=== PATIENT | female | born 1990 | race African-American/Black ===

== ENCOUNTER 2019-01-10 18:00 | Inpatient (IN) | payer OTHER ==
--- NOTE | 2019-01-10 18:05 | PDOC ---
Rapid Medical Evaluation Time Seen by Provider: 01/10/19 18:02 Medical Evaluation: 01/10/19 18:03 I have performed a brief in-person evaluation of this patient. The patient presents with a chief complaint of: intractable n/v and abd pain since last night. H/o IDDM, DKA, HTN, CHF Pertinent physical exam findings intractable vomiting in triage, stable by vitals I have ordered the following:labs/FS The patient will proceed to the ED for further evaluation. 01/10/19 18:12 Discharge Disposition - Diagnosis Nausea & vomiting Qualifiers: Vomiting type: unspecified Vomiting Intractability: intractable Qualified Code( s): R11.2 - Nausea with vomiting, unspecified - Referrals - Patient Instructions - Post Discharge Activity
[2019-01-10 18:08] VITALS: BMI 36.0
--- NOTE | 2019-01-10 18:46 | PDOC ---
History of Present Illness - General Chief Complaint: Nausea/Vomiting Stated Complaint: ABD.PAIN/ VOMITING Time Seen by Provider: 01/10/19 18:02 - History of Present Illness Initial Comments: 01/10/19 18:46 Ms. Ledbetter is a 28 yo female w/ pmh of IDDM, Prior DKA, HTN, CHF who presents for evaluation 1 day history of abdominal pain with nausea and vomiting. Patient reports she checked her blood glucose this morning and it read as over range. The patient denies chest pain, shortness of breath, headache and dizziness. Denies fever, chills, diarrhea and constipation. Denies dysuria, frequency, urgency and hematuria. Past History - Past Medical History Allergies/Adverse Reactions: Allergies Allergy/AdvReac Type Severity Reaction Status Date / Time No Known Allergies Allergy Verified 01/10/19 18:24 Home Medications: Ambulatory Orders NK [No Known Home Medication] 01/10/19 COPD: No CHF: Yes HTN: Yes - Immunization History Immunization Up to Date: Yes - Suicide/Smoking/Psychosocial Hx Smoking History: Never smoked Hx Alcohol Use: No Drug/Substance Use Hx: No Review of Systems - Review of Systems Comments:: 01/10/19 22:00 GENERAL/CONSTITUTIONAL: No fever or chills. No weakness. HEAD, EYES, EARS, NOSE AND THROAT: No change in vision. No ear pain or discharge. No sore throat. CARDIOVASCULAR: No chest pain or shortness of breath RESPIRATORY: No cough, wheezing, or hemoptysis. GASTROINTESTINAL: +N/V/Abdominal pain as described. GENITOURINARY: No dysuria, frequency, or change in urination. MUSCULOSKELETAL: No joint or muscle swelling or pain. No neck or back pain. SKIN: No rash NEUROLOGIC: No headache, vertigo, loss of consciousness, or change in strength/ sensation. ENDOCRINE: No increased thirst. No abnormal weight change HEMATOLOGIC/LYMPHATIC: No anemia, easy bleeding, or history of blood clots. ALLERGIC/IMMUNOLOGIC: No hives or skin allergy. *Physical Exam - Vital Signs Last Vital Signs Temp Pulse Resp BP Pulse Ox 76 18 148/90 100 01/10/19 18:04 01/10/19 18:04 01/10/19 18:04 01/10/19 18:04 - Physical Exam Comments: 01/10/19 22:01 GENERAL: +Patient lethargic but responsive. Awake, alert, and fully oriented, in no acute distress HEAD: No signs of trauma, normocephalic, atraumatic EYES: PERRLA, EOMI, sclera anicteric, conjunctiva clear ENT: Auricles normal inspection, hearing grossly normal, nares patent, oropharynx clear without exudates. Moist mucosa NECK: Normal ROM, supple, no lymphadenopathy, JVD, or masses LUNGS: No distress, speaks full sentences, clear to auscultation bilaterally HEART: Regular rate and rhythm, normal S1 and S2, no murmurs, rubs or gallops, peripheral pulses normal and equal bilaterally. ABDOMEN: +Diffuse abdominal TTP. Soft, normoactive bowel sounds. No guarding, no rebound. No masses EXTREMITIES: Normal inspection, Normal range of motion, no edema. No clubbing or cyanosis. NEUROLOGICAL: Cranial nerves II through XII grossly intact. Normal speech, normal gait, no focal sensorimotor deficits SKIN: Warm, Dry, normal turgor, no rashes or lesions noted. Procedures - Central Line Central Line Lumen: triple Central Line Position: femoral (L) Anesthesia: 1% Lidocaine Amount of anesthesia (ccs): 2 Complications: none Post Central Line Insertion: sutured, good blood return ED Treatment Course - LABORATORY CBC & Chemistry Diagram: 01/10/19 22:01 01/11/19 00:15 Medical Decision Making - Medical Decision Making 01/10/19 22:02 Ms. Ledbetter is a 28 yo female w/ pmh as described who presents for evaluation of nausea, vomiting, and abdominal pain concerning for viral illness vs. infection vs. DKA. Patient bgm upon arrival over 500. Patient had repeated attempts at access without success 2/2 difficult anatomy and severe dehydration. Patient given SQ insulin 10 units as temporizing measure. Patient ultimately required and consented to central line. Central line placed in L femoral vein per note above. 01/11/19 00:49 Patient significantly improved following IV fluids and insulin. Patient placed on insulin drip and ICU/hospitalist consulted for admission. 01/11/19 01:21 Patient now alert and oriented. Most recent BMP significant for closure of gap as below. Insulin drip canceled. Patient will be admitted for further evaluation. Laboratory Results - last 24 hr 01/10/19 01/10/19 01/10/19 18:53 22:01 22:01 WBC 6.7 RBC 4.65 Hgb 11.1 Hct 37.2 MCV 79.9 L MCH 23.9 L MCHC 29.9 L RDW 18.0 H Plt Count 311 MPV 10.1 Absolute Neuts (auto) 6.2 Neutrophils % 92.0 H Neutrophils % (Manual) 92.9 H Band Neutrophils % 0.0 Lymphocytes % 5.4 L Lymphocytes % (Manual) 6.1 L Monocytes % 2.1 L Monocytes % (Manual) 0 L Eosinophils % 0.1 Eosinophils % (Manual) 1.0 Basophils % 0.4 Basophils % (Manual) 0.0 Myelocytes % (Man) 0 Promyelocytes % (Man) 0 Blast Cells % (Manual) 0 Nucleated RBC % 0 Metamyelocytes 0 Hypochromia 0 Platelet Estimate Normal Polychromasia 0 Poikilocytosis 3+ Anisocytosis 2+ Microcytosis 2+ Macrocytosis 0 Ovalocytes 1+ VBG pH POC VBG pCO2 POC VBG pO2 VBG HCO3 VBG O2 Sat (Erica) VBG Base Excess Sodium 135 L Potassium 4.8 Chloride 97 L Carbon Dioxide 20 L Anion Gap 19 H BUN 17 Creatinine 1.4 H Est GFR (CKD-EPI)AfAm 59.95 Est GFR (CKD-EPI)NonAf 51.73 POC Glucometer 545 Random Glucose 530 H* Calcium 8.4 L Total Bilirubin 1.0 AST 22 ALT 14 Alkaline Phosphatase 84 Creatine Kinase 232 H Creatine Kinase Index 0.9 CK-MB (CK-2) 2.1 Troponin I 0.42 H B-Natriuretic Peptide Total Protein 6.1 L Albumin 2.3 L Lipase 101 Serum , Qual Urine HCG, Qual Acetone, Qual 01/10/19 01/10/19 01/10/19 22:01 22:01 22:09 WBC RBC Hgb Hct MCV MCH MCHC RDW Plt Count MPV Absolute Neuts (auto) Neutrophils % Neutrophils % (Manual) Band Neutrophils % Lymphocytes % Lymphocytes % (Manual) Monocytes % Monocytes % (Manual) Eosinophils % Eosinophils % (Manual) Basophils % Basophils % (Manual) Myelocytes % (Man) Promyelocytes % (Man) Blast Cells % (Manual) Nucleated RBC % Metamyelocytes Hypochromia Platelet Estimate Polychromasia Poikilocytosis Anisocytosis Microcytosis Macrocytosis Ovalocytes VBG pH Cancelled POC VBG pCO2 Cancelled POC VBG pO2 Cancelled VBG HCO3 Cancelled VBG O2 Sat (Erica) Cancelled VBG Base Excess Cancelled Sodium Potassium Chloride Carbon Dioxide Anion Gap BUN Creatinine Est GFR (CKD-EPI)AfAm Est GFR (CKD-EPI)NonAf POC Glucometer Random Glucose Calcium Total Bilirubin AST ALT Alkaline Phosphatase Creatine Kinase Creatine Kinase Index CK-MB (CK-2) Troponin I B-Natriuretic Peptide Total Protein Albumin Lipase Serum , Qual Negative Urine HCG, Qual Acetone, Qual Positive large 3+ H 01/10/19 01/10/19 01/11/19 23:28 23:40 00:03 WBC RBC Hgb Hct MCV MCH MCHC RDW Plt Count MPV Absolute Neuts (auto) Neutrophils % Neutrophils % (Manual) Band Neutrophils % Lymphocytes % Lymphocytes % (Manual) Monocytes % Monocytes % (Manual) Eosinophils % Eosinophils % (Manual) Basophils % Basophils % (Manual) Myelocytes % (Man) Promyelocytes % (Man) Blast Cells % (Manual) Nucleated RBC % Metamyelocytes Hypochromia Platelet Estimate Polychromasia Poikilocytosis Anisocytosis Microcytosis Macrocytosis Ovalocytes VBG pH 7.38 POC VBG pCO2 36.3 L POC VBG pO2 52.1 H VBG HCO3 21.3 L VBG O2 Sat (Erica) 82.8 H VBG Base Excess -2.7 L Sodium Potassium Chloride Carbon Dioxide Anion Gap BUN Creatinine Est GFR (CKD-EPI)AfAm Est GFR (CKD-EPI)NonAf POC Glucometer 288 Random Glucose Calcium Total Bilirubin AST ALT Alkaline Phosphatase Creatine Kinase Creatine Kinase Index CK-MB (CK-2) Troponin I B-Natriuretic Peptide 26875.9 H Total Protein Albumin Lipase Serum , Qual Urine HCG, Qual Acetone, Qual 01/11/19 01/11/19 01/11/19 00:06 00:15 00:50 WBC RBC Hgb Hct MCV MCH MCHC RDW Plt Count MPV Absolute Neuts (auto) Neutrophils % Neutrophils % (Manual) Band Neutrophils % Lymphocytes % Lymphocytes % (Manual) Monocytes % Monocytes % (Manual) Eosinophils % Eosinophils % (Manual) Basophils % Basophils % (Manual) Myelocytes % (Man) Promyelocytes % (Man) Blast Cells % (Manual) Nucleated RBC % Metamyelocytes Hypochromia Platelet Estimate Polychromasia Poikilocytosis Anisocytosis Microcytosis Macrocytosis Ovalocytes VBG pH POC VBG pCO2 POC VBG pO2 VBG HCO3 VBG O2 Sat (Erica) VBG Base Excess Sodium 137 Potassium 4.1 Chloride 103 Carbon Dioxide 22 Anion Gap 12 BUN 16 Creatinine 1.5 H Est GFR (CKD-EPI)AfAm 55.15 Est GFR (CKD-EPI)NonAf 47.59 POC Glucometer 349 Random Glucose Calcium 8.5 Total Bilirubin AST ALT Alkaline Phosphatase Creatine Kinase 237 H Creatine Kinase Index CK-MB (CK-2) Troponin I 0.37 H B-Natriuretic Peptide Total Protein Albumin Lipase Serum , Qual Urine HCG, Qual Negative Acetone, Qual *DC/Admit/Observation/Transfer Diagnosis at time of Disposition: DKA (diabetic ketoacidoses) Qualifiers: Diabetes mellitus type: other specified (including SUMMER) Diabetes mellitus complication detail: without coma Qualified Code(s): E13.10 - Other specified diabetes mellitus with ketoacidosis without coma - Discharge Dispostion Decision to Admit order: Yes - Referrals - Patient Instructions - Post Discharge Activity
[2019-01-10] MEDS ORDERED: SODIUM CHLORIDE 1,000 ML IV STA ×2 (18:54→22:48)
[2019-01-10] MEDS ORDERED: INSULIN REGULAR HUMAN 100 UNITS/ML *VIAL IVPUSH ONE (18:54)
[2019-01-10] MEDS ORDERED: INSULIN REGULAR HUMAN 100 UNITS/ML *VIAL ONE (18:58)
[2019-01-10] MEDS ORDERED: INSULIN REGULAR HUMAN 100 UNITS/ML *VIAL SQ ONE (19:55)
[2019-01-10] MEDS ORDERED: INSULIN (NOVOLOG) ASPART 100 UNITS/ML 10ML VIAL ONE (20:00)
[2019-01-10 22:54] LABS: ALBUMIN 2.3 g/dl (3.4-5.0); CALCIUM 8.4 mg/dL (8.5-10.1); CREATININE 1.4 mg/dL (0.55-1.3); POTASSIUM 4.8 mmol/L (3.5-5.1); TOT PROT 6.1 g/dl (6.4-8.2)
[2019-01-10] MEDS ORDERED: KETOROLAC TROMETHAMINE 30 MG/1 ML VIAL IVPUSH ONE (23:04)
[2019-01-10] MEDS ORDERED: INSULIN NPH 100 UNITS/ML *VIAL ONE (23:08)
[2019-01-10] MEDS ORDERED: KETOROLAC TROMETHAMINE 30 MG/1 ML VIAL ONE (23:08)
[2019-01-10 23:52] LABS: BASO % 0.4 % (0-2.0); EOS % 0.1 % (0-4.5); HEMATOCRIT 37.2 % (32.4-45.2); HEMOGLOBIN 11.1 GM/dL (10.7-15.3); LYMPH % 5.4 % (8-40); MCH 23.9 pg (25.7-33.7); MCHC 29.9 g/dl (32.0-36.0); MEAN CELL VOLUME 79.9 fl (80-96); MEAN PLT VOLUME 10.1 fl (7.5-11.1); MONO % 2.1 % (3.8-10.2); PLATELET COUNT 311 K/MM3 (134-434); RBC 4.65 M/mm3 (3.60-5.2); WHITE BLOOD COUNT 6.7 K/mm3 (4.0-10.0)
[2019-01-10 23:53] LABS: VENOUS PC02 36.3 mmHg (41-51); VENOUS PH 7.38 (7.31-7.41); VENOUS PO2 52.1 mmHg (30-40)
[2019-01-11] MEDS ORDERED: ONDANSETRON 4 MG/2 ML VIAL IVPUSH ONE (00:01)
[2019-01-11] MEDS ORDERED: SODIUM CHLORIDE 1,000 ML IV STA (00:06)
[2019-01-11] MEDS ORDERED: INSULIN REGULAR 100 UNITS in SODIUM CHLORIDE 99 ML IVPB SCH (00:15)
[2019-01-11 00:59] LABS: ANISOCYTOSIS 2+; MACROCYTOSIS 0; OVALOCYTE 1+; PLATELET ESTIMATE NORMAL
--- NOTE | 2019-01-11 01:04 | PN ---
Teaching Attending Note Name of Resident: Lucretia Rmaon ATTENDING PHYSICIAN STATEMENT I saw and evaluated the patient. I reviewed the resident's note and discussed the case with the resident. I agree with the resident's findings and plan as documented. SUBJECTIVE: Patient is a 28 year old woman with a PMH of IDDM, cocaine abuse, Prior DKA, HTN , and CHF who presents to our ER with 1 day of persistent nausea and vomiting. The patient states she has been having abdominal pain with lethargy secondary to her symptoms. The patient has insulin-dependent diabetes and had a glucose above 500 (checked this morning). The patient denies chest pain, shortness of breath, dizziness, fever, chills, diarrhea, constipation, dysuria, frequency, urgency or hematuria. Patient is single, has a boyfriend and lives with her 7 month old daughter and her sister. Her LMP was 3 weeks ago. Unemployed and on social security disability. She does not offer any reason for her global nonadherence to general care nor why she does not have a PCP/assistant office manager. Has reportedly had over 10 bouts of DKA in the past year. OBJECTIVE: Alert Vital Signs Period Temp Pulse Resp BP Sys/Marquis Pulse Ox Last 24 Hr 76 18 148/90 100 HEENT: No Jaundice, eye redness or discharge, PERRLA, EOMI. Normocephalic, atraumatic. External ears are normal and hearing is grossly intact. No nasal discharge. Neck: Supple, nontender. No palpable adenopathy or thyromegaly. No JVD Chest: Good effort. Clear to auscultation and percussion. Heart: Regular. No S3, rub or murmur Abdomen: Not distended, soft, nontender and no HSM. No rebound or guarding. Normal bowel sounds. Ext: Peripheral pulses intact. No leg edema. Skin: Warm and dry. No petechiae, rash or ecchymosis. Neuro: Alert. Oriented x3. CN 2-12 grossly intact. Sensation grossly intact in all four extremities and DTR are symmetric. Psych: Appropriate mood and affect. Poor insight. Current Medications Generic Name Dose Route Start Last Admin Trade Name Freq PRN Reason Stop Dose Admin Insulin Human Regular 100 100 mls @ 9.52 mls/hr 01/11/19 00:15 units/ Sodium Chloride IVPB TITR ALISA Protocol 0.1 UNITS/KG/HR Sodium Chloride 1,000 mls @ 125 mls/hr 01/11/19 00:06 Normal Saline - IV 01/11/19 08:05 ASDIR STA Home Medications Medication Instructions Recorded NK [No Known Home Medication] 01/10/19 Abnormal Lab Results 01/10/19 01/10/19 01/10/19 22:01 22:01 22:01 MCV 79.9 L MCH 23.9 L MCHC 29.9 L RDW 18.0 H Neutrophils % 92.0 H Neutrophils % (Manual) 92.9 H Lymphocytes % 5.4 L Lymphocytes % (Manual) 6.1 L Monocytes % 2.1 L Monocytes % (Manual) 0 L POC VBG pCO2 POC VBG pO2 VBG HCO3 VBG O2 Sat (Erica) VBG Base Excess Sodium 135 L Chloride 97 L Carbon Dioxide 20 L Anion Gap 19 H Creatinine 1.4 H Random Glucose 530 H* Calcium 8.4 L Creatine Kinase 232 H Troponin I 0.42 H B-Natriuretic Peptide Total Protein 6.1 L Albumin 2.3 L Acetone, Qual Positive large 3+ H 01/10/19 01/10/19 01/11/19 23:28 23:40 00:15 MCV MCH MCHC RDW Neutrophils % Neutrophils % (Manual) Lymphocytes % Lymphocytes % (Manual) Monocytes % Monocytes % (Manual) POC VBG pCO2 36.3 L POC VBG pO2 52.1 H VBG HCO3 21.3 L VBG O2 Sat (Erica) 82.8 H VBG Base Excess -2.7 L Sodium Chloride Carbon Dioxide Anion Gap Creatinine 1.5 H Random Glucose Calcium Creatine Kinase 237 H Troponin I 0.37 H B-Natriuretic Peptide 29097.9 H Total Protein Albumin Acetone, Qual ASSESSMENT AND PLAN: 1. Diabetic ketoacidosis - No obvious precipitating factor besides nonadherence to treatment/diabetes care. Will treat her in the ICU with IV insulin drip, judicious IV fluids in view of CHF history, IV KCL and monitor BMP in accordance with the DKA guidelines. Get ECHO to confirm CHF. Provide comprehensive diabetes care with patient teaching and counseling about the importance of adherence to prescribed diabetes regimen, euglycemia, eye care and foot care. Troponin is elevated and EKG shows sinus tachycardia with T wave inversion in V1 -6. Though her toponin elevation may have a a benign explanation, will rule out ACS especially in view of history of cocaine use. Get urine toxicology. No acute pathology on CXR. Most important, the issue of nonadherence to care will be addressed. Patient appears to have an underlying "psychaitric illness" and will benefit from psychiatry and privacy specialist evaluation. Consult social media campaign manager for referral to [facility] and help set her up with a PCP. Consult endocrine. 2. CKD? - May already have early diabetic nephropathy or idopathic nephrosis. Gentle hydration. Consult nephrology and avoid nephrotoxic agents such as NSAIDS , aminoglycosides, contrast dyes and certain Alternative medicine products. 3. Obesity Counseled on the risks associated with obesity. Will provide patient all the necessary assistance, counseling and positive reinforcement to facilitate weight loss. Consult release manager. 4. Hypertension - Restart outpatient antihypertensive drugs once we can obtain the list. Revise regimen to ensure smooth [id number] good BP control and that she is on an ARB or ACEI. Nonpharmacologic measures to control hypertension like weight loss, salt restriction and exercise discussed. 5. DVT prophylaxis - Heparin 5000u sq tid. 6. Advance directives - Full code
[2019-01-11 01:05] LABS: CALCIUM 8.5 mg/dL (8.5-10.1); CREATININE 1.5 mg/dL (0.55-1.3); POTASSIUM 4.1 mmol/L (3.5-5.1)
[2019-01-11 01:14] LABS: HCG,QUALITATIVE URINE Negative
[2019-01-11 01:18] LABS: EPI CELLS 2.9 /HPF (0-5/HPF); HYALINE CASTS 4 /lpf (0-8); PH,URINE 5.5 (5.0-8.0); URINE APPEARANCE CLEAR; URINE BACTERIA 45.4 /hpf (NEGATIVE); URINE BILIRUBIN NEGATIVE (NEGATIVE); URINE COLOR YELLOW; URINE GLUCOSE (UA) 3+ (NEGATIVE); URINE KETONE 4+ (NEGATIVE); URINE LEUK ESTERASE NEGATIVE (NEGATIVE); URINE NITRITE NEGATIVE (NEGATIVE); URINE PROTEIN 3+ (NEGATIVE); URINE RBC 5 /hpf (0-4); URINE UROBILINOGEN 0.2 mg/dL (0.2-1.0); URINE WBC 3 /hpf (0-5)
[2019-01-11] MEDS ORDERED: ONDANSETRON 4 MG/2 ML VIAL ONE (01:20)
--- NOTE | 2019-01-11 01:27 | PDOC ---
Documentation entered by Warren Pena SCRIBE, acting as scribe for Stephanie Sosa MD. Stephanie Sosa MD: This documentation has been prepared by the Jean garcia Xhesika, SCRIBE, under my direction and personally reviewed by me in its entirety. I confirm that the documentation accurately reflects all work, treatment, procedures, and medical decision making performed by me. Attending Attestation - Resident Resident Name: Sarkis Demarco - ED Attending Attestation I have performed the following: I have examined & evaluated the patient, The case was reviewed & discussed with the resident, I agree w/resident's findings & plan, Exceptions are as noted - HPI HPI: 01/10/19 21:58 28-year-old female who is noted to a facility presents with persistent nausea and vomiting. She reports that this started last evening. He is an insulin- dependent diabetic and presents with vomiting, increased lethargy and a glucose above 500 01/10/19 22:14 The patient is a 28 year old female with a significant past medical history of IDDM, Prior DKA, HTN, and CHF who presents to our ED with 1 day of persistent nausea and vomiting. The patient states she has been endorsing abdominal pain and lethargy, secondary to her symptoms. The patient is an insulin-dependent diabetic and had a glucose above 500 (checked this morning). The patient denies chest pain, shortness of breath or dizziness. The patient denies fever, chills, diarrhea or constipation. The patient denies dysuria, frequency, urgency or hematuria. Allergy: NKDA Surgical History: None reported Social History: None reported - Physicial Exam PE: 01/10/19 22:46 Somnolent 28 yo female who reports nausea and vomiting head ncat Dry mucus membranes neck supple lungs cta b/l cvs [id number] abd soft ext no edema skin warm and dry neuro somnolent - Medical Decision Making 01/11/19 01:10 after several attempts ate peripheral line, a central line was placed pt given insulin,IVF( pt has history of chf, so careful use of IVF) 01/11/19 01:26 +3 acetone imp DKA , pt admitted
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
[2019-01-11] MEDS ORDERED: LACTATED RINGERS SOLUTION 1,000 ML/1,000 ML INFUS.BAG IV SCH (02:30)
[2019-01-11 05:17] LABS: COCAINE, UR NEGATIVE ng/ml (CUTOFF=300); METHADONE, UR NEGATIVE ng/ml (CUTOFF=300); OPIATES, URI NEGATIVE ng/ml (CUTOFF=300); PHENCYCLIDINE,URINE NEGATIVE ng/ml (CUTOFF=25); URINE AMPHETAMINES NEGATIVE ng/ml (CUTOFF=500); URINE BARBITURATES NEGATIVE ng/ml (CUTOFF=200); URINE BENZODIAZEPINES NEGATIVE ng/ml (CUTOFF=200)
[2019-01-11 05:24] LABS: BASO % 0.5 % (0-2.0); EOS % 0.1 % (0-4.5); HEMATOCRIT 32.9 % (32.4-45.2); HEMOGLOBIN 10.2 GM/dL (10.7-15.3); LYMPH % 12.1 % (8-40); MCH 24.3 pg (25.7-33.7); MCHC 31.1 g/dl (32.0-36.0); MEAN CELL VOLUME 78.2 fl (80-96); MEAN PLT VOLUME 9.7 fl (7.5-11.1); MONO % 7.6 % (3.8-10.2); NEUT % 79.7 % (42.8-82.8); PLATELET COUNT 336 K/MM3 (134-434); RBC 4.21 M/mm3 (3.60-5.2); RDW 17.8 % (11.6-15.6); WHITE BLOOD COUNT 8.9 K/mm3 (4.0-10.0)
[2019-01-11] MEDS ORDERED: PROCHLORPERAZINE INJECTION 10 MG/2 ML VIAL IVPB ONE (05:58)
[2019-01-11] MEDS ORDERED: ACETAMINOPHEN 325 MG TABLET (FP) PO ONE (05:59)
[2019-01-11 06:00] LABS: ALBUMIN 2.2 g/dl (3.4-5.0); BILIRUBIN,TOTAL 0.6 mg/dL (0.2-1); CALCIUM 7.9 mg/dL (8.5-10.1); CREATININE 1.1 mg/dL (0.55-1.3); MAGNESIUM 1.9 mg/dL (1.8-2.4); PHOSPHOROUS 3.6 mg/dL (2.5-4.9); POTASSIUM 4.2 mmol/L (3.5-5.1); TOT PROT 5.5 g/dl (6.4-8.2)
[2019-01-11] MEDS ORDERED: ENALAPRIL MALEATE 5 MG TABLET (FP) PO ONE (06:05)
[2019-01-11] MEDS ORDERED: ACETAMINOPHEN 325 MG TABLET (FP) ONE (06:15)
[2019-01-11] MEDS ORDERED: HEPARIN NA (PORCINE) 5,000 UNITS/ML 1ML VIAL ONE (06:16)
[2019-01-11] MEDS ORDERED: INSULIN (NOVOLOG) ASPART 100 UNITS/ML 10ML VIAL ONE ×3 (06:17→17:26)
[2019-01-11] MEDS: HEPARIN NA (PORCINE) 5,000 UNITS/ML 1ML VIAL SQ SCH ×2 (06:23→16:59)
[2019-01-11] MEDS: INSULIN SLIDING SCALE (NOVOLOG) 1 VIAL SQ SCH ×5 (06:32→23:02)
[2019-01-11] MEDS ORDERED: SODIUM CHLORIDE 250 ML IV STA (06:42)
--- NOTE | 2019-01-11 08:24 | PN ---
Teaching Attending Note Name of Resident: Flaco Mercedes ATTENDING PHYSICIAN STATEMENT I saw and evaluated the patient. I reviewed the resident's note and discussed the case with the resident. I agree with the resident's findings and plan as documented. 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 non focal CBC, BMP 01/11/19 05:08 01/11/19 05:08 TROP I: .41, .37, .42 EK low voltage QS V-V3 T wave I a V456 ECHO; EF 35%, Pulmonary HTN, moderate pericardial effusion, no RV collapse, but MV flow change with respiration suggestive of tamponade pysiology Active Medications Active Medications Chlorhexidine Gluconate (Hibiclens For Decolonization -) 1 applic TP HS [facility] Citalopram Hydrobromide (Celexa -) 20 mg PO DAILY [facility] Enalapril Maleate (Vasotec -) 5 mg PO DAILY [facility] Furosemide (Lasix Injection -) 40 mg IVPUSH DAILY [facility] Last Admin: 01/11/19 17:24 Dose: 40 mg Famotidine/Sodium Chloride (Pepcid 20 Mg Premixed Ivpb -) 20 mg in 50 mls @ 100 mls/hr IVPB BID [facility] Insulin Aspart (Novolog Vial Sliding Scale -) 1 vial SQ ACHS [facility]; Protocol Last Admin: 01/11/19 17:23 Dose: 4 unit Insulin Detemir (Levemir Vial) 28 units SQ HS ALISA Insulin Detemir (Levemir Vial) 18 units SQ ONCE ONE Stop: 01/11/19 22:01 Mupirocin (Bactroban Ointment (For Decolonization) -) 1 applic NS BID [facility] Stop: 01/16/19 09:59 Ondansetron HCl (Zofran Injection) 4 mg IVPUSH Q6H PRN PRN Reason: NAUSEA ASSESSMENT AND PLAN:Patient is a 28 yrs old F non compliant, homeless, active cocaine abuse, F/U mostly at [facility] poor historian [id number] since the age of 7, HTN, episodes of DKA with cocaine abuse, CHF diagnosed in Jul 2018 ws told that iit will improve with time yesterday admitted with presents for abdominal pain, nausea, and vomiting with dehydration, elevated AG, Acetone in te urine low Bicarb RPG > 500 consistent DKA although PH was 7.39, ECHO shows low EF and Pericardial effusion.. Problem List - Problems (1) DKA (diabetic ketoacidoses) Assessment/Plan: Patient present with DKA with aniongap that close with IV Hydration and Insulin Injection, now no nausea or vomiting, tolerating PO, lipase normal Start wt based Basal bolus insulin Levimir 25 units bed time today received 10 units in am due for 18 in PM accucheck, diabetic Diet, no infectious source , U Tox -ve will F/U BMP HBA1C is 10.3 Code(s): E11.10 - TYPE 2 DIABETES MELLITUS WITH KETOACIDOSIS WITHOUT COMA Qualifiers: Diabetes mellitus type: other specified (including SUMMER) Diabetes mellitus complication detail: without coma Qualified Code(s): E13.10 - Other specified diabetes mellitus with ketoacidosis without coma (2) Heart failure, systolic, with acute decompensation Assessment/Plan: low Ef unsure if cocaine induced or post , resume enarlapril , Lasix 40 mg sissy Defer B Blockers need official cardiology consult Code(s): I50.23 - ACUTE ON CHRONIC SYSTOLIC (CONGESTIVE) HEART FAILURE (3) Pericardial effusion Assessment/Plan: un known etiology f/u TSH ESR, CRP and NATALEE, hold SQ Heparin, possibly myopericardiatis as patient has elevated troponin I, ECHO shows moderate effusiin with ? Tamponade Physiology but patient is comfortabe, good pulse pressure no facial congestion , no orthopnea, heart sounds are well audiable will F/U clinically and cardiology input. Code(s): I31.3 - PERICARDIAL EFFUSION (NONINFLAMMATORY) (4) SHANE (acute kidney injury) Assessment/Plan: Improved after Hydration Code(s): N17.9 - ACUTE KIDNEY FAILURE, UNSPECIFIED (5) Elevated troponin I level Assessment/Plan: Flat with pericardial effusion, less likely ischemic either cocaine induced or myopericardiatis needs oficial cardiology consult, observe closely for decompensation. Code(s): R74.8 - ABNORMAL LEVELS OF OTHER SERUM ENZYMES
[2019-01-11] MEDS ORDERED: INSULIN (LEVEMIR) 100 UNITS/ML UNITS SQ ONE ×3 (08:27→22:00)
[2019-01-11] MEDS ORDERED: MUPIROCIN 2% TOPICAL OINTMENT FOR DECOLONIZATION NS SCH (10:00)
--- NOTE | 2019-01-11 10:50 | ECHO ---
Version: 1 Name: SAM EAGLE Exam: Adult Echocardiogram Study Date: 01/11/2019, 9:02 AM Age: 28 Years MMode/2D Measurements & Calculations IVSd: 0.97 cm LVIDs: 5.3 cm LVIDd: 6.6 cm LVPWd: 1.00 cm LVOT diam: 1.96 cm Ao root diam: 2.6 cm LA dimension: 4.3 cm Doppler Measurements & Calculations MV E max jarret: 115.5 cm/sec Med E/e': 14.7 MV A max jarret: 70.1 cm/sec Med Peak E' Jarret: 7.9 cm/sec MV E/A: 1.65 MR max P.5 mmHg Ao max P.7 mmHg RAFAEL(I,D): 1.67 cm Ao mean P.8 mmHg LV V1 mean: 85.3 cm/sec Ao V2 max: 216.0 cm/sec LV V1 mean P.6 mmHg TR max jarret: 299.1 cm/sec TR max P.8 mmHg Left Ventricle Mild LV Dilation with a moderate decrease in LV function. Abnormal diastolic relaxation. Right Ventricle The right ventricle is normal in size and function. Atria The left atrium is mildly dilated. Mitral Valve The mitral valve is grossly normal. There is moderate to severe mitral regurgitation. Tricuspid Valve The tricuspid valve is not well visualized, but is grossly normal. There is mild to moderate tricusp id regurgitation. Aortic Valve Calcified aortic valve with mild aortic stenosis. Max PG 19 mmHg, mean PG 11 mmHg. The RAFAEL is 1.74 c m. Pulmonic Valve The pulmonic valve is not well seen, but is grossly normal. Great Vessels The aortic root is normal size. Pericardium/Pleura There is at least a moderate pericardial effusion. There is no RV diastolic collapse, however there is respiratory variation of the mitral valve inflow Doppler pattern consistent with tamponade physiolog y. Summary Statements Mild LV Dilation with a moderate decrease in LV function. There is moderate to severe mitral regurgitation. There is mild to moderate tricuspid regurgitation. Calcified aortic valve with mild aortic stenosis. Max PG 19 mmHg, mean PG 11 mmHg. The RAFAEL is 1.74 c m. There is at least a moderate pericardial effusion. There is no RV diastolic collapse, however there is respiratory variation of the mitral valve inflow Doppler pattern consistent with tamponade physiolog y. EF 37% PASP 38 -43 mmHg consistent with mild to modereate pulmonary HTN. MD Ronak Lopez 01/11/2019, 9:50 AM Ordering Physician: MARY HERNANDEZ Referring Physician: ABHINAV LEON Performed By: Aurelia Alexander
--- NOTE | 2019-01-11 12:07 | EKG ---
Test Reason : Blood Pressure : / mmHG Vent. Rate : 106 BPM Atrial Rate : 106 BPM P-R Int : 130 ms QRS Dur : 082 ms QT Int : 370 ms P-R-T Axes : 066 040 -45 degrees QTc Int : 491 ms SINUS TACHYCARDIA WITH FREQUENT PREMATURE VENTRICULAR COMPLEXES LEFT ATRIAL ENLARGEMENT LOW VOLTAGE QRS CANNOT RULE OUT ANTERIOR INFARCT , AGE UNDETERMINED T WAVE ABNORMALITY, CONSIDER LATERAL ISCHEMIA ABNORMAL ECG NO PREVIOUS ECGS AVAILABLE Confirmed by MD John, Ronak ([id number]) on 01/11/2019 12:07:14 PM Referred By: Confirmed By:Ronak Lopez MD
--- NOTE | 2019-01-11 13:18 | PN ---
Physical Exam: SUBJECTIVE: Patient seen and examined. Pt. states that she feels good. She states she was throwing up earlier w/ associated abdominal pain but feels better. Pt. states that she is not compliant with her medications but that when she last checked her Glucose it was "off the charts." Pt. states that she lives in a [place] and that her daughter (born last eb) is taken care of by her sister. Pt. states that she was at [facility] last week for dehydration and had to receive "lots of insulin." Pt. states she was diagnosed with Diabetes at [facility]. OBJECTIVE: Vital Signs Period Temp Pulse Resp BP Sys/Marquis Pulse Ox Last 24 Hr 98.3 F-98.9 F 72-106 16-20 117-160/78-90 98-100 GENERAL: The patient is drowsy, in no acute distress. HEAD: Normal with no signs of trauma. EYES: extraocular movements intact, sclera anicteric, conjunctiva clear. ENT: Ears normal, nares patent, oropharynx clear without exudates, Dry mucous membranes. LUNGS: Breath sounds equal, clear to auscultation bilaterally, no wheezes, no crackles, no accessory muscle use. HEART: distant heart sounds, regular rate and rhythm, S1, S2 without murmur ABDOMEN: Soft, mild epigastric tenderness, nondistended, normoactive bowel sounds, no guarding, no rebound EXTREMITIES: 2+ dorsal pedal pulses, warm, well-perfused, no edema. NEUROLOGICAL: Normal speech, gait not observed. PSYCH: Normal mood, normal affect. SKIN: Warm, dry, normal turgor, no rashes or lesions noted Laboratory Results - last 24 hr 01/10/19 01/10/19 01/10/19 18:53 22:01 22:01 WBC 6.7 RBC 4.65 Hgb 11.1 Hct 37.2 MCV 79.9 L MCH 23.9 L MCHC 29.9 L RDW 18.0 H Plt Count 311 MPV 10.1 Absolute Neuts (auto) 6.2 Neutrophils % 92.0 H Neutrophils % (Manual) 92.9 H Band Neutrophils % 0.0 Lymphocytes % 5.4 L Lymphocytes % (Manual) 6.1 L Monocytes % 2.1 L Monocytes % (Manual) 0 L Eosinophils % 0.1 Eosinophils % (Manual) 1.0 Basophils % 0.4 Basophils % (Manual) 0.0 Myelocytes % (Man) 0 Promyelocytes % (Man) 0 Blast Cells % (Manual) 0 Nucleated RBC % 0 Metamyelocytes 0 Hypochromia 0 Platelet Estimate Normal Polychromasia 0 Poikilocytosis 3+ Anisocytosis 2+ Microcytosis 2+ Macrocytosis 0 Ovalocytes 1+ VBG pH POC VBG pCO2 POC VBG pO2 VBG HCO3 VBG O2 Sat (Erica) VBG Base Excess Sodium 135 L Potassium 4.8 Chloride 97 L Carbon Dioxide 20 L Anion Gap 19 H BUN 17 Creatinine 1.4 H Est GFR (CKD-EPI)AfAm 59.95 Est GFR (CKD-EPI)NonAf 51.73 POC Glucometer 545 Random Glucose 530 H* Hemoglobin A1c % Lactic Acid Calcium 8.4 L Phosphorus Magnesium Total Bilirubin 1.0 AST 22 ALT 14 Alkaline Phosphatase 84 Creatine Kinase 232 H Creatine Kinase Index 0.9 CK-MB (CK-2) 2.1 Troponin I 0.42 H B-Natriuretic Peptide Total Protein 6.1 L Albumin 2.3 L Lipase 101 Serum , Qual Urine Color Urine Appearance Urine pH Ur Specific Pender Urine Protein Urine Glucose (UA) Urine Ketones Urine Blood Urine Nitrite Urine Bilirubin Urine Urobilinogen Ur Leukocyte Esterase Urine WBC (Auto) Urine RBC (Auto) Urine Casts (Auto) U Epithel Cells (Auto) Urine Bacteria (Auto) Urine HCG, Qual Opiates Screen Methadone Screen Barbiturate Screen Phencyclidine Screen Ur Amphetamines Screen MDMA (Ecstasy) Screen Benzodiazepines Screen Cocaine Screen U Marijuana (THC) Screen Acetone, Qual 01/10/19 01/10/19 01/10/19 22:01 22:01 22:09 WBC RBC Hgb Hct MCV MCH MCHC RDW Plt Count MPV Absolute Neuts (auto) Neutrophils % Neutrophils % (Manual) Band Neutrophils % Lymphocytes % Lymphocytes % (Manual) Monocytes % Monocytes % (Manual) Eosinophils % Eosinophils % (Manual) Basophils % Basophils % (Manual) Myelocytes % (Man) Promyelocytes % (Man) Blast Cells % (Manual) Nucleated RBC % Metamyelocytes Hypochromia Platelet Estimate Polychromasia Poikilocytosis Anisocytosis Microcytosis Macrocytosis Ovalocytes VBG pH Cancelled POC VBG pCO2 Cancelled POC VBG pO2 Cancelled VBG HCO3 Cancelled VBG O2 Sat (Erica) Cancelled VBG Base Excess Cancelled Sodium Potassium Chloride Carbon Dioxide Anion Gap BUN Creatinine Est GFR (CKD-EPI)AfAm Est GFR (CKD-EPI)NonAf POC Glucometer Random Glucose Hemoglobin A1c % Lactic Acid Calcium Phosphorus Magnesium Total Bilirubin AST ALT Alkaline Phosphatase Creatine Kinase Creatine Kinase Index CK-MB (CK-2) Troponin I B-Natriuretic Peptide Total Protein Albumin Lipase Serum , Qual Negative Urine Color Urine Appearance Urine pH Ur Specific Pender Urine Protein Urine Glucose (UA) Urine Ketones Urine Blood Urine Nitrite Urine Bilirubin Urine Urobilinogen Ur Leukocyte Esterase Urine WBC (Auto) Urine RBC (Auto) Urine Casts (Auto) U Epithel Cells (Auto) Urine Bacteria (Auto) Urine HCG, Qual Opiates Screen Methadone Screen Barbiturate Screen Phencyclidine Screen Ur Amphetamines Screen MDMA (Ecstasy) Screen Benzodiazepines Screen Cocaine Screen U Marijuana (THC) Screen Acetone, Qual Positive large 3+ H 01/10/19 01/10/19 01/11/19 23:28 23:40 00:03 WBC RBC Hgb Hct MCV MCH MCHC RDW Plt Count MPV Absolute Neuts (auto) Neutrophils % Neutrophils % (Manual) Band Neutrophils % Lymphocytes % Lymphocytes % (Manual) Monocytes % Monocytes % (Manual) Eosinophils % Eosinophils % (Manual) Basophils % Basophils % (Manual) Myelocytes % (Man) Promyelocytes % (Man) Blast Cells % (Manual) Nucleated RBC % Metamyelocytes Hypochromia Platelet Estimate Polychromasia Poikilocytosis Anisocytosis Microcytosis Macrocytosis Ovalocytes VBG pH 7.38 POC VBG pCO2 36.3 L POC VBG pO2 52.1 H VBG HCO3 21.3 L VBG O2 Sat (Erica) 82.8 H VBG Base Excess -2.7 L Sodium Potassium Chloride Carbon Dioxide Anion Gap BUN Creatinine Est GFR (CKD-EPI)AfAm Est GFR (CKD-EPI)NonAf POC Glucometer 288 Random Glucose Hemoglobin A1c % Lactic Acid Calcium Phosphorus Magnesium Total Bilirubin AST ALT Alkaline Phosphatase Creatine Kinase Creatine Kinase Index CK-MB (CK-2) Troponin I B-Natriuretic Peptide 70215.9 H Total Protein Albumin Lipase Serum , Qual Urine Color Urine Appearance Urine pH Ur Specific Pender Urine Protein Urine Glucose (UA) Urine Ketones Urine Blood Urine Nitrite Urine Bilirubin Urine Urobilinogen Ur Leukocyte Esterase Urine WBC (Auto) Urine RBC (Auto) Urine Casts (Auto) U Epithel Cells (Auto) Urine Bacteria (Auto) Urine HCG, Qual Opiates Screen Methadone Screen Barbiturate Screen Phencyclidine Screen Ur Amphetamines Screen MDMA (Ecstasy) Screen Benzodiazepines Screen Cocaine Screen U Marijuana (THC) Screen Acetone, Qual 01/11/19 01/11/19 01/11/19 00:06 00:15 00:50 WBC RBC Hgb Hct MCV MCH MCHC RDW Plt Count MPV Absolute Neuts (auto) Neutrophils % Neutrophils % (Manual) Band Neutrophils % Lymphocytes % Lymphocytes % (Manual) Monocytes % Monocytes % (Manual) Eosinophils % Eosinophils % (Manual) Basophils % Basophils % (Manual) Myelocytes % (Man) Promyelocytes % (Man) Blast Cells % (Manual) Nucleated RBC % Metamyelocytes Hypochromia Platelet Estimate Polychromasia Poikilocytosis Anisocytosis Microcytosis Macrocytosis Ovalocytes VBG pH POC VBG pCO2 POC VBG pO2 VBG HCO3 VBG O2 Sat (Erica) VBG Base Excess Sodium 137 Potassium 4.1 Chloride 103 Carbon Dioxide 22 Anion Gap 12 BUN 16 Creatinine 1.5 H Est GFR (CKD-EPI)AfAm 55.15 Est GFR (CKD-EPI)NonAf 47.59 POC Glucometer 349 Random Glucose 310 H* Hemoglobin A1c % Lactic Acid Calcium 8.5 Phosphorus Magnesium Total Bilirubin AST ALT Alkaline Phosphatase Creatine Kinase 237 H Creatine Kinase Index 0.9 CK-MB (CK-2) 2.2 Troponin I 0.37 H B-Natriuretic Peptide Total Protein Albumin Lipase Serum , Qual Urine Color Yellow Urine Appearance Clear Urine pH 5.5 Ur Specific Pender 1.028 Urine Protein 3+ H Urine Glucose (UA) 3+ H Urine Ketones 4+ H Urine Blood 2+ H Urine Nitrite Negative Urine Bilirubin Negative Urine Urobilinogen 0.2 Ur Leukocyte Esterase Negative Urine WBC (Auto) 3 Urine RBC (Auto) 5 Urine Casts (Auto) 4 U Epithel Cells (Auto) 2.9 Urine Bacteria (Auto) 45.4 Urine HCG, Qual Negative Opiates Screen Methadone Screen Barbiturate Screen Phencyclidine Screen Ur Amphetamines Screen MDMA (Ecstasy) Screen Benzodiazepines Screen Cocaine Screen U Marijuana (THC) Screen Acetone, Qual 01/11/19 01/11/19 01/11/19 03:07 04:48 05:08 WBC RBC Hgb Hct MCV MCH MCHC RDW Plt Count MPV Absolute Neuts (auto) Neutrophils % Neutrophils % (Manual) Band Neutrophils % Lymphocytes % Lymphocytes % (Manual) Monocytes % Monocytes % (Manual) Eosinophils % Eosinophils % (Manual) Basophils % Basophils % (Manual) Myelocytes % (Man) Promyelocytes % (Man) Blast Cells % (Manual) Nucleated RBC % Metamyelocytes Hypochromia Platelet Estimate Polychromasia Poikilocytosis Anisocytosis Microcytosis Macrocytosis Ovalocytes VBG pH POC VBG pCO2 POC VBG pO2 VBG HCO3 VBG O2 Sat (Erica) VBG Base Excess Sodium Potassium Chloride Carbon Dioxide Anion Gap BUN Creatinine Est GFR (CKD-EPI)AfAm Est GFR (CKD-EPI)NonAf POC Glucometer 325 Random Glucose Hemoglobin A1c % Lactic Acid 1.5 Calcium Phosphorus Magnesium Total Bilirubin AST ALT Alkaline Phosphatase Creatine Kinase Creatine Kinase Index CK-MB (CK-2) Troponin I B-Natriuretic Peptide Total Protein Albumin Lipase Serum , Qual Urine Color Urine Appearance Urine pH Ur Specific Pender Urine Protein Urine Glucose (UA) Urine Ketones Urine Blood Urine Nitrite Urine Bilirubin Urine Urobilinogen Ur Leukocyte Esterase Urine WBC (Auto) Urine RBC (Auto) Urine Casts (Auto) U Epithel Cells (Auto) Urine Bacteria (Auto) Urine HCG, Qual Opiates Screen Negative Methadone Screen Negative Barbiturate Screen Negative Phencyclidine Screen Negative Ur Amphetamines Screen Negative MDMA (Ecstasy) Screen Negative Benzodiazepines Screen Negative Cocaine Screen Negative U Marijuana (THC) Screen Negative Acetone, Qual 01/11/19 01/11/19 01/11/19 05:08 05:08 05:08 WBC 8.9 RBC 4.21 Hgb 10.2 L Hct 32.9 MCV 78.2 L MCH 24.3 L MCHC 31.1 L RDW 17.8 H Plt Count 336 MPV 9.7 Absolute Neuts (auto) 7.1 Neutrophils % 79.7 Neutrophils % (Manual) Band Neutrophils % Lymphocytes % 12.1 D Lymphocytes % (Manual) Monocytes % 7.6 D Monocytes % (Manual) Eosinophils % 0.1 Eosinophils % (Manual) Basophils % 0.5 Basophils % (Manual) Myelocytes % (Man) Promyelocytes % (Man) Blast Cells % (Manual) Nucleated RBC % 0 Metamyelocytes Hypochromia Platelet Estimate Polychromasia Poikilocytosis Anisocytosis Microcytosis Macrocytosis Ovalocytes VBG pH POC VBG pCO2 POC VBG pO2 VBG HCO3 VBG O2 Sat (Erica) VBG Base Excess Sodium 133 L Potassium 4.2 Chloride 99 Carbon Dioxide 21 Anion Gap 13 BUN 15 Creatinine 1.1 Est GFR (CKD-EPI)AfAm 80.24 Est GFR (CKD-EPI)NonAf 69.24 POC Glucometer Random Glucose 302 H* Hemoglobin A1c % 10.3 H Lactic Acid Calcium 7.9 L Phosphorus 3.6 Magnesium 1.9 Total Bilirubin 0.6 AST 21 ALT 13 Alkaline Phosphatase 70 Creatine Kinase 231 H Creatine Kinase Index 0.9 CK-MB (CK-2) 2.2 Troponin I 0.41 H B-Natriuretic Peptide Total Protein 5.5 L Albumin 2.2 L Lipase Serum , Qual Urine Color Urine Appearance Urine pH Ur Specific Pender Urine Protein Urine Glucose (UA) Urine Ketones Urine Blood Urine Nitrite Urine Bilirubin Urine Urobilinogen Ur Leukocyte Esterase Urine WBC (Auto) Urine RBC (Auto) Urine Casts (Auto) U Epithel Cells (Auto) Urine Bacteria (Auto) Urine HCG, Qual Opiates Screen Methadone Screen Barbiturate Screen Phencyclidine Screen Ur Amphetamines Screen MDMA (Ecstasy) Screen Benzodiazepines Screen Cocaine Screen U Marijuana (THC) Screen Acetone, Qual 01/11/19 01/11/19 06:27 11:59 WBC RBC Hgb Hct MCV MCH MCHC RDW Plt Count MPV Absolute Neuts (auto) Neutrophils % Neutrophils % (Manual) Band Neutrophils % Lymphocytes % Lymphocytes % (Manual) Monocytes % Monocytes % (Manual) Eosinophils % Eosinophils % (Manual) Basophils % Basophils % (Manual) Myelocytes % (Man) Promyelocytes % (Man) Blast Cells % (Manual) Nucleated RBC % Metamyelocytes Hypochromia Platelet Estimate Polychromasia Poikilocytosis Anisocytosis Microcytosis Macrocytosis Ovalocytes VBG pH POC VBG pCO2 POC VBG pO2 VBG HCO3 VBG O2 Sat (Erica) VBG Base Excess Sodium Potassium Chloride Carbon Dioxide Anion Gap BUN Creatinine Est GFR (CKD-EPI)AfAm Est GFR (CKD-EPI)NonAf POC Glucometer 332 339 Random Glucose Hemoglobin A1c % Lactic Acid Calcium Phosphorus Magnesium Total Bilirubin AST ALT Alkaline Phosphatase Creatine Kinase Creatine Kinase Index CK-MB (CK-2) Troponin I B-Natriuretic Peptide Total Protein Albumin Lipase Serum , Qual Urine Color Urine Appearance Urine pH Ur Specific Pender Urine Protein Urine Glucose (UA) Urine Ketones Urine Blood Urine Nitrite Urine Bilirubin Urine Urobilinogen Ur Leukocyte Esterase Urine WBC (Auto) Urine RBC (Auto) Urine Casts (Auto) U Epithel Cells (Auto) Urine Bacteria (Auto) Urine HCG, Qual Opiates Screen Methadone Screen Barbiturate Screen Phencyclidine Screen Ur Amphetamines Screen MDMA (Ecstasy) Screen Benzodiazepines Screen Cocaine Screen U Marijuana (THC) Screen Acetone, Qual Active Medications Home Medications Medication Instructions Recorded Carvedilol 25 mg PO BID 01/11/19 Citalopram Hydrobromide 20 mg PO DAILY 01/11/19 [Citalopram HBr] Enalapril Maleate 5 mg PO DAILY 01/11/19 Furosemide 20 mg PO DAILY 01/11/19 Insulin Glargine,Hum.rec.anlog 18 mg SQ DAILY 01/11/19 [Basaglar Kwikpen U-100] Magnesium Oxide 1,200 mg PO BID 01/11/19 Current Medications Chlorhexidine Gluconate (Hibiclens For Decolonization -) 1 applic TP [facility] Enalapril Maleate (Vasotec -) 5 mg PO DAILY [facility] Heparin Sodium (Porcine) (Heparin -) 5,000 unit SQ TID [facility] Last Admin: 01/11/19 06:23 Dose: 5,000 unit Lactated Ringer's (Lactated Ringers Solution) 1,000 ml in 1,000 mls @ 75 mls/ hr IV ASDIR [facility] Last Admin: 01/11/19 03:19 Dose: 75 mls/hr Insulin Aspart (Novolog Vial Sliding Scale -) 1 vial SQ [facility]; Protocol Last Admin: 01/11/19 12:01 Dose: 8 unit Insulin Detemir (Levemir Vial) 28 units SQ [facility] Insulin Detemir (Levemir Vial) 18 units SQ ONCE ONE Stop: 01/11/19 22:01 Mupirocin (Bactroban Ointment (For Decolonization) -) 1 applic NS BID [facility] Stop: 01/16/19 09:59 ASSESSMENT/PLAN: Patient is a 28 y/o with a history of IDDM, DKA, HTN, and CHF who presents for abdominal pain, nausea, and vomiting secondary to DKA. #Diabetic Ketoacidosis hyperglycemia at 500, AG 19, positive ketones on admission patient received 20 units, anion gap closed patient takes 18 units of long acting at night, 4 units with meals and an extra 1 unit for every 50 above 150 Pt. to receive Levemir 28 units based on weight calculation UTox: Negative BGM's Q2H BMP Q4H A1C: 10.3% SS EKG QTC: 491 caution with zofran and reglan, PVC's no previous EKG f/u ESR, CRP, TSH #SHANE 2/2 to dehydration 2/2 to Hyperglycemia continue IVF urine electrolytes continue to trend avoid nephrotoxic agents #HTN c/w Enalapril 5 mg continue to monitor #CHF patient currently euvolemic daily weights echo: EF 37%, mod.- severe MR, mild-mod. TR, mild-mod. pulm HTN, calcified aortic valve w/ mild aortic stenosis, mod pericardial effusion w/o RV collapse but mitral valve doppler shows tamponade physiology CXR: no evidence of congestion Cardiology (Dr. Tierney) consult BNP: 14,800 #Cocaine Hx. UTox - Would benefit from medical coding specialist #FEN LR @ 75 monitor electrolytes and replete as needed Diabetic/Na Diet Visit type - Emergency Visit Emergency Visit: Yes ED Registration Date: 01/11/19 Care time: The patient presented to the Emergency Department on the above date and was hospitalized for further evaluation of their emergent condition. - New Patient This patient is new to me today: Yes Date on this admission: 01/11/19 - Critical Care Critical Care patient: No - Discharge Referral Referred to [facility] Med P.C.: No
[2019-01-11] MEDS ORDERED: FUROSEMIDE 40 MG/4 ML INJECTABLE VIAL IVPUSH SCH (17:00)
[2019-01-11] MEDS ORDERED: ONDANSETRON 4 MG/2 ML VIAL IVPUSH PRN (17:23)
[2019-01-11] MEDS ORDERED: FUROSEMIDE 40 MG/4 ML INJECTABLE VIAL ONE (17:27)
[2019-01-11] MEDS ORDERED: FAMOTIDINE 20 MG/50 ML IVPB 20 MG/50 ML MG IVPB ONE (20:42)
[2019-01-11] MEDS ORDERED: FAMOTIDINE 20 MG/50 ML IVPB 20 MG/50 ML MG IVPB SCH (22:00)
[2019-01-11] MEDS ORDERED: INSULIN (LEVEMIR) 100 UNITS/ML UNITS SQ SCH (22:00)
[2019-01-11] MEDS ORDERED: CHLORHEXIDINE GLUCONATE 4% CLEANSER FOR DECOLONIZATION TP SCH (22:00)
--- NOTE | 2019-01-11 22:17 | CONSULT ---
Consult Consult Specialty:: endocrine Referred by:: hospitalist Reason for Consultation:: dka - History of Present Illness Chief Complaint: weakness nausea and vomiting History of Present Illness: 28 y female, pmd,type 1 dm since age 7,non compliant, prior history of dka,F/U mostly at [facility] poor historian, HTN, episodes of DKA and, cocaine abuse, CHF diagnosed in Jul 2018 has had abdominal pain, nausea, and vomiting with dehydration, elevated AG, Acetone in the,urine low Bicarb bg > 500 consistent DKA although PH was 7.39.has required iv fluid and iv insulin drip.. - Alcohol/Substance Use Hx Alcohol Use: No - Smoking History Smoking history: Never smoked Home Medications - Allergies Allergies/Adverse Reactions: Allergies Allergy/AdvReac Type Severity Reaction Status Date / Time No Known Allergies Allergy Verified 01/10/19 18:24 - Home Medications Home Medications: Ambulatory Orders Carvedilol 25 mg PO BID 01/11/19 Citalopram Hydrobromide [Citalopram HBr] 20 mg PO DAILY 01/11/19 Enalapril Maleate 5 mg PO DAILY 01/11/19 Furosemide 20 mg PO DAILY 01/11/19 Insulin Glargine,Hum.rec.anlog [Basaglar Kwikpen U-100] 18 mg SQ DAILY 01/11/19 Magnesium Oxide 1,200 mg PO BID 01/11/19 Review of Systems - Review of Systems Constitutional: reports: Lethargy, Weakness Eyes: reports: No Symptoms HENT: reports: No Symptoms Neck: reports: No Symptoms Cardiovascular: reports: Shortness of Breath Respiratory: reports: Exercise Intolerance, SOB on Exertion Gastrointestinal: reports: Bloating Genitourinary: reports: No Symptoms Breasts: reports: No Symptoms Reported Musculoskeletal: reports: No Symptoms Endocrine: reports: Unexplained Weight Gain Physical Exam Vital Signs: Vital Signs Temperature 98.6 F 01/11/19 21:00 Pulse Rate 112 H 01/11/19 21:00 Respiratory Rate 20 01/11/19 21:00 Blood Pressure 177/90 H 01/11/19 21:54 O2 Sat by Pulse Oximetry (%) 98 01/11/19 21:00 Constitutional: Yes: Anxious Eyes: Yes: EOM Intact HENT: Yes: Normocephalic Neck: Yes: Trachea Midline Cardiovascular: Yes: Tachycardia, S2 Respiratory: Yes: CTA Bilaterally Gastrointestinal: Yes: Normal Bowel Sounds ...Rectal Exam: Yes: Deferred Renal/: Yes: WNL Extremities: Yes: WNL Neurological: Yes: Alert, Oriented Labs: CBC, BMP 01/11/19 05:08 01/11/19 05:08 Problem List - Problems (1) DKA (diabetic ketoacidoses) Code(s): E11.10 - TYPE 2 DIABETES MELLITUS WITH KETOACIDOSIS WITHOUT COMA Qualifiers: Diabetes mellitus type: other specified (including SUMMER) Diabetes mellitus complication detail: without coma Qualified Code(s): E13.10 - Other specified diabetes mellitus with ketoacidosis without coma (2) Dehydration Code(s): E86.0 - DEHYDRATION (3) Elevated troponin I level Code(s): R74.8 - ABNORMAL LEVELS OF OTHER SERUM ENZYMES (4) Heart failure, systolic, with acute decompensation Code(s): I50.23 - ACUTE ON CHRONIC SYSTOLIC (CONGESTIVE) HEART FAILURE (5) Pericardial effusion Code(s): I31.3 - PERICARDIAL EFFUSION (NONINFLAMMATORY) Assessment/Plan Current Active Problems SHANE (acute kidney injury) (Acute) DKA (diabetic ketoacidoses) (Acute) Dehydration (Acute) Elevated troponin I level (Acute) Heart failure, systolic, with acute decompensation (Acute) Pericardial effusion (Acute) Abnormal Lab Results 01/10/19 01/10/19 01/10/19 22:01 22:01 22:01 Hgb MCV 79.9 L MCH 23.9 L MCHC 29.9 L RDW 18.0 H Neutrophils % 92.0 H Neutrophils % (Manual) 92.9 H Lymphocytes % 5.4 L Lymphocytes % (Manual) 6.1 L Monocytes % 2.1 L Monocytes % (Manual) 0 L POC VBG pCO2 POC VBG pO2 VBG HCO3 VBG O2 Sat (Erica) VBG Base Excess Sodium 135 L Chloride 97 L Carbon Dioxide 20 L Anion Gap 19 H Creatinine 1.4 H Random Glucose 530 H* Hemoglobin A1c % Calcium 8.4 L Creatine Kinase 232 H Troponin I 0.42 H B-Natriuretic Peptide Total Protein 6.1 L Albumin 2.3 L Total LDL Cholesterol HDL Cholesterol Urine Protein Urine Glucose (UA) Urine Ketones Urine Blood Acetone, Qual Positive large 3+ H 01/10/19 01/10/19 01/11/19 23:28 23:40 00:15 Hgb MCV MCH MCHC RDW Neutrophils % Neutrophils % (Manual) Lymphocytes % Lymphocytes % (Manual) Monocytes % Monocytes % (Manual) POC VBG pCO2 36.3 L POC VBG pO2 52.1 H VBG HCO3 21.3 L VBG O2 Sat (Erica) 82.8 H VBG Base Excess -2.7 L Sodium Chloride Carbon Dioxide Anion Gap Creatinine 1.5 H Random Glucose 310 H* Hemoglobin A1c % Calcium Creatine Kinase 237 H Troponin I 0.37 H B-Natriuretic Peptide 00973.9 H Total Protein Albumin Total LDL Cholesterol HDL Cholesterol Urine Protein Urine Glucose (UA) Urine Ketones Urine Blood Acetone, Qual 01/11/19 01/11/19 01/11/19 00:50 05:08 05:08 Hgb 10.2 L MCV 78.2 L MCH 24.3 L MCHC 31.1 L RDW 17.8 H Neutrophils % Neutrophils % (Manual) Lymphocytes % Lymphocytes % (Manual) Monocytes % Monocytes % (Manual) POC VBG pCO2 POC VBG pO2 VBG HCO3 VBG O2 Sat (Erica) VBG Base Excess Sodium 133 L Chloride Carbon Dioxide Anion Gap Creatinine Random Glucose 302 H* Hemoglobin A1c % Calcium 7.9 L Creatine Kinase 231 H Troponin I 0.41 H B-Natriuretic Peptide Total Protein 5.5 L Albumin 2.2 L Total LDL Cholesterol 108 H HDL Cholesterol 39 L Urine Protein 3+ H Urine Glucose (UA) 3+ H Urine Ketones 4+ H Urine Blood 2+ H Acetone, Qual 01/11/19 05:08 Hgb MCV MCH MCHC RDW Neutrophils % Neutrophils % (Manual) Lymphocytes % Lymphocytes % (Manual) Monocytes % Monocytes % (Manual) POC VBG pCO2 POC VBG pO2 VBG HCO3 VBG O2 Sat (Erica) VBG Base Excess Sodium Chloride Carbon Dioxide Anion Gap Creatinine Random Glucose Hemoglobin A1c % 10.3 H Calcium Creatine Kinase Troponin I B-Natriuretic Peptide Total Protein Albumin Total LDL Cholesterol HDL Cholesterol Urine Protein Urine Glucose (UA) Urine Ketones Urine Blood Acetone, Qual Laboratory Results - last 24 hr 01/10/19 01/10/19 01/10/19 22:01 22:01 22:01 WBC 6.7 RBC 4.65 Hgb 11.1 Hct 37.2 MCV 79.9 L MCH 23.9 L MCHC 29.9 L RDW 18.0 H Plt Count 311 MPV 10.1 Absolute Neuts (auto) 6.2 Neutrophils % 92.0 H Neutrophils % (Manual) 92.9 H Band Neutrophils % 0.0 Lymphocytes % 5.4 L Lymphocytes % (Manual) 6.1 L Monocytes % 2.1 L Monocytes % (Manual) 0 L Eosinophils % 0.1 Eosinophils % (Manual) 1.0 Basophils % 0.4 Basophils % (Manual) 0.0 Myelocytes % (Man) 0 Promyelocytes % (Man) 0 Blast Cells % (Manual) 0 Nucleated RBC % 0 Metamyelocytes 0 Hypochromia 0 Platelet Estimate Normal Polychromasia 0 Poikilocytosis 3+ Anisocytosis 2+ Microcytosis 2+ Macrocytosis 0 Ovalocytes 1+ VBG pH Cancelled POC VBG pCO2 Cancelled POC VBG pO2 Cancelled VBG HCO3 Cancelled VBG O2 Sat (Erica) Cancelled VBG Base Excess Cancelled Sodium 135 L Potassium 4.8 Chloride 97 L Carbon Dioxide 20 L Anion Gap 19 H BUN 17 Creatinine 1.4 H Est GFR (CKD-EPI)AfAm 59.95 Est GFR (CKD-EPI)NonAf 51.73 POC Glucometer Random Glucose 530 H* Hemoglobin A1c % Lactic Acid Calcium 8.4 L Phosphorus Magnesium Total Bilirubin 1.0 AST 22 ALT 14 Alkaline Phosphatase 84 Creatine Kinase 232 H Creatine Kinase Index 0.9 CK-MB (CK-2) 2.1 Troponin I 0.42 H B-Natriuretic Peptide Total Protein 6.1 L Albumin 2.3 L Triglycerides Cholesterol Total LDL Cholesterol HDL Cholesterol Lipase 101 Serum , Qual Urine Color Urine Appearance Urine pH Ur Specific [place] Urine Protein Urine Glucose (UA) Urine Ketones Urine Blood Urine Nitrite Urine Bilirubin Urine Urobilinogen Ur Leukocyte Esterase Urine WBC (Auto) Urine RBC (Auto) Urine Casts (Auto) U Epithel Cells (Auto) Urine Bacteria (Auto) Urine HCG, Qual Opiates Screen Methadone Screen Barbiturate Screen Phencyclidine Screen Ur Amphetamines Screen MDMA (Ecstasy) Screen Benzodiazepines Screen Cocaine Screen U Marijuana (THC) Screen Acetone, Qual 01/10/19 01/10/19 01/10/19 22:01 22:09 23:28 WBC RBC Hgb Hct MCV MCH MCHC RDW Plt Count MPV Absolute Neuts (auto) Neutrophils % Neutrophils % (Manual) Band Neutrophils % Lymphocytes % Lymphocytes % (Manual) Monocytes % Monocytes % (Manual) Eosinophils % Eosinophils % (Manual) Basophils % Basophils % (Manual) Myelocytes % (Man) Promyelocytes % (Man) Blast Cells % (Manual) Nucleated RBC % Metamyelocytes Hypochromia Platelet Estimate Polychromasia Poikilocytosis Anisocytosis Microcytosis Macrocytosis Ovalocytes VBG pH POC VBG pCO2 POC VBG pO2 VBG HCO3 VBG O2 Sat (Erica) VBG Base Excess Sodium Potassium Chloride Carbon Dioxide Anion Gap BUN Creatinine Est GFR (CKD-EPI)AfAm Est GFR (CKD-EPI)NonAf POC Glucometer Random Glucose Hemoglobin A1c % Lactic Acid Calcium Phosphorus Magnesium Total Bilirubin AST ALT Alkaline Phosphatase Creatine Kinase Creatine Kinase Index CK-MB (CK-2) Troponin I B-Natriuretic Peptide 65439.9 H Total Protein Albumin Triglycerides Cholesterol Total LDL Cholesterol HDL Cholesterol Lipase Serum , Qual Negative Urine Color Urine Appearance Urine pH Ur Specific [place] Urine Protein Urine Glucose (UA) Urine Ketones Urine Blood Urine Nitrite Urine Bilirubin Urine Urobilinogen Ur Leukocyte Esterase Urine WBC (Auto) Urine RBC (Auto) Urine Casts (Auto) U Epithel Cells (Auto) Urine Bacteria (Auto) Urine HCG, Qual Opiates Screen Methadone Screen Barbiturate Screen Phencyclidine Screen Ur Amphetamines Screen MDMA (Ecstasy) Screen Benzodiazepines Screen Cocaine Screen U Marijuana (THC) Screen Acetone, Qual Positive large 3+ H 01/10/19 01/11/19 01/11/19 23:40 00:03 00:06 WBC RBC Hgb Hct MCV MCH MCHC RDW Plt Count MPV Absolute Neuts (auto) Neutrophils % Neutrophils % (Manual) Band Neutrophils % Lymphocytes % Lymphocytes % (Manual) Monocytes % Monocytes % (Manual) Eosinophils % Eosinophils % (Manual) Basophils % Basophils % (Manual) Myelocytes % (Man) Promyelocytes % (Man) Blast Cells % (Manual) Nucleated RBC % Metamyelocytes Hypochromia Platelet Estimate Polychromasia Poikilocytosis Anisocytosis Microcytosis Macrocytosis Ovalocytes VBG pH 7.38 POC VBG pCO2 36.3 L POC VBG pO2 52.1 H VBG HCO3 21.3 L VBG O2 Sat (Erica) 82.8 H VBG Base Excess -2.7 L Sodium Potassium Chloride Carbon Dioxide Anion Gap BUN Creatinine Est GFR (CKD-EPI)AfAm Est GFR (CKD-EPI)NonAf POC Glucometer 288 349 Random Glucose Hemoglobin A1c % Lactic Acid Calcium Phosphorus Magnesium Total Bilirubin AST ALT Alkaline Phosphatase Creatine Kinase Creatine Kinase Index CK-MB (CK-2) Troponin I B-Natriuretic Peptide Total Protein Albumin Triglycerides Cholesterol Total LDL Cholesterol HDL Cholesterol Lipase Serum , Qual Urine Color Urine Appearance Urine pH Ur Specific [place] Urine Protein Urine Glucose (UA) Urine Ketones Urine Blood Urine Nitrite Urine Bilirubin Urine Urobilinogen Ur Leukocyte Esterase Urine WBC (Auto) Urine RBC (Auto) Urine Casts (Auto) U Epithel Cells (Auto) Urine Bacteria (Auto) Urine HCG, Qual Opiates Screen Methadone Screen Barbiturate Screen Phencyclidine Screen Ur Amphetamines Screen MDMA (Ecstasy) Screen Benzodiazepines Screen Cocaine Screen U Marijuana (THC) Screen Acetone, Qual 01/11/19 01/11/19 01/11/19 00:15 00:50 03:07 WBC RBC Hgb Hct MCV MCH MCHC RDW Plt Count MPV Absolute Neuts (auto) Neutrophils % Neutrophils % (Manual) Band Neutrophils % Lymphocytes % Lymphocytes % (Manual) Monocytes % Monocytes % (Manual) Eosinophils % Eosinophils % (Manual) Basophils % Basophils % (Manual) Myelocytes % (Man) Promyelocytes % (Man) Blast Cells % (Manual) Nucleated RBC % Metamyelocytes Hypochromia Platelet Estimate Polychromasia Poikilocytosis Anisocytosis Microcytosis Macrocytosis Ovalocytes VBG pH POC VBG pCO2 POC VBG pO2 VBG HCO3 VBG O2 Sat (Erica) VBG Base Excess Sodium 137 Potassium 4.1 Chloride 103 Carbon Dioxide 22 Anion Gap 12 BUN 16 Creatinine 1.5 H Est GFR (CKD-EPI)AfAm 55.15 Est GFR (CKD-EPI)NonAf 47.59 POC Glucometer 325 Random Glucose 310 H* Hemoglobin A1c % Lactic Acid Calcium 8.5 Phosphorus Magnesium Total Bilirubin AST ALT Alkaline Phosphatase Creatine Kinase 237 H Creatine Kinase Index 0.9 CK-MB (CK-2) 2.2 Troponin I 0.37 H B-Natriuretic Peptide Total Protein Albumin Triglycerides Cholesterol Total LDL Cholesterol HDL Cholesterol Lipase Serum , Qual Urine Color Yellow Urine Appearance Clear Urine pH 5.5 Ur Specific [place] 1.028 Urine Protein 3+ H Urine Glucose (UA) 3+ H Urine Ketones 4+ H Urine Blood 2+ H Urine Nitrite Negative Urine Bilirubin Negative Urine Urobilinogen 0.2 Ur Leukocyte Esterase Negative Urine WBC (Auto) 3 Urine RBC (Auto) 5 Urine Casts (Auto) 4 U Epithel Cells (Auto) 2.9 Urine Bacteria (Auto) 45.4 Urine HCG, Qual Negative Opiates Screen Methadone Screen Barbiturate Screen Phencyclidine Screen Ur Amphetamines Screen MDMA (Ecstasy) Screen Benzodiazepines Screen Cocaine Screen U Marijuana (THC) Screen Acetone, Qual 01/11/19 01/11/19 01/11/19 04:48 05:08 05:08 WBC 8.9 RBC 4.21 Hgb 10.2 L Hct 32.9 MCV 78.2 L MCH 24.3 L MCHC 31.1 L RDW 17.8 H Plt Count 336 MPV 9.7 Absolute Neuts (auto) 7.1 Neutrophils % 79.7 Neutrophils % (Manual) Band Neutrophils % Lymphocytes % 12.1 D Lymphocytes % (Manual) Monocytes % 7.6 D Monocytes % (Manual) Eosinophils % 0.1 Eosinophils % (Manual) Basophils % 0.5 Basophils % (Manual) Myelocytes % (Man) Promyelocytes % (Man) Blast Cells % (Manual) Nucleated RBC % 0 Metamyelocytes Hypochromia Platelet Estimate Polychromasia Poikilocytosis Anisocytosis Microcytosis Macrocytosis Ovalocytes VBG pH POC VBG pCO2 POC VBG pO2 VBG HCO3 VBG O2 Sat (Erica) VBG Base Excess Sodium Potassium Chloride Carbon Dioxide Anion Gap BUN Creatinine Est GFR (CKD-EPI)AfAm Est GFR (CKD-EPI)NonAf POC Glucometer Random Glucose Hemoglobin A1c % Lactic Acid 1.5 Calcium Phosphorus Magnesium Total Bilirubin AST ALT Alkaline Phosphatase Creatine Kinase Creatine Kinase Index CK-MB (CK-2) Troponin I B-Natriuretic Peptide Total Protein Albumin Triglycerides Cholesterol Total LDL Cholesterol HDL Cholesterol Lipase Serum , Qual Urine Color Urine Appearance Urine pH Ur Specific [place] Urine Protein Urine Glucose (UA) Urine Ketones Urine Blood Urine Nitrite Urine Bilirubin Urine Urobilinogen Ur Leukocyte Esterase Urine WBC (Auto) Urine RBC (Auto) Urine Casts (Auto) U Epithel Cells (Auto) Urine Bacteria (Auto) Urine HCG, Qual Opiates Screen Negative Methadone Screen Negative Barbiturate Screen Negative Phencyclidine Screen Negative Ur Amphetamines Screen Negative MDMA (Ecstasy) Screen Negative Benzodiazepines Screen Negative Cocaine Screen Negative U Marijuana (THC) Screen Negative Acetone, Qual 01/11/19 01/11/19 01/11/19 05:08 05:08 06:27 WBC RBC Hgb Hct MCV MCH MCHC RDW Plt Count MPV Absolute Neuts (auto) Neutrophils % Neutrophils % (Manual) Band Neutrophils % Lymphocytes % Lymphocytes % (Manual) Monocytes % Monocytes % (Manual) Eosinophils % Eosinophils % (Manual) Basophils % Basophils % (Manual) Myelocytes % (Man) Promyelocytes % (Man) Blast Cells % (Manual) Nucleated RBC % Metamyelocytes Hypochromia Platelet Estimate Polychromasia Poikilocytosis Anisocytosis Microcytosis Macrocytosis Ovalocytes VBG pH POC VBG pCO2 POC VBG pO2 VBG HCO3 VBG O2 Sat (Erica) VBG Base Excess Sodium 133 L Potassium 4.2 Chloride 99 Carbon Dioxide 21 Anion Gap 13 BUN 15 Creatinine 1.1 Est GFR (CKD-EPI)AfAm 80.24 Est GFR (CKD-EPI)NonAf 69.24 POC Glucometer 332 Random Glucose 302 H* Hemoglobin A1c % 10.3 H Lactic Acid Calcium 7.9 L Phosphorus 3.6 Magnesium 1.9 Total Bilirubin 0.6 AST 21 ALT 13 Alkaline Phosphatase 70 Creatine Kinase 231 H Creatine Kinase Index 0.9 CK-MB (CK-2) 2.2 Troponin I 0.41 H B-Natriuretic Peptide Total Protein 5.5 L Albumin 2.2 L Triglycerides 132 Cholesterol 156 Total LDL Cholesterol 108 H HDL Cholesterol 39 L Lipase Serum , Qual Urine Color Urine Appearance Urine pH Ur Specific [place] Urine Protein Urine Glucose (UA) Urine Ketones Urine Blood Urine Nitrite Urine Bilirubin Urine Urobilinogen Ur Leukocyte Esterase Urine WBC (Auto) Urine RBC (Auto) Urine Casts (Auto) U Epithel Cells (Auto) Urine Bacteria (Auto) Urine HCG, Qual Opiates Screen Methadone Screen Barbiturate Screen Phencyclidine Screen Ur Amphetamines Screen MDMA (Ecstasy) Screen Benzodiazepines Screen Cocaine Screen U Marijuana (THC) Screen Acetone, Qual 01/11/19 01/11/19 01/11/19 11:59 17:21 20:52 WBC RBC Hgb Hct MCV MCH MCHC RDW Plt Count MPV Absolute Neuts (auto) Neutrophils % Neutrophils % (Manual) Band Neutrophils % Lymphocytes % Lymphocytes % (Manual) Monocytes % Monocytes % (Manual) Eosinophils % Eosinophils % (Manual) Basophils % Basophils % (Manual) Myelocytes % (Man) Promyelocytes % (Man) Blast Cells % (Manual) Nucleated RBC % Metamyelocytes Hypochromia Platelet Estimate Polychromasia Poikilocytosis Anisocytosis Microcytosis Macrocytosis Ovalocytes VBG pH POC VBG pCO2 POC VBG pO2 VBG HCO3 VBG O2 Sat (Erica) VBG Base Excess Sodium Potassium Chloride Carbon Dioxide Anion Gap BUN Creatinine Est GFR (CKD-EPI)AfAm Est GFR (CKD-EPI)NonAf POC Glucometer 339 227 206 Random Glucose Hemoglobin A1c % Lactic Acid Calcium Phosphorus Magnesium Total Bilirubin AST ALT Alkaline Phosphatase Creatine Kinase Creatine Kinase Index CK-MB (CK-2) Troponin I B-Natriuretic Peptide Total Protein Albumin Triglycerides Cholesterol Total LDL Cholesterol HDL Cholesterol Lipase Serum , Qual Urine Color Urine Appearance Urine pH Ur Specific [place] Urine Protein Urine Glucose (UA) Urine Ketones Urine Blood Urine Nitrite Urine Bilirubin Urine Urobilinogen Ur Leukocyte Esterase Urine WBC (Auto) Urine RBC (Auto) Urine Casts (Auto) U Epithel Cells (Auto) Urine Bacteria (Auto) Urine HCG, Qual Opiates Screen Methadone Screen Barbiturate Screen Phencyclidine Screen Ur Amphetamines Screen MDMA (Ecstasy) Screen Benzodiazepines Screen Cocaine Screen U Marijuana (THC) Screen Acetone, Qual plan: bgm qid novolog dooses use levemir 28 unit am dose diet nutrition draa i cardiology follow up
[2019-01-11] MEDS ORDERED: INSULIN SLIDING SCALE (NOVOLOG) 1 VIAL SQ SCH (22:26)
--- NOTE | 2019-01-11 22:40 | CON.CARD ---
Consult Consult Specialty:: Cardiology - History of Present Illness History of Present Illness: Patient is a 28 y/o with a history of IDDM, DKA, HTN, and CHF who presents for abdominal pain, nausea, and vomiting. She reports she has had episodes like this multiple times in the past and it is typically when she has DKA. She states in the past year she has had around 10 episodes of DKA and goes to multiple hospitals. She typically has these episodes when she is doing cocaine, but this episode she was not doing any drugs. She was diagnosed with diabetes at the age of 7. She typically takes her medications but states her sugars are not always controlled. Patient had a daughter last july and at that time was diagnosed with CHF. She was told that it would likely reverse, and if she colette feel short of breath she can take a lasix pill. Patient also takes medication for highblood pressure. Patient denies any family history of DM. patient denies any recent cough, dysuria, chest pain, dizzines, or shortness of breath. Patient was tough to draw blood from, ED resident placed a femoral line. She received 20 units of insulin, ani - History Source History Provided By: Patient, Medical Record - Past Medical History Cardio/Vascular: Yes: CHF Endocrine: Yes: Diabetes Mellitus - Alcohol/Substance Use Hx Alcohol Use: No - Smoking History Smoking history: Never smoked Home Medications - Allergies Allergies/Adverse Reactions: Allergies Allergy/AdvReac Type Severity Reaction Status Date / Time No Known Allergies Allergy Verified 01/10/19 18:24 - Home Medications Home Medications: Ambulatory Orders Carvedilol 25 mg PO BID 01/11/19 Citalopram Hydrobromide [Citalopram HBr] 20 mg PO DAILY 01/11/19 Enalapril Maleate 5 mg PO DAILY 01/11/19 Furosemide 20 mg PO DAILY 01/11/19 Insulin Glargine,Hum.rec.anlog [Basaglar Kwikpen U-100] 18 mg SQ DAILY 01/11/19 Magnesium Oxide 1,200 mg PO BID 01/11/19 Review of Systems - Review of Systems Constitutional: reports: No Symptoms Eyes: reports: No Symptoms HENT: reports: No Symptoms Neck: reports: No Symptoms Cardiovascular: reports: Shortness of Breath Respiratory: reports: SOB, SOB on Exertion Gastrointestinal: reports: No Symptoms Genitourinary: reports: No Symptoms Breasts: reports: No Symptoms Reported Musculoskeletal: reports: No Symptoms Integumentary: reports: No Symptoms Neurological: reports: No Symptoms Endocrine: reports: No Symptoms Hematology/Lymphatic: reports: No Symptoms Psychiatric: reports: No Symptoms Vital Signs: Vital Signs Temperature 98.6 F 01/11/19 21:00 Pulse Rate 112 H 01/11/19 21:00 Respiratory Rate 20 01/11/19 21:00 Blood Pressure 177/90 H 01/11/19 21:54 O2 Sat by Pulse Oximetry (%) 98 01/11/19 21:00 Constitutional: Yes: Well Nourished, No Distress, Calm Eyes: Yes: WNL, Conjunctiva Clear, EOM Intact HENT: Yes: WNL, Atraumatic, Normocephalic Neck: Yes: WNL, Supple, Trachea Midline Respiratory: Yes: WNL, Regular, CTA Bilaterally Gastrointestinal: Yes: WNL, Normal Bowel Sounds Renal/: Yes: WNL Cardiovascular: Yes: WNL, Regular Rate and Rhythm Musculoskeletal: Yes: WNL Extremities: Yes: WNL Integumentary: Yes: WNL Neurological: Yes: WNL, Alert, Oriented ...Motor Strength: WNL Psychiatric: Yes: WNL, Alert, Oriented - Other Data Labs, Other Data: CBC, BMP 01/11/19 05:08 01/11/19 05:08 Troponin, BNP 01/10/19 01/10/19 01/11/19 22:01 23:28 00:15 Troponin I 0.42 H 0.37 H B-Natriuretic Peptide 52030.9 H 01/11/19 05:08 Troponin I 0.41 H B-Natriuretic Peptide Troponin, BNP 01/10/19 01/10/19 01/11/19 22:01 23:28 00:15 Troponin I 0.42 H 0.37 H B-Natriuretic Peptide 02753.9 H 01/11/19 05:08 Troponin I 0.41 H B-Natriuretic Peptide Imaging - Results Chest X-ray: Image Reviewed (cm) EKG: Image Reviewed (sr lvh rep abn vpcs) Problem List - Problems (1) SHANE (acute kidney injury) Code(s): N17.9 - ACUTE KIDNEY FAILURE, UNSPECIFIED (2) DKA (diabetic ketoacidoses) Code(s): E11.10 - TYPE 2 DIABETES MELLITUS WITH KETOACIDOSIS WITHOUT COMA Qualifiers: Diabetes mellitus type: other specified (including SUMMER) Diabetes mellitus complication detail: without coma Qualified Code(s): E13.10 - Other specified diabetes mellitus with ketoacidosis without coma (3) Dehydration Code(s): E86.0 - DEHYDRATION (4) Elevated troponin I level Code(s): R74.8 - ABNORMAL LEVELS OF OTHER SERUM ENZYMES (5) Heart failure, systolic, with acute decompensation Code(s): I50.23 - ACUTE ON CHRONIC SYSTOLIC (CONGESTIVE) HEART FAILURE (6) Pericardial effusion Code(s): I31.3 - PERICARDIAL EFFUSION (NONINFLAMMATORY) Assessment/Plan Peripartum CMP HTN DKA CHF systolic moderate pericardial effusion - drug abuse positive TNIs noncomplience with medical treatment Plan asa 81 qd telemetry restart meds records from the prior hospitalizations
[2019-01-12] MEDS: INSULIN SLIDING SCALE (NOVOLOG) 1 VIAL SQ SCH ×6 (02:00→22:14)
[2019-01-12] MEDS: INSULIN (LEVEMIR) 100 UNITS/ML UNITS SQ SCH (07:06)
[2019-01-12 07:28] LABS: HEMATOCRIT 33.7 % (32.4-45.2); HEMOGLOBIN 10.6 GM/dL (10.7-15.3); MCHC 31.5 g/dl (32.0-36.0); MEAN CELL VOLUME 76.3 fl (80-96); PLATELET COUNT 336 K/MM3 (134-434); RBC 4.42 M/mm3 (3.60-5.2); RDW 17.7 % (11.6-15.6); WHITE BLOOD COUNT 7.1 K/mm3 (4.0-10.0)
[2019-01-12] MEDS ORDERED: ACETAMINOPHEN 500 MG TABLET (FP) PO ONE (07:56)
[2019-01-12 07:58] LABS: ALBUMIN 2.1 g/dl (3.4-5.0); BILIRUBIN,TOTAL 0.4 mg/dL (0.2-1); CALCIUM 7.9 mg/dL (8.5-10.1); CREATININE 1.1 mg/dL (0.55-1.3); MAGNESIUM 1.7 mg/dL (1.8-2.4); POTASSIUM 3.4 mmol/L (3.5-5.1); TOT PROT 5.5 g/dl (6.4-8.2)
[2019-01-12] MEDS ORDERED: POTASSIUM CHLORIDE TABS 20 MEQ TABLET.ER (FP) PO ONE (08:05)
[2019-01-12] MEDS ORDERED: MAGNESIUM SULF 50% (8.12 MEQ/2 ML-1 GM VIAL) IVPB ONE (08:05)
[2019-01-12] MEDS ORDERED: ENALAPRIL MALEATE 10 MG TABLET (FP) PO SCH (10:00)
[2019-01-12] MEDS: ENALAPRIL MALEATE 5 MG TABLET (FP) PO SCH (10:34)
[2019-01-12] MEDS: FAMOTIDINE 20 MG/50 ML IVPB 20 MG/50 ML MG IVPB SCH ×2 (10:34→22:12)
[2019-01-12] MEDS: CITALOPRAM HYDROBROMIDE 20 MG TABLET (FP) PO SCH (10:34)
--- NOTE | 2019-01-12 10:48 | EKG ---
Test Reason : Blood Pressure : / mmHG Vent. Rate : 107 BPM Atrial Rate : 107 BPM P-R Int : 136 ms QRS Dur : 082 ms QT Int : 374 ms P-R-T Axes : 062 -22 010 degrees QTc Int : 499 ms SINUS TACHYCARDIA WITH FREQUENT PREMATURE VENTRICULAR COMPLEXES POSSIBLE LEFT ATRIAL ENLARGEMENT LOW VOLTAGE QRS POSSIBLE ANTEROLATERAL INFARCT (CITED ON OR BEFORE 10-JAN-2019) ABNORMAL ECG WHEN COMPARED WITH ECG OF 10-JAN-2019 23:42, QUESTIONABLE CHANGE IN QRS AXIS T WAVE INVERSION NO LONGER EVIDENT IN LATERAL LEADS Confirmed by TWAN CHAN, ROCKY ([id number]) on 01/12/2019 10:48:14 AM Referred By: Confirmed By:ROCKY TRENT MD
--- NOTE | 2019-01-12 11:08 | PN ---
Progress Note, Physician History of Present Illness: Patient is a 28 y/o with a history of IDDM, DKA, HTN, and CHF who presents for abdominal pain, nausea, and vomiting. She reports she has had episodes like this multiple times in the past and it is typically when she has DKA. She states in the past year she has had around 10 episodes of DKA and goes to multiple hospitals. She typically has these episodes when she is doing cocaine, but this episode she was not doing any drugs. She was diagnosed with diabetes at the age of 7. She typically takes her medications but states her sugars are not always controlled. Patient had a daughter last july and at that time was diagnosed with CHF. She was told that it would likely reverse, and if she colette feel short of breath she can take a lasix pill. Patient also takes medication for highblood pressure. Patient denies any family history of DM. patient denies any recent cough, dysuria, chest pain, dizzines, or shortness of breath. Patient was tough to draw blood from, ED resident placed a femoral line. She received 20 units of insulin, ani - Current Medication List Current Medications: Active Medications Chlorhexidine Gluconate (Hibiclens For Decolonization -) 1 applic TP HS [facility] Last Admin: 01/11/19 21:45 Dose: Not Given Citalopram Hydrobromide (Celexa -) 20 mg PO DAILY [facility] Last Admin: 01/12/19 10:34 Dose: 20 mg Enalapril Maleate (Vasotec -) 5 mg PO DAILY [facility] Last Admin: 01/12/19 10:34 Dose: 5 mg Famotidine/Sodium Chloride (Pepcid 20 Mg Premixed Ivpb -) 20 mg in 50 mls @ 100 mls/hr IVPB BID [facility] Last Admin: 01/12/19 10:34 Dose: 100 mls/hr Insulin Aspart (Novolog Vial Sliding Scale -) 1 vial SQ Q4H [facility]; Protocol Last Admin: 01/12/19 07:02 Dose: Not Given Insulin Detemir (Levemir Vial) 28 units SQ AM [facility] Last Admin: 01/12/19 07:06 Dose: 28 units Mupirocin (Bactroban Ointment (For Decolonization) -) 1 applic NS BID [facility] Stop: 01/16/19 09:59 Ondansetron HCl (Zofran Injection) 4 mg IVPUSH Q6H PRN PRN Reason: NAUSEA Last Admin: 01/12/19 07:59 Dose: 4 mg - Objective Vital Signs: Vital Signs Temperature 98.4 F 01/12/19 05:00 Pulse Rate 103 H 01/12/19 05:00 Respiratory Rate 20 01/12/19 05:00 Blood Pressure 140/73 01/12/19 05:00 O2 Sat by Pulse Oximetry (%) 98 01/11/19 21:00 Eyes: Yes: WNL, Conjunctiva Clear, EOM Intact HENT: Yes: WNL, Atraumatic, Normocephalic Neck: Yes: WNL, Supple, Trachea Midline Cardiovascular: Yes: WNL, Regular Rate and Rhythm Respiratory: Yes: WNL, Regular, CTA Bilaterally Gastrointestinal: Yes: WNL, Normal Bowel Sounds Genitourinary: Yes: WNL Musculoskeletal: Yes: WNL Extremities: Yes: WNL Edema: No Integumentary: Yes: WNL Neurological: Yes: WNL, Alert, Oriented ...Motor Strength: WNL Psychiatric: Yes: WNL Labs: CBC, BMP 01/12/19 06:30 01/12/19 06:30 Laboratory Tests 01/10/19 01/10/19 01/10/19 18:53 22:01 22:01 WBC 6.7 RBC 4.65 Hgb 11.1 Hct 37.2 MCV 79.9 L MCH 23.9 L MCHC 29.9 L RDW 18.0 H Plt Count 311 MPV 10.1 Absolute Neuts (auto) 6.2 Neutrophils % 92.0 H Neutrophils % (Manual) 92.9 H Band Neutrophils % 0.0 Lymphocytes % 5.4 L Lymphocytes % (Manual) 6.1 L Monocytes % 2.1 L Monocytes % (Manual) 0 L Eosinophils % 0.1 Eosinophils % (Manual) 1.0 Basophils % 0.4 Basophils % (Manual) 0.0 Myelocytes % (Man) 0 Promyelocytes % (Man) 0 Blast Cells % (Manual) 0 Nucleated RBC % 0 Metamyelocytes 0 Hypochromia 0 Platelet Estimate Normal Polychromasia 0 Poikilocytosis 3+ Anisocytosis 2+ Microcytosis 2+ Macrocytosis 0 Ovalocytes 1+ ESR VBG pH POC VBG pCO2 POC VBG pO2 VBG HCO3 VBG O2 Sat (Erica) VBG Base Excess Sodium 135 L Potassium 4.8 Chloride 97 L Carbon Dioxide 20 L Anion Gap 19 H BUN 17 Creatinine 1.4 H Est GFR (CKD-EPI)AfAm 59.95 Est GFR (CKD-EPI)NonAf 51.73 POC Glucometer 545 Random Glucose 530 H* Hemoglobin A1c % Lactic Acid Calcium 8.4 L Phosphorus Magnesium Total Bilirubin 1.0 AST 22 ALT 14 Alkaline Phosphatase 84 Creatine Kinase 232 H Creatine Kinase Index 0.9 CK-MB (CK-2) 2.1 Troponin I 0.42 H C-Reactive Protein B-Natriuretic Peptide Total Protein 6.1 L Albumin 2.3 L Triglycerides Cholesterol Total LDL Cholesterol HDL Cholesterol Lipase 101 TSH Serum , Qual Urine Color Urine Appearance Urine pH Ur Specific Sum[place] Urine Protein Urine Glucose (UA) Urine Ketones Urine Blood Urine Nitrite Urine Bilirubin Urine Urobilinogen Ur Leukocyte Esterase Urine WBC (Auto) Urine RBC (Auto) Urine Casts (Auto) U Epithel Cells (Auto) Urine Bacteria (Auto) Urine HCG, Qual Opiates Screen Methadone Screen Barbiturate Screen Phencyclidine Screen Ur Amphetamines Screen MDMA (Ecstasy) Screen Benzodiazepines Screen Cocaine Screen U Marijuana (THC) Screen Acetone, Qual 01/10/19 01/10/19 01/10/19 22:01 22:01 22:09 WBC RBC Hgb Hct MCV MCH MCHC RDW Plt Count MPV Absolute Neuts (auto) Neutrophils % Neutrophils % (Manual) Band Neutrophils % Lymphocytes % Lymphocytes % (Manual) Monocytes % Monocytes % (Manual) Eosinophils % Eosinophils % (Manual) Basophils % Basophils % (Manual) Myelocytes % (Man) Promyelocytes % (Man) Blast Cells % (Manual) Nucleated RBC % Metamyelocytes Hypochromia Platelet Estimate Polychromasia Poikilocytosis Anisocytosis Microcytosis Macrocytosis Ovalocytes ESR VBG pH Cancelled POC VBG pCO2 Cancelled POC VBG pO2 Cancelled VBG HCO3 Cancelled VBG O2 Sat (Erica) Cancelled VBG Base Excess Cancelled Sodium Potassium Chloride Carbon Dioxide Anion Gap BUN Creatinine Est GFR (CKD-EPI)AfAm Est GFR (CKD-EPI)NonAf POC Glucometer Random Glucose Hemoglobin A1c % Lactic Acid Calcium Phosphorus Magnesium Total Bilirubin AST ALT Alkaline Phosphatase Creatine Kinase Creatine Kinase Index CK-MB (CK-2) Troponin I C-Reactive Protein B-Natriuretic Peptide Total Protein Albumin Triglycerides Cholesterol Total LDL Cholesterol HDL Cholesterol Lipase TSH Serum , Qual Negative Urine Color Urine Appearance Urine pH Ur Specific [place] Urine Protein Urine Glucose (UA) Urine Ketones Urine Blood Urine Nitrite Urine Bilirubin Urine Urobilinogen Ur Leukocyte Esterase Urine WBC (Auto) Urine RBC (Auto) Urine Casts (Auto) U Epithel Cells (Auto) Urine Bacteria (Auto) Urine HCG, Qual Opiates Screen Methadone Screen Barbiturate Screen Phencyclidine Screen Ur Amphetamines Screen MDMA (Ecstasy) Screen Benzodiazepines Screen Cocaine Screen U Marijuana (THC) Screen Acetone, Qual Positive large 3+ H 01/10/19 01/10/19 01/11/19 23:28 23:40 00:03 WBC RBC Hgb Hct MCV MCH MCHC RDW Plt Count MPV Absolute Neuts (auto) Neutrophils % Neutrophils % (Manual) Band Neutrophils % Lymphocytes % Lymphocytes % (Manual) Monocytes % Monocytes % (Manual) Eosinophils % Eosinophils % (Manual) Basophils % Basophils % (Manual) Myelocytes % (Man) Promyelocytes % (Man) Blast Cells % (Manual) Nucleated RBC % Metamyelocytes Hypochromia Platelet Estimate Polychromasia Poikilocytosis Anisocytosis Microcytosis Macrocytosis Ovalocytes ESR VBG pH 7.38 POC VBG pCO2 36.3 L POC VBG pO2 52.1 H VBG HCO3 21.3 L VBG O2 Sat (Erica) 82.8 H VBG Base Excess -2.7 L Sodium Potassium Chloride Carbon Dioxide Anion Gap BUN Creatinine Est GFR (CKD-EPI)AfAm Est GFR (CKD-EPI)NonAf POC Glucometer 288 Random Glucose Hemoglobin A1c % Lactic Acid Calcium Phosphorus Magnesium Total Bilirubin AST ALT Alkaline Phosphatase Creatine Kinase Creatine Kinase Index CK-MB (CK-2) Troponin I C-Reactive Protein B-Natriuretic Peptide 98215.9 H Total Protein Albumin Triglycerides Cholesterol Total LDL Cholesterol HDL Cholesterol Lipase TSH Serum , Qual Urine Color Urine Appearance Urine pH Ur Specific [place] Urine Protein Urine Glucose (UA) Urine Ketones Urine Blood Urine Nitrite Urine Bilirubin Urine Urobilinogen Ur Leukocyte Esterase Urine WBC (Auto) Urine RBC (Auto) Urine Casts (Auto) U Epithel Cells (Auto) Urine Bacteria (Auto) Urine HCG, Qual Opiates Screen Methadone Screen Barbiturate Screen Phencyclidine Screen Ur Amphetamines Screen MDMA (Ecstasy) Screen Benzodiazepines Screen Cocaine Screen U Marijuana (THC) Screen Acetone, Qual 0501/11/19 01/11/19 00:06 00:15 00:50 WBC RBC Hgb Hct MCV MCH MCHC RDW Plt Count MPV Absolute Neuts (auto) Neutrophils % Neutrophils % (Manual) Band Neutrophils % Lymphocytes % Lymphocytes % (Manual) Monocytes % Monocytes % (Manual) Eosinophils % Eosinophils % (Manual) Basophils % Basophils % (Manual) Myelocytes % (Man) Promyelocytes % (Man) Blast Cells % (Manual) Nucleated RBC % Metamyelocytes Hypochromia Platelet Estimate Polychromasia Poikilocytosis Anisocytosis Microcytosis Macrocytosis Ovalocytes ESR VBG pH POC VBG pCO2 POC VBG pO2 VBG HCO3 VBG O2 Sat (Erica) VBG Base Excess Sodium 137 Potassium 4.1 Chloride 103 Carbon Dioxide 22 Anion Gap 12 BUN 16 Creatinine 1.5 H Est GFR (CKD-EPI)AfAm 55.15 Est GFR (CKD-EPI)NonAf 47.59 POC Glucometer 349 Random Glucose 310 H* Hemoglobin A1c % Lactic Acid Calcium 8.5 Phosphorus Magnesium Total Bilirubin AST ALT Alkaline Phosphatase Creatine Kinase 237 H Creatine Kinase Index 0.9 CK-MB (CK-2) 2.2 Troponin I 0.37 H C-Reactive Protein B-Natriuretic Peptide Total Protein Albumin Triglycerides Cholesterol Total LDL Cholesterol HDL Cholesterol Lipase TSH Serum , Qual Urine Color Yellow Urine Appearance Clear Urine pH 5.5 Ur Specific Sumner 1.028 Urine Protein 3+ H Urine Glucose (UA) 3+ H Urine Ketones 4+ H Urine Blood 2+ H Urine Nitrite Negative Urine Bilirubin Negative Urine Urobilinogen 0.2 Ur Leukocyte Esterase Negative Urine WBC (Auto) 3 Urine RBC (Auto) 5 Urine Casts (Auto) 4 U Epithel Cells (Auto) 2.9 Urine Bacteria (Auto) 45.4 Urine HCG, Qual Negative Opiates Screen Methadone Screen Barbiturate Screen Phencyclidine Screen Ur Amphetamines Screen MDMA (Ecstasy) Screen Benzodiazepines Screen Cocaine Screen U Marijuana (THC) Screen Acetone, Qual 01/11/19 01/11/19 01/11/19 03:07 04:48 05:08 WBC RBC Hgb Hct MCV MCH MCHC RDW Plt Count MPV Absolute Neuts (auto) Neutrophils % Neutrophils % (Manual) Band Neutrophils % Lymphocytes % Lymphocytes % (Manual) Monocytes % Monocytes % (Manual) Eosinophils % Eosinophils % (Manual) Basophils % Basophils % (Manual) Myelocytes % (Man) Promyelocytes % (Man) Blast Cells % (Manual) Nucleated RBC % Metamyelocytes Hypochromia Platelet Estimate Polychromasia Poikilocytosis Anisocytosis Microcytosis Macrocytosis Ovalocytes ESR VBG pH POC VBG pCO2 POC VBG pO2 VBG HCO3 VBG O2 Sat (Erica) VBG Base Excess Sodium Potassium Chloride Carbon Dioxide Anion Gap BUN Creatinine Est GFR (CKD-EPI)AfAm Est GFR (CKD-EPI)NonAf POC Glucometer 325 Random Glucose Hemoglobin A1c % Lactic Acid 1.5 Calcium Phosphorus Magnesium Total Bilirubin AST ALT Alkaline Phosphatase Creatine Kinase Creatine Kinase Index CK-MB (CK-2) Troponin I C-Reactive Protein B-Natriuretic Peptide Total Protein Albumin Triglycerides Cholesterol Total LDL Cholesterol HDL Cholesterol Lipase TSH Serum , Qual Urine Color Urine Appearance Urine pH Ur Specific [place] Urine Protein Urine Glucose (UA) Urine Ketones Urine Blood Urine Nitrite Urine Bilirubin Urine Urobilinogen Ur Leukocyte Esterase Urine WBC (Auto) Urine RBC (Auto) Urine Casts (Auto) U Epithel Cells (Auto) Urine Bacteria (Auto) Urine HCG, Qual Opiates Screen Negative Methadone Screen Negative Barbiturate Screen Negative Phencyclidine Screen Negative Ur Amphetamines Screen Negative MDMA (Ecstasy) Screen Negative Benzodiazepines Screen Negative Cocaine Screen Negative U Marijuana (THC) Screen Negative Acetone, Qual 01/11/19 01/11/19 01/11/19 05:08 05:08 05:08 WBC 8.9 RBC 4.21 Hgb 10.2 L Hct 32.9 MCV 78.2 L MCH 24.3 L MCHC 31.1 L RDW 17.8 H Plt Count 336 MPV 9.7 Absolute Neuts (auto) 7.1 Neutrophils % 79.7 Neutrophils % (Manual) Band Neutrophils % Lymphocytes % 12.1 D Lymphocytes % (Manual) Monocytes % 7.6 D Monocytes % (Manual) Eosinophils % 0.1 Eosinophils % (Manual) Basophils % 0.5 Basophils % (Manual) Myelocytes % (Man) Promyelocytes % (Man) Blast Cells % (Manual) Nucleated RBC % 0 Metamyelocytes Hypochromia Platelet Estimate Polychromasia Poikilocytosis Anisocytosis Microcytosis Macrocytosis Ovalocytes ESR VBG pH POC VBG pCO2 POC VBG pO2 VBG HCO3 VBG O2 Sat (Erica) VBG Base Excess Sodium 133 L Potassium 4.2 Chloride 99 Carbon Dioxide 21 Anion Gap 13 BUN 15 Creatinine 1.1 Est GFR (CKD-EPI)AfAm 80.24 Est GFR (CKD-EPI)NonAf 69.24 POC Glucometer Random Glucose 302 H* Hemoglobin A1c % 10.3 H Lactic Acid Calcium 7.9 L Phosphorus 3.6 Magnesium 1.9 Total Bilirubin 0.6 AST 21 ALT 13 Alkaline Phosphatase 70 Creatine Kinase 231 H Creatine Kinase Index 0.9 CK-MB (CK-2) 2.2 Troponin I 0.41 H C-Reactive Protein B-Natriuretic Peptide Total Protein 5.5 L Albumin 2.2 L Triglycerides 132 Cholesterol 156 Total LDL Cholesterol 108 H HDL Cholesterol 39 L Lipase TSH Serum , Qual Urine Color Urine Appearance Urine pH Ur Specific [place] Urine Protein Urine Glucose (UA) Urine Ketones Urine Blood Urine Nitrite Urine Bilirubin Urine Urobilinogen Ur Leukocyte Esterase Urine WBC (Auto) Urine RBC (Auto) Urine Casts (Auto) U Epithel Cells (Auto) Urine Bacteria (Auto) Urine HCG, Qual Opiates Screen Methadone Screen Barbiturate Screen Phencyclidine Screen Ur Amphetamines Screen MDMA (Ecstasy) Screen Benzodiazepines Screen Cocaine Screen U Marijuana (THC) Screen Acetone, Qual 01/11/19 01/11/19 01/11/19 06:27 11:59 17:21 WBC RBC Hgb Hct MCV MCH MCHC RDW Plt Count MPV Absolute Neuts (auto) Neutrophils % Neutrophils % (Manual) Band Neutrophils % Lymphocytes % Lymphocytes % (Manual) Monocytes % Monocytes % (Manual) Eosinophils % Eosinophils % (Manual) Basophils % Basophils % (Manual) Myelocytes % (Man) Promyelocytes % (Man) Blast Cells % (Manual) Nucleated RBC % Metamyelocytes Hypochromia Platelet Estimate Polychromasia Poikilocytosis Anisocytosis Microcytosis Macrocytosis Ovalocytes ESR VBG pH POC VBG pCO2 POC VBG pO2 VBG HCO3 VBG O2 Sat (Erica) VBG Base Excess Sodium Potassium Chloride Carbon Dioxide Anion Gap BUN Creatinine Est GFR (CKD-EPI)AfAm Est GFR (CKD-EPI)NonAf POC Glucometer 332 339 227 Random Glucose Hemoglobin A1c % Lactic Acid Calcium Phosphorus Magnesium Total Bilirubin AST ALT Alkaline Phosphatase Creatine Kinase Creatine Kinase Index CK-MB (CK-2) Troponin I C-Reactive Protein B-Natriuretic Peptide Total Protein Albumin Triglycerides Cholesterol Total LDL Cholesterol HDL Cholesterol Lipase TSH Serum , Qual Urine Color Urine Appearance Urine pH Ur Specific [place] Urine Protein Urine Glucose (UA) Urine Ketones Urine Blood Urine Nitrite Urine Bilirubin Urine Urobilinogen Ur Leukocyte Esterase Urine WBC (Auto) Urine RBC (Auto) Urine Casts (Auto) U Epithel Cells (Auto) Urine Bacteria (Auto) Urine HCG, Qual Opiates Screen Methadone Screen Barbiturate Screen Phencyclidine Screen Ur Amphetamines Screen MDMA (Ecstasy) Screen Benzodiazepines Screen Cocaine Screen U Marijuana (THC) Screen Acetone, Qual 01/11/19 01/12/19 01/12/19 20:52 01:22 05:50 WBC RBC Hgb Hct MCV MCH MCHC RDW Plt Count MPV Absolute Neuts (auto) Neutrophils % Neutrophils % (Manual) Band Neutrophils % Lymphocytes % Lymphocytes % (Manual) Monocytes % Monocytes % (Manual) Eosinophils % Eosinophils % (Manual) Basophils % Basophils % (Manual) Myelocytes % (Man) Promyelocytes % (Man) Blast Cells % (Manual) Nucleated RBC % Metamyelocytes Hypochromia Platelet Estimate Polychromasia Poikilocytosis Anisocytosis Microcytosis Macrocytosis Ovalocytes ESR VBG pH POC VBG pCO2 POC VBG pO2 VBG HCO3 VBG O2 Sat (Erica) VBG Base Excess Sodium Potassium Chloride Carbon Dioxide Anion Gap BUN Creatinine Est GFR (CKD-EPI)AfAm Est GFR (CKD-EPI)NonAf POC Glucometer 206 146 145 Random Glucose Hemoglobin A1c % Lactic Acid Calcium Phosphorus Magnesium Total Bilirubin AST ALT Alkaline Phosphatase Creatine Kinase Creatine Kinase Index CK-MB (CK-2) Troponin I C-Reactive Protein B-Natriuretic Peptide Total Protein Albumin Triglycerides Cholesterol Total LDL Cholesterol HDL Cholesterol Lipase TSH Serum , Qual Urine Color Urine Appearance Urine pH Ur Specific [place] Urine Protein Urine Glucose (UA) Urine Ketones Urine Blood Urine Nitrite Urine Bilirubin Urine Urobilinogen Ur Leukocyte Esterase Urine WBC (Auto) Urine RBC (Auto) Urine Casts (Auto) U Epithel Cells (Auto) Urine Bacteria (Auto) Urine HCG, Qual Opiates Screen Methadone Screen Barbiturate Screen Phencyclidine Screen Ur Amphetamines Screen MDMA (Ecstasy) Screen Benzodiazepines Screen Cocaine Screen U Marijuana (THC) Screen Acetone, Qual 01/12/19 01/12/19 01/12/19 06:30 06:30 06:30 WBC 7.1 RBC 4.42 Hgb 10.6 L Hct 33.7 MCV 76.3 L MCH 24.0 L MCHC 31.5 L RDW 17.7 H Plt Count 336 MPV 9.0 Absolute Neuts (auto) Neutrophils % Neutrophils % (Manual) Band Neutrophils % Lymphocytes % Lymphocytes % (Manual) Monocytes % Monocytes % (Manual) Eosinophils % Eosinophils % (Manual) Basophils % Basophils % (Manual) Myelocytes % (Man) Promyelocytes % (Man) Blast Cells % (Manual) Nucleated RBC % Metamyelocytes Hypochromia Platelet Estimate Polychromasia Poikilocytosis Anisocytosis Microcytosis Macrocytosis Ovalocytes ESR VBG pH POC VBG pCO2 POC VBG pO2 VBG HCO3 VBG O2 Sat (Erica) VBG Base Excess Sodium 137 Potassium 3.4 L Chloride 100 Carbon Dioxide 31 Anion Gap 6 L BUN 8 Creatinine 1.1 Est GFR (CKD-EPI)AfAm 80.24 Est GFR (CKD-EPI)NonAf 69.24 POC Glucometer Random Glucose 129 H Hemoglobin A1c % Lactic Acid Calcium 7.9 L Phosphorus 3.0 Magnesium 1.7 L Total Bilirubin 0.4 AST 22 ALT 13 Alkaline Phosphatase 70 Creatine Kinase Creatine Kinase Index CK-MB (CK-2) Troponin I 0.34 H C-Reactive Protein 0.9 H B-Natriuretic Peptide Total Protein 5.5 L Albumin 2.1 L Triglycerides Cholesterol Total LDL Cholesterol HDL Cholesterol Lipase TSH 2.43 Serum , Qual Urine Color Urine Appearance Urine pH Ur Specific [place] Urine Protein Urine Glucose (UA) Urine Ketones Urine Blood Urine Nitrite Urine Bilirubin Urine Urobilinogen Ur Leukocyte Esterase Urine WBC (Auto) Urine RBC (Auto) Urine Casts (Auto) U Epithel Cells (Auto) Urine Bacteria (Auto) Urine HCG, Qual Opiates Screen Methadone Screen Barbiturate Screen Phencyclidine Screen Ur Amphetamines Screen MDMA (Ecstasy) Screen Benzodiazepines Screen Cocaine Screen U Marijuana (THC) Screen Acetone, Qual 01/12/19 06:30 WBC RBC Hgb Hct MCV MCH MCHC RDW Plt Count MPV Absolute Neuts (auto) Neutrophils % Neutrophils % (Manual) Band Neutrophils % Lymphocytes % Lymphocytes % (Manual) Monocytes % Monocytes % (Manual) Eosinophils % Eosinophils % (Manual) Basophils % Basophils % (Manual) Myelocytes % (Man) Promyelocytes % (Man) Blast Cells % (Manual) Nucleated RBC % Metamyelocytes Hypochromia Platelet Estimate Polychromasia Poikilocytosis Anisocytosis Microcytosis Macrocytosis Ovalocytes ESR 44 H VBG pH POC VBG pCO2 POC VBG pO2 VBG HCO3 VBG O2 Sat (Erica) VBG Base Excess Sodium Potassium Chloride Carbon Dioxide Anion Gap BUN Creatinine Est GFR (CKD-EPI)AfAm Est GFR (CKD-EPI)NonAf POC Glucometer Random Glucose Hemoglobin A1c % Lactic Acid Calcium Phosphorus Magnesium Total Bilirubin AST ALT Alkaline Phosphatase Creatine Kinase Creatine Kinase Index CK-MB (CK-2) Troponin I C-Reactive Protein B-Natriuretic Peptide Total Protein Albumin Triglycerides Cholesterol Total LDL Cholesterol HDL Cholesterol Lipase TSH Serum , Qual Urine Color Urine Appearance Urine pH Ur Specific [place] Urine Protein Urine Glucose (UA) Urine Ketones Urine Blood Urine Nitrite Urine Bilirubin Urine Urobilinogen Ur Leukocyte Esterase Urine WBC (Auto) Urine RBC (Auto) Urine Casts (Auto) U Epithel Cells (Auto) Urine Bacteria (Auto) Urine HCG, Qual Opiates Screen Methadone Screen Barbiturate Screen Phencyclidine Screen Ur Amphetamines Screen MDMA (Ecstasy) Screen Benzodiazepines Screen Cocaine Screen U Marijuana (THC) Screen Acetone, Qual Problem List - Problems (1) SHANE (acute kidney injury) Code(s): N17.9 - ACUTE KIDNEY FAILURE, UNSPECIFIED (2) DKA (diabetic ketoacidoses) Code(s): E11.10 - TYPE 2 DIABETES MELLITUS WITH KETOACIDOSIS WITHOUT COMA Qualifiers: Diabetes mellitus type: other specified (including SUMMER) Diabetes mellitus complication detail: without coma Qualified Code(s): E13.10 - Other specified diabetes mellitus with ketoacidosis without coma (3) Dehydration Code(s): E86.0 - DEHYDRATION (4) Elevated troponin I level Code(s): R74.8 - ABNORMAL LEVELS OF OTHER SERUM ENZYMES (5) Heart failure, systolic, with acute decompensation Code(s): I50.23 - ACUTE ON CHRONIC SYSTOLIC (CONGESTIVE) HEART FAILURE (6) Pericardial effusion Code(s): I31.3 - PERICARDIAL EFFUSION (NONINFLAMMATORY) Assessment/Plan Peripartum CMP HTN DKA CHF systolic moderate pericardial effusion - drug abuse positive TNIs noncomplience with medical treatment Plan asa 81 qd telemetry restart meds records from the prior hospitalizations f/u echo for pericardial effusion progression. No RV colaps, rsp variations in LV inflow.
--- NOTE | 2019-01-12 14:21 | PN ---
Teaching Attending Note Name of Resident: Flaco Mercedes ATTENDING PHYSICIAN STATEMENT I saw and evaluated the patient. I reviewed the resident's note and discussed the case with the resident. I agree with the resident's findings and plan as documented. SUBJECTIVE:sleeping comfortable, answers "yes" to all questions. to clarify pt is not homeless and lives in retirement for people with psychiatric and substance abuse problems OBJECTIVE: Last Vital Signs Temp Pulse Resp BP Pulse Ox 98.4 F 103 H 20 140/73 98 01/12/19 05:00 01/12/19 05:00 01/12/19 05:00 01/12/19 05:00 01/11/19 21:00 General NAD, resting comfortable, CV S1 s2 RRR no murmur/rub/gallop no chest wall tenderness Lungs CTA B/L no wheezing/rales/rhonchi Abdomen soft NT/ND Extremiteis trace pitting edema ASSESSMENT AND PLAN: 28 yrs old F non compliant, active cocaine abuse, F/U mostly at [facility] poor historian H/O [id number] since the age of 7, HTN, episodes of DKA with cocaine abuse, cardiomyopathy diagnosed in Jul 2018 admitted with presents for abdominal pain, nausea, and vomiting with dehydration, elevated AG, Acetone in te urine low Bicarb RPG > 500 consistent DKA although PH was 7.39, ECHO shows low EF and Pericardial effusion 1. DKA- resolved quickly without necessity for insulin ggt. A1c 10.3. started on levemir with good response. counselled on importance of medication compliance. endo on board 2. Pericardial effusion- as per echo has signs of early tamponade but no RV collapse. as per pt she was told she had this in the past but unsure of the quantity of fluid. state she was placed on lasix for this reason which she states she is compliant. no signs of tamponade clinically. awaiting to obtain records from health system to compare if this is acute on chronic, will speak with IR and reach out to cardiothoracic surgery for input if intervention is required. cardio on board 3. HTN urgency- due to non compliance. improved on home dose medications. will cont 4. Tropinemia- flat trend likely due to demand ischemia. will obtain records from previous hospitalization. unclear what workup has already been done. cardiac monitoring 5. SHANE-likely dehydration in setting of DKA. now resolved 6. Hypokalemia- Kcl po. goal K 4.5 7. Hypomangesemia- Mg po. goal Mg 2.5 8. Continuous Cocaine dependence- admits to active smoking. denies IVDA. not showing any signs of withdrawal. Utox negative. counselled on senior care consequences of drug abuse 9. cardiomyopathy- EF here 37%. will see on recent echo. 10. DVT ppx- hep sq 11. low threshold for transfer to tertiary care center
--- NOTE | 2019-01-12 16:10 | PN ---
Physical Exam: SUBJECTIVE: Patient seen and examined. Pt. states that she feels ok. She has a cough that began yesterday. Pt. endorses burning with urination and having blood in her urine. Pt. endorses abdominal pain and states last BM was 2 days ago. Pt. states she felt nauseous and vomited non-bloody emesis once. Pt.'s psychiatric history and significant diabetic and cardiac history from [place] in chart. OBJECTIVE: Vital Signs Period Temp Pulse Resp BP Sys/Marquis Pulse Ox Last 24 Hr 98 F-98.7 F 101-114 16-20 128-177/73-106 95-98 GENERAL: The patient is drowsy, in no acute distress. HEAD: Normal with no signs of trauma. EYES: extraocular movements intact, sclera anicteric, conjunctiva clear. ENT: Ears normal, nares patent, oropharynx clear without exudates, Dry mucous membranes. LUNGS: Breath sounds equal, clear to auscultation bilaterally, no wheezes, no crackles, no accessory muscle use. HEART: distant heart sounds, regular rate and rhythm, S1, S2 without murmur ABDOMEN: Soft, mild epigastric tenderness, nondistended, normoactive bowel sounds, no guarding, no rebound EXTREMITIES: 2+ dorsal pedal pulses, warm, well-perfused, no edema. NEUROLOGICAL: Normal speech, gait not observed. PSYCH: Normal mood, normal affect. SKIN: Warm, dry, normal turgor, no rashes or lesions noted Laboratory Results - last 24 hr 01/11/19 01/11/19 01/11/19 05:08 17:21 20:52 WBC RBC Hgb Hct MCV MCH MCHC RDW Plt Count MPV ESR Sodium 133 L Potassium 4.2 Chloride 99 Carbon Dioxide 21 Anion Gap 13 BUN 15 Creatinine 1.1 Est GFR (CKD-EPI)AfAm 80.24 Est GFR (CKD-EPI)NonAf 69.24 POC Glucometer 227 206 Random Glucose 302 H* Calcium 7.9 L Phosphorus 3.6 Magnesium 1.9 Total Bilirubin 0.6 AST 21 ALT 13 Alkaline Phosphatase 70 Creatine Kinase 231 H Creatine Kinase Index 0.9 CK-MB (CK-2) 2.2 Troponin I 0.41 H C-Reactive Protein Total Protein 5.5 L Albumin 2.2 L Triglycerides 132 Cholesterol 156 Total LDL Cholesterol 108 H HDL Cholesterol 39 L TSH 01/12/19 01/12/19 01/12/19 01:22 05:50 06:30 WBC 7.1 RBC 4.42 Hgb 10.6 L Hct 33.7 MCV 76.3 L MCH 24.0 L MCHC 31.5 L RDW 17.7 H Plt Count 336 MPV 9.0 ESR Sodium Potassium Chloride Carbon Dioxide Anion Gap BUN Creatinine Est GFR (CKD-EPI)AfAm Est GFR (CKD-EPI)NonAf POC Glucometer 146 145 Random Glucose Calcium Phosphorus Magnesium Total Bilirubin AST ALT Alkaline Phosphatase Creatine Kinase Creatine Kinase Index CK-MB (CK-2) Troponin I C-Reactive Protein Total Protein Albumin Triglycerides Cholesterol Total LDL Cholesterol HDL Cholesterol TSH 01/12/19 01/12/19 01/12/19 06:30 06:30 06:30 WBC RBC Hgb Hct MCV MCH MCHC RDW Plt Count MPV ESR 44 H Sodium 137 Potassium 3.4 L Chloride 100 Carbon Dioxide 31 Anion Gap 6 L BUN 8 Creatinine 1.1 Est GFR (CKD-EPI)AfAm 80.24 Est GFR (CKD-EPI)NonAf 69.24 POC Glucometer Random Glucose 129 H Calcium 7.9 L Phosphorus 3.0 Magnesium 1.7 L Total Bilirubin 0.4 AST 22 ALT 13 Alkaline Phosphatase 70 Creatine Kinase Creatine Kinase Index CK-MB (CK-2) Troponin I 0.34 H C-Reactive Protein 0.9 H Total Protein 5.5 L Albumin 2.1 L Triglycerides Cholesterol Total LDL Cholesterol HDL Cholesterol TSH 2.43 01/12/19 12:28 WBC RBC Hgb Hct MCV MCH MCHC RDW Plt Count MPV ESR Sodium Potassium Chloride Carbon Dioxide Anion Gap BUN Creatinine Est GFR (CKD-EPI)AfAm Est GFR (CKD-EPI)NonAf POC Glucometer 184 Random Glucose Calcium Phosphorus Magnesium Total Bilirubin AST ALT Alkaline Phosphatase Creatine Kinase Creatine Kinase Index CK-MB (CK-2) Troponin I C-Reactive Protein Total Protein Albumin Triglycerides Cholesterol Total LDL Cholesterol HDL Cholesterol TSH Active Medications Home Medications Medication Instructions Recorded Carvedilol 25 mg PO BID 01/11/19 Citalopram Hydrobromide 20 mg PO DAILY 01/11/19 [Citalopram HBr] Enalapril Maleate 5 mg PO DAILY 01/11/19 Furosemide 20 mg PO DAILY 01/11/19 Insulin Glargine,Hum.rec.anlog 18 mg SQ DAILY 01/11/19 [Char Miguel U-100] Magnesium Oxide 1,200 mg PO BID 01/11/19 Current Medications Aspirin (Ecotrin -) 81 mg PO DAILY [facility] Carvedilol (Coreg -) 25 mg PO BID [facility] Citalopram Hydrobromide (Celexa -) 20 mg PO DAILY [facility] Last Admin: 01/12/19 10:34 Dose: 20 mg Enalapril Maleate (Vasotec -) 5 mg PO DAILY [facility] Last Admin: 01/12/19 10:34 Dose: 5 mg Enoxaparin Sodium (Lovenox -) 40 mg SQ DAILY [facility] Famotidine/Sodium Chloride (Pepcid 20 Mg Premixed Ivpb -) 20 mg in 50 mls @ 100 mls/hr IVPB BID [facility] Last Admin: 01/12/19 10:34 Dose: 100 mls/hr Insulin Aspart (Novolog Vial Sliding Scale -) 1 vial SQ Q4H [facility]; Protocol Last Admin: 01/12/19 07:02 Dose: Not Given Insulin Detemir (Levemir Vial) 28 units SQ AM [facility] Last Admin: 01/12/19 07:06 Dose: 28 units Ondansetron HCl (Zofran Injection) 4 mg IVPUSH Q6H PRN PRN Reason: NAUSEA Last Admin: 01/12/19 07:59 Dose: 4 mg ASSESSMENT/PLAN: Patient is a 28 y/o with a history of IDDM, DKA, HTN, and CHF who presents for abdominal pain, nausea, and vomiting secondary to DKA. #CHF w/ Tamponade Physiology patient currently euvolemic daily weights echo: EF 37%, mod.- severe MR, mild-mod. TR, mild-mod. pulm HTN, calcified aortic valve w/ mild aortic stenosis, mod pericardial effusion w/o RV collapse but mitral valve doppler shows tamponade physiology--> significant change from prior Echo which showed EF of 25% and small pericardial effusion Cardiothoracic Surgery (Dr Schmitt) appreciated-- f/u recommendations for possible pericardial window CXR: no evidence of congestion Cardiology (Dr. Tierney) consult BNP: 14,800 c/w Carvedilol Hold Lasix in setting of tamponade physiology and not wanting to decreased diastolic pressures to precipitate RV collapse #Diabetic Ketoacidosis-resolved hyperglycemia at 500, AG 19, positive ketones on admission patient received 20 units, anion gap closed Pt. to receive Levemir 28 units based on weight calculation UTox: Negative BGM's Q2H BMP Q4H A1C: 10.3% ISS ACHS- has not required additional coverage EKG QTC: 491 caution with zofran and reglan, PVC's no previous EKG ESR: 44, CRP: 0.9, TSH: 2.43 #SHANE 2/2 to dehydration 2/2 to Hyperglycemia-resolved continue IVF urine electrolytes continue to trend avoid nephrotoxic agents #Hx. of Depression Psych consult (Dr. Cohen) appreciated Per [facility] medical records Pt. was on Perphenazine and Lexapro #HTN c/w Enalapril 5 mg continue to monitor BP. avoid narrowing of pulse pressures #Polysubstance abuse UTox - Would benefit from grievance and appeals specialist Records from [facility] show Hx. of crack cocaine use and marijuana f/u [facility] and GC/Chlamydia given Hx. of prostitution #FEN LR @ 75 monitor electrolytes, particularly potassium and magnesium, repleted earlier today Diabetic/Na Diet Visit type - Emergency Visit Emergency Visit: Yes ED Registration Date: 01/11/19 Care time: The patient presented to the Emergency Department on the above date and was hospitalized for further evaluation of their emergent condition. - New Patient This patient is new to me today: No - Critical Care Critical Care patient: No - Discharge Referral Referred to [facility] Med P.C.: No
[2019-01-12] MEDS: ENOXAPARIN NA (PORCINE) 40 MG/0.4 ML DISP.SYRIN SQ SCH ×2 (16:21→16:24)
[2019-01-12] MEDS: CARVEDILOL 25 MG TABLET (FP) PO SCH ×2 (16:21→22:12)
[2019-01-12] MEDS: ASPIRIN COATED 81 MG TABLET.EC PO SCH (16:21)
--- NOTE | 2019-01-12 18:03 | CON.PSY ---
Psychiatry Consult Chief Complaint: 28 year old female with a history of Diabetes and Major Depressive Disorder. [place] living in a [facility] in [place] and is followed by ACT team. Symptoms: reports: Decreased Energy, Anxiety - Previous Psychiatric Treatment Outpatient: Less than 6 mos ago Inpatient: 2 or more prior admissions - Previous Substance Abuse Treatment Outpatient: None Inpatient: None - Reason for Previous Treatment Reason for Previous Treatment: Major Depression, Suicidal Attempt/Behavior - Current Medications Current Medications: Active Medications Aspirin (Ecotrin -) 81 mg PO DAILY [facility] Last Admin: 01/12/19 16:21 Dose: 81 mg Carvedilol (Coreg -) 25 mg PO BID [facility] Last Admin: 01/12/19 16:21 Dose: 25 mg Citalopram Hydrobromide (Celexa -) 20 mg PO DAILY [facility] Last Admin: 01/12/19 10:34 Dose: 20 mg Enalapril Maleate (Vasotec -) 5 mg PO DAILY [facility] Last Admin: 01/12/19 10:34 Dose: 5 mg Enoxaparin Sodium (Lovenox -) 40 mg SQ DAILY [facility] Last Admin: 01/12/19 16:24 Dose: Not Given Famotidine/Sodium Chloride (Pepcid 20 Mg Premixed Ivpb -) 20 mg in 50 mls @ 100 mls/hr IVPB BID [facility] Last Admin: 01/12/19 10:34 Dose: 100 mls/hr Insulin Aspart (Novolog Vial Sliding Scale -) 1 vial SQ Q4H [facility]; Protocol Last Admin: 01/12/19 14:30 Dose: Not Given Insulin Detemir (Levemir Vial) 28 units SQ AM [facility] Last Admin: 01/12/19 07:06 Dose: 28 units Ondansetron HCl (Zofran Injection) 4 mg IVPUSH Q6H PRN PRN Reason: NAUSEA Last Admin: 01/12/19 07:59 Dose: 4 mg - Allergies Allergies: Allergies Allergy/AdvReac Type Severity Reaction Status Date / Time No Known Allergies Allergy Verified 01/10/19 18:24 - Current Living Status Usual Living Arrangement: Assisted Living - Current Mental Status Evaluation Appearance: Well Groomed Attitude: Cooperative - Affect Affect: Constrictive Appropriateness: Appropriate to Content - Mood Mood: Anxious - Speech/Language Expressive: Coherent - Psychomotor Activity Psychomotor Activity: Slowed - Thought Process Thought Process: Intact - Thought Content Hallucinations: Absent Delusions: Absent - Self Perception Self Perception: No Impairment - Cognition Attention: Alert Orientation: Time Memory, Immediate Recall: Intact Memory, Short Term: 3/3 Memory, Remote with Promptin/3 - Concentration Serial Sevens Intact: No Simple Calculations Intact: Yes - Abstraction Proverb Interpretation: Intact Judgement: Intact - Insight Insight: Intact - Impulse Control Impulse Control: Good Control - Suicidal Ideation Suicidal Ideation: No - Homicidal Ideation Homicidal Ideation: No Assessment/Plan 1) Patient appears to be at her base level for DEpression, compliant with Celexa. Not suicidal at this time. 2) Ca n be discharged back to [address] when medically stable. 3) [facility].
[2019-01-12] MEDS ORDERED: ACETAMINOPHEN 325 MG TABLET (FP) PO ONE (18:15)
[2019-01-12] MEDS ORDERED: INSULIN (LEVEMIR) 100 UNITS/ML UNITS SQ SCH (22:00)
--- NOTE | 2019-01-12 23:28 | PN ---
Progress Note, Physician Chief Complaint: awake comfortable no further vomiting tolerating diet - Current Medication List Current Medications: Active Medications Aspirin (Ecotrin -) 81 mg PO DAILY [facility] Last Admin: 01/12/19 16:21 Dose: 81 mg Carvedilol (Coreg -) 25 mg PO BID [facility] Last Admin: 01/12/19 22:12 Dose: 25 mg Citalopram Hydrobromide (Celexa -) 20 mg PO DAILY [facility] Last Admin: 01/12/19 10:34 Dose: 20 mg Enalapril Maleate (Vasotec -) 5 mg PO DAILY [facility] Last Admin: 01/12/19 10:34 Dose: 5 mg Enoxaparin Sodium (Lovenox -) 40 mg SQ DAILY [facility] Last Admin: 01/12/19 16:24 Dose: Not Given Famotidine/Sodium Chloride (Pepcid 20 Mg Premixed Ivpb -) 20 mg in 50 mls @ 100 mls/hr IVPB BID [facility] Last Admin: 01/12/19 22:12 Dose: 100 mls/hr Insulin Aspart (Novolog Vial Sliding Scale -) 1 vial SQ Q4H [facility]; Protocol Last Admin: 01/12/19 22:14 Dose: 6 units Insulin Detemir (Levemir Vial) 28 units SQ AM [facility] Last Admin: 01/12/19 07:06 Dose: 28 units Ondansetron HCl (Zofran Injection) 4 mg IVPUSH Q6H PRN PRN Reason: NAUSEA Last Admin: 01/12/19 07:59 Dose: 4 mg - Objective Vital Signs: Vital Signs Temperature 97.8 F 01/12/19 20:24 Pulse Rate 88 01/12/19 20:24 Respiratory Rate 18 01/12/19 20:24 Blood Pressure 107/46 L 01/12/19 20:24 O2 Sat by Pulse Oximetry (%) 98 01/12/19 21:00 Constitutional: Yes: Calm Eyes: Yes: EOM Intact HENT: Yes: Normocephalic Neck: Yes: Trachea Midline Cardiovascular: Yes: Regular Rate and Rhythm Respiratory: Yes: CTA Bilaterally Gastrointestinal: Yes: Normal Bowel Sounds ...Rectal Exam: Yes: Deferred Musculoskeletal: Yes: WNL Extremities: Yes: WNL Edema: No Integumentary: Yes: WNL Neurological: Yes: Alert, Oriented Labs: CBC, BMP 01/12/19 06:30 01/12/19 06:30 Problem List - Problems (1) DKA (diabetic ketoacidoses) Code(s): E11.10 - TYPE 2 DIABETES MELLITUS WITH KETOACIDOSIS WITHOUT COMA Qualifiers: Diabetes mellitus type: other specified (including SUMMER) Diabetes mellitus complication detail: without coma Qualified Code(s): E13.10 - Other specified diabetes mellitus with ketoacidosis without coma (2) Dehydration Code(s): E86.0 - DEHYDRATION (3) Elevated troponin I level Code(s): R74.8 - ABNORMAL LEVELS OF OTHER SERUM ENZYMES (4) Heart failure, systolic, with acute decompensation Code(s): I50.23 - ACUTE ON CHRONIC SYSTOLIC (CONGESTIVE) HEART FAILURE (5) Pericardial effusion Code(s): I31.3 - PERICARDIAL EFFUSION (NONINFLAMMATORY) Assessment/Plan Current Active Problems iddm type 1 SHANE (acute kidney injury) (Acute) sp DKA (diabetic ketoacidoses) (Acute) Dehydration (Acute) Elevated troponin I level (Acute) Heart failure, systolic, with acute decompensation (Acute) Pericardial effusion (Acute) Abnormal Lab Results 01/12/19 01/12/19 01/12/19 06:30 06:30 06:30 Hgb 10.6 L MCV 76.3 L MCH 24.0 L MCHC 31.5 L RDW 17.7 H ESR Potassium 3.4 L Anion Gap 6 L Random Glucose 129 H Calcium 7.9 L Magnesium 1.7 L Troponin I 0.34 H C-Reactive Protein 0.9 H Total Protein 5.5 L Albumin 2.1 L 01/12/19 06:30 Hgb MCV MCH MCHC RDW ESR 44 H Potassium Anion Gap Random Glucose Calcium Magnesium Troponin I C-Reactive Protein Total Protein Albumin Laboratory Tests 01/12/19 01/12/19 01/12/19 05:50 12:28 18:04 POC Glucometer 145 184 194 01/12/19 22:13 POC Glucometer 268 plan: bgm qid novolog scale diet nutrition levemir 28 units am titrate as diet improves Laboratory Tests 01/11/19 05:08 Hemoglobin A1c % 10.3 H
[2019-01-13] MEDS: INSULIN SLIDING SCALE (NOVOLOG) 1 VIAL SQ SCH ×4 (06:55→22:47)
[2019-01-13] MEDS: INSULIN (LEVEMIR) 100 UNITS/ML UNITS SQ SCH (06:55)
[2019-01-13 08:28] LABS: CALCIUM 8.1 mg/dL (8.5-10.1); CREATININE 1.3 mg/dL (0.55-1.3); MAGNESIUM 1.9 mg/dL (1.8-2.4); POTASSIUM 4.4 mmol/L (3.5-5.1)
[2019-01-13] MEDS ORDERED: guaiFENesin 200 MG/10 ML 10 ML UNIT-DOSE CUPS PO ONE (08:47)
[2019-01-13] MEDS: CITALOPRAM HYDROBROMIDE 20 MG TABLET (FP) PO SCH (09:47)
[2019-01-13] MEDS: ASPIRIN COATED 81 MG TABLET.EC PO SCH (09:47)
[2019-01-13] MEDS: CARVEDILOL 25 MG TABLET (FP) PO SCH ×2 (09:47→22:43)
[2019-01-13] MEDS: ENALAPRIL MALEATE 5 MG TABLET (FP) PO SCH (09:48)
[2019-01-13] MEDS: ENOXAPARIN NA (PORCINE) 40 MG/0.4 ML DISP.SYRIN SQ SCH (09:48)
[2019-01-13] MEDS: FAMOTIDINE 20 MG/50 ML IVPB 20 MG/50 ML MG IVPB SCH (09:48)
--- NOTE | 2019-01-13 10:24 | PN ---
Progress Note, Physician Chief Complaint: Pt A&O; History of Present Illness: Ms. 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 The patient states she has been endorsing abdominal pain and lethargy, secondary to her symptoms. Glucose above 500 ( checked this morning). The patient denies chest pain, shortness of breath or dizziness. The patient denies fever, chills, diarrhea or constipation. The patient denies dysuria, frequency, urgency or hematuria. - Current Medication List Current Medications: Active Medications Aspirin (Ecotrin -) 81 mg PO DAILY [facility] Last Admin: 01/12/19 16:21 Dose: 81 mg Atorvastatin Calcium (Lipitor -) 10 mg PO HS [facility] Carvedilol (Coreg -) 25 mg PO BID [facility] Last Admin: 01/12/19 22:12 Dose: 25 mg Citalopram Hydrobromide (Celexa -) 20 mg PO DAILY [facility] Last Admin: 01/12/19 10:34 Dose: 20 mg Enalapril Maleate (Vasotec -) 5 mg PO DAILY [facility] Last Admin: 01/12/19 10:34 Dose: 5 mg Enoxaparin Sodium (Lovenox -) 40 mg SQ DAILY [facility] Last Admin: 01/12/19 16:24 Dose: Not Given Famotidine/Sodium Chloride (Pepcid 20 Mg Premixed Ivpb -) 20 mg in 50 mls @ 100 mls/hr IVPB BID [facility] Last Admin: 01/12/19 22:12 Dose: 100 mls/hr Insulin Aspart (Novolog Vial Sliding Scale -) 1 vial SQ ACHS [facility]; Protocol Last Admin: 01/13/19 06:55 Dose: 8 units Insulin Detemir (Levemir Vial) 28 units SQ AM [facility] Last Admin: 01/13/19 06:55 Dose: 28 units Ondansetron HCl (Zofran Injection) 4 mg IVPUSH Q6H PRN PRN Reason: NAUSEA Last Admin: 01/12/19 07:59 Dose: 4 mg - Objective Vital Signs: Vital Signs Temperature 98.7 F 01/13/19 09:10 Pulse Rate 90 01/13/19 09:10 Respiratory Rate 18 01/13/19 09:10 Blood Pressure 124/60 01/13/19 09:10 O2 Sat by Pulse Oximetry (%) 98 01/12/19 21:00 Constitutional: Yes: Calm, Obese Eyes: Yes: WNL HENT: Yes: WNL Neck: Yes: WNL Cardiovascular: Yes: S1, S2. No: JVD Respiratory: Yes: WNL Gastrointestinal: Yes: Soft ...Rectal Exam: Yes: Deferred Genitourinary: No: Anuria Breast(s): Yes: WNL Musculoskeletal: Yes: WNL Extremities: Yes: WNL Edema: No Peripheral Pulses WNL: Yes Integumentary: Yes: WNL Neurological: Yes: WNL Psychiatric: Yes: Other (addictive personality) Labs: CBC, BMP 01/12/19 06:30 01/13/19 06:00 Abnormal Lab Results 01/14/19 01/14/19 05:30 10:00 Sodium 135 L Anion Gap 7 L Random Glucose 178 H Calcium 8.0 L Ur Random Sodium < 18 L Ur Random Potassium 5.2 L Ur Random Chloride < 11 L - ....Imaging Chest X-ray: Image Reviewed (marked cardiomegaly; r/o pericardial effusion) Ultrasound: Report Reviewed (ECHO: moderately reduced LVEF; at least moderate pericardial effusion, with signs of tamponade; mild ;mild- moderate pulmonary HTN) Problem List - Problems (1) Peripartum cardiomyopathy Assessment/Plan: Moderately reduced LVEF on ECHO; at least moderate pericardial effusion, with signs of tamponade. On carvedilol and enalapril; use cautiously until effusion is resolved, and avoid hypotension. Code(s): O90.3 - PERIPARTUM CARDIOMYOPATHY (2) Cocaine abuse Assessment/Plan: urine screen negative. Future use would unfortunately preclude beta anastacio use, though the medication is important with LV dysfunction. Code(s): F14.10 - COCAINE ABUSE, UNCOMPLICATED (3) DKA (diabetic ketoacidoses) Code(s): E11.10 - TYPE 2 DIABETES MELLITUS WITH KETOACIDOSIS WITHOUT COMA Qualifiers: Diabetes mellitus type: other specified (including SUMMER) Diabetes mellitus complication detail: without coma Qualified Code(s): E13.10 - Other specified diabetes mellitus with ketoacidosis without coma (4) Dehydration Assessment/Plan: Elevated BUn/Cr avoid excessive dehydration with pericardial effusion; avoid diuretics. Treating DKA will require fluids (with caution, given moderately reduced LVEF). Code(s): E86.0 - DEHYDRATION (5) Elevated troponin I level Assessment/Plan: TNI 0.42-->0.37; CK/MB relative index low. Contributing factors to demand ischemia include CHF, tamponade, stress (?recent use of cocaine). Code(s): R74.8 - ABNORMAL LEVELS OF OTHER SERUM ENZYMES (6) Pericardial effusion Assessment/Plan: ECHO: at least moderate pericardial effusion; signs of tamponade; moderately reduced LVEF; mild ; mild-moderate pulmonary HTN. Planned for pericardial drainage, but held due to recent ASA use. Follow pt closely for signs of hemodynamic instability, which would engender emergency procedure. Code(s): I31.3 - PERICARDIAL EFFUSION (NONINFLAMMATORY)
--- NOTE | 2019-01-13 10:51 | PN ---
Teaching Attending Note Name of Resident: Flaco Mercedes ATTENDING PHYSICIAN STATEMENT I saw and evaluated the patient. I reviewed the resident's note and discussed the case with the resident. I agree with the resident's findings and plan as documented. SUBJECTIVE:continues to have chest discomfort, stable since hospitalization. denies SOB,f ever, chills, cough, N/V/C/D was tested for TB 6 months ago with PPD [facility] OBJECTIVE: Last Vital Signs Temp Pulse Resp BP Pulse Ox 98.7 F 90 18 124/60 98 01/13/19 09:10 01/13/19 09:10 01/13/19 09:10 01/13/19 09:10 01/12/19 21:00 General NAD, resting comfortable, CV S1 s2 RRR no murmur/rub/gallop no chest wall tenderness Lungs CTA B/L no wheezing/rales/rhonchi ASSESSMENT AND PLAN: 28 yrs old F non compliant, active cocaine abuse, F/U mostly at [facility] poor historian H/O [id number] since the age of 7, HTN, episodes of DKA with cocaine abuse, cardiomyopathy diagnosed in Jul 2018 admitted with presents for abdominal pain, nausea, and vomiting with dehydration, elevated AG, Acetone in te urine low Bicarb RPG > 500 consistent DKA although PH was 7.39, ECHO shows low EF and Pericardial effusion 1. DKA- resolved. cont to titrate insulin as needed to optimize control. bgm, iss. dietary consult. endo on board 2. Moderate Pericardial effusion- increased from last hospital stay which just showed trivial effusion. will check HIV and quant to r/o causes of effusion. CT surgery consulted and recommends pericardiocentesis. IR unable to do at this time because pt received asa yesterday. spoke with cardio, no emergent need for procedure as pt is hemodynamically stable. will monitor for signs of tamponade with echo. will obtain one tomorrow. cont with cardiac monitoring. 3. HTN urgency- due to non compliance. improved on home dose medications. will cont 4. Tropinemia- flat trend likely due to demand ischemia. will obtain records from previous hospitalization. unclear what workup has already been done. cardiac monitoring 5. SHANE-likely dehydration in setting of DKA. now resolved 6. Hypokalemia- resolved. goal K 4.5 7. Hypomangesemia- Mg po. goal Mg 2.5 8. Continuous Cocaine dependence- admits to active smoking. denies IVDA. not showing any signs of withdrawal. Utox negative. counselled on retirement consequences of drug abuse 9. cardiomyopathy- EF here 37%. will see on recent echo. 10. depression- seen by psych. started on celexa. 11. DVT ppx- hep sq 12. low threshold for transfer to tertiary care center
[2019-01-13] MEDS ORDERED: INSULIN (NOVOLOG) ASPART 100 UNITS/ML 10ML VIAL ONE (11:07)
--- NOTE | 2019-01-13 11:24 | PN ---
Physical Exam: SUBJECTIVE: Patient seen and examined. Pt. states she could not sleep well. Pt. endorses SOB w/ associated non-productive cough. Pt. endorses burning with urination. OBJECTIVE: Vital Signs Period Temp Pulse Resp BP Sys/Marquis Pulse Ox Last 24 Hr 97.8 F-99.4 F 73-101 18-20 107-185/46-87 98 GENERAL: The patient is drowsy, in no acute distress. HEAD: Normal with no signs of trauma. EYES: extraocular movements intact, sclera anicteric, conjunctiva clear. ENT: Ears normal, nares patent, oropharynx clear without exudates, Dry mucous membranes. LUNGS: Breath sounds equal, clear to auscultation bilaterally, no wheezes, no crackles, no accessory muscle use. HEART: distant heart sounds, regular rate and rhythm, S1, S2 without murmur ABDOMEN: Soft, mild epigastric tenderness, nondistended, normoactive bowel sounds, no guarding, no rebound EXTREMITIES: 2+ dorsal pedal pulses, warm, well-perfused, no edema. NEUROLOGICAL: Normal speech, gait not observed. PSYCH: Normal mood, normal affect. SKIN: Warm, dry, normal turgor, no rashes or lesions noted Laboratory Results - last 24 hr 01/12/19 01/12/19 01/12/19 12:28 18:04 22:13 Sodium Potassium Chloride Carbon Dioxide Anion Gap BUN Creatinine Est GFR (CKD-EPI)AfAm Est GFR (CKD-EPI)NonAf POC Glucometer 184 194 268 Random Glucose Calcium Magnesium 01/13/19 01/13/19 01/13/19 06:00 06:05 11:20 Sodium 136 Potassium 4.4 Chloride 100 Carbon Dioxide 29 Anion Gap 8 BUN 10 Creatinine 1.3 Est GFR (CKD-EPI)AfAm 65.57 Est GFR (CKD-EPI)NonAf 56.57 POC Glucometer 310 327 Random Glucose 315 H* Calcium 8.1 L Magnesium 1.9 Active Medications Home Medications Medication Instructions Recorded Carvedilol 25 mg PO BID 01/11/19 Citalopram Hydrobromide 20 mg PO DAILY 01/11/19 [Citalopram HBr] Enalapril Maleate 5 mg PO DAILY 01/11/19 Furosemide 20 mg PO DAILY 01/11/19 Insulin Glargine,Hum.rec.anlog 18 mg SQ DAILY 01/11/19 [Basaglar Kwikpen U-100] Magnesium Oxide 1,200 mg PO BID 01/11/19 Current Medications Atorvastatin Calcium (Lipitor -) 10 mg PO HS [facility] Carvedilol (Coreg -) 25 mg PO BID [facility] Last Admin: 01/13/19 09:47 Dose: 25 mg Citalopram Hydrobromide (Celexa -) 20 mg PO DAILY [facility] Last Admin: 01/13/19 09:47 Dose: 20 mg Enalapril Maleate (Vasotec -) 5 mg PO DAILY [facility] Last Admin: 01/13/19 09:48 Dose: 5 mg Enoxaparin Sodium (Lovenox -) 40 mg SQ DAILY [facility] Last Admin: 01/13/19 09:48 Dose: 40 mg Insulin Aspart (Novolog Vial Sliding Scale -) 1 vial SQ [facility]; Protocol Last Admin: 01/13/19 06:55 Dose: 8 units Insulin Detemir (Levemir Vial) 28 units SQ AM [facility] Last Admin: 01/13/19 06:55 Dose: 28 units Ondansetron HCl (Zofran Injection) 4 mg IVPUSH Q6H PRN PRN Reason: NAUSEA Last Admin: 01/12/19 07:59 Dose: 4 mg Pantoprazole Sodium (Protonix -) 40 mg PO DAILY [facility] ASSESSMENT/PLAN: Patient is a 28 y/o with a history of IDDM, DKA, HTN, and CHF who presents for abdominal pain, nausea, and vomiting secondary to DKA. #CHF w/ Tamponade Physiology patient currently euvolemic daily weights echo: EF 37%, mod.- severe MR, mild-mod. TR, mild-mod. pulm HTN, calcified aortic valve w/ mild aortic stenosis, mod pericardial effusion w/o RV collapse but mitral valve doppler shows tamponade physiology--> significant change from prior Echo which showed EF of 25% and small pericardial effusion Cardiothoracic Surgery (Dr Schmitt) appreciated--> should do pericardiocentesis 1st and evaluate fluid. Cardiac window is indicated only for emergent cases and/if Pt. has refractory pericrdial effusions. CXR: no evidence of congestion Cardiology (Dr. Tierney) consult appreciated BNP: 14,800 c/w Carvedilol Hold Lasix in setting of tamponade physiology and not wanting to decreased diastolic pressures to precipitate RV collapse Hold ASA 81mg for 7 days f/u Rpt. Echo for tomorrow f/u CT Chest w/o contrast for evaluation of pericardial effusion #Diabetic Ketoacidosis-resolved hyperglycemia at 500, AG 19, positive ketones on admission patient received 20 units, anion gap closed Pt. to receive Levemir 28 units based on weight calculation UTox: Negative BGM's Q2H BMP Q4H A1C: 10.3% ISS ACHS- has not required additional coverage EKG QTC: 491 caution with zofran and reglan, PVC's no previous EKG ESR: 44, CRP: 0.9, TSH: 2.43 #SHANE 2/2 to dehydration 2/2 to Hyperglycemia-resolved continue IVF urine electrolytes continue to trend avoid nephrotoxic agents #Hx. of Depression Psych consult (Dr. Cohen) appreciated--> c/w Celexa? Per medication reconciliation Pt. not on celexa. Per [facility] medical records Pt. was on Perphenazine and Lexapro last July #HTN c/w Enalapril 5 mg continue to monitor BP, avoid narrowing of pulse pressures #Polysubstance abuse UTox - Would benefit from principal technical specialist Records from [facility] show Hx. of crack cocaine use and marijuana f/u RPR and GC/Chlamydia given Hx. of prostitution f/u HIV f/u quantiferon #FEN LR @ 75 monitor electrolytes, particularly potassium and magnesium, repleted earlier today Diabetic/Na Diet Visit type - Emergency Visit Emergency Visit: Yes ED Registration Date: 01/11/19 Care time: The patient presented to the Emergency Department on the above date and was hospitalized for further evaluation of their emergent condition. - New Patient This patient is new to me today: No - Critical Care Critical Care patient: No - Discharge Referral Referred to [facility] Med P.C.: No
--- NOTE | 2019-01-13 13:41 | PN ---
Progress Note (short form) - Note Progress Note: Thoracic Surgery: Full consult to follow. Consult re: pericardial effusion. Recommend CT scan chest. Depending on cardiology recommendation would consider pericardiocentesis. If never tapped before, no indication for window at this time. Would like to determine etiology, and if recurrent. Will follow.
[2019-01-13] MEDS ORDERED: PT OWN MED DRAWER 7, Y5N ONE (17:18)
[2019-01-13] MEDS: ATORVASTATIN CA 10 MG TABLET (FP) PO SCH (22:43)
--- NOTE | 2019-01-13 23:31 | PN ---
Progress Note, Physician Chief Complaint: lying in bed comfortable - Current Medication List Current Medications: Active Medications Atorvastatin Calcium (Lipitor -) 10 mg PO HS [facility] Last Admin: 01/13/19 22:43 Dose: 10 mg Carvedilol (Coreg -) 25 mg PO BID [facility] Last Admin: 01/13/19 22:43 Dose: 25 mg Citalopram Hydrobromide (Celexa -) 20 mg PO DAILY [facility] Last Admin: 01/13/19 09:47 Dose: 20 mg Enalapril Maleate (Vasotec -) 5 mg PO DAILY [facility] Last Admin: 01/13/19 09:48 Dose: 5 mg Enoxaparin Sodium (Lovenox -) 40 mg SQ DAILY [facility] Last Admin: 01/13/19 09:48 Dose: 40 mg Insulin Aspart (Novolog Vial Sliding Scale -) 1 vial SQ [facility]; Protocol Insulin Detemir (Levemir Vial) 35 units SQ AM [facility] Ondansetron HCl (Zofran Injection) 4 mg IVPUSH Q6H PRN PRN Reason: NAUSEA Last Admin: 01/12/19 07:59 Dose: 4 mg Pantoprazole Sodium (Protonix -) 40 mg PO DAILY [facility] - Objective Vital Signs: Vital Signs Temperature 98.5 F 01/13/19 18:59 Pulse Rate 79 01/13/19 18:59 Respiratory Rate 18 01/13/19 18:59 Blood Pressure 111/55 L 01/13/19 18:59 O2 Sat by Pulse Oximetry (%) 99 01/13/19 09:00 Constitutional: Yes: Calm Eyes: Yes: EOM Intact HENT: Yes: Normocephalic Neck: Yes: Trachea Midline Cardiovascular: Yes: Regular Rate and Rhythm Respiratory: Yes: Diminished Gastrointestinal: Yes: Normal Bowel Sounds ...Rectal Exam: Yes: Deferred Musculoskeletal: Yes: WNL Labs: CBC, BMP 01/12/19 06:30 01/13/19 06:00 Problem List - Problems (1) DKA (diabetic ketoacidoses) Code(s): E11.10 - TYPE 2 DIABETES MELLITUS WITH KETOACIDOSIS WITHOUT COMA Qualifiers: Diabetes mellitus type: other specified (including SUMMER) Diabetes mellitus complication detail: without coma Qualified Code(s): E13.10 - Other specified diabetes mellitus with ketoacidosis without coma (2) Dehydration Code(s): E86.0 - DEHYDRATION (3) Elevated troponin I level Code(s): R74.8 - ABNORMAL LEVELS OF OTHER SERUM ENZYMES (4) Heart failure, systolic, with acute decompensation Code(s): I50.23 - ACUTE ON CHRONIC SYSTOLIC (CONGESTIVE) HEART FAILURE (5) Pericardial effusion Code(s): I31.3 - PERICARDIAL EFFUSION (NONINFLAMMATORY) Assessment/Plan Current Active Problems SHANE (acute kidney injury) (Acute) Cocaine abuse (Acute) DKA (diabetic ketoacidoses) (Acute) Dehydration (Acute) Elevated troponin I level (Acute) Heart failure, systolic, with acute decompensation (Acute) Pericardial effusion (Acute) Peripartum cardiomyopathy (Acute) Abnormal Lab Results 01/12/19 01/13/19 06:30 06:00 Random Glucose 315 H* Calcium 8.1 L NATALEE Screen Positive H Laboratory Results - last 24 hr 01/12/19 01/13/19 01/13/19 06:30 06:00 06:05 Sodium 136 Potassium 4.4 Chloride 100 Carbon Dioxide 29 Anion Gap 8 BUN 10 Creatinine 1.3 Est GFR (CKD-EPI)AfAm 65.57 Est GFR (CKD-EPI)NonAf 56.57 POC Glucometer 310 Random Glucose 315 H* Calcium 8.1 L Magnesium 1.9 NATALEE Screen Positive H NATALEE Homogeneous Pattern TNP NATALEE Nucleolar Pattern TNP NATALEE Spindle Andrew Pattern TNP NATALEE Midbody Pattern TNP NATALEE Centriole Pattern TNP NATALEE Nuclear Dot Pattern 1:80 NATALEE PCNA Pattern TNP NATALEE Nuclear Membr Pat TNP NATALEE Speckled Pattern 1:80 NATALEE Centromere Pattern TNP 01/13/19 01/13/19 01/13/19 11:20 17:44 22:44 Sodium Potassium Chloride Carbon Dioxide Anion Gap BUN Creatinine Est GFR (CKD-EPI)AfAm Est GFR (CKD-EPI)NonAf POC Glucometer 327 264 255 Random Glucose Calcium Magnesium NATALEE Screen NATALEE Homogeneous Pattern NATALEE Nucleolar Pattern NATALEE Spindle Andrew Pattern NATALEE Midbody Pattern NATALEE Centriole Pattern NATALEE Nuclear Dot Pattern NATALEE PCNA Pattern NATALEE Nuclear Membr Pat NATALEE Speckled Pattern NATALEE Centromere Pattern plan: levemir 35 units am bgm scale uptitrate
[2019-01-14] MEDS ORDERED: guaiFENesin 200 MG/10 ML 10 ML UNIT-DOSE CUPS PO ONE (02:00)
[2019-01-14] MEDS: INSULIN (LEVEMIR) 100 UNITS/ML UNITS SQ SCH (06:32)
[2019-01-14] MEDS: INSULIN SLIDING SCALE (NOVOLOG) 1 VIAL SQ SCH ×3 (06:33→21:10)
[2019-01-14 07:06] LABS: CREATININE 1.1 mg/dL (0.55-1.3); MAGNESIUM 2.1 mg/dL (1.8-2.4); PHOSPHOROUS 3.7 mg/dL (2.5-4.9); POTASSIUM 4.4 mmol/L (3.5-5.1)
--- NOTE | 2019-01-14 08:03 | PN ---
Physical Exam: SUBJECTIVE: Patient seen and examined. Couldn't breathe this AM, so was started on 2L NC. Pt. states she has epigastric pain that started since yesterday morning, not associated with food, or breathing but made worse on palaption. OBJECTIVE: Vital Signs Period Temp Pulse Resp BP Sys/Marquis Pulse Ox Last 24 Hr 98.5 F-99.3 F 44-90 18-20 111-136/38-76 97-99 GENERAL: The patient is drowsy, in no acute distress. HEAD: Normal with no signs of trauma. EYES: extraocular movements intact, sclera anicteric, conjunctiva clear. ENT: Ears normal, nares patent, oropharynx clear without exudates, Dry mucous membranes. LUNGS: Breath sounds equal, clear to auscultation bilaterally, no wheezes, no crackles, no accessory muscle use. HEART: distant heart sounds, regular rate and rhythm, S1, S2 without murmur ABDOMEN: Soft, mild epigastric tenderness worse with palpation, nondistended, normoactive bowel sounds, no guarding, no rebound EXTREMITIES: 2+ dorsal pedal pulses, warm, well-perfused, no edema. NEUROLOGICAL: Normal speech, gait not observed. PSYCH: Normal mood, normal affect. SKIN: Warm, dry, normal turgor, no rashes or lesions noted Laboratory Results - last 24 hr 01/12/19 01/13/19 01/13/19 06:30 06:00 11:20 Sodium 136 Potassium 4.4 Chloride 100 Carbon Dioxide 29 Anion Gap 8 BUN 10 Creatinine 1.3 Est GFR (CKD-EPI)AfAm 65.57 Est GFR (CKD-EPI)NonAf 56.57 POC Glucometer 327 Random Glucose 315 H* Calcium 8.1 L Phosphorus Magnesium 1.9 NATALEE Screen Positive H NATALEE Homogeneous Pattern TNP NATALEE Nucleolar Pattern TNP NATALEE Spindle Andrew Pattern TNP NATALEE Midbody Pattern TNP NATALEE Centriole Pattern TNP NATALEE Nuclear Dot Pattern 1:80 NATALEE PCNA Pattern TNP NATALEE Nuclear Membr Pat TNP NATALEE Speckled Pattern 1:80 NATALEE Centromere Pattern TNP 01/13/19 01/13/19 01/14/19 17:44 22:44 05:30 Sodium 135 L Potassium 4.4 Chloride 102 Carbon Dioxide 26 Anion Gap 7 L BUN 10 Creatinine 1.1 Est GFR (CKD-EPI)AfAm 80.24 Est GFR (CKD-EPI)NonAf 69.24 POC Glucometer 264 255 Random Glucose 178 H Calcium 8.0 L Phosphorus 3.7 Magnesium 2.1 NATALEE Screen NATALEE Homogeneous Pattern NATALEE Nucleolar Pattern NATALEE Spindle Andrew Pattern NATALEE Midbody Pattern NATALEE Centriole Pattern NATALEE Nuclear Dot Pattern NATALEE PCNA Pattern NATALEE Nuclear Membr Pat NATALEE Speckled Pattern NATALEE Centromere Pattern 01/14/19 05:37 Sodium Potassium Chloride Carbon Dioxide Anion Gap BUN Creatinine Est GFR (CKD-EPI)AfAm Est GFR (CKD-EPI)NonAf POC Glucometer 141 Random Glucose Calcium Phosphorus Magnesium NATALEE Screen NATALEE Homogeneous Pattern NATALEE Nucleolar Pattern NATALEE Spindle Andrew Pattern NATALEE Midbody Pattern NATALEE Centriole Pattern NATALEE Nuclear Dot Pattern NATALEE PCNA Pattern NATALEE Nuclear Membr Pat NATALEE Speckled Pattern NATALEE Centromere Pattern Active Medications Home Medications Medication Instructions Recorded Carvedilol 25 mg PO BID 01/11/19 Citalopram Hydrobromide 20 mg PO DAILY 01/11/19 [Citalopram HBr] Enalapril Maleate 5 mg PO DAILY 01/11/19 Furosemide 20 mg PO DAILY 01/11/19 Insulin Glargine,Hum.rec.anlog 18 mg SQ DAILY 01/11/19 [Basaglar Kwikpen U-100] Magnesium Oxide 1,200 mg PO BID 01/11/19 Current Medications Atorvastatin Calcium (Lipitor -) 10 mg PO HS [facility] Last Admin: 01/13/19 22:43 Dose: 10 mg Carvedilol (Coreg -) 25 mg PO BID [facility] Last Admin: 01/13/19 22:43 Dose: 25 mg Citalopram Hydrobromide (Celexa -) 20 mg PO DAILY [facility] Last Admin: 01/13/19 09:47 Dose: 20 mg Enalapril Maleate (Vasotec -) 5 mg PO DAILY [facility] Last Admin: 01/13/19 09:48 Dose: 5 mg Enoxaparin Sodium (Lovenox -) 40 mg SQ DAILY [facility] Last Admin: 01/13/19 09:48 Dose: 40 mg Insulin Aspart (Novolog Vial Sliding Scale -) 1 vial SQ [facility]; Protocol Last Admin: 01/14/19 06:33 Dose: 3 unit Insulin Detemir (Levemir Vial) 35 units SQ AM [facility] Last Admin: 01/14/19 06:32 Dose: 35 unit Ondansetron HCl (Zofran Injection) 4 mg IVPUSH Q6H PRN PRN Reason: NAUSEA Last Admin: 01/12/19 07:59 Dose: 4 mg Pantoprazole Sodium (Protonix -) 40 mg PO DAILY [facility] ASSESSMENT/PLAN: Patient is a 28 y/o with a history of IDDM, DKA, HTN, and CHF who presents for abdominal pain, nausea, and vomiting secondary to DKA. #CHF w/ Tamponade Physiology patient currently euvolemic daily weights; 97.25kg-->98.43kg-->99.155kg echo: EF 37%, mod.- severe MR, mild-mod. TR, mild-mod. pulm HTN, calcified aortic valve w/ mild aortic stenosis, mod pericardial effusion w/o RV collapse but mitral valve doppler shows tamponade physiology--> significant change from prior Echo which showed EF of 25% and small pericardial effusion Cardiothoracic Surgery (Dr Schmitt) appreciated--> should do pericardiocentesis 1st and evaluate fluid. Cardiac window is indicated only for emergent cases and/if Pt. has refractory pericrdial effusions. CXR: no evidence of congestion Cardiology (Dr. Tierney) consult appreciated BNP: 14,800 c/w Carvedilol Hold Lasix in setting of tamponade physiology and not wanting to decreased diastolic pressures to precipitate RV collapse Hold ASA 81mg for 7 days Rpt. Echo: unchanged from prior f/u CT Chest w/o contrast for evaluation of pericardial effusion #Diabetic Ketoacidosis-resolved hyperglycemia at 500, AG 19, positive ketones on admission patient received 20 units, anion gap closed Pt. to receive Levemir 28 units based on weight calculation UTox: Negative BGM's Q2H BMP Q4H A1C: 10.3% ISS ACHS- has not required additional coverage EKG QTC: 491 caution with zofran and reglan, PVC's no previous EKG ESR: 44, CRP: 0.9, TSH: 2.43 #SHANE 2/2 to dehydration 2/2 to Hyperglycemia-resolved continue IVF urine electrolytes continue to trend avoid nephrotoxic agents #Hx. of Depression Psych consult (Dr. Cohen) appreciated--> c/w Celexa? Per medication reconciliation Pt. not on celexa. Per [facility] medical records Pt. was on Perphenazine and Lexapro last July #HTN c/w Enalapril 5 mg continue to monitor BP, avoid narrowing of pulse pressures #Polysubstance abuse UTox - Would benefit from research specialist Records from [facility] show Hx. of crack cocaine use and marijuana f/u RPR and GC/Chlamydia given Hx. of prostitution f/u HIV f/u quantiferon #FEN LR @ 75 monitor electrolytes, particularly potassium and magnesium, repleted earlier today Diabetic/Na Diet Visit type - Emergency Visit Emergency Visit: Yes ED Registration Date: 01/11/19 Care time: The patient presented to the Emergency Department on the above date and was hospitalized for further evaluation of their emergent condition. - New Patient This patient is new to me today: No - Critical Care Critical Care patient: No - Discharge Referral Referred to [facility] Med P.C.: No
[2019-01-14] MEDS ORDERED: ACETAMINOPHEN 500 MG TABLET (FP) PO ONE (08:12)
--- NOTE | 2019-01-14 10:05 | ECHO ---
Name: SAM EAGLE Exam:Adult Echocardiogram Study Date: 01/14/2019 08:48 AM Age: 28 yrs Reason For Study: Pericardial Effusion Height: 64 in Weight: 217 lb BSA: 2.0 m2 Doppler Measurements & Calculations MR max deion: 490.5 cm/sec TR max deion: 304.1 cm/sec MR max P.2 mmHg TR max P.0 mmHg Left Ventricle The left ventricle is mildly dilated. Left ventricular systolic function is moderate to severely redu shaniqua. There is moderate to severe global hypokinesis of the left ventricle. Right Ventricle The right ventricle is grossly normal size. The right ventricular systolic function is grossly normal . Atria The left atrium is borderline dilated. Mitral Valve The mitral valve is normal in structure and function. There is no mitral valve stenosis. There is mod erate to severe mitral regurgitation. Tricuspid Valve The tricuspid valve is not well visualized, but is grossly normal. There is mild tricuspid regurgitat ion. Right ventricular systolic pressure is elevated at 30-40mmHg. Aortic Valve The aortic valve opens well. No hemodynamically significant valvular aortic stenosis. No aortic regur gitation is present. Pulmonic Valve The pulmonic valve is not well visualized. Great Vessels The aortic root is normal size. Pericardium/Pleura Again seen is a probably moderate pericardial effusion. There is no RV diastolic collapse, however th ere is respiratory variation of the mitral valve inflow pattern which can be consistent with tamponade physi ology. Clinical correlation required. Interpretation Summary The left ventricle is mildly dilated. There is moderate to severe global hypokinesis of the left ventricle. Left ventricular systolic function is moderate to severely reduced. There is moderate to severe mitral regurgitation. There is mild tricuspid regurgitation. Right ventricular systolic pressure is elevated at 30-40mmHg. Again seen is a probably moderate pericardial effusion. There is no RV diastolic collapse, however th ere is respiratory variation of the mitral valve inflow pattern which can be consistent with tamponade physi ology. Clinical correlation required. MD Pantoja *Charito 01/14/2019 10:05 AM
[2019-01-14] MEDS: CITALOPRAM HYDROBROMIDE 20 MG TABLET (FP) PO SCH (10:39)
[2019-01-14] MEDS: CARVEDILOL 25 MG TABLET (FP) PO SCH ×2 (10:39→21:12)
[2019-01-14] MEDS: ENALAPRIL MALEATE 5 MG TABLET (FP) PO SCH (10:39)
[2019-01-14] MEDS: PANTOPRAZOLE 40 MG TABLET (FP) PO SCH (10:39)
[2019-01-14] MEDS: ENOXAPARIN NA (PORCINE) 40 MG/0.4 ML DISP.SYRIN SQ SCH (10:40)
--- NOTE | 2019-01-14 12:40 | CONSULT ---
Consult Consult Specialty:: Thoracic Surgery Referred by:: Medicine Reason for Consultation:: Pericardial effusion - History of Present Illness Chief Complaint: abdominal pain, n/v History of Present Illness: 28F with DM, h/o DKA, cocaine abuse, CHF p/w 1 day of n/v/abd pain in DKA and increased pericardial effusion. - History Source History Provided By: Patient, Medical Record Limitations to Obtaining History: No Limitations - Past Medical History Cardio/Vascular: Yes: CHF Endocrine: Yes: Diabetes Mellitus - Alcohol/Substance Use Hx Alcohol Use: No - Smoking History Smoking history: Never smoked - Social History Usual Living Arrangement: Assisted Living Home Medications - Allergies Allergies/Adverse Reactions: Allergies Allergy/AdvReac Type Severity Reaction Status Date / Time No Known Allergies Allergy Verified 01/10/19 18:24 - Home Medications Home Medications: Ambulatory Orders Carvedilol 25 mg PO BID 01/11/19 Citalopram Hydrobromide [Citalopram HBr] 20 mg PO DAILY 01/11/19 Enalapril Maleate 5 mg PO DAILY 01/11/19 Furosemide 20 mg PO DAILY 01/11/19 Insulin Glargine,Hum.rec.anlog [Basaglar Kwikpen U-100] 18 mg SQ DAILY 01/11/19 Magnesium Oxide 1,200 mg PO BID 01/11/19 Physical Exam Vital Signs: Vital Signs Temperature 99.2 F 01/14/19 10:00 Pulse Rate 80 01/14/19 10:00 Respiratory Rate 20 01/14/19 10:00 Blood Pressure 124/70 01/14/19 10:00 O2 Sat by Pulse Oximetry (%) 97 01/13/19 21:00 Constitutional: Yes: Well Nourished Respiratory: Yes: Regular Gastrointestinal: Yes: WNL, Normal Bowel Sounds Extremities: Yes: WNL Labs: CBC, BMP 01/12/19 06:30 01/14/19 05:30 Problem List - Problems (1) SHANE (acute kidney injury) Code(s): N17.9 - ACUTE KIDNEY FAILURE, UNSPECIFIED (2) Cocaine abuse Code(s): F14.10 - COCAINE ABUSE, UNCOMPLICATED (3) DKA (diabetic ketoacidoses) Code(s): E11.10 - TYPE 2 DIABETES MELLITUS WITH KETOACIDOSIS WITHOUT COMA Qualifiers: Diabetes mellitus type: other specified (including SUMEMR) Diabetes mellitus complication detail: without coma Qualified Code(s): E13.10 - Other specified diabetes mellitus with ketoacidosis without coma (4) Dehydration Code(s): E86.0 - DEHYDRATION (5) Elevated troponin I level Code(s): R74.8 - ABNORMAL LEVELS OF OTHER SERUM ENZYMES (6) Heart failure, systolic, with acute decompensation Code(s): I50.23 - ACUTE ON CHRONIC SYSTOLIC (CONGESTIVE) HEART FAILURE (7) Pericardial effusion Code(s): I31.3 - PERICARDIAL EFFUSION (NONINFLAMMATORY) (8) Peripartum cardiomyopathy Code(s): O90.3 - PERIPARTUM CARDIOMYOPATHY Assessment/Plan Increasing pericardial effusion and DKA: CT chest Pericardiocentesis possible
--- NOTE | 2019-01-14 14:31 | PN ---
Teaching Attending Note Name of Resident: Flaco Mercedes ATTENDING PHYSICIAN STATEMENT I saw and evaluated the patient. I reviewed the resident's note and discussed the case with the resident. I agree with the resident's findings and plan as documented. SUBJECTIVE:asymptomatic. felt slightly dyspnic last night but currently feeling well. unable to relate dyspnea to last night but felt better on oxygen which is no longer needed. denies Cp, SOB, fever, chills, N/V/C/D OBJECTIVE: Last Vital Signs Temp Pulse Resp BP Pulse Ox 99.2 F 80 20 124/70 97 01/14/19 10:00 01/14/19 10:00 01/14/19 10:01/14/19 10:01/13/19 21:00 General NAD, resting comfortable, CV S1 s2 RRR no murmur/rub/gallop no chest wall tenderness Lungs CTA B/L no wheezing/rales/rhonchi ASSESSMENT AND PLAN: 28 yrs old F non compliant, active cocaine abuse, F/U mostly at [facility] poor historian H/O [id number] since the age of 7, HTN, episodes of DKA with cocaine abuse, cardiomyopathy diagnosed in Jul 2018 admitted with presents for abdominal pain, nausea, and vomiting with dehydration, elevated AG, Acetone in te urine low Bicarb RPG > 500 consistent DKA although PH was 7.39, ECHO shows low EF and Pericardial effusion 1. DKA- resolved. cont to titrate insulin as needed to optimize control. bgm, iss. dietary consult. endo on board 2. Moderate Pericardial effusion-repeat echo done today showing no change in size. still showing some signs of early tamponade but pt remains hemodynamically stable. NATALEE +. will check dsDNA to r/o SLE as cause. TB and HIV pending. no other etiology at this time. will cont cardiac monitornig. plan for CT chest on Thursday to further assess. plan for pericardiocentesis when off asa for 7 days. no emergent need for procedure at this time. cont with periodic surveillance. CT surgery and cardio onboard. 4. Tropinemia- likely due to demand ischemia. can be related to pericardial effusion. no cp. 5. SHANE-likely dehydration in setting of DKA. now resolved 6. Hypokalemia- resolved. goal K 4.5 7. Hypomangesemia- Mg po. goal Mg 2.5 8. Continuous Cocaine dependence- admits to active smoking. denies IVDA. not showing any signs of withdrawal. Utox negative. 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 cardiomyopathy- EF here 37%. will see on recent echo. 10. depression- seen by psych. started on celexa. 11. DVT ppx- hep sq 12. low threshold for transfer to tertiary care center
[2019-01-14] MEDS ORDERED: INSULIN (NOVOLOG) ASPART 100 UNITS/ML 10ML VIAL ONE ×2 (20:58→20:59)
[2019-01-14] MEDS: ATORVASTATIN CA 10 MG TABLET (FP) PO SCH (21:12)
[2019-01-15] MEDS: ACETAMINOPHEN 325 MG TABLET (FP) PO PRN (01:22)
--- NOTE | 2019-01-15 03:07 | PN ---
Progress Note, Physician Chief Complaint: Pt A&O; no chest pain dizziness, dyspnea. History of Present Illness: Ms. 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 The patient states she has been endorsing abdominal pain and lethargy, secondary to her symptoms. Glucose above 500 (checked this morning). The patient denies chest pain, shortness of breath or dizziness. The patient denies fever, chills, diarrhea or constipation. The patient denies dysuria, frequency, urgency or hematuria. - Current Medication List Current Medications: Active Medications Acetaminophen (Tylenol -) 650 mg PO Q6H PRN PRN Reason: Fever Or Pain Last Admin: 01/15/19 01:22 Dose: 650 mg Atorvastatin Calcium (Lipitor -) 10 mg PO HS [facility] Last Admin: 01/14/19 21:12 Dose: 10 mg Carvedilol (Coreg -) 25 mg PO BID [facility] Last Admin: 01/14/19 21:12 Dose: 25 mg Citalopram Hydrobromide (Celexa -) 20 mg PO DAILY [facility] Last Admin: 01/14/19 10:39 Dose: 20 mg Enalapril Maleate (Vasotec -) 5 mg PO DAILY [facility] Last Admin: 01/14/19 10:39 Dose: 5 mg Enoxaparin Sodium (Lovenox -) 40 mg SQ DAILY [facility] Last Admin: 01/14/19 10:40 Dose: 40 mg Insulin Aspart (Novolog Vial Sliding Scale -) 1 vial SQ ACHS [facility]; Protocol Last Admin: 01/14/19 21:10 Dose: 12 unit Insulin Detemir (Levemir Vial) 35 units SQ AM [facility] Last Admin: 01/14/19 06:32 Dose: 35 unit Ondansetron HCl (Zofran Injection) 4 mg IVPUSH Q6H PRN PRN Reason: NAUSEA Last Admin: 01/12/19 07:59 Dose: 4 mg Pantoprazole Sodium (Protonix -) 40 mg PO DAILY [facility] Last Admin: 01/14/19 10:39 Dose: 40 mg - Objective Vital Signs: Vital Signs Temperature 99.3 F 01/15/19 01:54 Pulse Rate 55 L 01/15/19 01:54 Respiratory Rate 20 01/15/19 01:54 Blood Pressure 119/75 01/15/19 01:54 O2 Sat by Pulse Oximetry (%) 98 01/14/19 21:00 Constitutional: Yes: Calm Eyes: Yes: WNL HENT: Yes: WNL Neck: Yes: WNL Cardiovascular: Yes: WNL Respiratory: Yes: WNL Gastrointestinal: Yes: Soft, Abdomen, Obese ...Rectal Exam: Yes: Deferred Genitourinary: No: Anuria Breast(s): Yes: WNL Musculoskeletal: Yes: WNL Extremities: Yes: WNL Edema: No Peripheral Pulses WNL: Yes Integumentary: Yes: WNL Wound/Incision: Yes: Other (NA) Neurological: Yes: WNL ...Motor Strength: WNL Psychiatric: Yes: Alert, Oriented Labs: CBC, BMP 01/12/19 06:30 01/14/19 05:30 Abnormal Lab Results 01/14/19 01/14/19 05:30 10:00 Sodium 135 L Anion Gap 7 L Random Glucose 178 H Calcium 8.0 L Ur Random Sodium < 18 L Ur Random Potassium 5.2 L Ur Random Chloride < 11 L Problem List - Problems (1) Peripartum cardiomyopathy Assessment/Plan: Moderately reduced LVEF on ECHO; at least moderate pericardial effusion, with signs of tamponade. On carvedilol and enalapril; use cautiously until effusion is resolved, and avoid hypotension. Code(s): O90.3 - PERIPARTUM CARDIOMYOPATHY (2) Cocaine abuse Assessment/Plan: urine screen negative. Future use would unfortunately preclude beta anastacio use, though this class is important with LV dysfunction. Code(s): F14.10 - COCAINE ABUSE, UNCOMPLICATED (3) DKA (diabetic ketoacidoses) Code(s): E11.10 - TYPE 2 DIABETES MELLITUS WITH KETOACIDOSIS WITHOUT COMA Qualifiers: Diabetes mellitus type: other specified (including SUMMER) Diabetes mellitus complication detail: without coma Qualified Code(s): E13.10 - Other specified diabetes mellitus with ketoacidosis without coma (4) Dehydration Assessment/Plan: Elevated BUn/Cr avoid excessive dehydration with pericardial effusion; avoid diuretics. Treating DKA will require fluids (with caution, given moderately reduced LVEF). Code(s): E86.0 - DEHYDRATION (5) Elevated troponin I level Assessment/Plan: TNI 0.42-->0.37; CK/MB relative index low. Contributing factors to demand ischemia include CHF, tamponade, stress (?recent use of cocaine), anemia. Code(s): R74.8 - ABNORMAL LEVELS OF OTHER SERUM ENZYMES (6) Pericardial effusion Assessment/Plan: ECHO: at least moderate pericardial effusion; signs of tamponade; moderately reduced LVEF; mild ; moderate to severe MR, mild-moderate pulmonary HTN. Planned for pericardial drainage, but held due to recent ASA use. Follow pt closely for signs of hemodynamic instability, which would engender emergency procedure. For repeat echo today to r/o progression and impact of pericardial fluid. Code(s): I31.3 - PERICARDIAL EFFUSION (NONINFLAMMATORY) (7) Hyperlipidemia Assessment/Plan: started atorvastatin (DM for >20 yrs; additional CAD risks). Code(s): E78.5 - HYPERLIPIDEMIA, UNSPECIFIED
[2019-01-15] MEDS: INSULIN (LEVEMIR) 100 UNITS/ML UNITS SQ SCH (06:09)
[2019-01-15] MEDS: INSULIN SLIDING SCALE (NOVOLOG) 1 VIAL SQ SCH ×6 (06:11→22:03)
--- NOTE | 2019-01-15 06:43 | PN ---
Progress Note (short form) - Note Progress Note: Coverage for Dr. Erika Tierney Chief Complaint: Events noted, notes reviewed, denies any chest pain or dyspnea , plan to proceed wit pericardial effusion drainage later this week as per thoracic surgery, patient has a groin TLC in situ since Thursday should be D/C History of Present Illness: Seen and examined on telemetry. Events noted, notes reviewed, denies any chest pain or dyspnea, plan to proceed wit pericardial effusion drainage later this week as per thoracic surgery, patient has a groin TLC in situ since Thursday should be D/C - Current Medication List Current Medications Acetaminophen (Tylenol -) 650 mg PO Q6H PRN PRN Reason: Fever Or Pain Last Admin: 01/15/19 01:22 Dose: 650 mg Atorvastatin Calcium (Lipitor -) 10 mg PO HS [facility] Last Admin: 01/14/19 21:12 Dose: 10 mg Carvedilol (Coreg -) 25 mg PO BID [facility] Last Admin: 01/14/19 21:12 Dose: 25 mg Citalopram Hydrobromide (Celexa -) 20 mg PO DAILY [facility] Last Admin: 01/14/19 10:39 Dose: 20 mg Enalapril Maleate (Vasotec -) 5 mg PO DAILY [facility] Last Admin: 01/14/19 10:39 Dose: 5 mg Enoxaparin Sodium (Lovenox -) 40 mg SQ DAILY [facility] Last Admin: 01/14/19 10:40 Dose: 40 mg Insulin Aspart (Novolog Vial Sliding Scale -) 1 vial SQ [facility]; Protocol Last Admin: 01/15/19 06:15 Dose: Not Given Insulin Detemir (Levemir Vial) 35 units SQ AM [facility] Last Admin: 01/15/19 06:09 Dose: 35 unit Ondansetron HCl (Zofran Injection) 4 mg IVPUSH Q6H PRN PRN Reason: NAUSEA Last Admin: 01/12/19 07:59 Dose: 4 mg Pantoprazole Sodium (Protonix -) 40 mg PO DAILY [facility] Last Admin: 01/14/19 10:39 Dose: 40 mg Review of Systems Cardiovascular: As noted above Respiratory: denies: Cough or Sputum Production Gastrointestinal: denies: Nausea, Vomiting, Diarrhea, Constipation or Abdominal Discomfort Musculoskeletal: No Symptoms Reported Endocrine: No Symptoms Reported - Objective Vital Signs: Last Vital Signs Temp Pulse Resp BP Pulse Ox 98.2 F 81 20 105/68 98 01/15/19 06:25 01/15/19 06:25 01/15/19 06:25 01/15/19 06:25 01/14/19 21:00 Intake & Output 01/12/19 01/13/19 01/14/19 01/15/19 23:59 23:59 23:59 23:59 Intake Total 300 650 400 240 Balance 300 650 400 240 Weight 214 lb 6.4 oz 217 lb 218 lb 9.6 oz 220 lb 6.4 oz Neck: Supple Negative JVD No Bruit Cardiovascular: S1 S2 Regular Rate and Rhythm Respiratory: clear to A&P Bilaterally Gastrointestinal: Soft Benign Normal Bowel Sounds Ext: Negative Edema Labs: CBC, BMP 01/12/19 06:30 01/14/19 05:30 Hepatic Panel Total Bilirubin 0.4 mg/dL (0.2-1) 01/12/19 06:30 AST 22 U/L (15-37) 01/12/19 06:30 ALT 13 U/L (13-61) 01/12/19 06:30 Alkaline Phosphatase 70 U/L (45-117) 01/12/19 06:30 Albumin 2.1 g/dl (3.4-5.0) L 01/12/19 06:30 Assessment/Plan ASSESSMENT: 1. Peripartum cardiomyopathy with clinical class 0 NYHA classification LV failure, elevated Troponin I consistent with demand ischemia 2. Pericardial effusion etiology of which is unclear for intervention 3. IDDM with DKA, resolved 4. HTN 5. Hyperlipidemia 6. Anemia 7. History of substance abuse 8. History of depression/anxiety 9. Obesity PLAN: 1. Continue Coreg 2. Continue Vasotec 3. Continue Lipitor 4. Recommend D/C groin line AVELINA, day #5 form insertion date 5. Pericardial drainage as per thoracic surgery Daniel Reyes M.D.
[2019-01-15] MEDS: ENALAPRIL MALEATE 5 MG TABLET (FP) PO SCH (11:05)
[2019-01-15] MEDS: PANTOPRAZOLE 40 MG TABLET (FP) PO SCH (11:05)
[2019-01-15] MEDS: CARVEDILOL 25 MG TABLET (FP) PO SCH ×2 (11:05→21:39)
[2019-01-15] MEDS: CITALOPRAM HYDROBROMIDE 20 MG TABLET (FP) PO SCH (11:05)
[2019-01-15] MEDS: ENOXAPARIN NA (PORCINE) 40 MG/0.4 ML DISP.SYRIN SQ SCH (11:06)
--- NOTE | 2019-01-15 11:17 | PN ---
Progress Note (short form) - Note Progress Note: asymptomatic. denies CP, SOB, fever, chills, N/V/C/D Current Medications Generic Name Dose Route Start Last Admin Trade Name Freq PRN Reason Stop Dose Admin Acetaminophen 650 mg 01/15/19 01:10 01/15/19 01:22 Tylenol - PO 650 mg Q6H PRN Administration Fever Or Pain Atorvastatin Calcium 10 mg 01/13/19 22:00 01/14/19 21:12 Lipitor - PO 10 mg HS [facility] Administration Carvedilol 25 mg 01/12/19 11:30 01/15/19 11:05 Coreg - PO 25 mg BID [facility] Administration Citalopram Hydrobromide 20 mg 01/12/19 10:00 01/15/19 11:05 Celexa - PO 20 mg DAILY [facility] Administration Enalapril Maleate 5 mg 01/12/19 10:00 01/15/19 11:05 Vasotec - PO 5 mg DAILY [facility] Administration Enoxaparin Sodium 40 mg 01/12/19 14:30 01/15/19 11:06 Lovenox - SQ 40 mg DAILY [facility] Administration Insulin Aspart 1 vial 01/14/19 07:00 01/15/19 06:15 Novolog Vial Sliding Scale - SQ Not Given ACHS [facility] Protocol Insulin Detemir 35 units 01/14/19 07:00 01/15/19 06:09 Levemir Vial SQ 35 unit AM [facility] Administration Ondansetron HCl 4 mg 01/11/19 17:23 01/12/19 07:59 Zofran Injection IVPUSH 4 mg Q6H PRN Administration NAUSEA Pantoprazole Sodium 40 mg 01/14/19 10:00 01/15/19 11:05 Protonix - PO 40 mg DAILY [facility] Administration Last Vital Signs Temp Pulse Resp BP Pulse Ox 98 F 90 20 116/66 98 01/15/19 10:00 01/15/19 10:00 01/15/19 10:00 01/15/19 10:00 01/14/19 21:00 General NAD, resting comfortable, CV S1 s2 RRR no murmur/rub/gallop no chest wall tenderness Lungs CTA B/L no wheezing/rales/rhonchi ASSESSMENT AND PLAN: 28 yrs old F non compliant, active cocaine abuse, F/U mostly at [facility] poor historian H/O [id number] since the age of 7, HTN, episodes of DKA with cocaine abuse, cardiomyopathy diagnosed in Jul 2018 admitted with presents for abdominal pain, nausea, and vomiting with dehydration, elevated AG, Acetone in te urine low Bicarb RPG > 500 consistent DKA although PH was 7.39, ECHO shows low EF and Pericardial effusion 1. DKA- resolved. cont to titrate insulin as needed to optimize control. bgm, iss. dietary consult. endo on board 2. Moderate Pericardial effusion-repeat echo done today showing no change in size. still showing some signs of early tamponade but pt remains hemodynamically stable. NATALEE +. will check dsDNA to r/o SLE as cause. TB and HIV pending. no other etiology at this time. will cont cardiac monitornig. plan for CT chest on Thursday to further assess. plan for pericardiocentesis when off asa for 7 days. no emergent need for procedure at this time. cont with periodic surveillance. CT surgery and cardio onboard. 4. Tropinemia- likely due to demand ischemia. can be related to pericardial effusion. no cp. 5. SHANE-likely dehydration in setting of DKA. now resolved 6. Hypokalemia- resolved. goal K 4.5 7. Hypomangesemia- Mg po. goal Mg 2.5 8. Continuous Cocaine dependence- admits to active smoking. denies IVDA. not showing any signs of withdrawal. Utox negative. counselled on manager long term care consequences of drug abuse 9. cardiomyopathy- EF here 37%. will see on recent echo. 10. depression- seen by psych. started on celexa. 11. DVT ppx- hep sq 12. pt has femoral TLC that will be removed today. awaiting for RN to establish peripheral access Visit type - Emergency Visit Emergency Visit: Yes ED Registration Date: 01/11/19 Care time: The patient presented to the Emergency Department on the above date and was hospitalized for further evaluation of their emergent condition. - New Patient This patient is new to me today: No - Critical Care Critical Care patient: No - Discharge Referral Referred to [facility] Med [facility] No
[2019-01-15] MEDS: ATORVASTATIN CA 10 MG TABLET (FP) PO SCH (21:39)
[2019-01-16] MEDS: INSULIN SLIDING SCALE (NOVOLOG) 1 VIAL SQ SCH ×4 (06:05→21:58)
--- NOTE | 2019-01-16 07:22 | PN ---
Progress Note (short form) - Note Progress Note: Coverage for Dr. Erika Tierney Chief Complaint: Events noted, notes reviewed, denies any chest pain or dyspnea , complaining of abdominal discomfort, self D/C TLC catheter early this AM, plan to proceed wit pericardial effusion drainage later this week as per thoracic surgery History of Present Illness: Seen and examined on telemetry. Events noted, notes reviewed, denies any chest pain or dyspnea, complaining of abdominal discomfort, self D/C TLC catheter early this AM, plan to proceed wit pericardial effusion drainage later this week as per thoracic surgery - Current Medication List Current Medications Acetaminophen (Tylenol -) 650 mg PO Q6H PRN PRN Reason: Fever Or Pain Last Admin: 01/15/19 01:22 Dose: 650 mg Atorvastatin Calcium (Lipitor -) 10 mg PO HS [facility] Last Admin: 01/15/19 21:39 Dose: 10 mg Carvedilol (Coreg -) 25 mg PO BID [facility] Last Admin: 01/15/19 21:39 Dose: 25 mg Citalopram Hydrobromide (Celexa -) 20 mg PO DAILY [facility] Last Admin: 01/15/19 11:05 Dose: 20 mg Enalapril Maleate (Vasotec -) 5 mg PO DAILY [facility] Last Admin: 01/15/19 11:05 Dose: 5 mg Insulin Aspart (Novolog Vial Sliding Scale -) 1 vial SQ [facility]; Protocol Last Admin: 01/16/19 06:05 Dose: Not Given Insulin Detemir (Levemir Vial) 35 units SQ AM [facility] Last Admin: 01/15/19 06:09 Dose: 35 unit Ondansetron HCl (Zofran Injection) 4 mg IVPUSH Q6H PRN PRN Reason: NAUSEA Last Admin: 01/12/19 07:59 Dose: 4 mg Pantoprazole Sodium (Protonix -) 40 mg PO DAILY [facility] Last Admin: 01/15/19 11:05 Dose: 40 mg Review of Systems Cardiovascular: As noted above Respiratory: denies: Cough or Sputum Production Gastrointestinal: denies: Nausea, Vomiting, Diarrhea or Constipation but reports Abdominal Discomfort Musculoskeletal: No Symptoms Reported Endocrine: No Symptoms Reported - Objective Vital Signs: Last Vital Signs Temp Pulse Resp BP Pulse Ox 99.2 F 74 20 132/79 98 01/16/19 03:20 01/16/19 03:20 01/16/19 03:20 01/16/19 03:20 01/15/19 20:11 Intake & Output 01/13/19 01/14/19 01/15/19 01/16/19 23:59 23:59 23:59 23:59 Intake Total 292 068 9265 120 Balance 273 172 6436 120 Weight 217 lb 218 lb 9.6 oz 220 lb 6.4 oz Neck: Supple Negative JVD No Bruit Cardiovascular: S1 S2 Regular Rate and Rhythm Respiratory: clear to A&P Bilaterally Gastrointestinal: Tenderness/Diffuse No Rebound Benign Normal Bowel Sounds Ext: Negative Edema Labs: CBC, BMP 01/12/19 06:30 01/14/19 05:30 Assessment/Plan ASSESSMENT: 1. Peripartum cardiomyopathy with clinical class 0 NYHA classification LV failure, elevated Troponin I consistent with demand ischemia 2. Pericardial effusion etiology of which is unclear for intervention 3. IDDM with DKA, resolved 4. HTN 5. Hyperlipidemia 6. Abdominal discomfort, etiology unclear 7. Anemia 8. History of substance abuse 9. History of depression/anxiety 10. Obesity PLAN: 1. Continue Coreg 2. Continue Vasotec 3. Continue Lipitor 4. Evaluation of abdominal discomfort as per the primary team 5. Pericardial drainage as per thoracic surgery Daniel Reyes M.D.
--- NOTE | 2019-01-16 10:06 | PN ---
Physical Exam: SUBJECTIVE: Patient seen and examined. Pt. had TLC removed and EJ placed. Pt. then pulled out EJ and was about to sign out AMA before being convinced to stay. Pt. refused to wear telemetry monitor overnight. PT. convinced to place the telemetry monitor on for the AM. PT. states that she has epigastric pain that feels like bloating. Pt. states she had non-bloody emesis once overnight. OBJECTIVE: Vital Signs Period Temp Pulse Resp BP Sys/Marquis Pulse Ox Last 24 Hr 53 F-99.2 F 53-94 16-20 131-147/66-83 98 GENERAL: The patient is drowsy, in mild distress. HEAD: Normal with no signs of trauma. EYES: extraocular movements intact, sclera anicteric, conjunctiva clear. ENT: Ears normal, nares patent, oropharynx clear without exudates, Dry mucous membranes. LUNGS: Breath sounds equal, clear to auscultation bilaterally, no wheezes, no crackles, no accessory muscle use. HEART: distant heart sounds, regular rate and rhythm, S1, S2 without murmur ABDOMEN: Soft, epigastric and RUQ tenderness worse with palpation, nondistended , normoactive bowel sounds EXTREMITIES: 2+ dorsal pedal pulses, warm, well-perfused, no edema. NEUROLOGICAL: Normal speech, gait not observed. PSYCH: Normal mood, normal affect. SKIN: Warm, dry, normal turgor, no rashes or lesions noted Laboratory Results - last 24 hr 01/13/19 01/14/19 01/15/19 11:20 05:30 12:25 POC Glucometer 222 NATALEE Screen Positive H NATALEE Homogeneous Pattern TNP NATALEE Nucleolar Pattern TNP NATALEE Spindle Andrew Pattern TNP NATALEE Midbody Pattern TNP NATALEE Centriole Pattern TNP NATALEE Nuclear Dot Pattern 1:80 NATALEE PCNA Pattern TNP NATALEE Nuclear Membr Pat TNP NATALEE Speckled Pattern 1:80 NATALEE Centromere Pattern TNP Double Strand DNA Ab <1 TB Test (QFT) Nil 0.04 TB Test (QFT) Mitogen >10.00 TB Test (QFT) Antigen 0.03 TB Test (QFT) Negative TB Positive Criteria 01/15/19 01/15/19 01/16/19 17:24 21:37 04:06 POC Glucometer 253 273 127 NATALEE Screen NATALEE Homogeneous Pattern NATALEE Nucleolar Pattern NATALEE Spindle Andrew Pattern NATALEE Midbody Pattern NATALEE Centriole Pattern NATALEE Nuclear Dot Pattern NATALEE PCNA Pattern NATALEE Nuclear Membr Pat NATALEE Speckled Pattern NATALEE Centromere Pattern Double Strand DNA Ab TB Test (QFT) Nil TB Test (QFT) Mitogen TB Test (QFT) Antigen TB Test (QFT) TB Positive Criteria 01/16/19 05:48 POC Glucometer 129 NATALEE Screen NATALEE Homogeneous Pattern NATALEE Nucleolar Pattern NATALEE Spindle Andrew Pattern NATALEE Midbody Pattern NATALEE Centriole Pattern NATALEE Nuclear Dot Pattern NATALEE PCNA Pattern NATALEE Nuclear Membr Pat NATALEE Speckled Pattern NATALEE Centromere Pattern Double Strand DNA Ab TB Test (QFT) Nil TB Test (QFT) Mitogen TB Test (QFT) Antigen TB Test (QFT) TB Positive Criteria Active Medications Home Medications Medication Instructions Recorded Carvedilol 25 mg PO BID 01/11/19 Citalopram Hydrobromide 20 mg PO DAILY 01/11/19 [Citalopram HBr] Enalapril Maleate 5 mg PO DAILY 01/11/19 Furosemide 20 mg PO DAILY 01/11/19 Insulin Glargine,Hum.rec.anlog 18 mg SQ DAILY 01/11/19 [Basaglar Kwikpen U-100] Magnesium Oxide 1,200 mg PO BID 01/11/19 Current Medications Acetaminophen (Tylenol -) 650 mg PO Q6H PRN PRN Reason: Fever Or Pain Last Admin: 01/15/19 01:22 Dose: 650 mg Atorvastatin Calcium (Lipitor -) 10 mg PO HS [facility] Last Admin: 01/15/19 21:39 Dose: 10 mg Carvedilol (Coreg -) 25 mg PO BID [facility] Last Admin: 01/15/19 21:39 Dose: 25 mg Citalopram Hydrobromide (Celexa -) 20 mg PO DAILY [facility] Last Admin: 01/15/19 11:05 Dose: 20 mg Enalapril Maleate (Vasotec -) 5 mg PO DAILY [facility] Last Admin: 01/15/19 11:05 Dose: 5 mg Insulin Aspart (Novolog Vial Sliding Scale -) 1 vial SQ ACHS [facility]; Protocol Last Admin: 01/16/19 06:05 Dose: Not Given Insulin Detemir (Levemir Vial) 35 units SQ AM [facility] Last Admin: 01/15/19 06:09 Dose: 35 unit Ondansetron HCl (Zofran Injection) 4 mg IVPUSH Q6H PRN PRN Reason: NAUSEA Last Admin: 01/12/19 07:59 Dose: 4 mg Pantoprazole Sodium (Protonix -) 40 mg PO DAILY [facility] Last Admin: 01/15/19 11:05 Dose: 40 mg ASSESSMENT/PLAN: Patient is a 28 y/o with a history of IDDM, DKA, HTN, and CHF who presents for abdominal pain, nausea, and vomiting secondary to DKA. #CHF w/ Tamponade Physiology patient currently euvolemic daily weights; 97.25kg-->98.43kg-->99.155kg echo: EF 37%, mod.- severe MR, mild-mod. TR, mild-mod. pulm HTN, calcified aortic valve w/ mild aortic stenosis, mod pericardial effusion w/o RV collapse but mitral valve doppler shows tamponade physiology--> significant change from prior Echo which showed EF of 25% and small pericardial effusion Cardiothoracic Surgery (Dr Schmitt) appreciated--> should do pericardiocentesis 1st and evaluate fluid. Cardiac window is indicated only for emergent cases and/if Pt. has refractory pericrdial effusions. CXR: no evidence of congestion Cardiology (Dr. Teirney) consult appreciated BNP: 14,800 c/w Carvedilol Hold Lasix in setting of tamponade physiology and not wanting to decreased diastolic pressures to precipitate RV collapse Hold ASA 81mg for 7 days Rpt. Echo: unchanged from prior-->will consider echo for Thursday morning f/u CT Chest w/o contrast for evaluation of pericardial effusion #Dyspepsia D/C Zofran as QTc is now 499 started Tigan TID PRN c/w Protonix Daily #Diabetic Ketoacidosis-resolved hyperglycemia at 500, AG 19, positive ketones on admission patient received 20 units, anion gap closed Pt. to receive Levemir 28 units based on weight calculation UTox: Negative BGM's Q2H BMP Q4H A1C: 10.3% ISS ACHS- has not required additional coverage ESR: 44, CRP: 0.9, TSH: 2.43 #SHANE 2/2 to dehydration 2/2 to Hyperglycemia-resolved continue IVF urine electrolytes continue to trend avoid nephrotoxic agents #Hx. of Depression Psych consult (Dr. Cohen) appreciated--> c/w Celexa? Per medication reconciliation Pt. not on celexa. Per [facility] medical records Pt. was on Perphenazine and Lexapro last July #HTN c/w Enalapril 5 mg continue to monitor BP, avoid narrowing of pulse pressures #Polysubstance abuse UTox - Would benefit from pcmh specialist Records from [facility] show Hx. of crack cocaine use and marijuana f/u RPR and GC/Chlamydia given Hx. of prostitution f/u HIV f/u quantiferon #FEN LR @ 75 monitor electrolytes, particularly potassium and magnesium, repleted earlier today Diabetic/Na Diet Visit type - Emergency Visit Emergency Visit: Yes ED Registration Date: 01/11/19 Care time: The patient presented to the Emergency Department on the above date and was hospitalized for further evaluation of their emergent condition. - New Patient This patient is new to me today: No - Critical Care Critical Care patient: No - Discharge Referral Referred to [facility] Med P.C.: No
[2019-01-16] MEDS ORDERED: TRIMETHOBENZAMIDE HCL 300 MG CAPSULE PO PRN (10:12)
--- NOTE | 2019-01-16 10:47 | PN ---
Teaching Attending Note Name of Resident: Flaco Mercedes ATTENDING PHYSICIAN STATEMENT I saw and evaluated the patient. I reviewed the resident's note and discussed the case with the resident. I agree with the resident's findings and plan as documented. SUBJECTIVE:asymptomatic. wanted to leave in the evening but after counseling was agreeable to staying. denies CP, SOB, fever, chills, N/V/C/D OBJECTIVE: Last Vital Signs Temp Pulse Resp BP Pulse Ox 99.2 F 74 20 132/79 98 01/16/19 03:20 01/16/19 03:20 01/16/19 03:20 01/16/19 03:20 01/15/19 20:11 General NAD, resting comfortable, CV S1 s2 RRR no murmur/rub/gallop no chest wall tenderness Lungs CTA B/L no wheezing/rales/rhonchi ASSESSMENT AND PLAN: 28 yrs old F non compliant, active cocaine abuse, F/U mostly at [facility] poor historian H/O [id number] since the age of 7, HTN, episodes of DKA with cocaine abuse, cardiomyopathy diagnosed in Jul 2018 admitted with presents for abdominal pain, nausea, and vomiting with dehydration, elevated AG, Acetone in te urine low Bicarb RPG > 500 consistent DKA although PH was 7.39, ECHO shows low EF and Pericardial effusion 1. DKA- resolved. cont to titrate insulin as needed to optimize control. bgm, iss. dietary consult. endo on board 2. Moderate Pericardial effusion- hemodynamically stable. no clinical signs of tamponade. no change in repeat echo on 01/14. CT done and awaiting official read. all workup negative for etiology. plan for pericardiocentesis when off asa for 7 days. no emergent need for procedure at this time. cont with periodic surveillance. CT surgery and cardio on board. 4. Tropinemia- likely due to demand ischemia. can be related to pericardial effusion. no cp. 5. SHANE-likely dehydration in setting of DKA. now resolved 6. Hypokalemia- resolved. goal K 4.5 7. Hypomangesemia- resolved. goal Mg 2.5 8. Continuous Cocaine dependence- admits to active smoking. denies IVDA. not showing any signs of withdrawal. Utox negative. counselled on manager long term care consequences of drug abuse 9. cardiomyopathy- EF here 37%. will see on recent echo. 10. depression- seen by psych. started on celexa. 11. DVT ppx- hep sq 12. Femoral TLC has been removed
[2019-01-16] MEDS: PANTOPRAZOLE 40 MG TABLET (FP) PO SCH (11:18)
[2019-01-16] MEDS: ENALAPRIL MALEATE 5 MG TABLET (FP) PO SCH (11:18)
[2019-01-16] MEDS: CARVEDILOL 25 MG TABLET (FP) PO SCH ×2 (11:18→21:50)
[2019-01-16] MEDS: CITALOPRAM HYDROBROMIDE 20 MG TABLET (FP) PO SCH (11:18)
--- NOTE | 2019-01-16 18:33 | DS ---
Physical Exam: SUBJECTIVE: Patient seen and examined. Pt. had TLC removed and EJ placed. Pt. then pulled out EJ and was about to sign out AMA before being convinced to stay. Pt. refused to wear supervisor rose grading overnight. PT. convinced to place the supervisor rose grading on for the AM. PT. states that she has epigastric pain that feels like bloating. Pt. states she had non-bloody emesis once overnight. OBJECTIVE: Vital Signs Period Temp Pulse Resp BP Sys/Marquis Pulse Ox Last 24 Hr 53 F-99.2 F 53-77 16-20 132-162/78-83 98-98 PHYSICAL EXAM GENERAL: The patient is drowsy, in mild distress. HEAD: Normal with no signs of trauma. EYES: extraocular movements intact, sclera anicteric, conjunctiva clear. ENT: Ears normal, nares patent, oropharynx clear without exudates, Dry mucous membranes. LUNGS: Breath sounds equal, clear to auscultation bilaterally, no wheezes, no crackles, no accessory muscle use. HEART: distant heart sounds, regular rate and rhythm, S1, S2 without murmur ABDOMEN: Soft, epigastric and RUQ tenderness worse with palpation, nondistended , normoactive bowel sounds EXTREMITIES: 2+ dorsal pedal pulses, warm, well-perfused, no edema. NEUROLOGICAL: Normal speech, gait not observed. PSYCH: Normal mood, normal affect. SKIN: Warm, dry, normal turgor, no rashes or lesions noted LABS Laboratory Results - last 24 hr 01/14/19 01/15/19 01/16/19 05:30 21:37 04:06 POC Glucometer 273 127 NATALEE Screen Positive H NATALEE Homogeneous Pattern TNP NATALEE Nucleolar Pattern TNP NATALEE Spindle Andrew Pattern TNP NATALEE Midbody Pattern TNP NATALEE Centriole Pattern TNP NATALEE Nuclear Dot Pattern 1:80 NATALEE PCNA Pattern TNP NATALEE Nuclear Membr Pat TNP NATALEE Speckled Pattern 1:80 NATALEE Centromere Pattern TNP 01/16/19 01/16/19 01/16/19 05:48 12:32 17:19 POC Glucometer 129 284 306 NATALEE Screen NATALEE Homogeneous Pattern NATALEE Nucleolar Pattern NATALEE Spindle Andrew Pattern NATALEE Midbody Pattern NATALEE Centriole Pattern NATALEE Nuclear Dot Pattern NATALEE PCNA Pattern NATALEE Nuclear Membr Pat NATALEE Speckled Pattern NATALEE Centromere Pattern HOSPITAL COURSE: Date of Admission:01/11/19 Date of Discharge: 01/16/19 Pt. is a 28 y.o. F admitted for DKA. Pt. was was given 20 units if insulin in the ED with IVF. Anion gap closed. Pt. started on Levemir for glycemic control. CXR was unremarkable. Echo showed EF of 37% and a moderate pericardial effusion which differed from her previous echo at [facility] which was EF 25% with a small pericardial effusion. Pt. received Aspirin on admission day and pending IR recommendation was being worked up for a pericardiocentesis. Rpt. Echo was unchanged from prior and did not show RV collapse. Pt. had CT Chest to characterize the effusion however Pt. eloped before imaging was read. Consults to Cardiology, Psychology (to evaluate depression) and Cardiothoracic surgery appreciated. Pt. eloped ~6pm. Pt. did not have any IV lines present and was last seen with her mother prior to elopement. Minutes to complete discharge: 25 Discharge Summary Reason For Visit: DIABETIC KETOACIDOSIS Current Active Problems SHANE (acute kidney injury) (Acute) Cocaine abuse (Acute) DKA (diabetic ketoacidoses) (Acute) Dehydration (Acute) Elevated troponin I level (Acute) Heart failure, systolic, with acute decompensation (Acute) Hyperlipidemia (Acute) Pericardial effusion (Acute) Peripartum cardiomyopathy (Acute) Condition: Improved - Instructions Diet, Activity, Other Instructions: You came in for nausea, vomiting and abdominal pain because of uncontrolled diabetes. We treated you with IV fluids and with insulin. WE imaged your Heart and found that you have a significant amount of fluid around your heart. We found that you have significant heart damage because of cocaine use. Please STOP cocaine use. Continued cocaine use will worsen your heart and can cause sudden . Please take your home medications as prescribed. Carvedilol (Coreg) is proven to provide a mortality benefit in patients with Heart Failure. Please dot use cocaine while using this medication as it can cause serious side effects including . Please follow up with Dr. Enriquez within 1 week for addiction counseling. Please follow up with your inventory assistant, Dr. Tierney, within 1 week. Please follow up with your PCP within 1 week, If you do not have one we have provided Dr. Grant for you. Referrals: Shahriar Grant MD [Staff Physician] - 1 Week Alek Zacarias MD [Staff Physician] - 1 Week Disposition: HOME - Home Medications Comprehensive Discharge Medication List: Ambulatory Orders Carvedilol 25 mg PO BID 01/11/19 Citalopram Hydrobromide [Citalopram HBr] 20 mg PO DAILY 01/11/19 Enalapril Maleate 5 mg PO DAILY 01/11/19 Furosemide 20 mg PO DAILY 01/11/19 Insulin Glargine,Hum.rec.anlog [Basaglar Kwikpen U-100] 18 mg SQ DAILY 01/11/19 Magnesium Oxide 1,200 mg PO BID 01/11/19 This patient is new to me today: No Emergency Visit: Yes ED Registration Date: 01/11/19 Care time: The patient presented to the Emergency Department on the above date and was hospitalized for further evaluation of their emergent condition. Critical Care patient: No - Discharge Referral Referred to [facility] Med P.C.: No
[2019-01-16] MEDS: ATORVASTATIN CA 10 MG TABLET (FP) PO SCH (21:50)
--- NOTE | 2019-01-16 22:17 | PN ---
Progress Note, Physician Chief Complaint: SHORT OF BREATH EASILY - Current Medication List Current Medications: Active Medications Acetaminophen (Tylenol -) 650 mg PO Q6H PRN PRN Reason: Fever Or Pain Last Admin: 01/15/19 01:22 Dose: 650 mg Atorvastatin Calcium (Lipitor -) 10 mg PO HS [facility] Last Admin: 01/16/19 21:50 Dose: 10 mg Carvedilol (Coreg -) 25 mg PO BID [facility] Last Admin: 01/16/19 21:50 Dose: 25 mg Citalopram Hydrobromide (Celexa -) 20 mg PO DAILY [facility] Last Admin: 01/16/19 11:18 Dose: 20 mg Enalapril Maleate (Vasotec -) 5 mg PO DAILY [facility] Last Admin: 01/16/19 11:18 Dose: 5 mg Insulin Aspart (Novolog Vial Sliding Scale -) 1 vial SQ ACHS [facility]; Protocol Last Admin: 01/16/19 21:58 Dose: 8 unit Insulin Detemir (Levemir Vial) 35 units SQ AM [facility] Last Admin: 01/15/19 06:09 Dose: 35 unit Pantoprazole Sodium (Protonix -) 40 mg PO DAILY [facility] Last Admin: 01/16/19 11:18 Dose: 40 mg Trimethobenzamide HCl (Tigan -) 300 mg PO TID PRN PRN Reason: DYSPEPSIA - Objective Vital Signs: Vital Signs Temperature 98.1 F 01/16/19 17:00 Pulse Rate 77 01/16/19 17:00 Respiratory Rate 16 01/16/19 20:18 Blood Pressure 136/78 01/16/19 17:00 O2 Sat by Pulse Oximetry (%) 98 01/16/19 20:18 Constitutional: Yes: Calm Eyes: Yes: EOM Intact HENT: Yes: Normocephalic Neck: Yes: Trachea Midline Cardiovascular: Yes: Regular Rate and Rhythm Respiratory: Yes: Rales, SOB on Exertion Gastrointestinal: Yes: Normal Bowel Sounds ...Rectal Exam: Yes: Deferred Musculoskeletal: Yes: WNL Extremities: Yes: WNL Edema: No Peripheral Pulses WNL: Yes Neurological: Yes: Alert, Oriented Labs: CBC, BMP 01/12/19 06:30 01/14/19 05:30 Problem List - Problems (1) DKA (diabetic ketoacidoses) Code(s): E11.10 - TYPE 2 DIABETES MELLITUS WITH KETOACIDOSIS WITHOUT COMA Qualifiers: Diabetes mellitus type: other specified (including SUMMER) Diabetes mellitus complication detail: without coma Qualified Code(s): E13.10 - Other specified diabetes mellitus with ketoacidosis without coma (2) Dehydration Code(s): E86.0 - DEHYDRATION (3) Elevated troponin I level Code(s): R74.8 - ABNORMAL LEVELS OF OTHER SERUM ENZYMES (4) Heart failure, systolic, with acute decompensation Code(s): I50.23 - ACUTE ON CHRONIC SYSTOLIC (CONGESTIVE) HEART FAILURE (5) Pericardial effusion Code(s): I31.3 - PERICARDIAL EFFUSION (NONINFLAMMATORY) Assessment/Plan Current Active Problems DM TYPE 1 SHANE (acute kidney injury) (Acute) Cocaine abuse (Acute) SP DKA (diabetic ketoacidoses) (Acute) Dehydration (Acute) Elevated troponin I level (Acute) Heart failure, systolic, with acute decompensation (Acute) Hyperlipidemia (Acute) Pericardial effusion (Acute) Peripartum cardiomyopathy (Acute) Laboratory Results - last 24 hr 01/16/19 01/16/19 01/16/19 04:06 05:48 12:32 POC Glucometer 127 129 284 01/16/19 01/16/19 17:19 21:47 POC Glucometer 306 292 PLAN: BGM QID NOVOLOG SCALE LEVEMIR 38 UNITS AM
[2019-01-17] MEDS: INSULIN (LEVEMIR) 100 UNITS/ML UNITS SQ SCH (06:44)
[2019-01-17] MEDS: INSULIN SLIDING SCALE (NOVOLOG) 1 VIAL SQ SCH ×4 (06:46→21:40)
[2019-01-17] MEDS: ENALAPRIL MALEATE 5 MG TABLET (FP) PO SCH (09:59)
[2019-01-17] MEDS: PANTOPRAZOLE 40 MG TABLET (FP) PO SCH (09:59)
[2019-01-17] MEDS: CITALOPRAM HYDROBROMIDE 20 MG TABLET (FP) PO SCH (09:59)
[2019-01-17] MEDS: CARVEDILOL 25 MG TABLET (FP) PO SCH ×3 (09:59→21:43)
--- NOTE | 2019-01-17 11:40 | PN ---
Progress Note, Physician History of Present Illness: Patient is a 28 y/o with a history of IDDM, DKA, HTN, and CHF who presents for abdominal pain, nausea, and vomiting. She reports she has had episodes like this multiple times in the past and it is typically when she has DKA. She states in the past year she has had around 10 episodes of DKA and goes to multiple hospitals. She typically has these episodes when she is doing cocaine, but this episode she was not doing any drugs. She was diagnosed with diabetes at the age of 7. She typically takes her medications but states her sugars are not always controlled. Patient had a daughter last july and at that time was diagnosed with CHF. She was told that it would likely reverse, and if she colette feel short of breath she can take a lasix pill. Patient also takes medication for highblood pressure. Patient denies any family history of DM. patient denies any recent cough, dysuria, chest pain, dizzines, or shortness of breath. Patient was tough to draw blood from, ED resident placed a femoral line. She received 20 units of insulin, ani - Current Medication List Current Medications: Active Medications Acetaminophen (Tylenol -) 650 mg PO Q6H PRN PRN Reason: Fever Or Pain Last Admin: 01/15/19 01:22 Dose: 650 mg Atorvastatin Calcium (Lipitor -) 10 mg PO HS [facility] Last Admin: 01/16/19 21:50 Dose: 10 mg Carvedilol (Coreg -) 25 mg PO BID [facility] Last Admin: 01/17/19 09:59 Dose: 25 mg Citalopram Hydrobromide (Celexa -) 20 mg PO DAILY [facility] Last Admin: 01/17/19 09:59 Dose: 20 mg Enalapril Maleate (Vasotec -) 5 mg PO DAILY [facility] Last Admin: 01/17/19 09:59 Dose: 5 mg Insulin Aspart (Novolog Vial Sliding Scale -) 1 vial SQ ACHS [facility]; Protocol Last Admin: 01/17/19 06:46 Dose: 9 units Insulin Detemir (Levemir Vial) 38 units SQ AM [facility] Last Admin: 01/17/19 06:44 Dose: 38 units Pantoprazole Sodium (Protonix -) 40 mg PO DAILY [facility] Last Admin: 01/17/19 09:59 Dose: 40 mg Trimethobenzamide HCl (Tigan -) 300 mg PO TID PRN PRN Reason: DYSPEPSIA - Objective Vital Signs: Vital Signs Temperature 97.7 F 01/17/19 05:55 Pulse Rate 82 01/17/19 05:55 Respiratory Rate 18 01/17/19 05:55 Blood Pressure 135/66 01/17/19 05:55 O2 Sat by Pulse Oximetry (%) 98 01/16/19 20:18 Eyes: Yes: WNL, Conjunctiva Clear, EOM Intact HENT: Yes: WNL, Atraumatic, Normocephalic Neck: Yes: WNL, Supple, Trachea Midline Cardiovascular: Yes: WNL, Regular Rate and Rhythm Respiratory: Yes: WNL, Regular, CTA Bilaterally Gastrointestinal: Yes: WNL, Normal Bowel Sounds Genitourinary: Yes: WNL Musculoskeletal: Yes: WNL Extremities: Yes: WNL Edema: No Integumentary: Yes: WNL Neurological: Yes: WNL, Alert, Oriented ...Motor Strength: WNL Psychiatric: Yes: WNL Labs: CBC, BMP 01/12/19 06:30 01/14/19 05:30 Problem List - Problems (1) SHANE (acute kidney injury) Code(s): N17.9 - ACUTE KIDNEY FAILURE, UNSPECIFIED (2) DKA (diabetic ketoacidoses) Code(s): E11.10 - TYPE 2 DIABETES MELLITUS WITH KETOACIDOSIS WITHOUT COMA Qualifiers: Diabetes mellitus type: other specified (including SUMMER) Diabetes mellitus complication detail: without coma Qualified Code(s): E13.10 - Other specified diabetes mellitus with ketoacidosis without coma (3) Dehydration Code(s): E86.0 - DEHYDRATION (4) Elevated troponin I level Code(s): R74.8 - ABNORMAL LEVELS OF OTHER SERUM ENZYMES (5) Heart failure, systolic, with acute decompensation Code(s): I50.23 - ACUTE ON CHRONIC SYSTOLIC (CONGESTIVE) HEART FAILURE (6) Pericardial effusion Code(s): I31.3 - PERICARDIAL EFFUSION (NONINFLAMMATORY) Assessment/Plan - Problems (1) Peripartum cardiomyopathy Assessment/Plan: Moderately reduced LVEF on ECHO; at least moderate pericardial effusion, with signs of tamponade. On carvedilol and enalapril; use cautiously until effusion is resolved, and avoid hypotension. Code(s): O90.3 - PERIPARTUM CARDIOMYOPATHY (2) Cocaine abuse Assessment/Plan: urine screen negative. Future use would unfortunately preclude beta anastacio use, though this class is important with LV dysfunction. Code(s): F14.10 - COCAINE ABUSE, UNCOMPLICATED (3) DKA (diabetic ketoacidoses) Code(s): E11.10 - TYPE 2 DIABETES MELLITUS WITH KETOACIDOSIS WITHOUT COMA Qualifiers: Diabetes mellitus type: other specified (including SUMMER) Diabetes mellitus complication detail: without coma Qualified Code(s): E13.10 - Other specified diabetes mellitus with ketoacidosis without coma (4) Dehydration Assessment/Plan: Elevated BUn/Cr avoid excessive dehydration with pericardial effusion; avoid diuretics. Treating DKA will require fluids (with caution, given moderately reduced LVEF). Code(s): E86.0 - DEHYDRATION (5) Elevated troponin I level Assessment/Plan: TNI 0.42-->0.37; CK/MB relative index low. Contributing factors to demand ischemia include CHF, tamponade, stress (?recent use of cocaine), anemia. Code(s): R74.8 - ABNORMAL LEVELS OF OTHER SERUM ENZYMES (6) Pericardial effusion Assessment/Plan: ECHO: at least moderate pericardial effusion; signs of tamponade; moderately reduced LVEF; mild ; moderate to severe MR, mild-moderate pulmonary HTN. Planned for pericardial drainage, but held due to recent ASA use. Follow pt closely for signs of hemodynamic instability, which would engender emergency procedure. For repeat echo today to r/o progression and impact of pericardial fluid. Code(s): I31.3 - PERICARDIAL EFFUSION (NONINFLAMMATORY) (7) Hyperlipidemia Assessment/Plan: started atorvastatin (DM for >20 yrs; additional CAD risks). Code(s): E78.5 - HYPERLIPIDEMIA, UNSPECIFIED
--- NOTE | 2019-01-17 13:40 | PN ---
Teaching Attending Note Name of Resident: Flaco Mercedes ATTENDING PHYSICIAN STATEMENT I saw and evaluated the patient. I reviewed the resident's note and discussed the case with the resident. I agree with the resident's findings and plan as documented. SUBJECTIVE:currently asymptomatic. denies CP, SOB, fever, chills,N/V/C/D OBJECTIVE: Last Vital Signs Temp Pulse Resp BP Pulse Ox 97.7 F 82 18 135/66 98 01/17/19 05:55 01/17/19 05:55 01/17/19 09:00 01/17/19 05:55 01/17/19 09:00 General NAD, resting comfortable, CV S1 s2 RRR no murmur/rub/gallop no chest wall tenderness Lungs CTA B/L no wheezing/rales/rhonchi ASSESSMENT AND PLAN: 28 yrs old F non compliant, active cocaine abuse, F/U mostly at [facility] poor historian H/O [id number] since the age of 7, HTN, episodes of DKA with cocaine abuse, cardiomyopathy diagnosed in Jul 2018 admitted with presents for abdominal pain, nausea, and vomiting with dehydration, elevated AG, Acetone in te urine low Bicarb RPG > 500 consistent DKA although PH was 7.39, ECHO shows low EF and Pericardial effusion 1. DKA- resolved. cont to titrate insulin as needed to optimize control. bgm, iss. dietary consult. endo on board 2. Moderate Pericardial effusion- hemodynamically stable. no clinical signs of tamponade. no change in repeat echo on 01/14. CT done and awaiting official read. all workup negative for etiology. plan for pericardiocentesis when off asa for 7 days. no emergent need for procedure at this time. cont with periodic surveillance. CT surgery and cardio on board. 4. Tropinemia- likely due to demand ischemia. can be related to pericardial effusion. no cp. 5. SHANE-likely dehydration in setting of DKA. now resolved 6. Hypokalemia- resolved. goal K 4.5 7. Hypomangesemia- resolved. goal Mg 2.5 8. Continuous Cocaine dependence- admits to active smoking. denies IVDA. not showing any signs of withdrawal. Utox negative. counselled on siebel crm developer consequences of drug abuse 9. cardiomyopathy- EF here 37%. will see on recent echo. 10. depression- seen by psych. started on celexa. 11. DVT ppx- hep sq 12. Pt has now eloped twice once on 01/15 and again on 01/16. RN was instructed to have the patient go to the ER to be evaluated as she is not allowed off the floor however pt was allowed to return to the room. counselled patient in detail of how she is not allowed to leave the floor and informed her of the hospital policy. will check UTox with drug history. also informed RN jewel supervisor
[2019-01-17 14:34] LABS: COCAINE, UR NEGATIVE ng/ml (CUTOFF=300); METHADONE, UR NEGATIVE ng/ml (CUTOFF=300); OPIATES, URI NEGATIVE ng/ml (CUTOFF=300); PHENCYCLIDINE,URINE NEGATIVE ng/ml (CUTOFF=25); URINE AMPHETAMINES NEGATIVE ng/ml (CUTOFF=500); URINE BARBITURATES NEGATIVE ng/ml (CUTOFF=200); URINE BENZODIAZEPINES NEGATIVE ng/ml (CUTOFF=200)
--- NOTE | 2019-01-17 15:28 | PN ---
Progress Note (short form) - Note Progress Note: Thoracic Surgery: Patient assessed and reviewed CT. HD stable. However, says she has dyspnea today. CT shows small pericardial effusion of higher than serous density. It is possible this is related to an old pericarditis and it is thickening. Regardless it is not easily drainable by percardiocentesis. I have discussed this with Dr. Farah. Furthermore, I would not drain this by VATS as it is small and appears to be thickening in easily accessible areas to VATS. I recommend that it is reassessed by echoi in a chemistry laboratory technician that does drainages and that a right heart cath is available as well. Will defer to Cardiology for further management. Problem List - Problems (1) SHANE (acute kidney injury) Code(s): N17.9 - ACUTE KIDNEY FAILURE, UNSPECIFIED (2) Cocaine abuse Code(s): F14.10 - COCAINE ABUSE, UNCOMPLICATED (3) DKA (diabetic ketoacidoses) Code(s): E11.10 - TYPE 2 DIABETES MELLITUS WITH KETOACIDOSIS WITHOUT COMA Qualifiers: Diabetes mellitus type: other specified (including SUMMER) Diabetes mellitus complication detail: without coma Qualified Code(s): E13.10 - Other specified diabetes mellitus with ketoacidosis without coma (4) Dehydration Code(s): E86.0 - DEHYDRATION (5) Elevated troponin I level Code(s): R74.8 - ABNORMAL LEVELS OF OTHER SERUM ENZYMES (6) Heart failure, systolic, with acute decompensation Code(s): I50.23 - ACUTE ON CHRONIC SYSTOLIC (CONGESTIVE) HEART FAILURE (7) Pericardial effusion Code(s): I31.3 - PERICARDIAL EFFUSION (NONINFLAMMATORY) (8) Peripartum cardiomyopathy Code(s): O90.3 - PERIPARTUM CARDIOMYOPATHY
--- NOTE | 2019-01-17 16:17 | PN ---
Physical Exam: SUBJECTIVE: Patient seen and examined. Pt. states night was "ok." Pt. declines to say why she left the hospital 3 times over the weekend. Pt. declines to state what was done while Pt. was out. OBJECTIVE: Vital Signs Period Temp Pulse Resp BP Sys/Marquis Pulse Ox Last 24 Hr 97.7 F-98.6 F 69-84 16-69 117-141/58-84 98-98 GENERAL: The patient is drowsy, in mild distress. HEAD: Normal with no signs of trauma. EYES: extraocular movements intact, sclera anicteric, conjunctiva clear. ENT: Ears normal, nares patent, oropharynx clear without exudates, Dry mucous membranes. LUNGS: Breath sounds equal, clear to auscultation bilaterally, no wheezes, no crackles, no accessory muscle use. HEART: distant heart sounds, regular rate and rhythm, S1, S2 without murmur ABDOMEN: Soft, epigastric and RUQ tenderness worse with palpation, nondistended , normoactive bowel sounds EXTREMITIES: 2+ dorsal pedal pulses, warm, well-perfused, no edema. NEUROLOGICAL: Normal speech, gait not observed. PSYCH: Normal mood, normal affect. SKIN: Warm, dry, normal turgor, no rashes or lesions noted Laboratory Results - last 24 hr 01/16/19 01/16/19 01/17/19 17:19 21:47 06:30 POC Glucometer 306 292 283 Opiates Screen Methadone Screen Barbiturate Screen Phencyclidine Screen Ur Amphetamines Screen MDMA (Ecstasy) Screen Benzodiazepines Screen Cocaine Screen U Marijuana (THC) Screen 01/17/19 13:43 POC Glucometer Opiates Screen Negative Methadone Screen Negative Barbiturate Screen Negative Phencyclidine Screen Negative Ur Amphetamines Screen Negative MDMA (Ecstasy) Screen Negative Benzodiazepines Screen Negative Cocaine Screen Negative U Marijuana (THC) Screen Negative Active Medications Home Medications Medication Instructions Recorded Carvedilol 25 mg PO BID 01/11/19 Citalopram Hydrobromide 20 mg PO DAILY 01/11/19 [Citalopram HBr] Enalapril Maleate 5 mg PO DAILY 01/11/19 Furosemide 20 mg PO DAILY 01/11/19 Insulin Glargine,Hum.rec.anlog 18 mg SQ DAILY 01/11/19 [Basaglar Kwikpen U-100] Magnesium Oxide 1,200 mg PO BID 01/11/19 Current Medications Acetaminophen (Tylenol -) 650 mg PO Q6H PRN PRN Reason: Fever Or Pain Last Admin: 01/15/19 01:22 Dose: 650 mg Atorvastatin Calcium (Lipitor -) 10 mg PO HS [facility] Last Admin: 01/16/19 21:50 Dose: 10 mg Carvedilol (Coreg -) 25 mg PO BID [facility] Last Admin: 01/17/19 09:59 Dose: 25 mg Citalopram Hydrobromide (Celexa -) 20 mg PO DAILY [facility] Last Admin: 01/17/19 09:59 Dose: 20 mg Enalapril Maleate (Vasotec -) 5 mg PO DAILY [facility] Last Admin: 01/17/19 09:59 Dose: 5 mg Insulin Aspart (Novolog Vial Sliding Scale -) 1 vial SQ ACHS [facility]; Protocol Last Admin: 01/17/19 13:04 Dose: Not Given Insulin Detemir (Levemir Vial) 38 units SQ AM [facility] Last Admin: 01/17/19 06:44 Dose: 38 units Pantoprazole Sodium (Protonix -) 40 mg PO DAILY [facility] Last Admin: 01/17/19 09:59 Dose: 40 mg Trimethobenzamide HCl (Tigan -) 300 mg PO TID PRN PRN Reason: DYSPEPSIA ASSESSMENT/PLAN: Patient is a 28 y/o with a history of IDDM, DKA, HTN, and CHF who presents for abdominal pain, nausea, and vomiting secondary to DKA. #CHF w/ Tamponade Physiology patient currently euvolemic daily weights; 97.25kg-->98.43kg-->99.155kg echo: EF 37%, mod.- severe MR, mild-mod. TR, mild-mod. pulm HTN, calcified aortic valve w/ mild aortic stenosis, mod pericardial effusion w/o RV collapse but mitral valve doppler shows tamponade physiology--> significant change from prior Echo which showed EF of 25% and small pericardial effusion Cardiothoracic Surgery (Dr Schmitt) appreciated--> should do pericardiocentesis 1st and evaluate fluid. Cardiac window is indicated only for emergent cases and/if Pt. has refractory pericrdial effusions. CXR: no evidence of congestion Cardiology (Dr. Tierney) consult appreciated BNP: 14,800 c/w Carvedilol Hold Lasix in setting of tamponade physiology and not wanting to decreased diastolic pressures to precipitate RV collapse Hold ASA 81mg for 7 days Rpt. Echo: unchanged from prior-->will consider echo for Thursday morning CT Chest shows moderate sized pleural effusion with increased wall thickening on right, obstructing easy access per CT surgery, Stable for Discharge and outpatient cardiac laboratory veterinarian evaluation pending Cardiology recs. #Dyspepsia D/C Zofran as QTc is now 499 started Tigan TID PRN c/w Protonix Daily #Diabetic Ketoacidosis-resolved hyperglycemia at 500, AG 19, positive ketones on admission patient received 20 units, anion gap closed Pt. to receive Levemir 28 units based on weight calculation UTox: Negative BGM's Q2H BMP Q4H A1C: 10.3% ISS ACHS- has not required additional coverage ESR: 44, CRP: 0.9, TSH: 2.43 #SHANE 2/2 to dehydration 2/2 to Hyperglycemia-resolved continue IVF urine electrolytes continue to trend avoid nephrotoxic agents #Hx. of Depression Psych consult (Dr. Cohen) appreciated--> c/w Celexa? Per medication reconciliation Pt. not on celexa. Per [facility] medical records Pt. was on Perphenazine and Lexapro last July #HTN c/w Enalapril 5 mg continue to monitor BP, avoid narrowing of pulse pressures #Polysubstance abuse UTox - X 2 Would benefit from reception specialist Records from [facility] show Hx. of crack cocaine use and marijuana f/u RPR and GC/Chlamydia given Hx. of prostitution HIV Negative TB Negative #FEN No IVF, encourage PO intake monitor electrolytes, particularly potassium and magnesium, repleted earlier today Diabetic/Na Diet Visit type - Emergency Visit Emergency Visit: Yes ED Registration Date: 01/11/19 Care time: The patient presented to the Emergency Department on the above date and was hospitalized for further evaluation of their emergent condition. - New Patient This patient is new to me today: No - Critical Care Critical Care patient: No - Discharge Referral Referred to [facility] No
[2019-01-17] MEDS ORDERED: PT OWN MED DRAWER 7, Y5N ONE (21:29)
[2019-01-17] MEDS: ATORVASTATIN CA 10 MG TABLET (FP) PO SCH ×2 (21:39→21:43)
[2019-01-18] MEDS: ACETAMINOPHEN 325 MG TABLET (FP) PO PRN (00:16)
[2019-01-18] MEDS ORDERED: diphenhydrAMINE HCL 25 MG CAPSULE (FP) PO ONE (02:12)
[2019-01-18] MEDS: INSULIN (LEVEMIR) 100 UNITS/ML UNITS SQ SCH (06:37)
[2019-01-18] MEDS: INSULIN SLIDING SCALE (NOVOLOG) 1 VIAL SQ SCH ×4 (06:37→21:45)
[2019-01-18] MEDS ORDERED: PT OWN MED DRAWER 7, Y5N ONE (09:33)
[2019-01-18] MEDS: PANTOPRAZOLE 40 MG TABLET (FP) PO SCH (09:42)
[2019-01-18] MEDS: ENALAPRIL MALEATE 5 MG TABLET (FP) PO SCH (09:42)
[2019-01-18] MEDS: CARVEDILOL 25 MG TABLET (FP) PO SCH ×2 (09:43→21:47)
[2019-01-18] MEDS: CITALOPRAM HYDROBROMIDE 20 MG TABLET (FP) PO SCH (09:43)
--- NOTE | 2019-01-18 11:07 | PN ---
Physical Exam: SUBJECTIVE: Patient seen and examined. Pt. refused Coreg, Lipitor, labs and cardiac monitoring overnight. Per nurse Pt. is asleep during the day and awake in the night. Pt. only accepting insulin and is eating "non-stop." Pt.'s mother is Nimisha Jennings ([phone]) and hospital course was discussed. OBJECTIVE: Vital Signs Period Temp Pulse Resp BP Sys/Marquis Pulse Ox Last 24 Hr 98 F-98.5 F 69-102 20-69 110-129/46-84 95-98 GENERAL: The patient is drowsy, in mild distress. HEAD: Normal with no signs of trauma. EYES: extraocular movements intact, sclera anicteric, conjunctiva clear. ENT: Ears normal, nares patent, oropharynx clear without exudates, Dry mucous membranes. LUNGS: Breath sounds equal, clear to auscultation bilaterally, no wheezes, no crackles, no accessory muscle use. HEART: distant heart sounds, regular rate and rhythm, S1, S2 without murmur ABDOMEN: Soft, epigastric and RUQ tenderness worse with palpation, nondistended , normoactive bowel sounds EXTREMITIES: 2+ dorsal pedal pulses, warm, well-perfused, no edema. NEUROLOGICAL: Normal speech, gait not observed. PSYCH: Normal mood, normal affect. SKIN: Warm, dry, normal turgor, no rashes or lesions noted Laboratory Results - last 24 hr 01/17/19 01/17/19 01/18/19 13:43 21:38 05:31 POC Glucometer 374 213 Opiates Screen Negative Methadone Screen Negative Barbiturate Screen Negative Phencyclidine Screen Negative Ur Amphetamines Screen Negative MDMA (Ecstasy) Screen Negative Benzodiazepines Screen Negative Cocaine Screen Negative U Marijuana (THC) Screen Negative Active Medications Home Medications Medication Instructions Recorded Carvedilol 25 mg PO BID 01/11/19 Citalopram Hydrobromide 20 mg PO DAILY 01/11/19 [Citalopram HBr] Enalapril Maleate 5 mg PO DAILY 01/11/19 Furosemide 20 mg PO DAILY 01/11/19 Insulin Glargine,Hum.rec.anlog 18 mg SQ DAILY 01/11/19 [Basaglar Kwikpen U-100] Magnesium Oxide 1,200 mg PO BID 01/11/19 Current Medications Acetaminophen (Tylenol -) 650 mg PO Q6H PRN PRN Reason: Fever Or Pain Last Admin: 01/18/19 00:16 Dose: 650 mg Atorvastatin Calcium (Lipitor -) 10 mg PO HS [facility] Last Admin: 01/17/19 21:43 Dose: Not Given Carvedilol (Coreg -) 25 mg PO BID [facility] Last Admin: 01/18/19 09:43 Dose: 25 mg Citalopram Hydrobromide (Celexa -) 20 mg PO DAILY [facility] Last Admin: 01/18/19 09:43 Dose: 20 mg Enalapril Maleate (Vasotec -) 5 mg PO DAILY [facility] Last Admin: 01/18/19 09:42 Dose: 5 mg Insulin Aspart (Novolog Vial Sliding Scale -) 1 vial SQ ACHS [facility]; Protocol Last Admin: 01/18/19 06:37 Dose: 8 units Insulin Detemir (Levemir Vial) 38 units SQ AM [facility] Last Admin: 01/18/19 06:37 Dose: 38 units Pantoprazole Sodium (Protonix -) 40 mg PO DAILY [facility] Last Admin: 01/18/19 09:42 Dose: 40 mg Trimethobenzamide HCl (Tigan -) 300 mg PO TID PRN PRN Reason: DYSPEPSIA ASSESSMENT/PLAN: Patient is a 28 y/o with a history of IDDM, DKA, HTN, and CHF who presents for abdominal pain, nausea, and vomiting secondary to DKA. #CHF w/ Tamponade Physiology patient currently euvolemic daily weights; 97.25kg-->98.43kg-->99.155kg echo: EF 37%, mod.- severe MR, mild-mod. TR, mild-mod. pulm HTN, calcified aortic valve w/ mild aortic stenosis, mod pericardial effusion w/o RV collapse but mitral valve doppler shows tamponade physiology--> significant change from prior Echo which showed EF of 25% and small pericardial effusion Cardiothoracic Surgery (Dr Schmitt) appreciated--> should do pericardiocentesis 1st and evaluate fluid. Cardiac window is indicated only for emergent cases and/if Pt. has refractory pericrdial effusions. CXR: no evidence of congestion Cardiology (Dr. Tierney) consult appreciated BNP: 14,800 c/w Carvedilol Hold Lasix in setting of tamponade physiology and not wanting to decreased diastolic pressures to precipitate RV collapse Hold ASA 81mg for 7 days Rpt. Echo: unchanged from prior-->will consider echo for Thursday morning Echo (01/18/19): EF: 30%, elevated RV pressure(45mmHG), severe global hypokinesis , mod. to severe MR, mild to mod. TR, mod. pulm HTN, small pericardial effusion( <1 cm) CT Chest shows moderate sized pleural effusion with increased wall thickening on right, obstructing easy access per CT surgery. Nimisha Jennings ([phone]) is the mother. Will transfer Pt. to [facility] for tertiary level care. #Dyspepsia D/C Zofran as QTc is now 499 started Tigan TID PRN c/w Protonix Daily #Diabetic Ketoacidosis-resolved hyperglycemia at 500, AG 19, positive ketones on admission patient received 20 units, anion gap closed Pt. to receive Levemir 28 units based on weight calculation UTox: Negative BGM's Q2H BMP Q4H A1C: 10.3% ISS ACHS ESR: 44, CRP: 0.9, TSH: 2.43 #SHANE 2/2 to dehydration 2/2 to Hyperglycemia-resolved continue IVF urine electrolytes continue to trend avoid nephrotoxic agents #Hx. of Depression Psych consult (Dr. Cohen) appreciated--> c/w Celexa? Per medication reconciliation Pt. not on celexa. Per [facility] medical records Pt. was on Perphenazine and Lexapro last July #HTN c/w Enalapril 5 mg continue to monitor BP, avoid narrowing of pulse pressures #Polysubstance abuse UTox - X 2 Would benefit from surgical specialist Records from [facility] show Hx. of crack cocaine use and marijuana f/u RPR and GC/Chlamydia given Hx. of prostitution HIV Negative TB Negative #FEN No IVF, encourage PO intake monitor electrolytes, particularly potassium and magnesium Diabetic/Na Diet Visit type - Emergency Visit Emergency Visit: Yes ED Registration Date: 01/11/19 Care time: The patient presented to the Emergency Department on the above date and was hospitalized for further evaluation of their emergent condition. - New Patient This patient is new to me today: No - Critical Care Critical Care patient: No - Discharge Referral Referred to [facility]C.: No
--- NOTE | 2019-01-18 11:36 | ECHO ---
Version: 1 Name: SAM EAGLE Exam: Adult Echocardiogram Study Date: 01/18/2019, 8:22 AM Age: 28 Years Doppler Measurements & Calculations MR max P.0 mmHg TR max deion: 312.7 cm/sec TR max P.2 mmHg Procedure A complete two-dimensional transthoracic echocardiogram was performed (2D, M-mode, Doppler and color flow Doppler). Left Ventricle The left ventricle is mildly dilated. Left ventricular systolic function is severely reduced. Ejecti on Fraction = 30%. There is severe global hypokinesis of the left ventricle. Right Ventricle The right ventricle is normal in size and function. Mitral Valve The mitral valve is normal. There is moderate to severe mitral regurgitation. Tricuspid Valve The tricuspid valve is normal in structure and function. There is mild to moderate tricuspid regurgi tation. Right ventricular systolic pressure is elevated at 45 mmhg. There is moderate pulmonary hypertension . Aortic Valve The aortic valve is normal in structure and function. Pulmonic Valve The pulmonic valve is normal in structure and function. Trace pulmonic valvular regurgitation. Great Vessels The aortic root is normal size. Pericardium/Pleura Small pericardial effusion (<1cm). There is no pleural effusion. Summary Statements Left ventricular systolic function is severely reduced. There is severe global hypokinesis of the left ventricle. The mitral valve is normal. There is moderate to severe mitral regurgitation. There is mild to moderate tricuspid regurgitation. Right ventricular systolic pressure is elevated at 45 mmhg. There is moderate pulmonary hypertension. Trace pulmonic valvular regurgitation. Small pericardial effusion (<1cm) MD Balderas 01/18/2019, 10:36 AM [place] Ordering Physician: CELIA HERBERT Performed By: Christal Orlando
--- NOTE | 2019-01-18 12:17 | PN ---
Teaching Attending Note Name of Resident: Flaco Mercedes ATTENDING PHYSICIAN STATEMENT I saw and evaluated the patient. I reviewed the resident's note and discussed the case with the resident. I agree with the resident's findings and plan as documented. SUBJECTIVE: Complains of SOB on exertion. No ongoing CP. No fever/chills. OBJECTIVE: Afebrile, Hemodynamically Stable Last Vital Signs Temp Pulse Resp BP Pulse Ox 98 F 76 20 129/70 95 01/18/19 10:33 01/18/19 10:33 01/18/19 10:33 01/18/19 10:33 01/18/19 09:00 HEENT - Atraumatic, Normocephalic. Heart - S1, S2, SM Lungs - clear to auscultation Abdomen - Soft, non-tender. Bowel Sounds normal. Extremities - no edema, no calf tenderness. Laboratory Results - last 24 hr 01/17/19 01/17/19 01/18/19 13:43 21:38 05:31 POC Glucometer 374 213 Opiates Screen Negative Methadone Screen Negative Barbiturate Screen Negative Phencyclidine Screen Negative Ur Amphetamines Screen Negative MDMA (Ecstasy) Screen Negative Benzodiazepines Screen Negative Cocaine Screen Negative U Marijuana (THC) Screen Negative Current Medications Generic Name Dose Route Start Last Admin Trade Name Freq PRN Reason Stop Dose Admin Acetaminophen 650 mg 01/15/19 01:10 01/18/19 00:16 Tylenol - PO 650 mg Q6H PRN Administration Fever Or Pain Atorvastatin Calcium 10 mg 01/13/19 22:00 01/17/19 21:43 Lipitor - PO Not Given HS ALISA Carvedilol 25 mg 01/12/19 11:30 01/18/19 09:43 Coreg - PO 25 mg BID ALISA Administration Citalopram Hydrobromide 20 mg 01/18/19 10:00 01/18/19 09:43 Celexa - PO 20 mg DAILY ALISA Administration Enalapril Maleate 5 mg 01/18/19 10:00 01/18/19 09:42 Vasotec - PO 5 mg DAILY ALISA Administration Insulin Aspart 1 vial 01/16/19 22:18 01/18/19 11:14 Novolog Vial Sliding Scale - SQ Not Given ACHS ALISA Protocol Insulin Detemir 38 units 01/17/19 07:00 01/18/19 06:37 Levemir Vial SQ 38 units AM [facility] Administration Pantoprazole Sodium 40 mg 01/14/19 10:00 01/18/19 09:42 Protonix - PO 40 mg DAILY ALISA Administration Trimethobenzamide HCl 300 mg 01/16/19 10:12 Tigan - PO TID PRN DYSPEPSIA ASSESSMENT AND PLAN: 28 year old homeless female with active substance abuse (cocaine), DM 1, HTN, recently diagnosed post- Cardiomyopathy (diag Jul 2018), admitted with abdominal pain, nausea, vomiting, found to be in DKA, with ongoing LV dysfunction, severe MR, and pericardial effusion. 1. DKA with Hx of DM 1 - Resolved. Endocrinology consulted. Continue Detemir/ sliding scale. 2. Cardiomyopathy - +/- Cocaine induced Echo - severe global hypokinesis with EF 30%, severe MR, moderate pul HTN, pericardial effusion, possible evidence of tamponade on Echo. Eval by Cardiothoracic surgery recommends R heart cath and possible intervention for pericardial effusion, unable to perform pericardiocentesis. Hemodynamically Stable. Discussed with Cardiology - for eval for possible transfer for further investigations/intervention. Continue BB, VINCENT-I 3. Troponin Egression - possibly sec to pericarditis. ESR 44. Further management as per Cardiology. 4. SHANE sec to dehydration due to DKA - resolved. 5. Electrolyte Abnormalities - Hypokalemia/Hypomagnesemia - resolved s/p repletion. 6. Polysubstance Abuse -Cocaine, Tobacco - no signs of withdrawal. Eloped x 2 and then returned to floor. 7. Depression - eval by Psych - started on Celexa. 8. HTN - Continue Enalapril and Coreg. DVT Px - Heparin SQ
--- NOTE | 2019-01-18 12:30 | PN ---
Progress Note, Physician Chief Complaint: Pt A&O; c/o difficulty sleeping due to paroxysms of shortness of breath. She walks down the hallway slowly, but c/o MULLER. History of Present Illness: Ms. 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 The patient states she has been endorsing abdominal pain and lethargy, secondary to her symptoms. Glucose above 500 (checked this morning). The patient denies chest pain, shortness of breath or dizziness. The patient denies fever, chills, diarrhea or constipation. The patient denies dysuria, frequency, urgency or hematuria. - Current Medication List Current Medications: Active Medications Acetaminophen (Tylenol -) 650 mg PO Q6H PRN PRN Reason: Fever Or Pain Last Admin: 01/18/19 00:16 Dose: 650 mg Atorvastatin Calcium (Lipitor -) 10 mg PO HS [facility] Last Admin: 01/17/19 21:43 Dose: Not Given Carvedilol (Coreg -) 25 mg PO BID [facility] Last Admin: 01/18/19 09:43 Dose: 25 mg Citalopram Hydrobromide (Celexa -) 20 mg PO DAILY [facility] Last Admin: 01/18/19 09:43 Dose: 20 mg Enalapril Maleate (Vasotec -) 5 mg PO DAILY [facility] Last Admin: 01/18/19 09:42 Dose: 5 mg Insulin Aspart (Novolog Vial Sliding Scale -) 1 vial SQ ACHS [facility]; Protocol Last Admin: 01/18/19 11:14 Dose: Not Given Insulin Detemir (Levemir Vial) 38 units SQ AM [facility] Last Admin: 01/18/19 06:37 Dose: 38 units Pantoprazole Sodium (Protonix -) 40 mg PO DAILY [facility] Last Admin: 01/18/19 09:42 Dose: 40 mg Trimethobenzamide HCl (Tigan -) 300 mg PO TID PRN PRN Reason: DYSPEPSIA - Objective Vital Signs: Vital Signs Temperature 98 F 01/18/19 10:33 Pulse Rate 76 01/18/19 10:33 Respiratory Rate 20 05/21/19 10:33 Blood Pressure 129/70 01/18/19 10:33 O2 Sat by Pulse Oximetry (%) 95 01/18/19 09:00 Constitutional: Yes: Calm Eyes: Yes: WNL HENT: Yes: WNL Neck: Yes: WNL Cardiovascular: Yes: Regular Rate and Rhythm, S1, S2 Respiratory: Yes: WNL Gastrointestinal: Yes: Soft ...Rectal Exam: Yes: Deferred Genitourinary: No: Anuria Breast(s): Yes: WNL Musculoskeletal: Yes: WNL Extremities: Yes: WNL Edema: No Peripheral Pulses WNL: Yes Integumentary: Yes: WNL Neurological: Yes: WNL Psychiatric: Yes: Other Labs: CBC, BMP 01/12/19 06:30 01/14/19 05:30 - ....Imaging Ultrasound: Report Reviewed Problem List - Problems (1) Peripartum cardiomyopathy Assessment/Plan: Intial ECHO moderately reduced LVEF on ECHO; at least moderate pericardial effusion, with signs of tamponade. Most recent ECHO: severely reduced LVEF, small pericardial effusion. On carvedilol and enalapril. Dr. Rausch's consult noted; his opinion is that effusion is small, Drainage, if needed, would be problematic, and [facility], right-heart cath, and ongoing evfaluation of peripartum cardiomyopathy. I discussed pt's case with , chief of the medical team here, regarding pt's complex medical/cardiac/psychiatric hx. He feels that she would be highly unlikely to go as an outpatient for followup of these conditions (she has tried to elope more than once on this admission alone). I spoke at length with pt this morning about the above findings. She agrees to be transferred, and says she would prefer [facility], saying her service engineer is there, and says she last saw him at the [facility] earlier this month. I called Pratik Culver, service engineer who saw Ms. Ledbetter at [facility] (part of [facility]). He agrees the pt (who at one point was under psychiatic services as well) should be transferred to cardiology services at [facility], but cannot accept the pt himself. Will speak with medical team here to start process of transfer to [facility] for further cardiac evaluation of peripartum cardiomyopathy and pericardial effusion. Code(s): O90.3 - PERIPARTUM CARDIOMYOPATHY (2) Cocaine abuse Assessment/Plan: urine screen negative. Future use would unfortunately preclude beta anastacio use, though this class is important with LV dysfunction. Code(s): F14.10 - COCAINE ABUSE, UNCOMPLICATED (3) DKA (diabetic ketoacidoses) Code(s): E11.10 - TYPE 2 DIABETES MELLITUS WITH KETOACIDOSIS WITHOUT COMA Qualifiers: Diabetes mellitus type: other specified (including SUMMER) Diabetes mellitus complication detail: without coma Qualified Code(s): E13.10 - Other specified diabetes mellitus with ketoacidosis without coma (4) Dehydration Assessment/Plan: Elevated BUn/Cr avoid excessive dehydration with pericardial effusion; avoid diuretics. Treating DKA will require fluids (with caution, given moderately reduced LVEF). Code(s): E86.0 - DEHYDRATION (5) Elevated troponin I level Assessment/Plan: TNI 0.42-->0.37; CK/MB relative index low. Contributing factors to demand ischemia include CHF, tamponade, stress (?recent use of cocaine), anemia. Code(s): R74.8 - ABNORMAL LEVELS OF OTHER SERUM ENZYMES (6) Pericardial effusion Assessment/Plan: ECHO: at least moderate pericardial effusion; signs of tamponade; moderately reduced LVEF; mild ; moderate to severe MR, mild-moderate pulmonary HTN. Planned for pericardial drainage, but held due to recent ASA use. Follow pt closely for signs of hemodynamic instability, which would engender emergency procedure. For repeat echo today to r/o progression and impact of pericardial fluid. Code(s): I31.3 - PERICARDIAL EFFUSION (NONINFLAMMATORY) (7) Hyperlipidemia Assessment/Plan: started atorvastatin (DM for >20 yrs; additional CAD risks). Code(s): E78.5 - HYPERLIPIDEMIA, UNSPECIFIED
[2019-01-18] MEDS: HEPARIN NA (PORCINE) 5,000 UNITS/ML 1ML VIAL SQ SCH ×2 (13:29→21:47)
[2019-01-18] MEDS: ATORVASTATIN CA 10 MG TABLET (FP) PO SCH (21:47)
[2019-01-19 01:53] VITALS: TEMP 98.6
[2019-01-19] MEDS: INSULIN SLIDING SCALE (NOVOLOG) 1 VIAL SQ SCH ×2 (06:39→11:17)
[2019-01-19] MEDS: HEPARIN NA (PORCINE) 5,000 UNITS/ML 1ML VIAL SQ SCH (06:39)
[2019-01-19] MEDS ORDERED: INSULIN (LEVEMIR) 100 UNITS/ML UNITS SQ SCH (07:00)
[2019-01-19 07:54] LABS: CALCIUM 8.2 mg/dL (8.5-10.1); CREATININE 1.2 mg/dL (0.55-1.3); MAGNESIUM 1.7 mg/dL (1.8-2.4); POTASSIUM 4.8 mmol/L (3.5-5.1)
[2019-01-19] MEDS ORDERED: MAGNESIUM SULF 50% (8.12 MEQ/2 ML-1 GM VIAL) IVPB ONE (08:15)
[2019-01-19] MEDS ORDERED: MAGNESIUM OXIDE 400 MG TABLET (FP) PO ONE ×2 (09:13→11:30)
--- NOTE | 2019-01-19 11:13 | PN ---
Progress Note, Physician History of Present Illness: Patient is a 28 y/o with a history of IDDM, DKA, HTN, and CHF who presents for abdominal pain, nausea, and vomiting. She reports she has had episodes like this multiple times in the past and it is typically when she has DKA. She states in the past year she has had around 10 episodes of DKA and goes to multiple hospitals. She typically has these episodes when she is doing cocaine, but this episode she was not doing any drugs. She was diagnosed with diabetes at the age of 7. She typically takes her medications but states her sugars are not always controlled. Patient had a daughter last july and at that time was diagnosed with CHF. She was told that it would likely reverse, and if she colette feel short of breath she can take a lasix pill. Patient also takes medication for highblood pressure. Patient denies any family history of DM. patient denies any recent cough, dysuria, chest pain, dizzines, or shortness of breath. Patient was tough to draw blood from, ED resident placed a femoral line. She received 20 units of insulin, ani - Current Medication List Current Medications: Active Medications Acetaminophen (Tylenol -) 650 mg PO Q6H PRN PRN Reason: Fever Or Pain Last Admin: 01/18/19 00:16 Dose: 650 mg Atorvastatin Calcium (Lipitor -) 10 mg PO HS [facility] Last Admin: 01/18/19 21:47 Dose: 10 mg Carvedilol (Coreg -) 25 mg PO BID [facility] Last Admin: 01/18/19 21:47 Dose: 25 mg Citalopram Hydrobromide (Celexa -) 20 mg PO DAILY [facility] Last Admin: 01/18/19 09:43 Dose: 20 mg Enalapril Maleate (Vasotec -) 5 mg PO DAILY [facility] Last Admin: 01/18/19 09:42 Dose: 5 mg Heparin Sodium (Porcine) (Heparin -) 5,000 unit SQ TID [facility] Last Admin: 01/19/19 06:39 Dose: Not Given Insulin Aspart (Novolog Vial Sliding Scale -) 1 vial SQ ACHS [facility]; Protocol Last Admin: 01/19/19 06:39 Dose: Not Given Insulin Detemir (Levemir Vial) 40 units SQ AM [facility] Last Admin: 01/19/19 06:39 Dose: Not Given Pantoprazole Sodium (Protonix -) 40 mg PO DAILY [facility] Last Admin: 01/18/19 09:42 Dose: 40 mg Trimethobenzamide HCl (Tigan -) 300 mg PO TID PRN PRN Reason: DYSPEPSIA - Objective Vital Signs: Vital Signs Temperature 98.6 F 01/19/19 06:00 Pulse Rate 60 01/19/19 06:00 Respiratory Rate 20 01/19/19 06:00 Blood Pressure 144/72 01/19/19 06:00 O2 Sat by Pulse Oximetry (%) 100 01/18/19 21:00 Eyes: Yes: WNL, Conjunctiva Clear, EOM Intact HENT: Yes: WNL, Atraumatic, Normocephalic Neck: Yes: WNL, Supple, Trachea Midline Cardiovascular: Yes: WNL, Regular Rate and Rhythm Respiratory: Yes: WNL, Regular, CTA Bilaterally Gastrointestinal: Yes: WNL, Normal Bowel Sounds Genitourinary: Yes: WNL Musculoskeletal: Yes: WNL Extremities: Yes: WNL Edema: No Integumentary: Yes: WNL Neurological: Yes: WNL, Alert, Oriented ...Motor Strength: WNL Psychiatric: Yes: WNL Labs: CBC, BMP 01/12/19 06:30 01/19/19 05:30 Problem List - Problems (1) SHANE (acute kidney injury) Code(s): N17.9 - ACUTE KIDNEY FAILURE, UNSPECIFIED (2) DKA (diabetic ketoacidoses) Code(s): E11.10 - TYPE 2 DIABETES MELLITUS WITH KETOACIDOSIS WITHOUT COMA Qualifiers: Diabetes mellitus type: other specified (including SUMMER) Diabetes mellitus complication detail: without coma Qualified Code(s): E13.10 - Other specified diabetes mellitus with ketoacidosis without coma (3) Dehydration Code(s): E86.0 - DEHYDRATION (4) Elevated troponin I level Code(s): R74.8 - ABNORMAL LEVELS OF OTHER SERUM ENZYMES (5) Heart failure, systolic, with acute decompensation Code(s): I50.23 - ACUTE ON CHRONIC SYSTOLIC (CONGESTIVE) HEART FAILURE (6) Pericardial effusion Code(s): I31.3 - PERICARDIAL EFFUSION (NONINFLAMMATORY) Assessment/Plan - Problems (1) Peripartum cardiomyopathy Assessment/Plan: Intial ECHO moderately reduced LVEF on ECHO; at least moderate pericardial effusion, with signs of tamponade. Most recent ECHO: severely reduced LVEF, small pericardial effusion. On carvedilol and enalapril. Dr. Rausch's consult noted; his opinion is that effusion is small, Drainage, if needed, would be problematic, and [facility], right-heart cath, and ongoing evfaluation of peripartum cardiomyopathy. I discussed pt's case with , chief of the medical team here, regarding pt's complex medical/cardiac/psychiatric hx. He feels that she would be highly unlikely to go as an outpatient for followup of these conditions (she has tried to elope more than once on this admission alone). I spoke at length with pt this morning about the above findings. She agrees to be transferred, and says she would prefer [facility], saying her sales department supervisor is there, and says she last saw him at the [facility] earlier this month. I called Pratik Culver, sales department supervisor who saw Ms. Ledbetter at [facility] (part of [facility]). He agrees the pt (who at one point was under psychiatic services as well) should be transferred to cardiology services at [facility], but cannot accept the pt himself. Will speak with medical team here to start process of transfer to [facility] for further cardiac evaluation of peripartum cardiomyopathy and pericardial effusion. Code(s): O90.3 - PERIPARTUM CARDIOMYOPATHY (2) Cocaine abuse Assessment/Plan: urine screen negative. Future use would unfortunately preclude beta anastacio use, though this class is important with LV dysfunction. Code(s): F14.10 - COCAINE ABUSE, UNCOMPLICATED (3) DKA (diabetic ketoacidoses) Code(s): E11.10 - TYPE 2 DIABETES MELLITUS WITH KETOACIDOSIS WITHOUT COMA Qualifiers: Diabetes mellitus type: other specified (including SUMMER) Diabetes mellitus complication detail: without coma Qualified Code(s): E13.10 - Other specified diabetes mellitus with ketoacidosis without coma (4) Dehydration Assessment/Plan: Elevated BUn/Cr avoid excessive dehydration with pericardial effusion; avoid diuretics. Treating DKA will require fluids (with caution, given moderately reduced LVEF). Code(s): E86.0 - DEHYDRATION (5) Elevated troponin I level Assessment/Plan: TNI 0.42-->0.37; CK/MB relative index low. Contributing factors to demand ischemia include CHF, tamponade, stress (?recent use of cocaine), anemia. Code(s): R74.8 - ABNORMAL LEVELS OF OTHER SERUM ENZYMES (6) Pericardial effusion Assessment/Plan: ECHO: at least moderate pericardial effusion; signs of tamponade; moderately reduced LVEF; mild ; moderate to severe MR, mild-moderate pulmonary HTN. Planned for pericardial drainage, but held due to recent ASA use. Follow pt closely for signs of hemodynamic instability, which would engender emergency procedure. For repeat echo today to r/o progression and impact of pericardial fluid. Code(s): I31.3 - PERICARDIAL EFFUSION (NONINFLAMMATORY) (7) Hyperlipidemia Assessment/Plan: started atorvastatin (DM for >20 yrs; additional CAD risks). Code(s): E78.5 - HYPERLIPIDEMIA, UNSPECIFIED
[2019-01-19] MEDS: CARVEDILOL 25 MG TABLET (FP) PO SCH (11:16)
[2019-01-19] MEDS: PANTOPRAZOLE 40 MG TABLET (FP) PO SCH (11:16)
[2019-01-19] MEDS: ENALAPRIL MALEATE 5 MG TABLET (FP) PO SCH (11:16)
[2019-01-19] MEDS: CITALOPRAM HYDROBROMIDE 20 MG TABLET (FP) PO SCH (11:16)
[2019-01-19 12:05] VITALS: BP 138/72; PULSE 63
--- NOTE | 2019-01-19 15:23 | PN ---
Teaching Attending Note Name of Resident: Flaco Mercedes ATTENDING PHYSICIAN STATEMENT I saw and evaluated the patient. I reviewed the resident's note and discussed the case with the resident. I agree with the resident's findings and plan as documented. SUBJECTIVE: Complains of ongoing SOB on exertion. No CP. No fever/chills. Declined transfer to [facility] yesterday when bed became available. OBJECTIVE: Afebrile, Hemodynamically Stable Last Vital Signs Temp Pulse Resp BP Pulse Ox 98.6 F 63 20 138/72 100 01/19/19 10:00 01/19/19 10:00 01/19/19 10:00 01/19/19 10:00 01/19/19 09:00 Heart - S1, S2, SM Lungs - clear to auscultation Abdomen - Soft, non-tender. Bowel Sounds normal. Extremities - no edema, no calf tenderness. Laboratory Results - last 24 hr 01/19/19 01/19/19 01/19/19 05:30 11:11 11:14 Sodium 136 Potassium 4.8 Chloride 102 Carbon Dioxide 26 Anion Gap 8 BUN 16 Creatinine 1.2 Est GFR (CKD-EPI)AfAm 72.23 Est GFR (CKD-EPI)NonAf 62.32 POC Glucometer 581 473 Random Glucose 437 H* Calcium 8.2 L Magnesium 1.7 L Current Medications Generic Name Dose Route Start Last Admin Trade Name Freq PRN Reason Stop Dose Admin Acetaminophen 650 mg 01/15/19 01:10 01/18/19 00:16 Tylenol - PO 650 mg Q6H PRN Administration Fever Or Pain Atorvastatin Calcium 10 mg 01/13/19 22:00 01/18/19 21:47 Lipitor - PO 10 mg HS [facility] Administration Carvedilol 25 mg 01/12/19 11:30 01/19/19 11:16 Coreg - PO 25 mg BID [facility] Administration Citalopram Hydrobromide 20 mg 01/18/19 10:00 01/19/19 11:16 Celexa - PO 20 mg DAILY [facility] Administration Enalapril Maleate 5 mg 01/18/19 10:00 01/19/19 11:16 Vasotec - PO 5 mg DAILY [facility] Administration Heparin Sodium (Porcine) 5,000 unit 01/18/19 14:00 01/19/19 06:39 Heparin - SQ Not Given TID [facility] Insulin Aspart 1 vial 01/16/19 22:18 01/19/19 11:17 Novolog Vial Sliding Scale - SQ 14 units ACHS [facility] Administration Protocol Insulin Detemir 40 units 01/19/19 07:00 01/19/19 06:39 Levemir Vial SQ Not Given AM [facility] Pantoprazole Sodium 40 mg 01/14/19 10:00 01/19/19 11:16 Protonix - PO 40 mg DAILY [facility] Administration Trimethobenzamide HCl 300 mg 01/16/19 10:12 Tigan - PO TID PRN DYSPEPSIA ASSESSMENT AND PLAN: 28 year old homeless female with active substance abuse (cocaine), DM 1, HTN, recently diagnosed post- Cardiomyopathy (diag Jul 2018), admitted with abdominal pain, nausea, vomiting, found to be in DKA, with ongoing LV dysfunction, severe MR, and pericardial effusion. 1. DKA with Hx of DM 1 - Resolved. Endocrinology consulted. Continue Levemir/ sliding scale. Refused Levemir - now with elevated fingerstick glucose. Counselled and advised regarding need for insulin and risk of reverting to DKA. 2. Cardiomyopathy - +/- Cocaine induced Echo - severe global hypokinesis with EF 30%, severe MR, moderate pul HTN, pericardial effusion, possible evidence of tamponade on Echo. Eval by Cardiothoracic surgery recommends R heart cath and possible intervention for pericardial effusion, unable to perform pericardiocentesis. Hemodynamically Stable. Discussed with Cardiology - recommends transfer to tertiary care center for further investigations/intervention - patient refused transport to [facility] after initially agreeing for transfer. She was counselled regarding need for further evaluation at tertiary care facility. Continue BB, VINCENT-I. 3. Troponin Egression - possibly sec to pericarditis. ESR 44. Further management as per Cardiology. 4. SHANE sec to dehydration due to DKA - resolved. 5. Electrolyte Abnormalities - Hypomagnesemia - repleted. 6. Polysubstance Abuse -Cocaine, Tobacco - no signs of withdrawal. Eloped x 2 and then returned to floor. 7. Depression - worsening as per Psychiatry - started on Celexa. 8. HTN - Continue Enalapril and Coreg. DVT Px - Heparin SQ
--- NOTE | 2019-01-19 18:03 | PN ---
Progress Note (short form) - Note Progress Note: called to see patient who has left AMA. was seen at earlier date. Maintained on an SSRI, celexa for Depression.
== END 2019-01-19 17:19 | disposition left against medical advice (07) | DRG 420 ==
LOC: JER 18:00 → JERBED 01-11 00:50 → J4W 01-11 18:02
PROVIDERS: ADMIT Internal Medicine
PROC: 06HN33Z Insertion of Infusion Device into Left Femoral Vein, Percutaneous Approach (ICD-10-PCS; principal; 2019-01-10)
PROC: B51CZZA Fluoroscopy of Left Lower Extremity Veins, Guidance (ICD-10-PCS; 2019-01-10)
DX: E11.10 Type 2 diabetes mellitus with ketoacidosis without coma (principal); I50.23 Acute on chronic systolic (congestive) heart failure; J90 Pleural effusion, not elsewhere classified; N17.9 Acute kidney failure, unspecified; O90.3 Peripartum cardiomyopathy; I11.0 Hypertensive heart disease with heart failure; I13.0 Hypertensive heart and chronic kidney disease with heart failure and stage 1 through stage 4 chronic kidney disease, or unspecified chronic kidney disease; I24.8 Other forms of acute ischemic heart disease; I27.20 Pulmonary hypertension, unspecified; E83.42 Hypomagnesemia; F14.20 Cocaine dependence, uncomplicated; I36.1 Nonrheumatic tricuspid (valve) insufficiency; E11.65 Type 2 diabetes mellitus with hyperglycemia; E11.22 Type 2 diabetes mellitus with diabetic chronic kidney disease; E86.0 Dehydration; E87.6 Hypokalemia; F32.9 Major depressive disorder, single episode, unspecified; Z79.4 Long term (current) use of insulin; E66.9 Obesity, unspecified; Z68.37 Body mass index [BMI] 37.0-37.9, adult; N18.9 Chronic kidney disease, unspecified; R74.8 Abnormal levels of other serum enzymes; Z91.14 Patient's other noncompliance with medication regimen; I16.0 Hypertensive urgency; I34.0 Nonrheumatic mitral (valve) insufficiency
CPT/HCPCS: 36415; 71045-TC-FY; 71250-TC; 80048; 80053; 80061; 80307; 81003; 82009; 82340; 82436; 82550; 82553; 82570; 82803; 82962; 83036; 83605; 83690; 83721; 83735; 83880; 84100; 84133; 84300; 84443; 84484; 84703; 85025; 85027; 85651; 86038; 86140; 86225; 86480; 93005; 93010; 93306-TC; 99285-25; J1644; J7030

== ENCOUNTER 2019-03-31 21:01 | Inpatient (IN) | payer OTHER ==
[2019-03-31] MEDS ORDERED: ONDANSETRON 4 MG/2 ML VIAL ONE ×2 (21:30→22:10)
--- NOTE | 2019-03-31 21:36 | PDOC ---
History of Present Illness - General Chief Complaint: Blood Sugar Problem Stated Complaint: HYPERGLYCEMIA Time Seen by Provider: 03/31/19 21:25 Past History - Past Medical History Allergies/Adverse Reactions: Allergies Allergy/AdvReac Type Severity Reaction Status Date / Time No Known Allergies Allergy Verified 01/10/19 18:24 Home Medications: Ambulatory Orders Carvedilol 25 mg PO BID 01/11/19 Citalopram Hydrobromide [Citalopram HBr] 20 mg PO DAILY 01/11/19 Enalapril Maleate 5 mg PO DAILY 01/11/19 Furosemide 20 mg PO DAILY 01/11/19 Insulin Glargine,Hum.rec.anlog [Basaglar Kwikpen U-100] 18 mg SQ DAILY 01/11/19 Magnesium Oxide 1,200 mg PO BID 01/11/19 COPD: No CHF: Yes Diabetes: Yes HTN: Yes - Immunization History Immunization Up to Date: Yes - Suicide/Smoking/Psychosocial Hx Smoking History: Current some day smoker Have you smoked in the past 12 months: Yes Number of Cigarettes Smoked Daily: 2 Information on smoking cessation initiated: No Hx Alcohol Use: Yes Drug/Substance Use Hx: Yes (cocaine) *Physical Exam - Vital Signs Last Vital Signs Temp Pulse Resp BP Pulse Ox 98.8 F 115 H 20 112/73 100 03/31/19 21:20 03/31/19 21:20 03/31/19 21:20 03/31/19 21:20 03/31/19 21:20 ED Treatment Course - LABORATORY CBC & Chemistry Diagram: 04/01/19 06:15 04/01/19 06:15 Medical Decision Making - Medical Decision Making HPI: 28yo F with PMH of DM, HTN, CHF presenting with hyperglycemia. Per EMS, glucose was in the 500s. Patient states she has been taking her insulin at home , but did not today because she was out of the house. Endorsing nausea and vomiting since 2pm. Patient has been in DKA in the past. Patient uncooperative with history-taking, stating she is sleepy. ROS: unable to assess as patient is drowsy/uncooperative PE: General: lethargic, in no acute distress Head: No signs of trauma Eyes: EOMI, sclera anicteric ENT: Dry mucus membranes Neck: Normal ROM, supple Lungs: Lungs clear, Normal breath sounds Cardio: Regular rhythm, S1 and S2 present Abdomen: Soft, nontender. No guarding, no rebound, no masses Extremities: Normal range of motion, Distal pulses present SKIN: Warm, Dry, normal turgor Neurologic: Cranial nerves II through XII grossly intact ED Courses/MDM: DDX including but not limited to DKA, HHS, infection, anemia, electrolyte abnormality, Ultrasound-guided line placed by hi Desi Malhotra EKG CXR 03/31/19 22:42 EKG: rate 111, QTc 522, sinus tachycardia, twi in lead V5-V6 present on previous EKG CBC WBC 10.3 K/mm3 (4.0-10.0) H 03/31/19 21:37 RBC 4.37 M/mm3 (3.60-5.2) 03/31/19 21:37 Hgb 10.1 GM/dL (10.7-15.3) L 03/31/19 21:37 Hct 33.2 % (32.4-45.2) 03/31/19 21:37 MCV 75.9 fl (80-96) L 03/31/19 21:37 MCH 23.2 pg (25.7-33.7) L 03/31/19 21:37 MCHC 30.6 g/dl (32.0-36.0) L 03/31/19 21:37 RDW 20.3 % (11.6-15.6) H 03/31/19 21:37 Plt Count 384 K/MM3 (134-434) 03/31/19 21:37 MPV 10.1 fl (7.5-11.1) D 03/31/19 21:37 Absolute Neuts (auto) 7.8 K/mm3 (1.5-8.0) 03/31/19 21:37 Neutrophils % 76.3 % (42.8-82.8) 03/31/19 21:37 Lymphocytes % 14.4 % (8-40) 03/31/19 21:37 Monocytes % 7.1 % (3.8-10.2) 03/31/19 21:37 Eosinophils % 0.1 % (0-4.5) 03/31/19 21:37 Basophils % 2.1 % (0-2.0) H D 03/31/19 21:37 Nucleated RBC % 0 % (0-0) 03/31/19 21:37 Mild leukocytosis CMP Sodium 129 mmol/L (136-145) L 03/31/19 21:37 Potassium 4.3 mmol/L (3.5-5.1) 03/31/19 21:37 Chloride 92 mmol/L (98-107) L 03/31/19 21:37 Carbon Dioxide 22 mmol/L (21-32) 03/31/19 21:37 Anion Gap 16 MMOL/L (8-16) 03/31/19 21:37 BUN 23.0 mg/dL (7-18) H 03/31/19 21:37 Creatinine 1.8 mg/dL (0.55-1.3) H 03/31/19 21:37 Est GFR (CKD-EPI)AfAm 44.24 03/31/19 21:37 Est GFR (CKD-EPI)NonAf 38.17 03/31/19 21:37 POC Glucometer 527 UNITS (80-120) 03/31/19 22:00 Random Glucose 613 mg/dL (74-106) H* 03/31/19 21:37 Calcium 8.7 mg/dL (8.5-10.1) 03/31/19 21:37 Phosphorus 4.8 mg/dL (2.5-4.9) 03/31/19 21:37 Total Bilirubin 0.4 mg/dL (0.2-1) 03/31/19 21:37 AST 28 U/L (15-37) 03/31/19 21:37 ALT 22 U/L (13-61) 03/31/19 21:37 Alkaline Phosphatase 100 U/L (45-117) 03/31/19 21:37 Total Protein 6.8 g/dl (6.4-8.2) 03/31/19 21:37 Albumin 2.2 g/dl (3.4-5.0) L 03/31/19 21:37 Beta HCG, Quant < 1.0 mIU/ml 03/31/19 21:37 Corrected sodium is 136 which is WNL K normal BUN and Cr elevated, indicating SHANE Glucose 613 Beta-hcg is undetectable 3+ Acetone ABG with normal pH; patient likely compensating for acidemia Plan for fingerstick and sliding scale insulin 03/31/19 23:31 Repeat glc is 502 10 units insulin subQ ordered Plan for admission for hyperglycemia and SHANE CXR with enlarged cardiac silhouette, otherwise no acute pathology, my impression 03/31/19 23:[address] Ramon who accepted patient for telemetry admission under Dr. Vaz. Per their request, 3rd liter of NS cancelled as patient as CHF history. 04/01/19 00:04 *DC/Admit/Observation/Transfer Diagnosis at time of Disposition: SHANE (acute kidney injury), Hyperglycemia - Discharge Dispostion Condition at time of disposition: Guarded Decision to Admit order: Yes - Referrals - Patient Instructions - Post Discharge Activity
[2019-03-31] MEDS ORDERED: FAMOTIDINE 20 MG/50 ML IVPB 20 MG/50 ML MG IVPB ONE ×2 (22:06→22:10)
[2019-03-31] MEDS ORDERED: SODIUM CHLORIDE 0.9% 1000 ML INFUS.BAG IV ONE ×2 (22:06→23:29)
[2019-03-31] MEDS ORDERED: ONDANSETRON 4 MG/2 ML VIAL IVPUSH ONE (22:06)
[2019-03-31] MEDS: SODIUM CHLORIDE 0.9% 1000 ML INFUS.BAG IV ONE (22:07)
[2019-03-31 22:10] LABS: BASO % 2.1 % (0-2.0); EOS % 0.1 % (0-4.5); HEMATOCRIT 33.2 % (32.4-45.2); HEMOGLOBIN 10.1 GM/dL (10.7-15.3); LYMPH % 14.4 % (8-40); MCH 23.2 pg (25.7-33.7); MCHC 30.6 g/dl (32.0-36.0); MEAN CELL VOLUME 75.9 fl (80-96); MEAN PLT VOLUME 10.1 fl (7.5-11.1); MONO % 7.1 % (3.8-10.2); NEUT % 76.3 % (42.8-82.8); PLATELET COUNT 384 K/MM3 (134-434); RBC 4.37 M/mm3 (3.60-5.2); RDW 20.3 % (11.6-15.6); WHITE BLOOD COUNT 10.3 K/mm3 (4.0-10.0)
[2019-03-31] MEDS ORDERED: ACETAMINOPHEN 1000 MG/100 ML VIAL (NON FORMULARY) IVPB ONE (22:16)
[2019-03-31] MEDS ORDERED: ACETAMINOPHEN INJECTION 100 ML IVPB ONE (22:22)
[2019-03-31 22:27] LABS: ARTERIAL BLD GAS O2 SATURATION 98.8 % (95-98); ARTERIAL BLOOD GAS BASE EXCESS -5.5 meq/l (-2-2); ARTERIAL BLOOD GAS PCO2 30.7 mmHg (35-45); ARTERIAL BLOOD GAS PO2 119 mmHg (80-105); ARTERIAL BLOOD GAS pH 7.39 (7.35-7.45); CARBOXYHEMOGLOBIN 3.4 % (0-2)
--- NOTE | 2019-03-31 22:28 | PDOC ---
Documentation entered by Warren Pena SCRIBE, acting as scribe for Emi Frias DO. Emi Frias, : This documentation has been prepared by the Jean garcia Xhesika, SCRIBE, under my direction and personally reviewed by me in its entirety. I confirm that the documentation accurately reflects all work, treatment, procedures, and medical decision making performed by me. Attending Attestation - Resident Resident Name: Albina Santana - ED Attending Attestation I have performed the following: I have examined & evaluated the patient, The case was reviewed & discussed with the resident, I agree w/resident's findings & plan, Exceptions are as noted - HPI HPI: 03/31/19 22:16 The patient is a 28 year old female with a significant past medical history of active substance abuse (cocaine), DM type 1, Prior DKA, HTN, and CHF who presents to the ED with 1 day of persistent nausea and nbnb vomiting. The patient states she has been endorsing suprabupic discomfort and dry cough, secondary to her symptoms. The patient is an insulin-dependent diabetic, ran out of insulin and did not take it today. The patient denies chest pain, shortness of breath or dizziness. The patient denies fever, chills, diarrhea or constipation. The patient denies dysuria, frequency, urgency or hematuria. Allergy: NKDA PCP: Dr. Pruitt, Krista - Physicial Exam PE: 03/31/19 22:17 GENERAL: Awake, alert, and fully oriented. (+) responsive to tactile stimuli HEAD: No signs of trauma EYES: PERRLA, EOMI, sclera anicteric, conjunctiva clear ENT: Auricles normal inspection, hearing grossly normal, nares patent, oropharynx clear without exudates. Moist mucosa NECK: Normal ROM, supple, no lymphadenopathy, JVD, or masses LUNGS: Breath sounds equal, clear to auscultation bilaterally. No wheezes, and no crackles HEART: (+) tachycardic. Regular rate and rhythm, normal S1 and S2, no murmurs, rubs or gallops ABDOMEN: (+) suprabubic tenderness. Soft, normoactive bowel sounds. No guarding, no rebound. No masses EXTREMITIES: Normal range of motion, no edema. No clubbing or cyanosis. No cords, erythema, or tenderness NEUROLOGICAL: Cranial nerves II through XII grossly intact. SKIN: Warm, Dry, normal turgor, no rashes or lesions noted. - Critical Care Time Total Critical Care Time: 35 Critical Care Statement: The care of this patient involved high complexity decision making to prevent further life threatening deterioration of the patient 's condition and/or to evaluate & treat vital organ system(s) failure or risk of failure. - Medical Decision Making 03/31/19 22:24 I, Dr. Emi Frias, DO, attest that this document has been prepared under my direction and personally reviewed by me in its entirety. I further attest, that it accurately reflects all work, treatment, procedures and medical decision -making performed by me. 03/31/19 22:24 a/p: 28yo female with hx of IDDM who ran out of her insulin today -pt with elevated glucose and lethargy -finger stick 527 -pt responsive, but lethargic -concern for DKA - stat labs ordered, acetone, abg ordered -pt states dry cough, will order cxr -pt denies dysuria, but has suprapubic ttp -will start ivf hydration, zofran for vomiting -will most likely need admission 03/31/19 23:51 pt with elevated glucose not acidotic no decreased bicarb estela +acetone, but not anion gapped metabolic acidosis will continue ivf hydration will start insulin therapy pt with stable K will need admission 03/31/19 23:52 cxr clear 04/01/19 00:02 resident discussed the case with fabricio who accepts pt to service
[2019-03-31 22:29] LABS: PH,URINE 6.5 (5.0-8.0); URINE APPEARANCE CLOUDY; URINE BILIRUBIN NEGATIVE (NEGATIVE); URINE COLOR YELLOW; URINE GLUCOSE (UA) 3+ (NEGATIVE); URINE KETONE 2+ (NEGATIVE); URINE LEUK ESTERASE NEGATIVE (NEGATIVE); URINE NITRITE NEGATIVE (NEGATIVE); URINE PROTEIN 3+ (NEGATIVE); URINE UROBILINOGEN 0.2 mg/dL (0.2-1.0)
[2019-03-31 22:52] LABS: ALBUMIN 2.2 g/dl (3.4-5.0); BILIRUBIN,TOTAL 0.4 mg/dL (0.2-1); CALCIUM 8.7 mg/dL (8.5-10.1); CREATININE 1.8 mg/dL (0.55-1.3); POTASSIUM 4.3 mmol/L (3.5-5.1); TOT PROT 6.8 g/dl (6.4-8.2)
[2019-03-31 23:02] LABS: PHOSPHOROUS 4.8 mg/dL (2.5-4.9)
[2019-03-31 23:04] LABS: INR 0.97 (0.83-1.09); PROTHROMBIN TIME (PATIENT) 11.5 SEC (9.7-13.0)
[2019-03-31] MEDS ORDERED: INSULIN REGULAR HUMAN 100 UNITS/ML *VIAL SQ ONE (23:38)
[2019-03-31] MEDS ORDERED: INSULIN (NOVOLOG) ASPART 100 UNITS/ML 10ML VIAL ONE (23:39)
[2019-03-31 23:57] LABS: MAGNESIUM 2.2 mg/dL (1.8-2.4)
[2019-04-01] MEDS: SODIUM CHLORIDE 0.9% 1000 ML INFUS.BAG IV ONE (00:12)
--- NOTE | 2019-04-01 01:09 | HP ---
CHIEF COMPLAINT: Nausea, vomiting PCP: Krista Ordaz HISTORY OF PRESENT ILLNESS: Patient is a 28 year old female with PMH of type I DM, prior DKA, nonischemic HFrEF, cocaine use who presents with 1 day of nausea and vomiting. Patient is lethargic and poor historian. She is usually compliant with her meds but did not take her insulin this morning because she ran out. Pt endorses several episodes of NBNB vomiting, poor appetite, and abdominal pain. She took her FSG at home which was in the 500s. Pt denies any fevers, chills, diarrhea, or urinary symptoms. She also denies recent alcohol or drug use. No sick contacts. Pt has had multiple hospitalizations with hyperglycemia. ER course was notable for: (1) FS on arrival (2) 3L NS given, 2x boluses, 3rd given at 100ml/hr (3) Given 10 units x2 insulin Recent Travel: Denies PAST MEDICAL HISTORY: Type I DM, prior DKA, systolic CHF, cocaine use PAST SURGICAL HISTORY: denies Social History: Smoking: denies Alcohol: denies Drugs: cocaine Family History: no family hx significant Allergies No Known Allergies Allergy (Verified 01/10/19 18:24) HOME MEDICATIONS: Home Medications Medication Instructions Recorded Carvedilol 25 mg PO BID 01/11/19 Citalopram Hydrobromide 20 mg PO DAILY 01/11/19 [Citalopram HBr] Enalapril Maleate 5 mg PO DAILY 01/11/19 Furosemide 20 mg PO DAILY 01/11/19 Insulin Glargine,Hum.rec.anlog 18 mg SQ DAILY 01/11/19 [Basaglar Kwikpen U-100] Magnesium Oxide 1,200 mg PO BID 01/11/19 REVIEW OF SYSTEMS Present: fatigue, malaise, generalized weakness, nausea, vomiting, abd pain ( now resolved) Absent: fevers, chills, chest pain, shortness of breath, cough, dysuria, urgency , diarrhea, constipation PHYSICAL EXAMINATION Vital Signs - 24 hr 03/31/19 21:20 Temperature 98.8 F Pulse Rate 115 H Respiratory 20 Rate Blood Pressure 112/73 O2 Sat by Pulse 100 Oximetry (%) GENERAL: Patient appears lethargic. AOx3 HEAD: Normal with no signs of trauma. EYES: Pupils equal, round and reactive to light, extraocular movements intact, sclera anicteric, conjunctiva clear. No lid lag. EARS, NOSE, THROAT: Ears normal, nares patent, oropharynx clear without exudates. Moist mucous membranes. NECK: Normal range of motion, supple without lymphadenopathy, JVD, or masses. LUNGS: Breath sounds equal, clear to auscultation bilaterally. No wheezes, and no crackles. No accessory muscle use. HEART: Regular rate and rhythm, normal S1 and S2, 2/6 systolic murmur ABDOMEN: Soft, tender diffusely, not distended, normoactive bowel sounds, no guarding, no rebound, no masses. No hepatomegaly or splenomegaly. MUSCULOSKELETAL: Normal range of motion at all joints. No bony deformities or tenderness. No CVA tenderness. UPPER EXTREMITIES: 2+ pulses, warm, well-perfused. No cyanosis. No clubbing. No peripheral edema. LOWER EXTREMITIES: 2+ pulses, warm, well-perfused. No calf tenderness. 1+ peripheral edema. NEUROLOGICAL: Cranial nerves II-XII intact. Normal speech. Normal gait. PSYCHIATRIC: Cooperative. Good eye contact. Appropriate mood and affect. SKIN: Warm, dry, normal turgor, no rashes or lesions noted, normal capillary refill. Laboratory Results - last 24 hr CBC, BMP 03/31/19 21:37 03/31/19 21:37 ABG Results ABG pH 7.39 (7.35-7.45) 03/31/19 22:06 ABG pCO2 at Pt Temp 30.7 mmHg (35-45) L 03/31/19 22:06 ABG pO2 at Pt Temp 119 mmHg (80-105) H 03/31/19 22:06 ABG HCO3 18.2 mmol/L (22-27) L 03/31/19 22:06 ABG O2 Sat (Measured) 98.8 % (95-98) H 03/31/19 22:06 ABG O2 Content 13.2 % vol (15-22) L 03/31/19 22:06 ABG Base Excess -5.5 meq/l (-2-2) L 03/31/19 22:06 Urine Test Results Urine Color Yellow 03/31/19 21:46 Urine Appearance Cloudy 03/31/19 21:46 Urine pH 6.5 (5.0-8.0) 03/31/19 21:46 Ur Specific [place] 1.032 (1.010-1.035) 03/31/19 21:46 Urine Protein 3+ H 03/31/19 21:46 Urine Glucose (UA) 3+ H 03/31/19 21:46 Urine Ketones 2+ H 03/31/19 21:46 Urine Blood 2+ H 03/31/19 21:46 Urine Nitrite Negative (NEGATIVE) 03/31/19 21:46 Urine Bilirubin Negative (NEGATIVE) 03/31/19 21:46 Ur Leukocyte Esterase Negative (NEGATIVE) 03/31/19 21:46 ASSESSMENT/PLAN: Patient is a 28 year old female with PMH of type I DM, prior DKA, systolic CHF, cocaine use who presents with nausea and vomiting 2/2 hyperglycemia. #Hyperglycemia 2/2 med noncompliance Not in DKA: pt non-acidotic, non-anion gap Hgb A1C (01/16): 10.3% ICU consult, recommendations appreciated On prior admission, pt received 20 units, 2L NS and was started on 28units am levemir. Will mimic management as pt had good outcomes 28 units levemir q.am and SSI IVF NS @ 100ml/hr BGM Q1H Cont to monitor BMP, replete electrolytes as needed #SHANE Likely 2/2 osmotic shift Hydrate cautiously given hx of CHF F/u urine and serum osmoles #CHF Echo (01/16) EF: 37% and a moderate pericardial effusion, global hypokinesia Pt eloped before pericardiocentesis w/u at last admission Repeat echo in am #Cocaine abuse Monitor for withdrawal symptoms Avoid non-selective beta blockers #FEN Hyponatremia, corrected to 137 IVF NS @ 100ml/hr Diabetic/Sodium-controlled diet #DVT ppx Heparin SQ, given renal function #Dispo Monitor on tele Med rec in am Visit type - Emergency Visit Emergency Visit: Yes ED Registration Date: 03/31/19 Care time: The patient presented to the Emergency Department on the above date and was hospitalized for further evaluation of their emergent condition. - New Patient This patient is new to me today: Yes Date on this admission: 04/01/19 - Critical Care Critical Care patient: No ATTENDING PHYSICIAN STATEMENT I saw and evaluated the patient. I reviewed the resident's note and discussed the case with the resident. I agree with the resident's findings and plan as documented. SUBJECTIVE: OBJECTIVE: ASSESSMENT AND PLAN:
[2019-04-01] MEDS ORDERED: INSULIN (NOVOLOG) ASPART 100 UNITS/ML 10ML VIAL ONE ×3 (01:11→06:28)
[2019-04-01] MEDS ORDERED: INSULIN REGULAR HUMAN 100 UNITS/ML *VIAL SQ ONE (01:13)
[2019-04-01 01:33] LABS: METHADONE, UR NEGATIVE ng/ml (CUTOFF=300); OPIATES, URI NEGATIVE ng/ml (CUTOFF=300); PHENCYCLIDINE,URINE NEGATIVE ng/ml (CUTOFF=25); URINE AMPHETAMINES NEGATIVE ng/ml (CUTOFF=500); URINE BARBITURATES NEGATIVE ng/ml (CUTOFF=200); URINE BENZODIAZEPINES NEGATIVE ng/ml (CUTOFF=200)
--- NOTE | 2019-04-01 01:34 | PN ---
Teaching Attending Note Name of Resident: Lianna Nick ATTENDING PHYSICIAN STATEMENT I saw and evaluated the patient. I reviewed the resident's note and discussed the case with the resident. I agree with the resident's findings and plan as documented. She is a 28 YO F W uncontrolled DM, non ischemic HFREF with global hypokinesis, P/W N/V for 1 day while odd insulin( did not have the medication), in the ED was found to have DKA, She is poor historian and told me that she wants to sleep at this time but she is A&OX3. She is S/P 2 L NS, states that she is still thirsty, in exam no finding of volume overload with clear lungs and sleeping flat in bed. Will give 1 more L NS and monitor FX q hourly while on IVF and insulin drip as she is not tolerating Po at this time. Will ask ICU team to evaluate the patient for admission to ICU for closer monitoring of DKA management in young patient with HF and mild SHANE. for better control of FS and volume status and BMP. will hold off diuretics at this time. frequent vs( O2 sat, RR) and lung exam for evaluation of volume status and monitoring I/O.
[2019-04-01 01:35] LABS: COCAINE, UR POSITIVE ng/ml (CUTOFF=300)
[2019-04-01 01:47] LABS: BLOOD UREA NITROGEN 21.8 mg/dL (7-18); CALCIUM 7.7 mg/dL (8.5-10.1); CREATININE 1.7 mg/dL (0.55-1.3); POTASSIUM 3.7 mmol/L (3.5-5.1)
--- NOTE | 2019-04-01 01:53 | CONSULT ---
Consultation: REQUESTING PROVIDER: Dr. Vaz CONSULT SERVICE: ICU Resident HISTORY OF PRESENT ILLNESS: 28yo F with h/o of T1DM, cardiomyopathy 2/2 to who presents today with nausea, two episodes of NB/NB emesis and hyperglycemia. Pt has multiple admissions for hyperglycemic episodes including DKA. Pt reports she was not at home today so she did not take any of her medications and ate fruit throughout the day. Pt denies any current nausea, vomiting, dizziness/lightheadedness, cough, shortness of breath, palpitations, chest pain/discomfort. She does endorse chronic ankle edema that has not gotten worse. She also reports being thirsty. REVIEW OF SYSTEMS: As per HPI PHYSICAL EXAMINATION Vital Signs 03/31/19 21:20 Temperature 98.8 F Pulse Rate 115 H Respiratory 20 Rate Blood Pressure 112/73 O2 Sat by Pulse 100 Oximetry (%) GENERAL: Awake, alert, and fully oriented, in no acute distress. HEENT: NC/AT, EOMI, enlarged symmetrical pupils noted, dry mucosa NECK: No JVD LUNGS: CTA bilaterally. No wheezes, and no crackles. No accessory muscle use. HEART: Tachycardic with regular rhythm, normal S1 and S2 with systolic murmur ABDOMEN: Soft, NT/ND, normoactive bowel sounds, no guarding EXTREMITIES: 2+ distal pulses b/l, warm, well-perfused. No calf tenderness. No peripheral edema. PSYCHIATRIC: Cooperative. Appropriate mood and affect. SKIN: Warm, dry, scars noted on forearm, no other lesions or rashes appreciated Laboratory Results 03/31/19 03/31/19 03/31/19 21:37 21:37 21:37 WBC RBC Hgb Hct MCV MCH MCHC RDW Plt Count MPV Absolute Neuts (auto) Neutrophils % Lymphocytes % Monocytes % Eosinophils % Basophils % Nucleated RBC % PT with INR INR PTT (Actin FS) 26.8 Anticoagulation Therapy Puncture Site ABG pH ABG pCO2 at Pt Temp ABG pO2 at Pt Temp ABG HCO3 ABG O2 Sat (Measured) ABG O2 Content ABG Base Excess Cleve Test Carboxyhemoglobin Methemoglobin O2 Delivery Device Oxygen Flow Rate Vent Mode Vent Rate Mechanical Rate Pressure Support Vent Sodium Potassium Chloride Carbon Dioxide Anion Gap BUN Creatinine Est GFR (CKD-EPI)AfAm Est GFR (CKD-EPI)NonAf POC Glucometer Random Glucose Calcium Phosphorus 4.8 Magnesium Total Bilirubin AST ALT Alkaline Phosphatase Total Protein Albumin Beta HCG, Quant < 1.0 Cancelled Urine Color Urine Appearance Urine pH Ur Specific Raphine Urine Protein Urine Glucose (UA) Urine Ketones Urine Blood Urine Nitrite Urine Bilirubin Urine Urobilinogen Ur Leukocyte Esterase Opiates Screen Methadone Screen Barbiturate Screen Phencyclidine Screen Ur Amphetamines Screen MDMA (Ecstasy) Screen Benzodiazepines Screen Cocaine Screen U Marijuana (THC) Screen Acetone, Qual 03/31/19 03/31/19 03/31/19 21:37 21:37 21:37 WBC 10.3 H RBC 4.37 Hgb 10.1 L Hct 33.2 MCV 75.9 L MCH 23.2 L MCHC 30.6 L RDW 20.3 H Plt Count 384 MPV 10.1 D Absolute Neuts (auto) 7.8 Neutrophils % 76.3 Lymphocytes % 14.4 Monocytes % 7.1 Eosinophils % 0.1 Basophils % 2.1 H D Nucleated RBC % 0 PT with INR INR PTT (Actin FS) Anticoagulation Therapy Puncture Site ABG pH ABG pCO2 at Pt Temp ABG pO2 at Pt Temp ABG HCO3 ABG O2 Sat (Measured) ABG O2 Content ABG Base Excess Cleve Test Carboxyhemoglobin Methemoglobin O2 Delivery Device Oxygen Flow Rate Vent Mode Vent Rate Mechanical Rate Pressure Support Vent Sodium 129 L Potassium 4.3 Chloride 92 L Carbon Dioxide 22 Anion Gap 16 BUN 23.0 H Creatinine 1.8 H Est GFR (CKD-EPI)AfAm 44.24 Est GFR (CKD-EPI)NonAf 38.17 POC Glucometer Random Glucose 613 H* Calcium 8.7 Phosphorus Magnesium 2.2 Total Bilirubin 0.4 AST 28 ALT 22 Alkaline Phosphatase 100 Total Protein 6.8 Albumin 2.2 L Beta HCG, Quant Urine Color Urine Appearance Urine pH Ur Specific Raphine Urine Protein Urine Glucose (UA) Urine Ketones Urine Blood Urine Nitrite Urine Bilirubin Urine Urobilinogen Ur Leukocyte Esterase Opiates Screen Methadone Screen Barbiturate Screen Phencyclidine Screen Ur Amphetamines Screen MDMA (Ecstasy) Screen Benzodiazepines Screen Cocaine Screen U Marijuana (THC) Screen Acetone, Qual Positive large 3+ H 03/31/19 03/31/19 03/31/19 21:37 21:46 22:00 WBC RBC Hgb Hct MCV MCH MCHC RDW Plt Count MPV Absolute Neuts (auto) Neutrophils % Lymphocytes % Monocytes % Eosinophils % Basophils % Nucleated RBC % PT with INR 11.50 INR 0.97 PTT (Actin FS) Anticoagulation Therapy Puncture Site ABG pH ABG pCO2 at Pt Temp ABG pO2 at Pt Temp ABG HCO3 ABG O2 Sat (Measured) ABG O2 Content ABG Base Excess Cleve Test Carboxyhemoglobin Methemoglobin O2 Delivery Device Oxygen Flow Rate Vent Mode Vent Rate Mechanical Rate Pressure Support Vent Sodium Potassium Chloride Carbon Dioxide Anion Gap BUN Creatinine Est GFR (CKD-EPI)AfAm Est GFR (CKD-EPI)NonAf POC Glucometer 527 Random Glucose Calcium Phosphorus Magnesium Total Bilirubin AST ALT Alkaline Phosphatase Total Protein Albumin Beta HCG, Quant Urine Color Yellow Urine Appearance Cloudy Urine pH 6.5 Ur Specific Raphine 1.032 Urine Protein 3+ H Urine Glucose (UA) 3+ H Urine Ketones 2+ H Urine Blood 2+ H Urine Nitrite Negative Urine Bilirubin Negative Urine Urobilinogen 0.2 Ur Leukocyte Esterase Negative Opiates Screen Methadone Screen Barbiturate Screen Phencyclidine Screen Ur Amphetamines Screen MDMA (Ecstasy) Screen Benzodiazepines Screen Cocaine Screen U Marijuana (THC) Screen Acetone, Qual 03/31/19 03/31/19 04/01/19 22:06 23:36 01:07 WBC RBC Hgb Hct MCV MCH MCHC RDW Plt Count MPV Absolute Neuts (auto) Neutrophils % Lymphocytes % Monocytes % Eosinophils % Basophils % Nucleated RBC % PT with INR INR PTT (Actin FS) Anticoagulation Therapy No Result Required. Puncture Site Right radial ABG pH 7.39 ABG pCO2 at Pt Temp 30.7 L ABG pO2 at Pt Temp 119 H ABG HCO3 18.2 L ABG O2 Sat (Measured) 98.8 H ABG O2 Content 13.2 L ABG Base Excess -5.5 L Cleve Test No Result Required. Carboxyhemoglobin 3.4 H Methemoglobin 0.3 O2 Delivery Device No Result Required. Oxygen Flow Rate No Vent Mode No Result Required. Vent Rate No Result Required. Mechanical Rate No Result Required. Pressure Support Vent No Result Required. Sodium Potassium Chloride Carbon Dioxide Anion Gap BUN Creatinine Est GFR (CKD-EPI)AfAm Est GFR (CKD-EPI)NonAf POC Glucometer 502 425 Random Glucose Calcium Phosphorus Magnesium Total Bilirubin AST ALT Alkaline Phosphatase Total Protein Albumin Beta HCG, Quant Urine Color Urine Appearance Urine pH Ur Specific Raphine Urine Protein Urine Glucose (UA) Urine Ketones Urine Blood Urine Nitrite Urine Bilirubin Urine Urobilinogen Ur Leukocyte Esterase Opiates Screen Methadone Screen Barbiturate Screen Phencyclidine Screen Ur Amphetamines Screen MDMA (Ecstasy) Screen Benzodiazepines Screen Cocaine Screen U Marijuana (THC) Screen Acetone, Qual 04/01/19 01:09 WBC RBC Hgb Hct MCV MCH MCHC RDW Plt Count MPV Absolute Neuts (auto) Neutrophils % Lymphocytes % Monocytes % Eosinophils % Basophils % Nucleated RBC % PT with INR INR PTT (Actin FS) Anticoagulation Therapy Puncture Site ABG pH ABG pCO2 at Pt Temp ABG pO2 at Pt Temp ABG HCO3 ABG O2 Sat (Measured) ABG O2 Content ABG Base Excess Cleve Test Carboxyhemoglobin Methemoglobin O2 Delivery Device Oxygen Flow Rate Vent Mode Vent Rate Mechanical Rate Pressure Support Vent Sodium Potassium Chloride Carbon Dioxide Anion Gap BUN Creatinine Est GFR (CKD-EPI)AfAm Est GFR (CKD-EPI)NonAf POC Glucometer Random Glucose Calcium Phosphorus Magnesium Total Bilirubin AST ALT Alkaline Phosphatase Total Protein Albumin Beta HCG, Quant Urine Color Urine Appearance Urine pH Ur Specific Raphine Urine Protein Urine Glucose (UA) Urine Ketones Urine Blood Urine Nitrite Urine Bilirubin Urine Urobilinogen Ur Leukocyte Esterase Opiates Screen Negative Methadone Screen Negative Barbiturate Screen Negative Phencyclidine Screen Negative Ur Amphetamines Screen Negative MDMA (Ecstasy) Screen Negative Benzodiazepines Screen Negative Cocaine Screen Positive A* U Marijuana (THC) Screen Negative Acetone, Qual Active Medications Generic Name Dose Route Start Last Admin Trade Name Freq PRN Reason Stop Dose Admin Heparin Sodium (Porcine) 5,000 unit 04/01/19 06:00 Heparin - SQ TID [facility] ASSESSMENT/PLAN: Hyperglycemia induced cardiomyopathy Acute kidney insufficiency Cocaine abuse --DKA criteria (1) Acetemia (2) Anion gap 16 (3) Glucose >250 (4) pH 7.39 (5) HCO3 22 --Criteria not met --Pt received 2L in ED with 10U SQ Insulin for notable 615 glucose level --Repeat BGM while at bedside 425; will give Insulin 10U SQ once --On prior admission with similar laboratory numbers pt received 20U SQ in ED , 2L of IVF, and was started on Levemir 28U AM for weight-based Levemir dosing --Will mimic above management as pt had good outcomes --Acute insufficiency likely 2/2 to osmotic shift in patients --Hydrate cautiously as patient has had global hypokinesis on previous echocardiogram 12/2018 --Would recommend ordering echocardiogram once more for evaluation --Renal electrolytes and spot urine Cr to confirm pre-renal azotemia --Cocaine positive with history of cocaine use --Monitor for withdrawal symptoms as hospital course continues --Avoid nonselective beta-blockade FEN: Fluids: NS@100cc/hr for 1 more litre Electrolyte abnormalities: Hyponatremia however once corrected for glucose Na WNL (137) Nutrition: PPX: DVT - Heparin TID given renal dysfunction GI - Not indicated currently Dispo: Will await repeat BMP for evaluation s/p insulin and IVF hydration for evaluation of disposition to either telemetry floors vs. ICU level of care Case discussed Fan Mccormack, DO - IM PGY-3 Thank you for this consultative opportunity. Visit type - Emergency Visit Emergency Visit: Yes ED Registration Date: 03/31/19 Care time: The patient presented to the Emergency Department on the above date and was hospitalized for further evaluation of their emergent condition. - New Patient This patient is new to me today: Yes Date on this admission: 04/01/19 - Critical Care Critical Care patient: No ATTENDING PHYSICIAN STATEMENT I saw and evaluated the patient. I reviewed the resident's note and discussed the case with the resident. I agree with the resident's findings and plan as documented. SUBJECTIVE: OBJECTIVE: ASSESSMENT AND PLAN:
[2019-04-01] MEDS ORDERED: POTASSIUM CHLORIDE TABS 20 MEQ TABLET.ER (FP) PO ONE (02:01)
[2019-04-01] MEDS ORDERED: SODIUM CHLORIDE 1,000 ML IV SCH ×2 (02:15→19:11)
[2019-04-01] MEDS: INSULIN SLIDING SCALE (NOVOLOG) 1 VIAL SQ SCH ×6 (02:16→21:52)
[2019-04-01] MEDS ORDERED: HEPARIN NA (PORCINE) 5,000 UNITS/ML 1ML VIAL ONE ×2 (06:26→16:36)
[2019-04-01] MEDS: HEPARIN NA (PORCINE) 5,000 UNITS/ML 1ML VIAL SQ SCH ×3 (06:35→21:52)
[2019-04-01 06:54] LABS: EOS % 1.7 % (0-4.5); RBC 4.05 M/mm3 (3.60-5.2)
[2019-04-01] MEDS ORDERED: INSULIN (LEVEMIR) 100 UNITS/ML UNITS SQ SCH ×2 (07:00→18:00)
[2019-04-01 07:19] LABS: ALBUMIN 1.9 g/dl (3.4-5.0); BASO % 1.1 % (0-2.0); BILIRUBIN,TOTAL 0.2 mg/dL (0.2-1); CALCIUM 7.9 mg/dL (8.5-10.1); CREATININE 1.4 mg/dL (0.55-1.3); HEMATOCRIT 29.7 % (32.4-45.2); HEMOGLOBIN 9.4 GM/dL (10.7-15.3); LYMPH % 20.9 % (8-40); MAGNESIUM 2.1 mg/dL (1.8-2.4); MCH 23.3 pg (25.7-33.7); MCHC 31.8 g/dl (32.0-36.0); MEAN CELL VOLUME 73.3 fl (80-96); MEAN PLT VOLUME 9.4 fl (7.5-11.1); MONO % 10.7 % (3.8-10.2); NEUT % 65.6 % (42.8-82.8); PHOSPHOROUS 2.9 mg/dL (2.5-4.9); POTASSIUM 3.7 mmol/L (3.5-5.1); RDW 20.5 % (11.6-15.6); WHITE BLOOD COUNT 9.4 K/mm3 (4.0-10.0)
[2019-04-01 08:48] LABS: PLATELET COUNT 343 K/MM3 (134-434)
--- NOTE | 2019-04-01 09:57 | ECHO ---
Name: SAM EAGLE Exam:Adult Echocardiogram Study Date: 04/01/2019 08:38 AM Age: 28 yrs Reason For Study: CHF Height: 63 in Weight: 188 lb BSA: 1.9 m2 MMode/2D Measurements & Calculations IVSd: 1.0 cm Ao root diam: 2.5 cm LVIDd: 5.7 cm LA dimension: 3.9 cm LVIDs: 4.5 cm LVPWd: 1.4 cm EDV(Teich): 161.8 ml LVOT diam: 2.0 cm ESV(Teich): 92.6 ml LAV (MOD-bp): 60.6 ml Doppler Measurements & Calculations MV E max jarret: 122.0 cm/sec Ao V2 max: 192.7 cm/sec MV A max jarret: 139.7 cm/sec Ao max P.9 mmHg MV E/A: 0.87 MV dec time: 0.08 sec RAFAEL(V,D): 1.6 cm2 LV V1 max P.1 mmHg MR max jarret: 500.8 cm/sec LV V1 max: 101.4 cm/sec MR max P.8 mmHg TR max jarret: 267.4 cm/sec PA V2 max: 122.2 cm/sec TR max P.6 mmHg PA max P.0 mmHg Med Peak E' Jarret: 4.9 cm/sec Med E/e': 24.9 Lat Peak E' Jarret: 8.3 cm/sec Lat E/e': 14.8 Left Ventricle The left ventricle is mildly dilated. There is mild concentric left ventricular hypertrophy. Ejection Fraction = 40%. Left ventricular systolic function is moderately reduced. Septal motion is consistent with con duction abnormality. There is moderate global hypokinesis of the left ventricle. Right Ventricle The right ventricle is normal in size and function. Atria The left atrium is mildly dilated. Right atrial size is normal. Mitral Valve The mitral valve is grossly normal. There is no mitral valve stenosis. There is moderate mitral regur gitation. Tricuspid Valve The tricuspid valve is normal in structure and function. There is mild tricuspid regurgitation. Right ventricular systolic pressure is normal. Aortic Valve The aortic valve is trileaflet. No hemodynamically significant valvular aortic stenosis. No aortic regurgitation is present. Pulmonic Valve The pulmonic valve is not well seen, but is grossly normal. There is no pulmonic valvular stenosis. Great Vessels The aortic root is normal size. Pericardium/Pleura Trivial pericardial effusion not hemodynamically significant. Interpretation Summary Septal motion is consistent with conduction abnormality. The left ventricle is mildly dilated. There is mild concentric left ventricular hypertrophy. Ejection Fraction = 40%. The right ventricle is normal in size and function. The left atrium is mildly dilated. There is moderate mitral regurgitation. There is mild tricuspid regurgitation. Trivial pericardial effusion not hemodynamically significant MD Pantoja *Charito 04/01/2019 09:57 AM
[2019-04-01] MEDS ORDERED: SODIUM CHLORIDE 0.9% 500 ML INFUS.BAG IV STA ×2 (11:59→16:44)
[2019-04-01] MEDS ORDERED: SODIUM CHLORIDE 1,000 ML IV STA ×2 (12:01→17:11)
--- NOTE | 2019-04-01 14:04 | EKG ---
Test Reason : Blood Pressure : / mmHG Vent. Rate : 111 BPM Atrial Rate : 111 BPM P-R Int : 142 ms QRS Dur : 082 ms QT Int : 384 ms P-R-T Axes : 070 004 101 degrees QTc Int : 522 ms SINUS TACHYCARDIA WITH OCCASIONAL PREMATURE VENTRICULAR COMPLEXES AND FUSION COMPLEXES BIATRIAL ENLARGEMENT T WAVE ABNORMALITY, CONSIDER LATERAL ISCHEMIA PROLONGED QT ABNORMAL ECG WHEN COMPARED WITH ECG OF 16-JAN-2019 21:36, SINUS RHYTHM HAS REPLACED ECTOPIC ATRIAL RHYTHM Confirmed by GAEL MENDEZ MD ([id number]) on 04/01/2019 2:04:30 PM Referred By: Confirmed By:GAEL MENDEZ MD
[2019-04-01] MEDS ORDERED: FLUCONAZOLE 150 MG TABLET PO ONE ×2 (16:49→18:13)
--- NOTE | 2019-04-01 17:30 | PN ---
Physical Exam: SUBJECTIVE: Patient seen and examined. Somnolent, difficult to arouse. Pt c/o dizziness. Multiple episodes of incontinence in ED. Abd US yielded no significant findings. Pending head CT. OBJECTIVE: Vital Signs Period Temp Pulse Resp BP Sys/Marquis Pulse Ox Last 24 Hr 98.5 F-98.9 F 98-115 18-20 112-137/73-85 99-100 GENERAL: Unable to assess orientation. Pt falls asleep and does not respond well when addressed. HEENT: NCAT. No scleral icterus. Moist mucous mem. LUNGS: Wheezing noted b/l UL, no accessory muscle use. HEART: Tachycardic. S1, S2 without murmur, rub or gallop. ABDOMEN: Obese. Soft, nontender, nondistended, normoactive bowel sounds, no guarding, no masses. EXTREMITIES: 2+ pulses, warm, well-perfused, no edema. PSYCH: Pt states she is depressed. SKIN: Pt has multiple scars from self-injurious cutting behaviors on b/l UE & LE. Laboratory Results - last 24 hr Laboratory Last Values WBC 9.4 K/mm3 (4.0-10.0) 04/01/19 06:15 RBC 4.05 M/mm3 (3.60-5.2) 04/01/19 06:15 Hgb 9.4 GM/dL (10.7-15.3) L 04/01/19 06:15 Hct 29.7 % (32.4-45.2) L 04/01/19 06:15 MCV 73.3 fl (80-96) L 04/01/19 06:15 MCH 23.3 pg (25.7-33.7) L 04/01/19 06:15 MCHC 31.8 g/dl (32.0-36.0) L 04/01/19 06:15 RDW 20.5 % (11.6-15.6) H 04/01/19 06:15 Plt Count 343 K/MM3 (134-434) 04/01/19 06:15 MPV 9.4 fl (7.5-11.1) 04/01/19 06:15 Absolute Neuts (auto) 6.2 K/mm3 (1.5-8.0) 04/01/19 06:15 Neutrophils % 65.6 % (42.8-82.8) 04/01/19 06:15 Lymphocytes % 20.9 % (8-40) D 04/01/19 06:15 Monocytes % 10.7 % (3.8-10.2) H 04/01/19 06:15 Eosinophils % 1.7 % (0-4.5) D 04/01/19 06:15 Basophils % 1.1 % (0-2.0) 04/01/19 06:15 Nucleated RBC % 0 % (0-0) 04/01/19 06:15 PT with INR 11.50 SEC (9.7-13.0) 03/31/19 21:37 INR 0.97 (0.83-1.09) 03/31/19 21:37 PTT (Actin FS) 26.8 SECONDS (25.2-36.5) 03/31/19 21:37 Anticoagulation Therapy No Result Required. 03/31/19 22:06 Puncture Site Right radial 03/31/19 22:06 ABG pH 7.39 (7.35-7.45) 03/31/19 22:06 ABG pCO2 at Pt Temp 30.7 mmHg (35-45) L 03/31/19 22:06 ABG pO2 at Pt Temp 119 mmHg (80-105) H 03/31/19 22:06 ABG HCO3 18.2 mmol/L (22-27) L 03/31/19 22:06 ABG O2 Sat (Measured) 98.8 % (95-98) H 03/31/19 22:06 ABG O2 Content 13.2 % vol (15-22) L 03/31/19 22:06 ABG Base Excess -5.5 meq/l (-2-2) L 03/31/19 22:06 Cleve Test No Result Required. 03/31/19 22:06 Carboxyhemoglobin 3.4 % (0-2) H 03/31/19 22:06 Methemoglobin 0.3 % (0-2) 03/31/19 22:06 O2 Delivery Device No Result Required. 03/31/19 22:06 Oxygen Flow Rate No 03/31/19 22:06 Vent Mode No Result Required. 03/31/19 22:06 Vent Rate No Result Required. 03/31/19 22:06 Mechanical Rate No Result Required. 03/31/19 22:06 Pressure Support Vent No Result Required. 03/31/19 22:06 Sodium 140 mmol/L (136-145) 04/01/19 06:15 Potassium 3.7 mmol/L (3.5-5.1) 04/01/19 06:15 Chloride 106 mmol/L (98-107) 04/01/19 06:15 Carbon Dioxide 28 mmol/L (21-32) 04/01/19 06:15 Anion Gap 6 MMOL/L (8-16) L 04/01/19 06:15 BUN 17.0 mg/dL (7-18) 04/01/19 06:15 Creatinine 1.4 mg/dL (0.55-1.3) H 04/01/19 06:15 Est GFR (CKD-EPI)AfAm 59.95 04/01/19 06:15 Est GFR (CKD-EPI)NonAf 51.73 04/01/19 06:15 POC Glucometer 552 UNITS (80-120) 04/01/19 16:29 Random Glucose 38 mg/dL (74-106) L* 04/01/19 06:15 Hemoglobin A1c % 11.8 % (4.2-6.3) H 04/01/19 06:15 Serum Osmolality 308 mosm/kg (278-305) H 04/01/19 01:09 Calcium 7.9 mg/dL (8.5-10.1) L 04/01/19 06:15 Phosphorus 2.9 mg/dL (2.5-4.9) 04/01/19 06:15 Magnesium 2.1 mg/dL (1.8-2.4) 04/01/19 06:15 Total Bilirubin 0.2 mg/dL (0.2-1) 04/01/19 06:15 AST 24 U/L (15-37) 04/01/19 06:15 ALT 18 U/L (13-61) 04/01/19 06:15 Alkaline Phosphatase 78 U/L (45-117) 04/01/19 06:15 Total Protein 6.0 g/dl (6.4-8.2) L 04/01/19 06:15 Albumin 1.9 g/dl (3.4-5.0) L 04/01/19 06:15 Beta HCG, Quant < 1.0 mIU/ml 03/31/19 21:37 Urine Color Yellow 03/31/19 21:46 Urine Appearance Cloudy 03/31/19 21:46 Urine pH 6.5 (5.0-8.0) 03/31/19 21:46 Ur Specific [place] 1.032 (1.010-1.035) 03/31/19 21:46 Urine Protein 3+ (NEGATIVE) H 03/31/19 21:46 Urine Glucose (UA) 3+ (NEGATIVE) H 03/31/19 21:46 Urine Ketones 2+ (NEGATIVE) H 03/31/19 21:46 Urine Blood 2+ (NEGATIVE) H 03/31/19 21:46 Urine Nitrite Negative (NEGATIVE) 03/31/19 21:46 Urine Bilirubin Negative (NEGATIVE) 03/31/19 21:46 Urine Urobilinogen 0.2 mg/dL (0.2-1.0) 03/31/19 21:46 Ur Leukocyte Esterase Negative (NEGATIVE) 03/31/19 21:46 Ur Random Creatinine 47.0 mg/dL (30-150) 04/01/19 01:00 Ur Random Sodium < 18 MMOL/L (40-220) L 04/01/19 01:00 Ur Random Potassium 21.0 MMOL/L (25-125) L 04/01/19 01:00 Ur Random Chloride < 11 MMOL/L (110-250) L 04/01/19 01:00 Opiates Screen Negative ng/ml (SLHXGX=870) 04/01/19 01:09 Methadone Screen Negative ng/ml (CJYXFQ=021) 04/01/19 01:09 Barbiturate Screen Negative ng/ml (VOMRVL=778) 04/01/19 01:09 Phencyclidine Screen Negative ng/ml (CUTOFF=25) 04/01/19 01:09 Ur Amphetamines Screen Negative ng/ml (IYKNTK=991) 04/01/19 01:09 MDMA (Ecstasy) Screen Negative ng/ml (MIHCPJ=778) 04/01/19 01:09 Benzodiazepines Screen Negative ng/ml (MFBNJS=367) 04/01/19 01:09 Cocaine Screen Positive ng/ml (PQIYAC=149) A* 04/01/19 01:09 U Marijuana (THC) Screen Negative ng/ml (CUTOFF=50) 04/01/19 01:09 Acetone, Qual Positive large 3+ (NEGATIVE) H 03/31/19 21:37 Active Medications Current Medications Heparin Sodium (Porcine) (Heparin -) 5,000 unit SQ TID ALISA Last Admin: 04/01/19 15:45 Dose: 5,000 unit Sodium Chloride (Normal Saline -) 1,000 mls @ 100 mls/hr IV ASDIR ALISA Last Admin: 04/01/19 02:10 Dose: 100 mls/hr Sodium Chloride (Normal Saline -) 1,000 mls @ 1,000 mls/hr IV ONCE STA Stop: 04/01/19 18:10 Insulin Aspart (Novolog Vial Sliding Scale -) 1 vial SQ Q4H [facility]; Protocol Last Admin: 04/01/19 16:30 Dose: 10 unit Insulin Detemir (Levemir Vial) 28 units SQ AM [facility] Last Admin: 04/01/19 06:36 Dose: Not Given ASSESSMENT/PLAN: 28 y.o. F PMH DMI, prior DKA, NICM, sys CHF w/ rEF, cocaine abuse, chronic LE edema, 3 miscarriages presented to the ED with 1 day nausea and NBNB vomiting. Found to have serum glucose of 613. #Type 1 DM concern for DKA -Serum glucose 613; fingerstick 550s -F/u CMP, lactate, Mg Phos -BMP q4h -BGMs q1h -Corrected anion gap 23 -C/w IVF, NS -ISS -Levemir 28U SQ -F/u CT brain #CHF -Echo: LV dilation, mild concentric LV hypertrophy, EF 40%, LA mildly dilated, mod MR, mild TR -Monitor Is & Os #Cocaine abuse -Monitor vitals -Educated pt on life threatening effects of cocaine use #Vaginal yeast infection -PO fluconazole #DVT PPX -Heparin SQ 5,000U Visit type - Emergency Visit Emergency Visit: Yes ED Registration Date: 03/31/19 Care time: The patient presented to the Emergency Department on the above date and was hospitalized for further evaluation of their emergent condition. - New Patient This patient is new to me today: Yes Date on this admission: 04/04/19 - Critical Care Critical Care patient: No ATTENDING PHYSICIAN STATEMENT I saw and evaluated the patient. I reviewed the resident's note and discussed the case with the resident. I agree with the resident's findings and plan as documented. SUBJECTIVE: OBJECTIVE: ASSESSMENT AND PLAN:
--- NOTE | 2019-04-01 17:45 | PN ---
Teaching Attending Note Name of Resident: Shira Espinosa ATTENDING PHYSICIAN STATEMENT I saw and evaluated the patient. I reviewed the resident's note and discussed the case with the resident. I agree with the resident's findings and plan as documented. SUBJECTIVE: Tired. Some abdominal discomfort. No further nausea/vomiting. No hematemesis. No fever/chills. No dysuria/hematuria. No diarrhea. No cough/ sputum. OBJECTIVE: Afebrile, Hemodynamically Stable. Last Vital Signs Temp Pulse Resp BP Pulse Ox 98.5 F 98 H 20 137/85 99 04/01/19 06:47 04/01/19 06:47 04/01/19 06:47 04/01/19 06:47 04/01/19 06:47 HEENT - Atraumatic, Normocephalic. Heart - S1, S2, RRR Lungs - clear to auscultation. Abdomen - Soft, mild RUQ and LUQ tenderness. Extremities - No edema, no calf tenderness. Neuro - Drowsy but rousable to AAO x 3. Moving all 4 extremities. Laboratory Results - last 24 hr 03/31/19 03/31/19 03/31/19 21:37 21:37 21:37 WBC RBC Hgb Hct MCV MCH MCHC RDW Plt Count MPV Absolute Neuts (auto) Neutrophils % Lymphocytes % Monocytes % Eosinophils % Basophils % Nucleated RBC % PT with INR INR PTT (Actin FS) 26.8 Anticoagulation Therapy Puncture Site ABG pH ABG pCO2 at Pt Temp ABG pO2 at Pt Temp ABG HCO3 ABG O2 Sat (Measured) ABG O2 Content ABG Base Excess Cleve Test Carboxyhemoglobin Methemoglobin O2 Delivery Device Oxygen Flow Rate Vent Mode Vent Rate Mechanical Rate Pressure Support Vent Sodium Potassium Chloride Carbon Dioxide Anion Gap BUN Creatinine Est GFR (CKD-EPI)AfAm Est GFR (CKD-EPI)NonAf POC Glucometer Random Glucose Hemoglobin A1c % Serum Osmolality Calcium Phosphorus 4.8 Magnesium Total Bilirubin AST ALT Alkaline Phosphatase Total Protein Albumin Beta HCG, Quant < 1.0 Cancelled Urine Color Urine Appearance Urine pH Ur Specific [place] Urine Protein Urine Glucose (UA) Urine Ketones Urine Blood Urine Nitrite Urine Bilirubin Urine Urobilinogen Ur Leukocyte Esterase Ur Random Creatinine Ur Random Sodium Ur Random Potassium Ur Random Chloride Opiates Screen Methadone Screen Barbiturate Screen Phencyclidine Screen Ur Amphetamines Screen MDMA (Ecstasy) Screen Benzodiazepines Screen Cocaine Screen U Marijuana (THC) Screen Acetone, Qual 03/31/19 03/31/19 03/31/19 21:37 21:37 21:37 WBC 10.3 H RBC 4.37 Hgb 10.1 L Hct 33.2 MCV 75.9 L MCH 23.2 L MCHC 30.6 L RDW 20.3 H Plt Count 384 MPV 10.1 D Absolute Neuts (auto) 7.8 Neutrophils % 76.3 Lymphocytes % 14.4 Monocytes % 7.1 Eosinophils % 0.1 Basophils % 2.1 H D Nucleated RBC % 0 PT with INR INR PTT (Actin FS) Anticoagulation Therapy Puncture Site ABG pH ABG pCO2 at Pt Temp ABG pO2 at Pt Temp ABG HCO3 ABG O2 Sat (Measured) ABG O2 Content ABG Base Excess Cleve Test Carboxyhemoglobin Methemoglobin O2 Delivery Device Oxygen Flow Rate Vent Mode Vent Rate Mechanical Rate Pressure Support Vent Sodium 129 L Potassium 4.3 Chloride 92 L Carbon Dioxide 22 Anion Gap 16 BUN 23.0 H Creatinine 1.8 H Est GFR (CKD-EPI)AfAm 44.24 Est GFR (CKD-EPI)NonAf 38.17 POC Glucometer Random Glucose 613 H* Hemoglobin A1c % Serum Osmolality Calcium 8.7 Phosphorus Magnesium 2.2 Total Bilirubin 0.4 AST 28 ALT 22 Alkaline Phosphatase 100 Total Protein 6.8 Albumin 2.2 L Beta HCG, Quant Urine Color Urine Appearance Urine pH Ur Specific [place] Urine Protein Urine Glucose (UA) Urine Ketones Urine Blood Urine Nitrite Urine Bilirubin Urine Urobilinogen Ur Leukocyte Esterase Ur Random Creatinine Ur Random Sodium Ur Random Potassium Ur Random Chloride Opiates Screen Methadone Screen Barbiturate Screen Phencyclidine Screen Ur Amphetamines Screen MDMA (Ecstasy) Screen Benzodiazepines Screen Cocaine Screen U Marijuana (THC) Screen Acetone, Qual Positive large 3+ H 03/31/19 03/31/19 03/31/19 21:37 21:46 22:00 WBC RBC Hgb Hct MCV MCH MCHC RDW Plt Count MPV Absolute Neuts (auto) Neutrophils % Lymphocytes % Monocytes % Eosinophils % Basophils % Nucleated RBC % PT with INR 11.50 INR 0.97 PTT (Actin FS) Anticoagulation Therapy Puncture Site ABG pH ABG pCO2 at Pt Temp ABG pO2 at Pt Temp ABG HCO3 ABG O2 Sat (Measured) ABG O2 Content ABG Base Excess Cleve Test Carboxyhemoglobin Methemoglobin O2 Delivery Device Oxygen Flow Rate Vent Mode Vent Rate Mechanical Rate Pressure Support Vent Sodium Potassium Chloride Carbon Dioxide Anion Gap BUN Creatinine Est GFR (CKD-EPI)AfAm Est GFR (CKD-EPI)NonAf POC Glucometer 527 Random Glucose Hemoglobin A1c % Serum Osmolality Calcium Phosphorus Magnesium Total Bilirubin AST ALT Alkaline Phosphatase Total Protein Albumin Beta HCG, Quant Urine Color Yellow Urine Appearance Cloudy Urine pH 6.5 Ur Specific [place] 1.032 Urine Protein 3+ H Urine Glucose (UA) 3+ H Urine Ketones 2+ H Urine Blood 2+ H Urine Nitrite Negative Urine Bilirubin Negative Urine Urobilinogen 0.2 Ur Leukocyte Esterase Negative Ur Random Creatinine Ur Random Sodium Ur Random Potassium Ur Random Chloride Opiates Screen Methadone Screen Barbiturate Screen Phencyclidine Screen Ur Amphetamines Screen MDMA (Ecstasy) Screen Benzodiazepines Screen Cocaine Screen U Marijuana (THC) Screen Acetone, Qual 03/31/19 03/31/19 04/01/19 22:06 23:36 01:00 WBC RBC Hgb Hct MCV MCH MCHC RDW Plt Count MPV Absolute Neuts (auto) Neutrophils % Lymphocytes % Monocytes % Eosinophils % Basophils % Nucleated RBC % PT with INR INR PTT (Actin FS) Anticoagulation Therapy No Result Required. Puncture Site Right radial ABG pH 7.39 ABG pCO2 at Pt Temp 30.7 L ABG pO2 at Pt Temp 119 H ABG HCO3 18.2 L ABG O2 Sat (Measured) 98.8 H ABG O2 Content 13.2 L ABG Base Excess -5.5 L Cleve Test No Result Required. Carboxyhemoglobin 3.4 H Methemoglobin 0.3 O2 Delivery Device No Result Required. Oxygen Flow Rate No Vent Mode No Result Required. Vent Rate No Result Required. Mechanical Rate No Result Required. Pressure Support Vent No Result Required. Sodium Potassium Chloride Carbon Dioxide Anion Gap BUN Creatinine Est GFR (CKD-EPI)AfAm Est GFR (CKD-EPI)NonAf POC Glucometer 502 Random Glucose Hemoglobin A1c % Serum Osmolality Calcium Phosphorus Magnesium Total Bilirubin AST ALT Alkaline Phosphatase Total Protein Albumin Beta HCG, Quant Urine Color Urine Appearance Urine pH Ur Specific [place] Urine Protein Urine Glucose (UA) Urine Ketones Urine Blood Urine Nitrite Urine Bilirubin Urine Urobilinogen Ur Leukocyte Esterase Ur Random Creatinine 47.0 Ur Random Sodium Ur Random Potassium Ur Random Chloride Opiates Screen Methadone Screen Barbiturate Screen Phencyclidine Screen Ur Amphetamines Screen MDMA (Ecstasy) Screen Benzodiazepines Screen Cocaine Screen U Marijuana (THC) Screen Acetone, Qual 04/01/19 04/01/19 04/01/19 01:00 01:07 01:09 WBC RBC Hgb Hct MCV MCH MCHC RDW Plt Count MPV Absolute Neuts (auto) Neutrophils % Lymphocytes % Monocytes % Eosinophils % Basophils % Nucleated RBC % PT with INR INR PTT (Actin FS) Anticoagulation Therapy Puncture Site ABG pH ABG pCO2 at Pt Temp ABG pO2 at Pt Temp ABG HCO3 ABG O2 Sat (Measured) ABG O2 Content ABG Base Excess Cleve Test Carboxyhemoglobin Methemoglobin O2 Delivery Device Oxygen Flow Rate Vent Mode Vent Rate Mechanical Rate Pressure Support Vent Sodium 137 Potassium 3.7 Chloride 101 Carbon Dioxide 20 L Anion Gap 16 BUN 21.8 H Creatinine 1.7 H Est GFR (CKD-EPI)AfAm 47.41 Est GFR (CKD-EPI)NonAf 40.90 POC Glucometer 425 Random Glucose 440 H* Hemoglobin A1c % Serum Osmolality 308 H Calcium 7.7 L Phosphorus Magnesium Total Bilirubin AST ALT Alkaline Phosphatase Total Protein Albumin Beta HCG, Quant Urine Color Urine Appearance Urine pH Ur Specific [place] Urine Protein Urine Glucose (UA) Urine Ketones Urine Blood Urine Nitrite Urine Bilirubin Urine Urobilinogen Ur Leukocyte Esterase Ur Random Creatinine Ur Random Sodium < 18 L Ur Random Potassium 21.0 L Ur Random Chloride < 11 L Opiates Screen Methadone Screen Barbiturate Screen Phencyclidine Screen Ur Amphetamines Screen MDMA (Ecstasy) Screen Benzodiazepines Screen Cocaine Screen U Marijuana (THC) Screen Acetone, Qual 04/01/19 04/01/19 04/01/19 01:09 02:14 06:15 WBC 9.4 RBC 4.05 Hgb 9.4 L Hct 29.7 L MCV 73.3 L MCH 23.3 L MCHC 31.8 L RDW 20.5 H Plt Count 343 MPV 9.4 Absolute Neuts (auto) 6.2 Neutrophils % 65.6 Lymphocytes % 20.9 D Monocytes % 10.7 H Eosinophils % 1.7 D Basophils % 1.1 Nucleated RBC % 0 PT with INR INR PTT (Actin FS) Anticoagulation Therapy Puncture Site ABG pH ABG pCO2 at Pt Temp ABG pO2 at Pt Temp ABG HCO3 ABG O2 Sat (Measured) ABG O2 Content ABG Base Excess Cleve Test Carboxyhemoglobin Methemoglobin O2 Delivery Device Oxygen Flow Rate Vent Mode Vent Rate Mechanical Rate Pressure Support Vent Sodium Potassium Chloride Carbon Dioxide Anion Gap BUN Creatinine Est GFR (CKD-EPI)AfAm Est GFR (CKD-EPI)NonAf POC Glucometer 273 Random Glucose Hemoglobin A1c % Serum Osmolality Calcium Phosphorus Magnesium Total Bilirubin AST ALT Alkaline Phosphatase Total Protein Albumin Beta HCG, Quant Urine Color Urine Appearance Urine pH Ur Specific [place] Urine Protein Urine Glucose (UA) Urine Ketones Urine Blood Urine Nitrite Urine Bilirubin Urine Urobilinogen Ur Leukocyte Esterase Ur Random Creatinine Ur Random Sodium Ur Random Potassium Ur Random Chloride Opiates Screen Negative Methadone Screen Negative Barbiturate Screen Negative Phencyclidine Screen Negative Ur Amphetamines Screen Negative MDMA (Ecstasy) Screen Negative Benzodiazepines Screen Negative Cocaine Screen Positive A* U Marijuana (THC) Screen Negative Acetone, Qual 04/01/19 04/01/19 04/01/19 06:15 06:15 06:30 WBC RBC Hgb Hct MCV MCH MCHC RDW Plt Count MPV Absolute Neuts (auto) Neutrophils % Lymphocytes % Monocytes % Eosinophils % Basophils % Nucleated RBC % PT with INR INR PTT (Actin FS) Anticoagulation Therapy Puncture Site ABG pH ABG pCO2 at Pt Temp ABG pO2 at Pt Temp ABG HCO3 ABG O2 Sat (Measured) ABG O2 Content ABG Base Excess [place] Test Carboxyhemoglobin Methemoglobin O2 Delivery Device Oxygen Flow Rate Vent Mode Vent Rate Mechanical Rate Pressure Support Vent Sodium 140 Potassium 3.7 Chloride 106 Carbon Dioxide 28 Anion Gap 6 L BUN 17.0 Creatinine 1.4 H Est GFR (CKD-EPI)AfAm 59.95 Est GFR (CKD-EPI)NonAf 51.73 POC Glucometer 40 Random Glucose 38 L* Hemoglobin A1c % 11.8 H Serum Osmolality Calcium 7.9 L Phosphorus 2.9 Magnesium 2.1 Total Bilirubin 0.2 AST 24 ALT 18 Alkaline Phosphatase 78 Total Protein 6.0 L Albumin 1.9 L Beta HCG, Quant Urine Color Urine Appearance Urine pH Ur Specific [place] Urine Protein Urine Glucose (UA) Urine Ketones Urine Blood Urine Nitrite Urine Bilirubin Urine Urobilinogen Ur Leukocyte Esterase Ur Random Creatinine Ur Random Sodium Ur Random Potassium Ur Random Chloride Opiates Screen Methadone Screen Barbiturate Screen Phencyclidine Screen Ur Amphetamines Screen MDMA (Ecstasy) Screen Benzodiazepines Screen Cocaine Screen U Marijuana (THC) Screen Acetone, Qual 04/01/19 04/01/19 04/01/19 06:57 11:08 16:29 WBC RBC Hgb Hct MCV MCH MCHC RDW Plt Count MPV Absolute Neuts (auto) Neutrophils % Lymphocytes % Monocytes % Eosinophils % Basophils % Nucleated RBC % PT with INR INR PTT (Actin FS) Anticoagulation Therapy Puncture Site ABG pH ABG pCO2 at Pt Temp ABG pO2 at Pt Temp ABG HCO3 ABG O2 Sat (Measured) ABG O2 Content ABG Base Excess Cle[place] Test Carboxyhemoglobin Methemoglobin O2 Delivery Device Oxygen Flow Rate Vent Mode Vent Rate Mechanical Rate Pressure Support Vent Sodium Potassium Chloride Carbon Dioxide Anion Gap BUN Creatinine Est GFR (CKD-EPI)AfAm Est GFR (CKD-EPI)NonAf POC Glucometer 79 343 552 Random Glucose Hemoglobin A1c % Serum Osmolality Calcium Phosphorus Magnesium Total Bilirubin AST ALT Alkaline Phosphatase Total Protein Albumin Beta HCG, Quant Urine Color Urine Appearance Urine pH Ur Specific [place] Urine Protein Urine Glucose (UA) Urine Ketones Urine Blood Urine Nitrite Urine Bilirubin Urine Urobilinogen Ur Leukocyte Esterase Ur Random Creatinine Ur Random Sodium Ur Random Potassium Ur Random Chloride Opiates Screen Methadone Screen Barbiturate Screen Phencyclidine Screen Ur Amphetamines Screen MDMA (Ecstasy) Screen Benzodiazepines Screen Cocaine Screen U Marijuana (THC) Screen Acetone, Qual Current Medications Generic Name Dose Route Start Last Admin Trade Name Freq PRN Reason Stop Dose Admin Heparin Sodium (Porcine) 5,000 unit 04/01/19 06:00 04/01/19 15:45 Heparin - SQ 5,000 unit TID ALISA Administration Sodium Chloride 1,000 mls @ 100 mls/hr 04/01/19 02:15 04/01/19 02:10 Normal Saline - IV 100 mls/hr ASDIR ALISA Administration Sodium Chloride 1,000 mls @ 1,000 mls/hr 04/01/19 17:11 Normal Saline - IV 04/01/19 18:10 ONCE STA Insulin Aspart 1 vial 04/01/19 02:15 04/01/19 16:30 Novolog Vial Sliding Scale - SQ 10 unit Q4H [facility] Administration Protocol Insulin Detemir 28 units 04/01/19 07:00 04/01/19 06:36 Levemir Vial SQ Not Given AM [facility] Home Medications Medication Instructions Recorded Citalopram Hydrobromide 20 mg PO DAILY 01/11/19 [Citalopram HBr] Furosemide 20 mg PO DAILY 01/11/19 Magnesium Oxide 600 mg PO BID 01/11/19 Aripiprazole [Abilify] 10 mg PO DAILY 04/01/19 Aspirin [Adult Aspirin Regimen] 81 mg PO DAILY 04/01/19 Carvedilol 6.25 mg PO BID 04/01/19 Insulin Glargine,Hum.rec.anlog 34 units SQ ACBK 04/01/19 [Basaglar Kwikpen U-100] Insulin Lispro [Humalog Kwikpen] See Protocol SQ ACHS 04/01/19 Insulin Lispro [Humalog] 3 unit HS 04/01/19 ASSESSMENT AND PLAN: 28 year old female with history of DM 2, Chronic Systolic CHF (non-ischemic, likely sec to cocaine), Substance Abuse (cocaine, last use yesterday) presents with hyperglycemia, nausea, vomiting after not taking insulin for one day due to running out. 1. DKA, improving s/p aggressive IV fluid resuscitation. ICU consulted. Became hypoglycemic s/p regular insulin, now hyperglycemic again, with anion gap and low bicarb. Declines ABG. Unable to place on insulin drip on medical floor. Continue IV hydration (cautiously given low EF), Levemir 20 units, Novolog as per sliding scale. DM 2 uncontrolled likely sec to medication non-compliance. A1C 11.8. Counselled. 2. AMS, etiology unclear. Admits to excessive cocaine use yesterday, denies other drug use. Drowsy but rousable. Will get CT head to exclude any intracranial cause for drowsiness. 3. Chronic Systolic CHF (non-ischemic), likely secondary to Cocaine use. Echo - LVH, EF 40%. No evidence of decompensation. Continue IV hydration and monitor response. Continue Coreg. Lasix held. 4. Depression/Anxiety - normally on Citalopram and Abilify, will hold due to drowsiness. Denies OD. Will continue telemonitoring. 5. SHANE sec to DKA/Vomiting - resolved s/p IV hydration. DVT Px - Heparin SQ
[2019-04-01 18:43] LABS: ALBUMIN 1.7 g/dl (3.4-5.0); BILIRUBIN,TOTAL 0.3 mg/dL (0.2-1); BLOOD UREA NITROGEN 18.4 mg/dL (7-18); CALCIUM 7.5 mg/dL (8.5-10.1); CREATININE 1.6 mg/dL (0.55-1.3); PHOSPHOROUS 2.8 mg/dL (2.5-4.9); POTASSIUM 4.9 mmol/L (3.5-5.1); TOT PROT 5.7 g/dl (6.4-8.2)
[2019-04-01] MEDS: CARVEDILOL 6.25 MG TABLET (FP) PO SCH (21:52)
[2019-04-01 22:50] VITALS: BMI 35.6
[2019-04-02 00:02] LABS: ALBUMIN 1.8 g/dl (3.4-5.0); BILIRUBIN,TOTAL 0.2 mg/dL (0.2-1); CALCIUM 7.7 mg/dL (8.5-10.1); CREATININE 1.5 mg/dL (0.55-1.3); TOT PROT 5.8 g/dl (6.4-8.2)
--- NOTE | 2019-04-02 01:22 | PN ---
Progress Note (short form) - Note Progress Note: ICU follow-up Patient evaluated in Telemetry floor. Patient is awake, alert, in no acute distress. BMP reveals anion gap of 7 (approx 10, corrected for Albumin) Blood glucose of 299 (s/p 20 units Insulin Levemir, and 8 units Insulin Novolog sliding scale)- downtrending. Considering closed anion gap, recommend continued BGM monitoring in AM, and Insulin Levemir. Currently no indication for ICU admission. Please re-consult if any changes in patient's clinical status.
[2019-04-02] MEDS: HEPARIN NA (PORCINE) 5,000 UNITS/ML 1ML VIAL SQ SCH ×4 (06:38→22:31)
[2019-04-02] MEDS: INSULIN SLIDING SCALE (NOVOLOG) 1 VIAL SQ SCH ×4 (06:38→22:08)
[2019-04-02 08:31] LABS: BASO % 1.3 % (0-2.0); EOS % 2.9 % (0-4.5); LYMPH % 12.3 % (8-40); MCH 23.4 pg (25.7-33.7); MEAN CELL VOLUME 75.6 fl (80-96); MEAN PLT VOLUME 9.7 fl (7.5-11.1); MONO % 4.1 % (3.8-10.2); NEUT % 79.4 % (42.8-82.8); PLATELET COUNT 350 K/MM3 (134-434); RBC 3.84 M/mm3 (3.60-5.2); RDW 20.4 % (11.6-15.6); WHITE BLOOD COUNT 8.8 K/mm3 (4.0-10.0)
[2019-04-02 09:14] LABS: ALBUMIN 1.7 g/dl (3.4-5.0); BILIRUBIN,TOTAL 0.3 mg/dL (0.2-1); BLOOD UREA NITROGEN 13.8 mg/dL (7-18); CALCIUM 7.8 mg/dL (8.5-10.1); CREATININE 1.4 mg/dL (0.55-1.3); MAGNESIUM 2.1 mg/dL (1.8-2.4); PHOSPHOROUS 2.3 mg/dL (2.5-4.9); POTASSIUM 4.3 mmol/L (3.5-5.1); TOT PROT 5.6 g/dl (6.4-8.2)
[2019-04-02] MEDS: CARVEDILOL 6.25 MG TABLET (FP) PO SCH ×2 (09:48→22:31)
[2019-04-02] MEDS ORDERED: SODIUM CHLORIDE 1,000 ML IV STA (10:01)
[2019-04-02] MEDS ORDERED: INSULIN (LEVEMIR) 100 UNITS/ML UNITS SQ ONE (10:15)
--- NOTE | 2019-04-02 11:34 | PN ---
Teaching Attending Note Name of Resident: Walter Garcia ATTENDING PHYSICIAN STATEMENT I saw and evaluated the patient. I reviewed the resident's note and discussed the case with the resident. I agree with the resident's findings and plan as documented. SUBJECTIVE: More awake, answers appropriately. No further abdominal discomfort. No further nausea/vomiting. No hematemesis. No fever/chills. No dysuria/ hematuria. No diarrhea. No cough/sputum. OBJECTIVE: Afebrile, Hemodynamically Stable. Last Vital Signs Temp Pulse Resp BP Pulse Ox 98.3 F 103 H 20 99/58 L 100 04/02/19 10:00 04/02/19 10:00 04/02/19 10:00 04/02/19 10:00 04/02/19 09:00 Heart - S1, S2, RRR Lungs - clear to auscultation. Abdomen - Soft, Non-tender. Bowel Sounds normal. Extremities - No edema, no calf tenderness. Neuro - AAO x 3. Ambulating. Laboratory Results - last 24 hr 04/01/19 04/01/19 04/01/19 06:15 16:29 17:50 WBC RBC Hgb Hct MCV MCH MCHC RDW Plt Count MPV Absolute Neuts (auto) Neutrophils % Lymphocytes % Monocytes % Eosinophils % Basophils % Nucleated RBC % Sodium Potassium Chloride Carbon Dioxide Anion Gap BUN Creatinine Est GFR (CKD-EPI)AfAm Est GFR (CKD-EPI)NonAf POC Glucometer 552 Random Glucose Hemoglobin A1c % 11.8 H Lactic Acid Calcium Phosphorus Magnesium Total Bilirubin AST ALT Alkaline Phosphatase Creatine Kinase 131 Troponin I 0.06 H Total Protein Albumin 04/01/19 04/01/19 04/01/19 17:50 17:50 18:17 WBC RBC Hgb Hct MCV MCH MCHC RDW Plt Count MPV Absolute Neuts (auto) Neutrophils % Lymphocytes % Monocytes % Eosinophils % Basophils % Nucleated RBC % Sodium 134 L Potassium 4.9 Chloride 99 Carbon Dioxide 20 L Anion Gap 14 BUN 18.4 H Creatinine 1.6 H Est GFR (CKD-EPI)AfAm 51.01 Est GFR (CKD-EPI)NonAf 44.01 POC Glucometer 517 Random Glucose 560 H* Hemoglobin A1c % Lactic Acid 1.5 Calcium 7.5 L Phosphorus 2.8 Magnesium 2.0 Total Bilirubin 0.3 AST 27 ALT 18 Alkaline Phosphatase 87 Creatine Kinase Troponin I Total Protein 5.7 L Albumin 1.7 L 04/01/19 04/01/19 04/01/19 18:49 21:43 22:41 WBC RBC Hgb Hct MCV MCH MCHC RDW Plt Count MPV Absolute Neuts (auto) Neutrophils % Lymphocytes % Monocytes % Eosinophils % Basophils % Nucleated RBC % Sodium 136 Potassium 4.0 Chloride 104 Carbon Dioxide 26 Anion Gap 7 L BUN 16.0 Creatinine 1.5 H Est GFR (CKD-EPI)AfAm 55.15 Est GFR (CKD-EPI)NonAf 47.59 POC Glucometer 423 333 Random Glucose 299 H Hemoglobin A1c % Lactic Acid Calcium 7.7 L Phosphorus Magnesium Total Bilirubin 0.2 AST 23 ALT 18 Alkaline Phosphatase 88 Creatine Kinase 131 Troponin I 0.06 H Total Protein 5.8 L Albumin 1.8 L 04/02/19 04/02/19 04/02/19 05:42 07:48 07:48 WBC 8.8 RBC 3.84 Hgb 9.0 L Hct 29.0 L MCV 75.6 L MCH 23.4 L MCHC 31.0 L RDW 20.4 H Plt Count 350 MPV 9.7 Absolute Neuts (auto) 7.0 Neutrophils % 79.4 D Lymphocytes % 12.3 D Monocytes % 4.1 Eosinophils % 2.9 Basophils % 1.3 Nucleated RBC % 0 Sodium 135 L Potassium 4.3 Chloride 104 Carbon Dioxide 20 L Anion Gap 12 BUN 13.8 Creatinine 1.4 H Est GFR (CKD-EPI)AfAm 59.95 Est GFR (CKD-EPI)NonAf 51.73 POC Glucometer 394 Random Glucose 438 H* Hemoglobin A1c % Lactic Acid Calcium 7.8 L Phosphorus 2.3 L Magnesium 2.1 Total Bilirubin 0.3 AST 20 ALT 19 Alkaline Phosphatase 79 Creatine Kinase Troponin I Total Protein 5.6 L Albumin 1.7 L Current Medications Generic Name Dose Route Start Last Admin Trade Name Freq PRN Reason Stop Dose Admin Carvedilol 6.25 mg 04/01/19 22:00 04/02/19 09:48 Coreg - PO 6.25 mg BID ALISA Administration Heparin Sodium (Porcine) 5,000 unit 04/01/19 06:00 04/02/19 06:42 Heparin - SQ Not Given TID ALISA Sodium Chloride 1,000 mls @ 125 mls/hr 04/01/19 19:11 04/01/19 21:52 Normal Saline - IV 125 mls/hr ASDIR ALISA Administration Insulin Aspart 1 vial 04/01/19 19:15 04/02/19 06:38 Novolog Vial Sliding Scale - SQ 10 units ACHS [facility] Administration Protocol Insulin Detemir 20 units 04/01/19 18:00 04/01/19 19:24 Levemir Vial SQ 20 units HS [facility] Administration Potassium Phos/Sodium Phos 1 packet 04/02/19 11:30 Phos-Nak Packet - PO BID [facility] Home Medications Medication Instructions Recorded Citalopram Hydrobromide 20 mg PO DAILY 01/11/19 [Citalopram HBr] Furosemide 20 mg PO DAILY 01/11/19 Magnesium Oxide 600 mg PO BID 01/11/19 Aripiprazole [Abilify] 10 mg PO DAILY 04/01/19 Aspirin [Adult Aspirin Regimen] 81 mg PO DAILY 04/01/19 Carvedilol 6.25 mg PO BID 04/01/19 Insulin Glargine,Hum.rec.anlog 34 units SQ ACBK 04/01/19 [Basaglar Kwikpen U-100] Insulin Lispro [Humalog Kwikpen] See Protocol SQ ACHS 04/01/19 Insulin Lispro [Humalog] 3 unit HS 04/01/19 ASSESSMENT AND PLAN: 28 year old female with history of DM 2, Chronic Systolic CHF (non-ischemic, likely sec to cocaine), Substance Abuse (cocaine, last use 03/31) presents with hyperglycemia, nausea, vomiting after not taking insulin for one day. 1. DKA, improving s/p aggressive IV fluid resuscitation. ICU consulted. Became hypoglycemic s/p regular insulin, with subsequent hyperglycemia, with anion gap and low bicarb. Declines ABG. Unable to place on insulin drip on medical floor. Continued on IV hydration (cautiously given low EF). Resumed on Levemir at 30 units with Novolog as per sliding scale. Repeat labs this afternoon. DM 2 uncontrolled likely sec to medication non-compliance. A1C 11.8. Counselled. Outpatient Endocrinology referral. 2. AMS, likely sec to DKA, resolved. Now awake alert, with no neurological deficits. Admits to excessive cocaine use prior to admission. Denies other drug use. No need for CT Head - cancelled. 3. Chronic Systolic CHF (non-ischemic), likely secondary to Cocaine use. Echo - LVH, EF 40%. No evidence of decompensation. Continue IV hydration and monitor response. Continue Coreg. Lasix held. 4. Depression/Anxiety - normally on Citalopram and Abilify, can resume. 5. SHANE sec to DKA/Vomiting - resolved s/p IV hydration. 6. Hypophosphatemia - repleted. DVT Px - Heparin SQ
[2019-04-02] MEDS: NAPH,MB-DB/K PH,MBDB POWDER PACKET PO SCH ×2 (12:01→22:31)
--- NOTE | 2019-04-02 13:59 | CONSULT ---
Consult Consult Specialty:: Endocrinology Referred by:: Dr Rae Reason for Consultation:: Hyperglycemia - History of Present Illness Chief Complaint: Nausea, vomiting History of Present Illness: This is a 28 year old female with h/o T1DM from age 7, prior DKA, CHF, cocaine use who presented with 1 day of nausea and vomiting. Patient was lethargic and poor historian. She is usually compliant with her meds but did not take her insulin this morning because she ran out. Pt endorses several episodes of NBNB vomiting, poor appetite, and abdominal pain. She took her FSG at home which was in the 500s. Pt denies any fevers, chills, diarrhea, or urinary symptoms. She also denies recent alcohol or drug use. No sick contacts. Pt has had multiple hospitalizations with hyperglycemia. ER course was notable for blood sugar if 613 on arrival, pH was 7.39 and CO2 of 22. Pt was treated with IV hydration and improvement if blood sugar with one episode of low blood sugar. Pt referred for management of blood sugar. Pt currently awake alert. Says she takes Basaglar 24 units daily in PM and Humalog 15 units TID with meals. FS at home 200s. Has Nocturnal hypoglycemia with FS in 50s about twice a week. No hypoglycemia leading to LOC recently. Has blurry vision rt eye, which was diagnosed as retinal detachement. She was supposed to go for f/u last but missed appointment. Denies paresthesia of feet. Family h/o DM in an Aunt. - History Source History Provided By: Patient, Medical Record - Past Medical History Cardio/Vascular: Yes: CHF Endocrine: Yes: Diabetes Mellitus - Alcohol/Substance Use Hx Alcohol Use: Yes - Smoking History Smoking history: Current some day smoker Have you smoked in the past 12 months: Yes Aproximately how many cigarettes per day: 2 - Social History Usual Living Arrangement: Assisted Living Home Medications - Allergies Allergies/Adverse Reactions: Allergies Allergy/AdvReac Type Severity Reaction Status Date / Time No Known Allergies Allergy Verified 01/10/19 18:24 - Home Medications Home Medications: Ambulatory Orders Citalopram Hydrobromide [Citalopram HBr] 20 mg PO DAILY 01/11/19 Furosemide 20 mg PO DAILY 01/11/19 Magnesium Oxide 600 mg PO BID 01/11/19 Aripiprazole [Abilify] 10 mg PO DAILY 04/01/19 Aspirin [Adult Aspirin Regimen] 81 mg PO DAILY 04/01/19 Carvedilol 6.25 mg PO BID 04/01/19 Insulin Glargine,Hum.rec.anlog [Basaglar Kwikpen U-100] 34 units SQ ACBK Insulin Lispro [Humalog Kwikpen] See Protocol SQ ACHS 04/01/19 Insulin Lispro [Humalog] 3 unit HS 04/01/19 Family Disease History - Family Disease History Other Family History: DM in Aunt Review of Systems - Review of Systems Constitutional: reports: No Symptoms Eyes: reports: Blurred Vision (Rt eye) HENT: reports: No Symptoms Neck: reports: No Symptoms Cardiovascular: reports: No Symptoms Respiratory: reports: No Symptoms Gastrointestinal: reports: No Symptoms Genitourinary: reports: No Symptoms Neurological: reports: No Symptoms Endocrine: reports: No Symptoms Hematology/Lymphatic: reports: No Symptoms Physical Exam Vital Signs: Vital Signs Temperature 98.3 F 04/02/19 10:00 Pulse Rate 103 H 04/02/19 10:00 Respiratory Rate 20 04/02/19 10:00 Blood Pressure 99/58 L 04/02/19 10:00 O2 Sat by Pulse Oximetry (%) 100 04/02/19 09:00 Constitutional: Yes: No Distress, Calm Eyes: Yes: Conjunctiva Clear, EOM Intact HENT: Yes: Atraumatic, Normocephalic Neck: Yes: Supple, Trachea Midline Cardiovascular: Yes: Regular Rate and Rhythm Respiratory: Yes: Regular, CTA Bilaterally Gastrointestinal: Yes: Normal Bowel Sounds, Soft Extremities: Yes: WNL Edema: No Neurological: Yes: Alert, Oriented Labs: CBC, BMP 04/02/19 07:48 04/02/19 07:48 Assessment/Plan AP; T1DM with hyperglycemia CHF SHANE BGM QACHS Nutrition consult Diabetes education done Got Levemir 20 yesterday evening and 30 units today morning Hold Levemir dose today and restart 24 units daily in the morning starting tomorrow. BGM at 3 pm Will need to increase Novolog SS coverage if daytime blood sugar remain suboptimal. Will F/U
[2019-04-02 17:53] LABS: BLOOD UREA NITROGEN 9.3 mg/dL (7-18); CALCIUM 7.9 mg/dL (8.5-10.1); CREATININE 1.1 mg/dL (0.55-1.3); POTASSIUM 4.1 mmol/L (3.5-5.1)
--- NOTE | 2019-04-02 19:20 | PN ---
Physical Exam: SUBJECTIVE: 28 y/o F e h/o DM 2, Chronic Systolic CHF (non-ischemic, likely sec to cocaine), and cocaine use d/o, presents with hyperglycemia, nausea, vomiting after not taking insulin for one day and being treated for management of hyperglycemia. Today she is feeling better, has more energy, and would like to go home. She denies HAWLEY, CP, and SOB. Pt passing urine and stool w/o concern. She does not feel depressed at this moment. She denies NVFD. prison does not accept resident intake on the weekend. OBJECTIVE: Vital Signs Temp Pulse Resp BP Pulse Ox 98.6 F 90 20 141/113 H 100 04/02/19 18:34 04/02/19 18:34 04/02/19 18:34 04/02/19 18:34 04/02/19 09:00 GENERAL: The patient is awake, alert, and fully oriented, in no acute distress. HEAD: Normal with no signs of trauma. EYES: KEN, extraocular movements intact, sclera anicteric, conjunctiva clear. No ptosis. ENT: Ears normal, nares patent, oropharynx clear without exudates, moist mucous membranes. NECK: Trachea midline, full range of motion, supple. LUNGS: Breath sounds equal, clear to auscultation bilaterally, no wheezes, no crackles, no accessory muscle use. HEART: Regular rate and rhythm, S1, S2 without murmur, rub or gallop. ABDOMEN: Soft, nontender, nondistended, normoactive bowel sounds, no guarding, no rebound, no hepatosplenomegaly, no masses. EXTREMITIES: 2+ pulses, warm, well-perfused, no edema. NEUROLOGICAL: Cranial nerves II through XII grossly intact. Normal speech, normal gait observed. PSYCH: Normal mood, normal affect. SKIN: Warm, dry, normal turgor, no rashes or lesions noted Laboratory Results - last 24 hr 04/01/19 04/01/19 04/01/19 17:50 21:43 22:41 WBC RBC Hgb Hct MCV MCH MCHC RDW Plt Count MPV Absolute Neuts (auto) Neutrophils % Lymphocytes % Monocytes % Eosinophils % Basophils % Nucleated RBC % Sodium 136 Potassium 4.0 Chloride 104 Carbon Dioxide 26 Anion Gap 7 L BUN 16.0 Creatinine 1.5 H Est GFR (CKD-EPI)AfAm 55.15 Est GFR (CKD-EPI)NonAf 47.59 POC Glucometer 333 Random Glucose 299 H Calcium 7.7 L Phosphorus Magnesium Total Bilirubin 0.2 AST 23 ALT 18 Alkaline Phosphatase 88 Creatine Kinase 131 131 Troponin I 0.06 H 0.06 H Total Protein 5.8 L Albumin 1.8 L 04/02/19 04/02/19 04/02/19 05:42 07:48 07:48 WBC 8.8 RBC 3.84 Hgb 9.0 L Hct 29.0 L MCV 75.6 L MCH 23.4 L MCHC 31.0 L RDW 20.4 H Plt Count 350 MPV 9.7 Absolute Neuts (auto) 7.0 Neutrophils % 79.4 D Lymphocytes % 12.3 D Monocytes % 4.1 Eosinophils % 2.9 Basophils % 1.3 Nucleated RBC % 0 Sodium 135 L Potassium 4.3 Chloride 104 Carbon Dioxide 20 L Anion Gap 12 BUN 13.8 Creatinine 1.4 H Est GFR (CKD-EPI)AfAm 59.95 Est GFR (CKD-EPI)NonAf 51.73 POC Glucometer 394 Random Glucose 438 H* Calcium 7.8 L Phosphorus 2.3 L Magnesium 2.1 Total Bilirubin 0.3 AST 20 ALT 19 Alkaline Phosphatase 79 Creatine Kinase 103 Troponin I 0.04 Total Protein 5.6 L Albumin 1.7 L 04/02/19 04/02/19 04/02/19 11:54 14:34 16:48 WBC RBC Hgb Hct MCV MCH MCHC RDW Plt Count MPV Absolute Neuts (auto) Neutrophils % Lymphocytes % Monocytes % Eosinophils % Basophils % Nucleated RBC % Sodium 137 Potassium 4.1 Chloride 105 Carbon Dioxide 27 Anion Gap 5 L BUN 9.3 Creatinine 1.1 Est GFR (CKD-EPI)AfAm 80.24 Est GFR (CKD-EPI)NonAf 69.24 POC Glucometer 306 249 Random Glucose 229 H Calcium 7.9 L Phosphorus Magnesium Total Bilirubin AST ALT Alkaline Phosphatase Creatine Kinase Troponin I Total Protein Albumin 04/02/19 16:55 WBC RBC Hgb Hct MCV MCH MCHC RDW Plt Count MPV Absolute Neuts (auto) Neutrophils % Lymphocytes % Monocytes % Eosinophils % Basophils % Nucleated RBC % Sodium Potassium Chloride Carbon Dioxide Anion Gap BUN Creatinine Est GFR (CKD-EPI)AfAm Est GFR (CKD-EPI)NonAf POC Glucometer 208 Random Glucose Calcium Phosphorus Magnesium Total Bilirubin AST ALT Alkaline Phosphatase Creatine Kinase Troponin I Total Protein Albumin Active Medications Carvedilol (Coreg -) 6.25 mg PO BID [facility] Last Admin: 04/02/19 09:48 Dose: 6.25 mg Heparin Sodium (Porcine) (Heparin -) 5,000 unit SQ TID [facility] Last Admin: 04/02/19 14:19 Dose: Not Given Insulin Aspart (Novolog Vial Sliding Scale -) 1 vial SQ TIDAC [facility]; Protocol Last Admin: 04/02/19 16:58 Dose: 4 units Insulin Aspart (Novolog Vial Sliding Scale -) 1 vial SQ HS [facility]; Protocol Insulin Detemir (Levemir Vial) 24 units SQ ACBK [facility] Potassium Phos/Sodium Phos (Phos-Nak Packet -) 1 packet PO BID [facility] Last Admin: 04/02/19 12:01 Dose: 1 packet ASSESSMENT/PLAN: 28 y/o F PMH DM2, CHF, cocaine use d/o admitted for management of hyperglycemia # DKA - IV fluid resuscitation with awareness of potential CHF exacerbation - Hypoglycemic s/p regular insulin, with subsequent hyperglycemia, with anion gap and low bicarb. - Unable to place on insulin drip on medical floor - Resume levemir 30 units w novolog (ISS) - Repeat labs this afternoon. - Most recent A1C 11.8. Educated pt on risks of uncontrolled DM - ICU consulted - Endocrinology referral needed # AMS, - Consistent w hypoglycemia symptoms - Resolved. Presently no neurological deficits # Chronic Systolic CHF (non-ischemic) - Likely 2/2 cocaine use - Echo - LVH, EF 40%. - No evidence of decompensation - Continue IV hydration and monitor response. - Continue Coreg. Lasix held. # Depression - Resume Citalopram and Abilify - Out-patient psychiatry for management of psychiatric care # Hypophosphatemia - Repleted - Cont. to monitor phos. # F/E/N - No standing fluids - Cont. to monitor electrolytes - Diabetic diet # DVT prophylaxis - Heparin 5,000 units SQ # Dispo - Full code Visit type - Emergency Visit Emergency Visit: No - New Patient This patient is new to me today: No - Critical Care Critical Care patient: No - Discharge Referral Referred to [facility] No ATTENDING PHYSICIAN STATEMENT I saw and evaluated the patient. I reviewed the resident's note and discussed the case with the resident. I agree with the resident's findings and plan as documented. SUBJECTIVE: OBJECTIVE: ASSESSMENT AND PLAN:
[2019-04-03] MEDS: HEPARIN NA (PORCINE) 5,000 UNITS/ML 1ML VIAL SQ SCH ×3 (05:51→21:52)
[2019-04-03] MEDS: INSULIN SLIDING SCALE (NOVOLOG) 1 VIAL SQ SCH ×4 (06:17→21:52)
[2019-04-03] MEDS ORDERED: INSULIN (LEVEMIR) 100 UNITS/ML UNITS SQ SCH ×2 (07:00→10:00)
[2019-04-03] MEDS: CARVEDILOL 6.25 MG TABLET (FP) PO SCH ×2 (10:24→21:52)
[2019-04-03] MEDS: NAPH,MB-DB/K PH,MBDB POWDER PACKET PO SCH ×2 (10:26→21:53)
--- NOTE | 2019-04-03 11:45 | PN ---
Progress Note (short form) - Note Progress Note: SUBJECTIVE: Awake, Oriented. tolerating oral intake. No further abdominal discomfort. No further nausea/vomiting. No hematemesis. No fever/chills. No dysuria/hematuria. No diarrhea. No cough/sputum. OBJECTIVE: Afebrile, Hemodynamically Stable. Last Vital Signs Temp Pulse Resp BP Pulse Ox 97.9 F 87 20 147/78 100 04/03/19 06:00 04/03/19 06:00 04/03/19 06:00 04/03/19 06:00 04/02/19 22:00 Heart - S1, S2, RRR Lungs - clear to auscultation. Abdomen - Soft, Non-tender. Bowel Sounds normal. Extremities - No edema, no calf tenderness. Neuro - AAO x 3. Ambulating. Laboratory Results - last 24 hr 04/02/19 04/02/19 04/02/19 07:48 11:54 14:34 Sodium 135 L Potassium 4.3 Chloride 104 Carbon Dioxide 20 L Anion Gap 12 BUN 13.8 Creatinine 1.4 H Est GFR (CKD-EPI)AfAm 59.95 Est GFR (CKD-EPI)NonAf 51.73 POC Glucometer 306 249 Random Glucose 438 H* Calcium 7.8 L Phosphorus 2.3 L Magnesium 2.1 Total Bilirubin 0.3 AST 20 ALT 19 Alkaline Phosphatase 79 Creatine Kinase 103 Troponin I 0.04 Total Protein 5.6 L Albumin 1.7 L 04/02/19 04/02/19 04/02/19 16:48 16:55 22:06 Sodium 137 Potassium 4.1 Chloride 105 Carbon Dioxide 27 Anion Gap 5 L BUN 9.3 Creatinine 1.1 Est GFR (CKD-EPI)AfAm 80.24 Est GFR (CKD-EPI)NonAf 69.24 POC Glucometer 208 340 Random Glucose 229 H Calcium 7.9 L Phosphorus Magnesium Total Bilirubin AST ALT Alkaline Phosphatase Creatine Kinase Troponin I Total Protein Albumin 04/03/19 04/03/19 05:46 11:20 Sodium Potassium Chloride Carbon Dioxide Anion Gap BUN Creatinine Est GFR (CKD-EPI)AfAm Est GFR (CKD-EPI)NonAf POC Glucometer 253 225 Random Glucose Calcium Phosphorus Magnesium Total Bilirubin AST ALT Alkaline Phosphatase Creatine Kinase Troponin I Total Protein Albumin Current Medications Generic Name Dose Route Start Last Admin Trade Name Freq PRN Reason Stop Dose Admin Carvedilol 6.25 mg 04/01/19 22:00 04/03/19 10:24 Coreg - PO 6.25 mg BID [facility] Administration Heparin Sodium (Porcine) 5,000 unit 04/01/19 06:00 04/03/19 05:51 Heparin - SQ Not Given TID [facility] Insulin Aspart 1 vial 04/02/19 16:30 04/03/19 11:25 Novolog Vial Sliding Scale - SQ 4 units TIDAC [facility] Administration Protocol Insulin Aspart 1 vial 04/02/19 22:00 04/02/19 22:08 Novolog Vial Sliding Scale - SQ 6 units HS [facility] Administration Protocol Insulin Detemir 30 units 04/04/19 07:00 Levemir Vial SQ ACBK [facility] Potassium Phos/Sodium Phos 1 packet 04/02/19 11:45 04/03/19 10:26 Phos-Nak Packet - PO 1 packet BID [facility] Administration Home Medications Medication Instructions Recorded Citalopram Hydrobromide 20 mg PO DAILY 01/11/19 [Citalopram HBr] Furosemide 20 mg PO DAILY 01/11/19 Magnesium Oxide 600 mg PO BID 01/11/19 Aripiprazole [Abilify] 10 mg PO DAILY 04/01/19 Aspirin [Adult Aspirin Regimen] 81 mg PO DAILY 04/01/19 Carvedilol 6.25 mg PO BID 04/01/19 Insulin Glargine,Hum.rec.anlog 34 units SQ ACBK 04/01/19 [Basaglar Kwikpen U-100] Insulin Lispro [Humalog Kwikpen] See Protocol SQ ACHS 04/01/19 Insulin Lispro [Humalog] 3 unit HS 04/01/19 ASSESSMENT AND PLAN: 28 year old female with history of DM 2, Chronic Systolic CHF (non-ischemic, likely sec to cocaine), Substance Abuse (cocaine, last use 03/31) presents with hyperglycemia, nausea, vomiting after not taking insulin for one day. 1. DKA, improved s/p aggressive IV fluid resuscitation. ICU consulted. Became hypoglycemic s/p regular insulin, with subsequent hyperglycemia, with anion gap and low bicarb. Declined repeat ABG. Resumed on Levemir at 30 units with Novolog as per sliding scale. Biochemistry normalized including bicarb and AG. DM 2 uncontrolled likely sec to medication non-compliance. A1C 11.8. Counselled and endocrinology consulted. 2. AMS, likely sec to DKA, resolved. Now awake alert, with no neurological deficits. Admits to excessive cocaine use prior to admission. Denies other drug use. No need for CT Head - cancelled. 3. Chronic Systolic CHF (non-ischemic), likely secondary to Cocaine use. Echo - LVH, EF 40%. No evidence of decompensation. Continue Coreg. Will resume Lasix once biochemistry is resulted today. 4. Depression/Anxiety - normally on Citalopram and Abilify, can resume. 5. SHANE sec to DKA/Vomiting - resolved s/p IV hydration. DVT Px - Heparin SQ Visit type - Emergency Visit Emergency Visit: Yes ED Registration Date: 03/31/19 Care time: The patient presented to the Emergency Department on the above date and was hospitalized for further evaluation of their emergent condition. - New Patient This patient is new to me today: No - Critical Care Critical Care patient: No - Discharge Referral Referred to [facility] No
[2019-04-03 13:11] LABS: BLOOD UREA NITROGEN 8.9 mg/dL (7-18); CALCIUM 8.2 mg/dL (8.5-10.1); CREATININE 1.1 mg/dL (0.55-1.3); POTASSIUM 4.4 mmol/L (3.5-5.1)
--- NOTE | 2019-04-03 13:53 | PN ---
Progress Note (short form) - Note Progress Note: Denies any complaints Vital Signs Period Temp Pulse Resp BP Sys/Marquis Pulse Ox Last 24 Hr 97.9 F-98.6 F 87-96 20-20 141-163/78-113 100-100 PE: AOx3 Neck: supple, No JVD HEENT: EOMI Lungs: CTA CVs: S1S2 Abd: Benign Ext: No edema Neuro: No focal deficit CMP Sodium 140 mmol/L (136-145) 04/03/19 12:35 Potassium 4.4 mmol/L (3.5-5.1) 04/03/19 12:35 Chloride 107 mmol/L (98-107) 04/03/19 12:35 Carbon Dioxide 27 mmol/L (21-32) 04/03/19 12:35 Anion Gap 7 MMOL/L (8-16) L 04/03/19 12:35 BUN 8.9 mg/dL (7-18) 04/03/19 12:35 Creatinine 1.1 mg/dL (0.55-1.3) 04/03/19 12:35 Est GFR (CKD-EPI)AfAm 80.24 04/03/19 12:35 Est GFR (CKD-EPI)NonAf 69.24 04/03/19 12:35 POC Glucometer 225 UNITS (80-120) 04/03/19 11:20 Random Glucose 195 mg/dL (74-106) H 04/03/19 12:35 Hemoglobin A1c % 11.8 % (4.2-6.3) H 04/01/19 06:15 Serum Osmolality 308 mosm/kg (278-305) H 04/01/19 01:09 Lactic Acid 1.5 mmol/L (0.4-2.0) 04/01/19 17:50 Calcium 8.2 mg/dL (8.5-10.1) L 04/03/19 12:35 Phosphorus 2.3 mg/dL (2.5-4.9) L 04/02/19 07:48 Magnesium 2.1 mg/dL (1.8-2.4) 04/02/19 07:48 Total Bilirubin 0.3 mg/dL (0.2-1) 04/02/19 07:48 AST 20 U/L (15-37) 04/02/19 07:48 ALT 19 U/L (13-61) 04/02/19 07:48 Alkaline Phosphatase 79 U/L (45-117) 04/02/19 07:48 Creatine Kinase 103 U/L (26-192) 04/02/19 07:48 Troponin I 0.04 ng/ml (0.00-0.05) 04/02/19 07:48 Total Protein 5.6 g/dl (6.4-8.2) L 04/02/19 07:48 Albumin 1.7 g/dl (3.4-5.0) L 04/02/19 07:48 Beta HCG, Quant < 1.0 mIU/ml 03/31/19 21:37 Current Medications Generic Name Dose Route Start Last Admin Trade Name Rema PRN Reason Stop Dose Admin Carvedilol 6.25 mg 04/01/19 22:00 04/03/19 10:24 Coreg - PO 6.25 mg BID [facility] Administration Heparin Sodium (Porcine) 5,000 unit 04/01/19 06:00 04/03/19 05:51 Heparin - SQ Not Given TID [facility] Insulin Aspart 1 vial 04/02/19 22:00 04/02/19 22:08 Novolog Vial Sliding Scale - SQ 6 units HS [facility] Administration Protocol Insulin Aspart 1 vial 04/03/19 13:49 Novolog Vial Sliding Scale - SQ TIDAC [facility] Protocol Insulin Detemir 30 units 04/04/19 07:00 Levemir Vial SQ ACBK [facility] Potassium Phos/Sodium Phos 1 packet 04/02/19 11:45 04/03/19 10:26 Phos-Nak Packet - PO 1 packet BID [facility] Administration AP; T1DM with hyperglycemia: A1C 11.8 CHF SHANE BGM QACHS Nutrition consult Levemir increased to 30 daily in AM Increase Novolog coverage Will F/U
[2019-04-03] MEDS: FUROSEMIDE 20 MG TABLET (FP) PO SCH (16:25)
[2019-04-03] MEDS: CITALOPRAM HYDROBROMIDE 20 MG TABLET (FP) PO SCH (16:25)
[2019-04-03] MEDS: ARIPiprazole 10 MG TABLET PO SCH (18:17)
[2019-04-03] MEDS ORDERED: ACETAMINOPHEN WITH CODEINE 300MG/30MG TABLET PO PRN (22:32)
[2019-04-04] MEDS: HEPARIN NA (PORCINE) 5,000 UNITS/ML 1ML VIAL SQ SCH (06:19)
[2019-04-04] MEDS: INSULIN SLIDING SCALE (NOVOLOG) 1 VIAL SQ SCH (06:19)
[2019-04-04 06:56] VITALS: TEMP 97.6
[2019-04-04] MEDS ORDERED: INSULIN (LEVEMIR) 100 UNITS/ML UNITS SQ SCH ×3 (07:00→22:00)
[2019-04-04] MEDS ORDERED: ASPIRIN COATED 81 MG TABLET.EC PO SCH (10:00)
[2019-04-04] MEDS ORDERED: PT OWN MED DRAWER 7, Y5N ONE (10:14)
[2019-04-04] MEDS: FUROSEMIDE 20 MG TABLET (FP) PO SCH (10:26)
[2019-04-04] MEDS: CARVEDILOL 6.25 MG TABLET (FP) PO SCH (10:26)
[2019-04-04] MEDS: CITALOPRAM HYDROBROMIDE 20 MG TABLET (FP) PO SCH (10:26)
[2019-04-04] MEDS: NAPH,MB-DB/K PH,MBDB POWDER PACKET PO SCH (10:27)
[2019-04-04] MEDS: ARIPiprazole 10 MG TABLET PO SCH (10:27)
--- NOTE | 2019-04-04 11:47 | PN ---
Progress Note (short form) - Note Progress Note: Denies any complaints Blood sugar still suboptimal Vital Signs Period Temp Pulse Resp BP Sys/Marquis Pulse Ox Last 24 Hr 97.6 F-99.2 F 85-92 20-20 147-165/68-100 100 PE: AOx3 Neck: supple, No JVD HEENT: EOMI Lungs: CTA CVs: S1S2 Abd: Benign Ext: No edema Neuro: No focal deficit CMP Sodium 140 mmol/L (136-145) 04/03/19 12:35 Potassium 4.4 mmol/L (3.5-5.1) 04/03/19 12:35 Chloride 107 mmol/L (98-107) 04/03/19 12:35 Carbon Dioxide 27 mmol/L (21-32) 04/03/19 12:35 Anion Gap 7 MMOL/L (8-16) L 04/03/19 12:35 BUN 8.9 mg/dL (7-18) 04/03/19 12:35 Creatinine 1.1 mg/dL (0.55-1.3) 04/03/19 12:35 Est GFR (CKD-EPI)AfAm 80.24 04/03/19 12:35 Est GFR (CKD-EPI)NonAf 69.24 04/03/19 12:35 POC Glucometer 344 UNITS (80-120) 04/04/19 06:13 Random Glucose 195 mg/dL (74-106) H 04/03/19 12:35 Hemoglobin A1c % 11.8 % (4.2-6.3) H 04/01/19 06:15 Serum Osmolality 308 mosm/kg (278-305) H 04/01/19 01:09 Lactic Acid 1.5 mmol/L (0.4-2.0) 04/01/19 17:50 Calcium 8.2 mg/dL (8.5-10.1) L 04/03/19 12:35 Phosphorus 2.3 mg/dL (2.5-4.9) L 04/02/19 07:48 Magnesium 2.1 mg/dL (1.8-2.4) 04/02/19 07:48 Total Bilirubin 0.3 mg/dL (0.2-1) 04/02/19 07:48 AST 20 U/L (15-37) 04/02/19 07:48 ALT 19 U/L (13-61) 04/02/19 07:48 Alkaline Phosphatase 79 U/L (45-117) 04/02/19 07:48 Creatine Kinase 103 U/L (26-192) 04/02/19 07:48 Troponin I 0.04 ng/ml (0.00-0.05) 04/02/19 07:48 Total Protein 5.6 g/dl (6.4-8.2) L 04/02/19 07:48 Albumin 1.7 g/dl (3.4-5.0) L 04/02/19 07:48 Beta HCG, Quant < 1.0 mIU/ml 03/31/19 21:37 Current Medications Generic Name Dose Route Start Last Admin Trade Name Freq PRN Reason Stop Dose Admin Acetaminophen/Codeine Phosphate 1 tab 04/03/19 22:32 04/03/19 23:13 Tylenol # 3 - PO 1 tab Q8H PRN Administration PAIN LEVEL 4 - 6 Aripiprazole 10 mg 04/03/19 15:45 04/04/19 10:27 Abilify PO 10 mg DAILY ALISA Administration Aspirin 81 mg 04/04/19 10:00 04/04/19 10:26 Ecotrin - PO 81 mg DAILY ALISA Administration Carvedilol 6.25 mg 04/01/19 22:00 04/04/19 10:26 Coreg - PO 6.25 mg BID ALISA Administration Citalopram Hydrobromide 20 mg 04/03/19 15:45 04/04/19 10:26 Celexa - PO 20 mg DAILY ALISA Administration Furosemide 20 mg 04/03/19 15:45 04/04/19 10:26 Lasix - PO 20 mg DAILY ALISA Administration Heparin Sodium (Porcine) 5,000 unit 04/01/19 06:00 04/04/19 06:19 Heparin - SQ Not Given TID ALISA Insulin Aspart 1 vial 04/02/19 22:00 04/03/19 21:52 Novolog Vial Sliding Scale - SQ 6 units HS [facility] Administration Protocol Insulin Aspart 1 vial 04/03/19 16:30 04/04/19 06:19 Novolog Vial Sliding Scale - SQ 10 units TIDAC [facility] Administration Protocol Insulin Detemir 35 units 04/04/19 08:04 Levemir Vial SQ ACBK [facility] Potassium Phos/Sodium Phos 1 packet 04/02/19 11:45 04/04/19 10:27 Phos-Nak Packet - PO 1 packet BID ALISA Administration AP; T1DM with hyperglycemia: A1C 11.8 CHF SHANE: resolving BGM QACHS Levemir increased to 35 daily in AM and add 10 units at HS Increase Novolog coverage Will F/U
[2019-04-04] MEDS ORDERED: INSULIN SLIDING SCALE (NOVOLOG) 1 VIAL SQ SCH (11:48)
--- NOTE | 2019-04-04 11:59 | PN ---
Teaching Attending Note Name of Resident: Shira Espinosa ATTENDING PHYSICIAN STATEMENT I saw and evaluated the patient. I reviewed the resident's note and discussed the case with the resident. I agree with the resident's findings and plan as documented. SUBJECTIVE: Awake, Oriented. tolerating oral intake. No further abdominal discomfort. No further nausea/vomiting. No hematemesis. No fever/chills. No dysuria/hematuria. No diarrhea. No cough/sputum. OBJECTIVE: Afebrile, Hemodynamically Stable. Last Vital Signs Temp Pulse Resp BP Pulse Ox 97.6 F 85 20 148/87 100 04/04/19 06:00 04/04/19 06:00 04/04/19 06:00 04/04/19 06:00 04/03/19 22:00 Heart - S1, S2, RRR Lungs - clear to auscultation. Abdomen - Soft, Non-tender. Bowel Sounds normal. Extremities - No edema, no calf tenderness. Neuro - AAO x 3. Ambulating. Laboratory Results - last 24 hr 04/03/19 04/03/19 04/03/19 12:35 17:18 21:44 Sodium 140 Potassium 4.4 Chloride 107 Carbon Dioxide 27 Anion Gap 7 L BUN 8.9 Creatinine 1.1 Est GFR (CKD-EPI)AfAm 80.24 Est GFR (CKD-EPI)NonAf 69.24 POC Glucometer 193 349 Random Glucose 195 H Calcium 8.2 L 04/04/19 06:13 Sodium Potassium Chloride Carbon Dioxide Anion Gap BUN Creatinine Est GFR (CKD-EPI)AfAm Est GFR (CKD-EPI)NonAf POC Glucometer 344 Random Glucose Calcium Current Medications Generic Name Dose Route Start Last Admin Trade Name Freq PRN Reason Stop Dose Admin Acetaminophen/Codeine Phosphate 1 tab 04/03/19 22:32 04/03/19 23:13 Tylenol # 3 - PO 1 tab Q8H PRN Administration PAIN LEVEL 4 - 6 Aripiprazole 10 mg 04/03/19 15:45 04/04/19 10:27 Abilify PO 10 mg DAILY ALISA Administration Aspirin 81 mg 04/04/19 10:00 04/04/19 10:26 Ecotrin - PO 81 mg DAILY ALISA Administration Carvedilol 6.25 mg 04/01/19 22:00 04/04/19 10:26 Coreg - PO 6.25 mg BID ALISA Administration Citalopram Hydrobromide 20 mg 04/03/19 15:45 04/04/19 10:26 Celexa - PO 20 mg DAILY ALISA Administration Furosemide 20 mg 04/03/19 15:45 04/04/19 10:26 Lasix - PO 20 mg DAILY ALISA Administration Heparin Sodium (Porcine) 5,000 unit 04/01/19 06:00 04/04/19 06:19 Heparin - SQ Not Given TID [facility] Insulin Aspart 1 vial 04/02/19 22:00 04/03/19 21:52 Novolog Vial Sliding Scale - SQ 6 units HS [facility] Administration Protocol Insulin Aspart 1 vial 04/04/19 11:48 Novolog Vial Sliding Scale - SQ TIDAC [facility] Protocol Insulin Detemir 35 units 04/04/19 08:04 Levemir Vial SQ ACBK [facility] Insulin Detemir 10 units 04/04/19 22:00 Levemir Vial SQ [facility] Potassium Phos/Sodium Phos 1 packet 04/02/19 11:45 04/04/19 10:27 Phos-Nak Packet - PO 1 packet BID [facility] Administration Home Medications Medication Instructions Recorded Citalopram Hydrobromide 20 mg PO DAILY 01/11/19 [Citalopram HBr] Furosemide 20 mg PO DAILY 01/11/19 Magnesium Oxide 600 mg PO BID 01/11/19 Aripiprazole [Abilify] 10 mg PO DAILY 04/01/19 Aspirin [Adult Aspirin Regimen] 81 mg PO DAILY 04/01/19 Carvedilol 6.25 mg PO BID 04/01/19 Insulin Glargine,Hum.rec.anlog 34 units SQ ACBK 04/01/19 [Basaglar Kwikpen U-100] Insulin Lispro [Humalog Kwikpen] See Protocol SQ ACHS 04/01/19 Insulin Lispro [Humalog] 3 unit HS 04/01/19 ASSESSMENT AND PLAN: 28 year old female with history of DM 2, Chronic Systolic CHF (non-ischemic, likely sec to cocaine), Substance Abuse (cocaine, last use 03/31) presents with hyperglycemia, nausea, vomiting after not taking insulin for one day. 1. DKA, secondary to non-compliance with home insulin regimen, improved s/p aggressive IV fluid resuscitation. Levemir increased to 35 units daily along with sliding scale. To resume home insulin regimen on discharge. Importance of compliance with insulin reinforced. DM 2 uncontrolled likely sec to medication non-compliance. A1C 11.8. Counselled and endocrinology consulted. To follow with Endocrinology as an out-patient. 2. AMS, likely sec to DKA, resolved. Now awake alert, with no neurological deficits. Admits to excessive cocaine use prior to admission. Denies other drug use. 3. Chronic Systolic CHF (non-ischemic), likely secondary to Cocaine use. Echo - LVH, EF 40%. No evidence of decompensation. Continue Coreg and resumed on Lasix. 4. Depression/Anxiety - history of self-harm (cuts arms), not suicidal currently , resumed on Citalopram and Abilify. 5. SHANE sec to DKA/Vomiting - resolved s/p IV hydration. DVT Px - Heparin SQ Medically optimized for discharge back to skilled nursing.
[2019-04-04] MEDS ORDERED: INSULIN (NOVOLOG) ASPART 100 UNITS/ML 10ML VIAL ONE (12:56)
[2019-04-04 13:24] VITALS: BP 132/92; PULSE 62
--- NOTE | 2019-04-04 18:46 | DS ---
Physical Exam: SUBJECTIVE: Patient seen and examined. In no acute distress. Denies CP/ SOB/ palpitations/ dizziness/ N/V/D. OBJECTIVE: Vital Signs Period Temp Pulse Resp BP Sys/Marquis Pulse Ox Last 24 Hr 97.6 F-99.2 F 62-92 18-20 132-165/87-100 100 PHYSICAL EXAM GENERAL: AOx3. In no acute distress. HEENT: NCAT. No scleral icterus. Moist mucous membranes. LUNGS: CTABL, no accessory muscle use. HEART: Normocardic. S1, S2 without murmur, rub or gallop. ABDOMEN: Obese. Soft, nontender, nondistended, normoactive bowel sounds, no guarding, no masses. EXTREMITIES: 2+ pulses, warm, well-perfused, no edema. PSYCH: Pt states she is feeling happy today. Denies SI/HI. SKIN: Pt has multiple healed scars from self-injurious cutting behaviors on b/l UE & LE. LABS Laboratory Results - last 24 hr 04/03/19 04/04/19 04/04/19 21:44 06:13 12:41 POC Glucometer 349 344 392 HOSPITAL COURSE: 28 y.o. F PMH DM type 2, prior DKA, non-ischemic systolic CHF, cocaine abuse ( last use 03/31/19), 3 miscarriages presented to [facility] with 1 day nausea and NBNB vomiting. Pt admitted to not having taken her insulin regimen for 1 day prior to admission. Found to be lethargic, serum glucose 613 in ED. Started on aggressive IV fluid resuscitation, Levemir and ISS with gradual improvement of symptoms. HbA1c 11.8. Spoke with patient regarding importance of medication compliance. Educated patient on dangers of cocaine abuse and importance of abstaining from cocaine. Patient is currently ambulating independently, tolerating PO diet and tending to her ADLs. Patient being discharged to her nursing home. Date of Admission:03/31/19 CXR 03/31/19: Cardiomegaly Echo 04/01/19: Septal motion is consistent with conduction abnormality. LV mildly dilated. There is mild concentric LVH. EF 40%. LA mildly dilated. Moderate MR, TR. Date of Discharge: 04/04/19 Minutes to complete discharge: 36 Discharge Summary Reason For Visit: ACUTE KIDNEY INJURY,HYPERGLYCEMIA Condition: Stable - Instructions Diet, Activity, Other Instructions: YOUR VISIT: You came to the hospital because you experienced nausea, vomiting, and lack of energy. Lab tests showed your blood sugar was very high and you were admitted to the hospital. You received treatment for your blood sugar, heart problem, and depression. It was recommended that you no longer use cocaine and were offered ways to help quit. While you were here you lab work showed that you have an anemia. Please follow up with your primary care provider for further management of your anemia. MEDICATIONS: 1. Continue Insulin Glargine 34 units at bedtime. 2. Continue humalog sliding scale three times a day with meals and at bedtime. 3. Continue your other home medications. PLEASE FOLLOW UP WITH THE FOLLOWING PHYSICIANS: 1. Please follow up with your primary care provider Dr. Andrade in 1 week. 2. Please follow up with your psychiatrist Dr. Huber. 3. Se[employer] Dr. Marinelli in 1 week. FURTHER INSTRUCTIONS: You are being discharged to your home. Please go to the emergency department if you feel short of breath, chest pain, fevers, confusion, fatigue, blurry vision, weakness, unusual bleeding or any other alarming symptoms. Please continue to take all other medications as prescribed. Referrals: Joel Marinelli MD [Staff Physician] - Disposition: HOME - Home Medications Comprehensive Discharge Medication List: Ambulatory Orders Citalopram Hydrobromide [Citalopram HBr] 20 mg PO DAILY 01/11/19 Furosemide 20 mg PO DAILY 01/11/19 Magnesium Oxide 600 mg PO BID 01/11/19 Aripiprazole [Abilify] 10 mg PO DAILY 04/01/19 Aspirin [Adult Aspirin Regimen] 81 mg PO DAILY 04/01/19 Carvedilol 6.25 mg PO BID 04/01/19 Insulin Glargine,Hum.rec.anlog [Basaglar Kwikpen U-100] 34 units SQ ACBK Insulin Lispro [Humalog Kwikpen U-200] See Protocol SQ ACHS 04/01/19 Lancets/Blood Glucose Strips [Fora [id number] Strp-Lnct] 1 each [facility] #1 combo..pkg 04/04/19 This patient is new to me today: No Emergency Visit: No Critical Care patient: No - Discharge Referral Referred to [facility] No ATTENDING PHYSICIAN STATEMENT I saw and evaluated the patient. I reviewed the resident's note and discussed the case with the resident. I agree with the resident's findings and plan as documented. SUBJECTIVE: OBJECTIVE: ASSESSMENT AND PLAN:
== END 2019-04-04 14:02 | disposition home or self-care (01) | DRG 420 ==
LOC: JER 21:01 → JERBED 23:52 → J4W 04-01 21:33
PROVIDERS: ADMIT Internal Medicine
DX: E10.10 Type 1 diabetes mellitus with ketoacidosis without coma (principal); N17.9 Acute kidney failure, unspecified; I11.0 Hypertensive heart disease with heart failure; I50.22 Chronic systolic (congestive) heart failure; E87.1 Hypo-osmolality and hyponatremia; E83.39 Other disorders of phosphorus metabolism; I42.8 Other cardiomyopathies; Z79.4 Long term (current) use of insulin; Z72.0 Tobacco use; F14.10 Cocaine abuse, uncomplicated; Z91.14 Patient's other noncompliance with medication regimen; F32.9 Major depressive disorder, single episode, unspecified; F41.9 Anxiety disorder, unspecified
CPT/HCPCS: 36415; 36600; 71045-TC-FY; 76700-TC; 80048; 80053; 80307; 81003; 82009; 82375; 82436; 82550; 82565; 82803; 82962; 83036; 83050; 83605; 83735; 83930; 84100; 84133; 84300; 84484; 84702; 85025; 85610; 85730; 87086; 93005; 93010; 93306-TC; 97116-GP; 97161-GP; 99285-25; J0131; J1644; J7030

== ENCOUNTER 2019-09-30 10:40 | Emergency (ER) | payer OTHER ==
[2019-09-30 11:00] VITALS: TEMP 98.2; BMI 36.1
--- NOTE | 2019-09-30 13:26 | PDOC ---
History of Present Illness - General Chief Complaint: [facility] Stated Complaint: Vaginal Sxs/POSSIBLE Time Seen by Provider: 09/30/19 11:28 - History of Present Illness Initial Comments: 09/30/19 13:25 29-year-old female requesting a test no symptoms Past History - Past Medical History Allergies/Adverse Reactions: Allergies Allergy/AdvReac Type Severity Reaction Status Date / Time haloperidol [From Haldol] Allergy Verified 09/30/19 10:57 Home Medications: Ambulatory Orders Citalopram Hydrobromide [Citalopram HBr] 20 mg PO DAILY 01/11/19 Furosemide 20 mg PO DAILY 01/11/19 Magnesium Oxide 600 mg PO BID 01/11/19 Aripiprazole [Abilify] 10 mg PO DAILY 04/01/19 Aspirin [Adult Aspirin Regimen] 81 mg PO DAILY 04/01/19 Carvedilol 6.25 mg PO BID 04/01/19 Insulin Glargine,Hum.rec.anlog [Basaglar Kwikpen U-100] 34 units SQ ACBK Insulin Lispro [Humalog Kwikpen U-200] See Protocol SQ ACHS 04/01/19 Lancets/Blood Glucose Strips [Fora [id number] Strp-Lnct] 1 each ACHS #1 combo..pkg 04/04/19 COPD: No CHF: Yes Diabetes: Yes (DKA) HTN: Yes - Immunization History TDAP Vaccination: Yes Immunization Up to Date: Yes - Psycho Social/Smoking Cessation Hx Smoking History: Never smoked Have you smoked in the past 12 months: No Number of Cigarettes Smoked Daily: 2 Information on smoking cessation initiated: No Hx Alcohol Use: No Drug/Substance Use Hx: No Substance Use Type: Cocaine Hx Substance Use Treatment: No Review of Systems - Review of Systems Constitutional: No: Fever *Physical Exam - Vital Signs Last Vital Signs Temp Pulse Resp BP Pulse Ox 98.2 F 89 16 138/78 100 09/30/19 10:57 09/30/19 10:57 09/30/19 10:57 09/30/19 10:57 09/30/19 10:57 - Physical Exam 09/30/19 13:25 GENERAL: The patient is awake, alert, and fully oriented, in no acute distress. HEAD: Normal with no signs of trauma. EYES: sclera anicteric, conjunctiva clear. PSYCH: Normal mood, normal affect. SKIN: Warm, Dry, normal turgor, no rashes or lesions noted. ED Treatment Course - ADDITIONAL ORDERS Additional order review: Laboratory Results 09/30/19 12:52 Urine HCG, Qual Negative Discharge - Discharge Information Problems reviewed: Yes Clinical Impression/Diagnosis: test negative Condition: Stable Disposition: HOME - Admission No - Follow up/Referral Referrals: Ronak Cole MD [Primary Care Provider] - - Patient Discharge Instructions Additional Instructions: Return to the emergency room for further issues and follow-up with your primary care physician - Post Discharge Activity
[2019-09-30] MEDS ORDERED: SODIUM CHLORIDE 1,000 ML IV STA (16:09)
[2019-09-30] MEDS ORDERED: INSULIN REGULAR HUMAN 100 UNITS/ML *VIAL IVPUSH ONE ×2 (16:10→20:01)
[2019-09-30] MEDS ORDERED: ONDANSETRON 4 MG/2 ML VIAL IVPB ONE (16:59)
--- NOTE | 2019-09-30 17:44 | PDOC ---
*Physical Exam - Vital Signs Last Vital Signs Temp Pulse Resp BP Pulse Ox 98.2 F 89 16 138/78 100 09/30/19 10:57 09/30/19 10:57 09/30/19 10:57 09/30/19 10:57 09/30/19 10:57 - Physical Exam General Appearance: Yes: Appropriately Dressed Respiratory/Chest: positive: Lungs Clear, Normal Breath Sounds Neurologic: positive: Fully Oriented, Alert ED Treatment Course - LABORATORY CBC & Chemistry Diagram: 09/30/19 17:59 09/30/19 17:59 - ADDITIONAL ORDERS Additional order review: Laboratory Results 09/30/19 09/30/19 13:41 12:52 POC Glucometer > 600 Urine HCG, Qual Negative 09/30/19 13:41 POC Glucometer > 600 Medical Decision Making - Medical Decision Making 09/30/19 19:04 09/30/19 17:45 patient unable to get blood draw POOR access. PENDING ULtrasound IV placement 09/30/19 20:52 patient is feeling better. blood sugar decreased . patient is tolerating water. will d/c home. advised to adhere to diet and insulin management., patient verbalized understanding. 10/01/19 01:36 Discharge - Discharge Information Problems reviewed: Yes Clinical Impression/Diagnosis: test negative, Hyperglycemia Condition: Stable Disposition: HOME - Follow up/Referral Referrals: Ronak Cole MD [Primary Care Provider] - - Patient Discharge Instructions Patient Printed Discharge Instructions: DI for Hyperglycemia -- Adult Additional Instructions: Return to the emergency room for further issues and follow-up with your primary care physician drink plenty of fluids follow up with your doctor please take your insulin as prescribed. avoid high carb diet. Additional Instructions: * Please call your personal physician to report your Emergency Department visit and to report your progress, if any. * If there is no improvement in symptoms in 2 days call your physician. * Return to the Emergency Department for any worsening symptoms. - Post Discharge Activity
[2019-09-30] MEDS ORDERED: ONDANSETRON 4 MG/2 ML VIAL ONE ×2 (18:17→18:20)
[2019-09-30 18:18] LABS: BASO % 0.9 % (0-2.0); EOS % 1.1 % (0-4.5); HEMATOCRIT 33.3 % (32.4-45.2); HEMOGLOBIN 10.7 GM/dL (10.7-15.3); LYMPH % 20.6 % (8-40); MCH 27.3 pg (25.7-33.7); MCHC 32.1 g/dl (32.0-36.0); MEAN CELL VOLUME 85.2 fl (80-96); MEAN PLT VOLUME 9.9 fl (7.5-11.1); MONO % 8.6 % (3.8-10.2); NEUT % 68.8 % (42.8-82.8); PLATELET COUNT 284 K/MM3 (134-434); RBC 3.91 M/mm3 (3.60-5.2); RDW 15.3 % (11.6-15.6); VENOUS PC02 49.8 mmHg (38-52); WHITE BLOOD COUNT 6.2 K/mm3 (4.0-10.0)
[2019-09-30 18:19] LABS: VENOUS PO2 < 49 mmHg (28-48)
[2019-09-30] MEDS ORDERED: INSULIN REGULAR HUMAN 100 UNITS/ML *VIAL ONE (18:19)
[2019-09-30 18:44] LABS: ALBUMIN 2.2 g/dl (3.4-5.0); BILIRUBIN,TOTAL 0.2 mg/dL (0.2-1); BLOOD UREA NITROGEN 20.6 mg/dL (7-18); CALCIUM 8.7 mg/dL (8.5-10.1); CREATININE 1.5 mg/dL (0.55-1.3); POTASSIUM 4.6 mmol/L (3.5-5.1); TOT PROT 6.3 g/dl (6.4-8.2)
[2019-09-30] MEDS ORDERED: SODIUM CHLORIDE 0.9% 500 ML INFUS.BAG IV ONE (18:59)
[2019-09-30 21:38] VITALS: BP 137/93; PULSE 85
== END 2019-09-30 21:40 | disposition home or self-care (01) ==
LOC: JER 10:40 → JERFT 10:40 → JER 21:40
PROC: 3E013VG Introduction of Insulin into Subcutaneous Tissue, Percutaneous Approach (ICD-10-PCS; principal; 2019-09-30)
PROC: 3E033GC Introduction of Other Therapeutic Substance into Peripheral Vein, Percutaneous Approach (ICD-10-PCS; 2019-09-30)
PROC: 3E0337Z Introduction of Electrolytic and Water Balance Substance into Peripheral Vein, Percutaneous Approach (ICD-10-PCS; 2019-09-30)
DX: Z32.02 Encounter for pregnancy test, result negative (principal); E11.10 Type 2 diabetes mellitus with ketoacidosis without coma; I10 Essential (primary) hypertension; I25.10 Atherosclerotic heart disease of native coronary artery without angina pectoris; Z88.8 Allergy status to other drugs, medicaments and biological substances; Z79.4 Long term (current) use of insulin
CPT/HCPCS: 36415; 80053; 82010; 82803; 82962; 84703; 85025; 96361; 96374; 96375; 99282-25; J7030

== ENCOUNTER 2019-10-26 22:39 | Inpatient (IN) | payer OTHER ==
[2019-10-27] MEDS ORDERED: ONDANSETRON 4 MG/2 ML VIAL IVPUSH ONE (00:21)
[2019-10-27] MEDS ORDERED: SODIUM CHLORIDE 1,000 ML IV STA ×2 (00:21→02:42)
--- NOTE | 2019-10-27 00:21 | PDOC ---
*Physical Exam - Vital Signs Last Vital Signs Temp Pulse Resp BP Pulse Ox 98.6 F 115 H 18 89/59 L 100 10/26/19 22:50 10/26/19 22:50 10/26/19 22:50 10/26/19 22:50 10/26/19 22:50 ED Treatment Course - LABORATORY CBC & Chemistry Diagram: 10/27/19 01:25 10/27/19 01:25 Medical Decision Making - Critical Care Time Total Critical Care Time (minutes): 100 Critical Care Statement: The care of this patient involved high complexity decision making to prevent further life threatening deterioration of the patient 's condition and/or to evaluate & treat vital organ system(s) failure or risk of failure. - Medical Decision Making 10/27/19 00:21 Patient seen by the advanced practice provider under my supervision. Ancillary testing reviewed as necessary. I agree with plan as outlined by the advanced practice provider. Discharge - Discharge Information Problems reviewed: Yes Clinical Impression/Diagnosis: Diabetic ketoacidosis Qualifiers: Diabetes mellitus type: type 1 Diabetes mellitus complication detail: without coma Qualified Code(s): E10.10 - Type 1 diabetes mellitus with ketoacidosis without coma Condition: Guarded - Follow up/Referral - Patient Discharge Instructions - Post Discharge Activity
[2019-10-27] MEDS ORDERED: ONDANSETRON 4 MG/2 ML VIAL ONE ×2 (00:56→08:48)
[2019-10-27] MEDS ORDERED: ONDANSETRON *ODT* 4 MG TABLET SL ONE (01:04)
[2019-10-27] MEDS ORDERED: ONDANSETRON *ODT* 4 MG TABLET ONE (01:06)
[2019-10-27] MEDS ORDERED: INSULIN REGULAR HUMAN 100 UNITS/ML *VIAL IVPUSH ONE (01:16)
[2019-10-27 01:34] LABS: BASO % 0.2 % (0-2.0); HEMATOCRIT 31.3 % (32.4-45.2); HEMOGLOBIN 9.7 GM/dL (10.7-15.3); MCH 27.3 pg (25.7-33.7); MCHC 31.1 g/dl (32.0-36.0); MEAN CELL VOLUME 87.9 fl (80-96); MEAN PLT VOLUME 12.4 fl (7.5-11.1); MONO % 4.3 % (3.8-10.2); NEUT % 85.5 % (42.8-82.8); PLATELET COUNT 168 K/MM3 (134-434); RBC 3.56 M/mm3 (3.60-5.2); RDW 15.4 % (11.6-15.6); WHITE BLOOD COUNT 8.6 K/mm3 (4.0-10.0)
[2019-10-27 02:06] LABS: ALBUMIN 2.7 g/dl (3.4-5.0); ALK PHOS 77 U/L (45-117); ANION GAP 20 MMOL/L (8-16); BILIRUBIN,TOTAL 0.6 mg/dL (0.2-1); BLOOD UREA NITROGEN 33.3 mg/dL (7-18); CALCIUM 8.6 mg/dL (8.5-10.1); CHLORIDE 101 mmol/L (98-107); CO2 14 mmol/L (21-32); CREATININE 1.9 mg/dL (0.55-1.3); POTASSIUM 5.1 mmol/L (3.5-5.1); SGOT/AST 24 U/L (15-37); SGPT/ALT 13 U/L (13-61); SODIUM 136 mmol/L (136-145); TOT PROT 6.6 g/dl (6.4-8.2)
--- NOTE | 2019-10-27 02:09 | PDOC ---
History of Present Illness - General Chief Complaint: Blood Sugar Problem Stated Complaint: HIGH BLOOD SUGAR Time Seen by Provider: 10/27/19 00:13 History Source: Patient Exam Limitations: No Limitations Past History - Past Medical History Allergies/Adverse Reactions: Allergies Allergy/AdvReac Type Severity Reaction Status Date / Time haloperidol [From Haldol] Allergy Verified 10/26/19 22:57 Home Medications: Ambulatory Orders Citalopram Hydrobromide [Citalopram HBr] 20 mg PO DAILY 01/11/19 Furosemide 20 mg PO DAILY 01/11/19 Magnesium Oxide 600 mg PO BID 01/11/19 Aripiprazole [Abilify] 10 mg PO DAILY 04/01/19 Aspirin [Adult Aspirin Regimen] 81 mg PO DAILY 04/01/19 Carvedilol 6.25 mg PO BID 04/01/19 Insulin Glargine,Hum.rec.anlog [Basaglar Kwikpen U-100] 34 units SQ ACBK Insulin Lispro [Humalog Kwikpen U-200] See Protocol SQ ACHS 04/01/19 Lancets/Blood Glucose Strips [Fora [id number] Strp-Lnct] 1 each [facility]CH[facility] #1 combo..pkg 04/04/19 COPD: No CHF: Yes Diabetes: Yes (DKA) HTN: Yes - Immunization History TDAP Vaccination: Yes Immunization Up to Date: Yes - Psycho Social/Smoking Cessation Hx Smoking History: Never smoked Have you smoked in the past 12 months: No Number of Cigarettes Smoked Daily: 2 Hx Alcohol Use: No Drug/Substance Use Hx: No Substance Use Type: Cocaine Hx Substance Use Treatment: No *Physical Exam - Vital Signs Last Vital Signs Temp Pulse Resp BP Pulse Ox 98.6 F 115 H 18 89/59 L 100 10/26/19 22:50 10/26/19 22:50 10/26/19 22:50 10/26/19 22:50 10/26/19 22:50 - Physical Exam General Appearance: Yes: Disheveled. No: Apparent Distress Respiratory/Chest: positive: Lungs Clear, Normal Breath Sounds. negative: Respiratory Distress Cardiovascular: positive: Tachycardia. negative: Murmur Gastrointestinal/Abdominal: positive: Tender (generalized), Soft Neurologic: positive: Alert ED Treatment Course - LABORATORY CBC & Chemistry Diagram: 10/27/19 01:25 10/27/19 01:25 - ADDITIONAL ORDERS Additional order review: Laboratory Results 10/27/19 10/27/19 01:25 00:46 POC Glucometer 447 Serum , Qual Negative 10/27/19 10/27/19 01:25 00:46 RBC 3.56 L MCV 87.9 MCHC 31.1 L RDW 15.4 MPV 12.4 H D Neutrophils % 85.5 H D Lymphocytes % 10.0 D Monocytes % 4.3 Eosinophils % 0.0 D Basophils % 0.2 POC Glucometer 447 - Medications Given in the ED: ED Medications Discontinued Medications Generic Name Dose Route Start Last Admin Trade Name Freq PRN Reason Stop Dose Admin Sodium Chloride 1,000 mls @ 1,000 mls/hr 10/27/19 00:21 10/27/19 01:19 Normal Saline - IV 10/27/19 01:20 1,000 mls/hr ASDIR STA Administration Insulin Human Regular 8 units 10/27/19 01:16 10/27/19 01:40 Novolin R Vial *For Ivpush Or Iv Drip Only* IVPUSH 10/27/19 01:17 8 units ONCE ONE Administration Ondansetron HCl 4 mg 10/27/19 00:21 10/27/19 01:19 Zofran Injection IVPUSH 10/27/19 00:22 4 mg ONCE ONE Administration Ondansetron HCl 4 mg 10/27/19 01:04 10/27/19 01:19 Zofran Odt - SL 10/27/19 01:05 Not Given ONCE ONE Medical Decision Making - Medical Decision Making 29 y/o F hx of HTN, DM, depression presents to ED with bilious emesis. Patient mentions she thinks she overdosed on crack cocaine. Patient keeps stating "I " and then "I came back" repeatedly. States she called ambulance. Denies fever, URI sxs, abd pain, diarrhea. Patient is poor historian. Denies other drug use. Labs show concern for DKA Patient states she is compliant with insulin but has been in ED prior for hyperglycemia Insulin drip ordered Patient to be admitted to ICU 10/27/19 02:05 Discharge - Discharge Information Problems reviewed: Yes Clinical Impression/Diagnosis: Diabetic ketoacidosis Qualifiers: Diabetes mellitus type: type 1 Diabetes mellitus complication detail: without coma Qualified Code(s): E10.10 - Type 1 diabetes mellitus with ketoacidosis without coma Condition: Stable - Admission Yes - Follow up/Referral - Patient Discharge Instructions - Post Discharge Activity
[2019-10-27 02:10] LABS: GLUCOSE,RANDOM 525 mg/dL (74-106)
[2019-10-27] MEDS ORDERED: KCL 10 MEQ IVPB 20 MEQ/200 ML INFUS.BAG IVPB ONE (02:27)
[2019-10-27] MEDS ORDERED: KCL 10 MEQ IVPB 10 MEQ/100 ML INFUS.BAG IVPB SCH (02:30)
[2019-10-27] MEDS ORDERED: SODIUM CHLORIDE 1,000 ML with POTASSIUM CHLORIDE 20 MEQ IVPB STA (02:43)
[2019-10-27 02:57] LABS: VENOUS PC02 26.2 mmHg (38-52); VENOUS PH 7.32 (7.31-7.41); VENOUS PO2 70.8 mmHg (28-48)
[2019-10-27] MEDS: INSULIN REGULAR 100 UNITS in SODIUM CHLORIDE 99 ML IVPB SCH (03:03)
--- NOTE | 2019-10-27 03:13 | CONSULT ---
Consultation: REQUESTING PROVIDER: CONSULT REQUEST: We have been asked to medically evaluate this patient for DKA HISTORY OF PRESENT ILLNESS: 29 y/o F with hx of DM2 c/b DKA, HTN, cocaine abuse presenting with emesis and SOB. She reports she thinks she overdosed on cocaine earlier today. And endorsed multiple episodes of emesis. She otherwise is a poor historian and is lethargic during exam. Denies chest pain REVIEW OF SYSTEMS: limited 2/2 patient's mental status PHYSICAL EXAMINATION Vital Signs - 24 hr 10/26/19 22:50 Temperature 98.6 F Pulse Rate 115 H Respiratory 18 Rate Blood Pressure 89/59 L O2 Sat by Pulse 100 Oximetry (%) GENERAL: lethargic, arouseable HEAD: Normal with no signs of trauma. EYES: Pupils equal, round and reactive to light, extraocular movements intact, sclera anicteric, conjunctiva clear. No lid lag. EARS, NOSE, THROAT: Ears normal, nares patent, no evidence of septal perforation, oropharynx clear without exudates. Moist mucous membranes. NECK: Normal range of motion, supple without lymphadenopathy, JVD, or masses. LUNGS: Breath sounds equal, clear to auscultation bilaterally. No wheezes, and no crackles. No accessory muscle use. HEART: tachycardic, regular rhythm, normal S1 and S2 without murmur, rub or gallop. ABDOMEN: Soft, mild diffuse ttp, not distended, normoactive bowel sounds, no guarding, no rebound, no masses. No hepatomegaly or splenomegaly. MUSCULOSKELETAL: Normal range of motion at all joints. No bony deformities or tenderness. No CVA tenderness. LOWER EXTREMITIES: 2+ pulses, warm, well-perfused. No calf tenderness. No peripheral edema. NEUROLOGICAL: limited 2/2 lethargy, follows simple commands, arouseable PSYCHIATRIC: limited SKIN: Warm, dry, normal turgor, no rashes or lesions noted. Laboratory Results - last 24 hr 10/27/19 10/27/19 10/27/19 00:46 01:25 01:25 WBC 8.6 RBC 3.56 L Hgb 9.7 L Hct 31.3 L MCV 87.9 MCH 27.3 MCHC 31.1 L RDW 15.4 Plt Count 168 D MPV 12.4 H D Absolute Neuts (auto) 7.3 Neutrophils % 85.5 H D Lymphocytes % 10.0 D Monocytes % 4.3 Eosinophils % 0.0 D Basophils % 0.2 Nucleated RBC % 0 Sodium 136 Potassium 5.1 Chloride 101 Carbon Dioxide 14 L Anion Gap 20 H BUN 33.3 H Creatinine 1.9 H Est GFR (CKD-EPI)AfAm 41.15 Est GFR (CKD-EPI)NonAf 35.51 POC Glucometer 447 Random Glucose 525 H* Lactic Acid Calcium 8.6 Total Bilirubin 0.6 AST 24 ALT 13 Alkaline Phosphatase 77 Creatine Kinase Creatine Kinase Index CK-MB (CK-2) Troponin I Total Protein 6.6 Albumin 2.7 L Beta-Hydroxybutyrate > 46.0 H Serum , Qual 10/27/19 10/27/19 10/27/19 01:25 01:25 01:25 WBC RBC Hgb Hct MCV MCH MCHC RDW Plt Count MPV Absolute Neuts (auto) Neutrophils % Lymphocytes % Monocytes % Eosinophils % Basophils % Nucleated RBC % Sodium Potassium Chloride Carbon Dioxide Anion Gap BUN Creatinine Est GFR (CKD-EPI)AfAm Est GFR (CKD-EPI)NonAf POC Glucometer Random Glucose Lactic Acid 2.5 H* Calcium Total Bilirubin AST ALT Alkaline Phosphatase Creatine Kinase 391 H Creatine Kinase Index 1.6 CK-MB (CK-2) 6.27 H Troponin I 0.38 H Total Protein Albumin Beta-Hydroxybutyrate Serum , Qual Negative 10/27/19 02:47 WBC RBC Hgb Hct MCV MCH MCHC RDW Plt Count MPV Absolute Neuts (auto) Neutrophils % Lymphocytes % Monocytes % Eosinophils % Basophils % Nucleated RBC % Sodium Potassium Chloride Carbon Dioxide Anion Gap BUN Creatinine Est GFR (CKD-EPI)AfAm Est GFR (CKD-EPI)NonAf POC Glucometer 311 Random Glucose Lactic Acid Calcium Total Bilirubin AST ALT Alkaline Phosphatase Creatine Kinase Creatine Kinase Index CK-MB (CK-2) Troponin I Total Protein Albumin Beta-Hydroxybutyrate Serum , Qual Active Medications Generic Name Dose Route Start Last Admin Trade Name Freq PRN Reason Stop Dose Admin Insulin Human Regular 100 100 mls @ 9.07 mls/hr 10/27/19 02:30 units/ Sodium Chloride IVPB TITR ALISA Protocol 0.1 UNITS/KG/HR Potassium Chloride 10 meq in 100 mls @ 100 mls/hr 10/27/19 02:30 Potassium Chloride 10 Meq Premix Ivpb - IVPB 02/27/20 04:29 Q60M ALISA Potassium Chloride 20 meq/ 1,010 mls @ 1,000 mls/hr 10/27/19 02:43 Sodium Chloride IVPB 10/27/19 03:42 ASDIR STA ASSESSMENT/PLAN: 29 y/o F with hx of DM2 c/b DKA, HTN, cocaine abuse presenting with emesis and SOB, also with cocaine abuse today. Found to be in DKA with BP 89/51 HR 115 Neuro: -lethargy but arousable; a&ox1; follows simple commands -q1hr bgm and frequent mental status checks Endo: -Glu 525, AG 20, bicarb 14, beta hydroxy >46, K 5.1, pH 7.32 -s/p 8 units insulin -administer insulin drip -administer aggressive hydration with NS and KCl riders (received 2L with 1 20meq k-rider) -q1hr bgm and q2hr BMP -once glucose <250 will add d5 to fluids -once gap has closed and patient tolerates PO will dc insulin gtt and transition to sq insulin -endo consulted Cardio: -BP 89/59 HR 115 s/p 2L -trop 0.38 no ekg changes; will trend -cocaine abuse; avoid beta blockers Pulm: -100% O2 on RA GI: -NPO utnl gap closes and patient tolerates PO Renal: -Cr 1.9 AK_ likely 2/2 dehydration -will continue to monitor following ivf Dispo: We will continue to follow the patient. Thank you for this consultative opportunity. Visit type - Emergency Visit Emergency Visit: Yes ED Registration Date: 10/27/19 Care time: The patient presented to the Emergency Department on the above date and was hospitalized for further evaluation of their emergent condition. - New Patient This patient is new to me today: Yes Date on this admission: 10/27/19 - Critical Care Critical Care patient: Yes Total Critical Care Time (in minutes): 35 Critical Care Statement: The care of this patient involved high complexity decision making to prevent further life threatening deterioration of the patient's condition and/or to evaluate & treat vital organ system(s) failure or risk of failure. ATTENDING PHYSICIAN STATEMENT I saw and evaluated the patient. I reviewed the resident's note and discussed the case with the resident. I agree with the resident's findings and plan as documented. SUBJECTIVE: OBJECTIVE: ASSESSMENT AND PLAN:
--- NOTE | 2019-10-27 03:18 | PN ---
Teaching Attending Note Name of Resident: Bhupendra Soto ATTENDING PHYSICIAN STATEMENT I saw and evaluated the patient. I reviewed the resident's note and discussed the case with the resident. I agree with the resident's findings and plan as documented. SUBJECTIVE: Patient is a 29 year old woman with PMH of IDDM, Cocaine abuse, Multiple DKAs, HTN, Depression, Nonadherence with diabetes regimen and CHF presenting with vomiting and SOB. She reports she thinks she overdosed on cocaine earlier today and has had multiple episodes of emesis. She was unable to provide additional information due to poor mental status.Denies chest pain, dizziness, fever, chills, diarrhea, constipation, dysuria, frequency, urgency or hematuria. Patient is single, unemployed and on social security disability. She does not offer any reason for her global nonadherence to general care nor why she does not have a PCP/relay tester. Has reportedly had over 10 bouts of DKA in the past year. Denies tobacco use or alcohol abuse. No sick contacts or recent travels. OBJECTIVE: Somnolent but arousable Vital Signs Period Temp Pulse Resp BP Sys/Marquis Pulse Ox Last 24 Hr 98.6 F 115-122 18 89-101/46-59 96-100 HEENT: No Jaundice, eye redness or discharge, PERRLA, EOMI. Normocephalic, atraumatic. External ears are normal and hearing is grossly intact. No nasal discharge. Neck: Supple, nontender. No palpable adenopathy or thyromegaly. No JVD Chest: Good effort. Clear to auscultation and percussion. Heart: Regular. No S3, rub or murmur Abdomen: Not distended, soft, nontender and no HSM. No rebound or guarding. Normal bowel sounds. Ext: Peripheral pulses intact. No leg edema. Skin: Warm and dry. No petechiae, rash or ecchymosis. Neuro: Somnolent but arousable. Oriented x3. CN 2-12 grossly intact. Sensation grossly intact in all four extremities and DTR are symmetric. Psych: Appropriate mood and affect. Good insight. Current Medications Generic Name Dose Route Start Last Admin Trade Name Freq PRN Reason Stop Dose Admin Insulin Human Regular 100 100 mls @ 9.07 mls/hr 10/27/19 02:30 10/27/19 03:03 units/ Sodium Chloride IVPB 0.1 units/kg/hr TITR ALISA 9.07 mls/hr Administration Protocol 0.1 UNITS/KG/HR Potassium Chloride 20 meq/ 1,010 mls @ 1,000 mls/hr 10/27/19 02:43 Sodium Chloride IVPB 10/27/19 03:42 ASDIR STA Home Medications Medication Instructions Recorded Citalopram Hydrobromide 20 mg PO DAILY 01/11/19 [Citalopram HBr] Furosemide 20 mg PO DAILY 01/11/19 Magnesium Oxide 600 mg PO BID 01/11/19 Aripiprazole [Abilify] 10 mg PO DAILY 04/01/19 Aspirin [Adult Aspirin Regimen] 81 mg PO DAILY 04/01/19 Carvedilol 6.25 mg PO BID 04/01/19 Insulin Glargine,Hum.rec.anlog 34 units SQ ACBK 04/01/19 [Basaglar Kwikpen U-100] Insulin Lispro [Humalog Kwikpen See Protocol SQ ACHS 04/01/19 U-200] Lancets/Blood Glucose Strips [Fora 1 each [facility] #1 combo..pkg 04/04/19 [id number] Strp-Lnct] Abnormal Lab Results 10/27/19 10/27/19 10/27/19 01:25 01:25 01:25 RBC 3.56 L Hgb 9.7 L Hct 31.3 L MCHC 31.1 L MPV 12.4 H D Neutrophils % 85.5 H D POC VBG pCO2 POC VBG pO2 VBG HCO3 VBG O2 Sat (Erica) VBG Base Excess Carbon Dioxide 14 L Anion Gap 20 H BUN 33.3 H Creatinine 1.9 H Random Glucose 525 H* Lactic Acid Creatine Kinase 391 H CK-MB (CK-2) 6.27 H Troponin I 0.38 H Albumin 2.7 L Beta-Hydroxybutyrate > 46.0 H 10/27/19 10/27/19 01:25 02:47 RBC Hgb Hct MCHC MPV Neutrophils % POC VBG pCO2 26.2 L POC VBG pO2 70.8 H VBG HCO3 13.0 L VBG O2 Sat (Erica) 92.0 H VBG Base Excess -11.7 L Carbon Dioxide Anion Gap BUN Creatinine Random Glucose Lactic Acid 2.5 H* Creatine Kinase CK-MB (CK-2) Troponin I Albumin Beta-Hydroxybutyrate ASSESSMENT AND PLAN: 1. Diabetic ketoacidosis - Likely precipitated by nonadherence. Will be treated in the ICU in accordance with the DKA protocol - on IV insulin drip and will monitor and replenish K+. UA and CXR pending. Will provide comprehensive diabetes care with patient teaching and counseling about the importance of adherence to prescribed diabetes regimen, euglycemia, eye care and foot care. Elevated troponin may signal reduced clearance and/or demand ischemia. EKG shows sinus tachycardia at 121/minute, LAE, inferior and anteroseptal infarct of undetermined age - changed from her previous EKG. Will trend troponin to rule out ACS. Get ECHO if troponin is rising. Consult head screen worker for help with outpatient general care. Will continue comprehensive care for all of patients comorbid conditions. 2. Hypoalbuminemia - Possibly due to combined effects of malnutrition and inflammation associated with comorbid chronic conditions. Will ensure adequate dietary protein intake and also consult combination welder. 3. CKD - Likely has diabetic nephropathy with superimposed SHANE due to dehydration. Will hydrate, consult nephrology and avoid nephrotoxic agents such as NSAIDS, aminoglycosides, contrast dyes and certain Alternative medicine products. 4. Anemia - Likely multifactorial. Will do basic anemia work up including serial stool guaiacs, reticulocyte count and iron studies. Would benefit from Procrit therapy once iron replete. 5. Obesity Counseled on the risks associated with obesity. Will provide patient all the necessary assistance, counseling and positive reinforcement to facilitate weight loss. Consult combination welder. 6. Drug abuse - Will monitor closely fro drug withdrawal. Implement seizure, fall and aspiration precautions. Monitor electrolytes (Ca,Mg,K,P). Counseled patient about abstaining from illicit drug use. Will consult crime scene specialist and refer to drug detox upon discharge. 7. Hypertension - Restart suitable outpatient antihypertensive drugs when clinically appropriate. Revise regimen to ensure [id number] excellent BP control and chromosomal disorders counselor patient on the injurious effects of uncontrolled hypertension. Nonpharmacologic measures to control hypertension like weight loss , salt restriction and exercise discussed. Importance of adherence to treatment regimen and attainment of normotension emphasized. 8. DVT prophylaxis - Heparin 5000u sq tid. 9. Advance directives - Full code
--- NOTE | 2019-10-27 03:24 | HP ---
CHIEF COMPLAINT: DKA PCP: None HISTORY OF PRESENT ILLNESS: 29F PMH HTN, DM I, prior DKA, Depression, CHF, who presents today with lethargy and AMS. Patient does not recall the events of yesterday and today. Endorses chest pain earlier but currently resolved. Patient will not elaborate on any other history or provide information regarding medications and intake the day prior. She is "tired of talking" ER course was notable for: (1) Patient was noted to have Glucose of 525, Anion Gap of 20, Beta Hydroxybutarate >46. (2) Was given Zofran and 8 units of Insulin, and 1L NS bolus. (3) ICU consulted, started on Insulin Drip, 10 meQ of K+. Recent Travel: Denies PAST MEDICAL HISTORY: Denies FAMILY MEDICAL HISTORY: Denies PAST SURGICAL HISTORY: Denies Social History: Smoking:Denies Alcohol:Denies Drugs: Denies Allergies haloperidol [From Haldol] Allergy (Verified 10/26/19 22:57) HOME MEDICATIONS: Home Medications Medication Instructions Recorded Citalopram Hydrobromide 20 mg PO DAILY 01/11/19 [Citalopram HBr] Furosemide 20 mg PO DAILY 01/11/19 Magnesium Oxide 600 mg PO BID 01/11/19 Aripiprazole [Abilify] 10 mg PO DAILY 04/01/19 Aspirin [Adult Aspirin Regimen] 81 mg PO DAILY 04/01/19 Carvedilol 6.25 mg PO BID 04/01/19 Insulin Glargine,Hum.rec.anlog 34 units SQ ACBK 04/01/19 [Basaglar Kwikpen U-100] Insulin Lispro [Humalog Kwikpen See Protocol SQ ACHS 04/01/19 U-200] Lancets/Blood Glucose Strips [Fora 1 each [facility] #1 combo..pkg 04/04/19 [id number] Strp-Lnct] REVIEW OF SYSTEMS - Patient does not cooperate with ROS. CONSTITUTIONAL: Absent: fever, chills, diaphoresis, generalized weakness, malaise, loss of appetite, weight change HEENT: Absent: rhinorrhea, nasal congestion, throat pain, throat swelling, difficulty swallowing, mouth swelling, ear pain, eye pain, visual changes CARDIOVASCULAR: Absent: chest pain, syncope, palpitations, irregular heart rate, lightheadedness , peripheral edema RESPIRATORY: Absent: cough, shortness of breath, dyspnea with exertion, orthopnea, wheezing, stridor, hemoptysis GASTROINTESTINAL: Absent: abdominal pain, abdominal distension, nausea, vomiting, diarrhea, constipation, melena, hematochezia GENITOURINARY: Absent: dysuria, frequency, urgency, hesitancy, hematuria, flank pain, genital pain MUSCULOSKELETAL: Absent: myalgia, arthralgia, joint swelling, back pain, neck pain SKIN: Absent: rash, itching, pallor HEMATOLOGIC/IMMUNOLOGIC: Absent: easy bleeding, easy bruising, lymphadenopathy, frequent infections ENDOCRINE: Absent: unexplained weight gain, unexplained weight loss, heat intolerance, cold intolerance NEUROLOGIC: Absent: headache, focal weakness or paresthesias, dizziness, unsteady gait, seizure, mental status changes, bladder or bowel incontinence PSYCHIATRIC: Absent: anxiety, depression, suicidal or homicidal ideation, hallucinations. PHYSICAL EXAMINATION Vital Signs - 24 hr 10/26/19 10/27/19 22:50 02:44 Temperature 98.6 F Pulse Rate 115 H Pulse Rate [ 122 H Apical] Respiratory 18 Rate Blood Pressure 89/59 L Blood Pressure 101/46 L [Left] O2 Sat by Pulse 100 96 Oximetry (%) GENERAL: Lethargic but arousable. Fully oriented, in no acute distress. Disheveled. HEAD: Normal with no signs of trauma. EARS, NOSE, THROAT: Ears normal, nares patent, oropharynx clear without exudates. NECK: Normal range of motion, supple without lymphadenopathy, JVD, or masses. LUNGS: Breath sounds equal, clear to auscultation bilaterally. No wheezes, and no crackles. HEART: Regular rate and rhythm, normal S1 and S2 without murmur, rub or gallop. ABDOMEN: Soft, nontender, not distended, normoactive bowel sounds, no guarding, no rebound, no masses. UPPER EXTREMITIES: 2+ pulses, warm, well-perfused. No cyanosis. No clubbing. No peripheral edema. LOWER EXTREMITIES: 2+ pulses, warm, well-perfused. No calf tenderness. No peripheral edema. NEUROLOGICAL: Does not cooperate with Neurological exam. PSYCHIATRIC: Noncooperative, lethargic. SKIN: Warm, dry, normal turgor, no rashes or lesions noted, normal capillary refill. Laboratory Results - last 24 hr 0210/27/19 10/27/19 00:46 01:25 01:25 WBC 8.6 RBC 3.56 L Hgb 9.7 L Hct 31.3 L MCV 87.9 MCH 27.3 MCHC 31.1 L RDW 15.4 Plt Count 168 D MPV 12.4 H D Absolute Neuts (auto) 7.3 Neutrophils % 85.5 H D Lymphocytes % 10.0 D Monocytes % 4.3 Eosinophils % 0.0 D Basophils % 0.2 Nucleated RBC % 0 VBG pH POC VBG pCO2 POC VBG pO2 VBG HCO3 VBG O2 Sat (Erica) VBG Base Excess Sodium 136 Potassium 5.1 Chloride 101 Carbon Dioxide 14 L Anion Gap 20 H BUN 33.3 H Creatinine 1.9 H Est GFR (CKD-EPI)AfAm 41.15 Est GFR (CKD-EPI)NonAf 35.51 POC Glucometer 447 Random Glucose 525 H* Lactic Acid Calcium 8.6 Total Bilirubin 0.6 AST 24 ALT 13 Alkaline Phosphatase 77 Creatine Kinase Creatine Kinase Index CK-MB (CK-2) Troponin I Total Protein 6.6 Albumin 2.7 L Beta-Hydroxybutyrate > 46.0 H Serum , Qual 10/27/19 10/27/19 10/27/19 01:25 01:25 01:25 WBC RBC Hgb Hct MCV MCH MCHC RDW Plt Count MPV Absolute Neuts (auto) Neutrophils % Lymphocytes % Monocytes % Eosinophils % Basophils % Nucleated RBC % VBG pH POC VBG pCO2 POC VBG pO2 VBG HCO3 VBG O2 Sat (Erica) VBG Base Excess Sodium Potassium Chloride Carbon Dioxide Anion Gap BUN Creatinine Est GFR (CKD-EPI)AfAm Est GFR (CKD-EPI)NonAf POC Glucometer Random Glucose Lactic Acid 2.5 H* Calcium Total Bilirubin AST ALT Alkaline Phosphatase Creatine Kinase 391 H Creatine Kinase Index 1.6 CK-MB (CK-2) 6.27 H Troponin I 0.38 H Total Protein Albumin Beta-Hydroxybutyrate Serum , Qual Negative 10/27/19 10/27/19 02:47 02:47 WBC RBC Hgb Hct MCV MCH MCHC RDW Plt Count MPV Absolute Neuts (auto) Neutrophils % Lymphocytes % Monocytes % Eosinophils % Basophils % Nucleated RBC % VBG pH 7.32 POC VBG pCO2 26.2 L POC VBG pO2 70.8 H VBG HCO3 13.0 L VBG O2 Sat (Erica) 92.0 H VBG Base Excess -11.7 L Sodium Potassium Chloride Carbon Dioxide Anion Gap BUN Creatinine Est GFR (CKD-EPI)AfAm Est GFR (CKD-EPI)NonAf POC Glucometer 311 Random Glucose Lactic Acid Calcium Total Bilirubin AST ALT Alkaline Phosphatase Creatine Kinase Creatine Kinase Index CK-MB (CK-2) Troponin I Total Protein Albumin Beta-Hydroxybutyrate Serum , Qual ASSESSMENT/PLAN: 29F PMH HTN, DM I, prior DKA, Depression, CHF, who presents today with lethargy and AMS secondary to DKA. 1)DKA - Initial Glucose 525, repeat 276, beta hydroxybutarate 46, anion gap of 20, repeat of 14 - On Insulin drip, will transition with Siding scale insulin and start long acting insulin levemir. - Lactic acidosis likely related to dehydration from DKA, downtrending with fluid hydration. Will continue to monitor. - U/A and Chest X-ray ordered to rule concurrent infectious process - Q2 BGM initially, will transition to ACHS BGM - 1/2 NS + d50 w/ KCL 20 mEQ - Diabetic diet in AM if no nausea - Zofran PRN - Consulted Dr. Zacarias, appreciate recs 2) Elevated Troponin - Troponin of 0.38. Likely related to demand ischemia. Has had prior elevations of Troponin. - EKG does not show acute changes. Trend with changes in troponin 3) SHANE - Hx of elevated Creatinine, CKD. - Consulted Dr. Harris, appreciate recs 4) Anemia - Normocytic anemia - Iron studies, TSH, retic count, vitamin b12. 5) Hx of PSA - Utox pending - Patient denies any recent substance use on exam. 6) Hx of HTN - Currently hypotensive, MAP of 63. - Continue to monitor, will restart anti HTN meds when appropriate DVT: Heparin SQ TID F: 1/2 NS +D5W + 20 mEQ KCl E: Monitor CMP N: Diabetic diet Dispo: Admitted to ICU Visit type - Emergency Visit Emergency Visit: Yes ED Registration Date: 10/27/19 Care time: The patient presented to the Emergency Department on the above date and was hospitalized for further evaluation of their emergent condition. - New Patient This patient is new to me today: Yes Date on this admission: 10/27/19 - Critical Care Critical Care patient: Yes Total Critical Care Time (in minutes): 40 Critical Care Statement: The care of this patient involved high complexity decision making to prevent further life threatening deterioration of the patient 's condition and/or to evaluate & treat vital organ system(s) failure or risk of failure. ATTENDING PHYSICIAN STATEMENT I saw and evaluated the patient. I reviewed the resident's note and discussed the case with the resident. I agree with the resident's findings and plan as documented. SUBJECTIVE: OBJECTIVE: ASSESSMENT AND PLAN:
[2019-10-27] MEDS ORDERED: SODIUM CHLORIDE 0.45% 1,000 ML IV SCH ×2 (04:15→04:30)
[2019-10-27] MEDS ORDERED: SODIUM CHLORIDE 0.45% 1,000 ML with POTASSIUM CHLORIDE 20 MEQ IVPB SCH (04:15)
[2019-10-27 04:35] LABS: BLOOD UREA NITROGEN 37.6 mg/dL (7-18); CALCIUM 8.5 mg/dL (8.5-10.1); CREATININE 1.9 mg/dL (0.55-1.3); POTASSIUM 4.6 mmol/L (3.5-5.1)
[2019-10-27] MEDS ORDERED: D5-NS + 20 MEQ KCL - 20 MEQ/1,000 ML INFUS.BAG IV SCH ×3 (05:15→15:15)
[2019-10-27 05:39] LABS: EPI CELLS 4.3 /HPF (0-5/HPF); HYALINE CASTS 0 /lpf (0-8); PH,URINE 8.5 (5.0-8.0); URINE APPEARANCE CLOUDY; URINE BACTERIA 36.5 /hpf (NEGATIVE); URINE BILIRUBIN NEGATIVE (NEGATIVE); URINE COLOR YELLOW; URINE GLUCOSE (UA) NEGATIVE (NEGATIVE); URINE KETONE NEGATIVE (NEGATIVE); URINE LEUK ESTERASE 1+ (NEGATIVE); URINE NITRITE NEGATIVE (NEGATIVE); URINE PROTEIN NEGATIVE (NEGATIVE); URINE RBC 0 /hpf (0-4); URINE UROBILINOGEN 0.2 mg/dL (0.2-1.0); URINE WBC 5 /hpf (0-5)
[2019-10-27] MEDS: INSULIN SLIDING SCALE (NOVOLOG) 1 VIAL SQ SCH ×4 (06:44→23:25)
[2019-10-27 06:57] LABS: HEMATOCRIT 26.8 % (32.4-45.2); HEMOGLOBIN 8.7 GM/dL (10.7-15.3); MCH 27.5 pg (25.7-33.7); MCHC 32.4 g/dl (32.0-36.0); MEAN CELL VOLUME 84.7 fl (80-96); MEAN PLT VOLUME 11.2 fl (7.5-11.1); PLATELET COUNT 162 K/MM3 (134-434); RBC 3.17 M/mm3 (3.60-5.2); WHITE BLOOD COUNT 6.7 K/mm3 (4.0-10.0)
[2019-10-27] MEDS ORDERED: INSULIN SLIDING SCALE (NOVOLOG) 1 VIAL SQ SCH (07:00)
[2019-10-27 07:26] LABS: BLOOD UREA NITROGEN 35.7 mg/dL (7-18); CALCIUM 8.6 mg/dL (8.5-10.1); POTASSIUM 4.4 mmol/L (3.5-5.1)
[2019-10-27 07:47] LABS: ALBUMIN 2.3 g/dl (3.4-5.0); BILIRUBIN,TOTAL 0.3 mg/dL (0.2-1); CALCIUM 8.7 mg/dL (8.5-10.1); CREATININE 1.9 mg/dL (0.55-1.3); MAGNESIUM 2.2 mg/dL (1.8-2.4); PHOSPHOROUS 3.6 mg/dL (2.5-4.9); POTASSIUM 4.3 mmol/L (3.5-5.1)
[2019-10-27] MEDS: HEPARIN NA (PORCINE) 5,000 UNITS/ML 1ML VIAL SQ SCH ×3 (08:15→22:52)
[2019-10-27] MEDS ORDERED: ONDANSETRON 4 MG/2 ML VIAL IVPB PRN (08:55)
--- NOTE | 2019-10-27 10:18 | PN ---
Physical Exam: SUBJECTIVE: Patient seen and examined O/N: had insulin gtt stopped when BGM ~88 Endorses nausea, vomiting. OBJECTIVE: Vital Signs Period Temp Pulse Resp BP Sys/Marquis Pulse Ox Last 24 Hr 98.6 F-99.1 F 93-122 18-28 89-139/46-80 96-100 GENERAL: mild lethargy HEAD: Normal with no signs of trauma. EYES: Sclera anicteric, conjunctiva clear. No lid lag. EARS, NOSE, THROAT: Ears normal, nares patent, no evidence of septal perforation , oropharynx clear without exudates. Moist mucous membranes. NECK: Supple without lymphadenopathy, JVD, or masses. No cervical LAD LUNGS: Breath sounds equal, clear to auscultation bilaterally. No wheezes, and no crackles. No accessory muscle use. HEART: tachycardic, regular rhythm, normal S1 and S2 without murmur, rub or gallop. ABDOMEN: Soft, nonTTP [id number], not distended, normoactive bowel sounds, no guarding, no rebound, no masses. MUSCULOSKELETAL: Normal range of motion at all joints. No bony deformities or tenderness. No CVA tenderness. LOWER EXTREMITIES: 2+ pulses, warm, well-perfused. No calf tenderness. No peripheral edema. NEUROLOGICAL: mild lethargy, following commands SKIN: Warm, dry, normal turgor, no rashes or lesions noted. Laboratory Results - last 24 hr 10/27/19 10/27/19 10/27/19 00:46 01:25 01:25 WBC 8.6 RBC 3.56 L Hgb 9.7 L Hct 31.3 L MCV 87.9 MCH 27.3 MCHC 31.1 L RDW 15.4 Plt Count 168 D MPV 12.4 H D Absolute Neuts (auto) 7.3 Neutrophils % 85.5 H D Lymphocytes % 10.0 D Monocytes % 4.3 Eosinophils % 0.0 D Basophils % 0.2 Nucleated RBC % 0 VBG pH POC VBG pCO2 POC VBG pO2 VBG HCO3 VBG O2 Sat (Erica) VBG Base Excess Sodium 136 Potassium 5.1 Chloride 101 Carbon Dioxide 14 L Anion Gap 20 H BUN 33.3 H Creatinine 1.9 H Est GFR (CKD-EPI)AfAm 41.15 Est GFR (CKD-EPI)NonAf 35.51 POC Glucometer 447 Random Glucose 525 H* Lactic Acid Calcium 8.6 Phosphorus Magnesium Iron Ferritin Total Bilirubin 0.6 AST 24 ALT 13 Alkaline Phosphatase 77 Creatine Kinase Creatine Kinase Index CK-MB (CK-2) Troponin I Total Protein 6.6 Albumin 2.7 L Vitamin B12 Serum Folate Beta-Hydroxybutyrate > 46.0 H TSH Serum , Qual Urine Color Urine Appearance Urine pH Ur Specific [place] Urine Protein Urine Glucose (UA) Urine Ketones Urine Blood Urine Nitrite Urine Bilirubin Urine Urobilinogen Ur Leukocyte Esterase Urine WBC (Auto) Urine RBC (Auto) Urine Casts (Auto) U Epithel Cells (Auto) Urine Bacteria (Auto) 10/27/19 10/27/19 10/27/19 01:25 01:25 01:25 WBC RBC Hgb Hct MCV MCH MCHC RDW Plt Count MPV Absolute Neuts (auto) Neutrophils % Lymphocytes % Monocytes % Eosinophils % Basophils % Nucleated RBC % VBG pH POC VBG pCO2 POC VBG pO2 VBG HCO3 VBG O2 Sat (Erica) VBG Base Excess Sodium Potassium Chloride Carbon Dioxide Anion Gap BUN Creatinine Est GFR (CKD-EPI)AfAm Est GFR (CKD-EPI)NonAf POC Glucometer Random Glucose Lactic Acid 2.5 H* Calcium Phosphorus Magnesium Iron Ferritin Total Bilirubin AST ALT Alkaline Phosphatase Creatine Kinase 391 H Creatine Kinase Index 1.5 CK-MB (CK-2) 6.0 H Troponin I 0.38 H Total Protein Albumin Vitamin B12 Serum Folate Beta-Hydroxybutyrate TSH Serum , Qual Negative Urine Color Urine Appearance Urine pH Ur Specific [place] Urine Protein Urine Glucose (UA) Urine Ketones Urine Blood Urine Nitrite Urine Bilirubin Urine Urobilinogen Ur Leukocyte Esterase Urine WBC (Auto) Urine RBC (Auto) Urine Casts (Auto) U Epithel Cells (Auto) Urine Bacteria (Auto) 10/27/19 10/27/19 10/27/19 02:47 02:47 03:50 WBC RBC Hgb Hct MCV MCH MCHC RDW Plt Count MPV Absolute Neuts (auto) Neutrophils % Lymphocytes % Monocytes % Eosinophils % Basophils % Nucleated RBC % VBG pH 7.32 POC VBG pCO2 26.2 L POC VBG pO2 70.8 H VBG HCO3 13.0 L VBG O2 Sat (Erica) 92.0 H VBG Base Excess -11.7 L Sodium 140 Potassium 4.6 Chloride 109 H Carbon Dioxide 18 L Anion Gap 14 BUN 37.6 H Creatinine 1.9 H Est GFR (CKD-EPI)AfAm 41.15 Est GFR (CKD-EPI)NonAf 35.51 POC Glucometer 311 Random Glucose 276 H Lactic Acid Calcium 8.5 Phosphorus Magnesium Iron Ferritin Total Bilirubin AST ALT Alkaline Phosphatase Creatine Kinase Creatine Kinase Index CK-MB (CK-2) Troponin I Total Protein Albumin Vitamin B12 Serum Folate Beta-Hydroxybutyrate TSH Serum , Qual Urine Color Urine Appearance Urine pH Ur Specific [place] Urine Protein Urine Glucose (UA) Urine Ketones Urine Blood Urine Nitrite Urine Bilirubin Urine Urobilinogen Ur Leukocyte Esterase Urine WBC (Auto) Urine RBC (Auto) Urine Casts (Auto) U Epithel Cells (Auto) Urine Bacteria (Auto) 10/27/19 10/27/19 10/27/19 03:53 05:00 05:18 WBC RBC Hgb Hct MCV MCH MCHC RDW Plt Count MPV Absolute Neuts (auto) Neutrophils % Lymphocytes % Monocytes % Eosinophils % Basophils % Nucleated RBC % VBG pH POC VBG pCO2 POC VBG pO2 VBG HCO3 VBG O2 Sat (Erica) VBG Base Excess Sodium Potassium Chloride Carbon Dioxide Anion Gap BUN Creatinine Est GFR (CKD-EPI)AfAm Est GFR (CKD-EPI)NonAf POC Glucometer 165 Random Glucose Lactic Acid 2.3 H* Calcium Phosphorus Magnesium Iron Ferritin Total Bilirubin AST ALT Alkaline Phosphatase Creatine Kinase Creatine Kinase Index CK-MB (CK-2) Troponin I Total Protein Albumin Vitamin B12 Serum Folate Beta-Hydroxybutyrate TSH Serum , Qual Urine Color Yellow Urine Appearance Cloudy Urine pH 8.5 H D Ur Specific [place] 1.024 Urine Protein Negative Urine Glucose (UA) Negative Urine Ketones Negative Urine Blood Negative Urine Nitrite Negative Urine Bilirubin Negative Urine Urobilinogen 0.2 Ur Leukocyte Esterase 1+ H Urine WBC (Auto) 5 Urine RBC (Auto) 0 Urine Casts (Auto) 0 U Epithel Cells (Auto) 4.3 Urine Bacteria (Auto) 36.5 10/27/19 10/27/19 10/27/19 05:45 05:45 05:45 WBC 6.7 RBC 3.17 L Hgb 8.7 L Hct 26.8 L MCV 84.7 MCH 27.5 MCHC 32.4 RDW 15.0 Plt Count 162 MPV 11.2 H Absolute Neuts (auto) Neutrophils % Lymphocytes % Monocytes % Eosinophils % Basophils % Nucleated RBC % VBG pH POC VBG pCO2 POC VBG pO2 VBG HCO3 VBG O2 Sat (Erica) VBG Base Excess Sodium 144 143 Potassium 4.4 4.3 Chloride 111 H 111 H Carbon Dioxide 23 23 Anion Gap 10 10 BUN 35.7 H 36.0 H Creatinine 2.0 H 1.9 H Est GFR (CKD-EPI)AfAm 38.68 41.15 Est GFR (CKD-EPI)NonAf 33.37 35.51 POC Glucometer Random Glucose 124 H 122 H Lactic Acid Calcium 8.6 8.7 Phosphorus 3.6 Magnesium 2.2 Iron 72 Ferritin 45.2 Total Bilirubin 0.3 AST 20 ALT 13 Alkaline Phosphatase 64 Creatine Kinase Creatine Kinase Index CK-MB (CK-2) Troponin I Total Protein 6.0 L Albumin 2.3 L Vitamin B12 463 Serum Folate 52 H Beta-Hydroxybutyrate TSH 1.90 Serum , Qual Urine Color Urine Appearance Urine pH Ur Specific [place] Urine Protein Urine Glucose (UA) Urine Ketones Urine Blood Urine Nitrite Urine Bilirubin Urine Urobilinogen Ur Leukocyte Esterase Urine WBC (Auto) Urine RBC (Auto) Urine Casts (Auto) U Epithel Cells (Auto) Urine Bacteria (Auto) 10/27/19 10/27/19 10/27/19 05:45 06:08 06:42 WBC RBC Hgb Hct MCV MCH MCHC RDW Plt Count MPV Absolute Neuts (auto) Neutrophils % Lymphocytes % Monocytes % Eosinophils % Basophils % Nucleated RBC % VBG pH POC VBG pCO2 POC VBG pO2 VBG HCO3 VBG O2 Sat (Erica) VBG Base Excess Sodium Potassium Chloride Carbon Dioxide Anion Gap BUN Creatinine Est GFR (CKD-EPI)AfAm Est GFR (CKD-EPI)NonAf POC Glucometer 99 88 Random Glucose Lactic Acid Calcium Phosphorus Magnesium Iron Ferritin Total Bilirubin AST ALT Alkaline Phosphatase Creatine Kinase 302 H Creatine Kinase Index 1.8 CK-MB (CK-2) 5.5 H Troponin I 0.42 H Total Protein Albumin Vitamin B12 Serum Folate Beta-Hydroxybutyrate TSH Serum , Qual Urine Color Urine Appearance Urine pH Ur Specific [place] Urine Protein Urine Glucose (UA) Urine Ketones Urine Blood Urine Nitrite Urine Bilirubin Urine Urobilinogen Ur Leukocyte Esterase Urine WBC (Auto) Urine RBC (Auto) Urine Casts (Auto) U Epithel Cells (Auto) Urine Bacteria (Auto) 10/27/19 10/27/19 08:22 08:30 WBC RBC Hgb Hct MCV MCH MCHC RDW Plt Count MPV Absolute Neuts (auto) Neutrophils % Lymphocytes % Monocytes % Eosinophils % Basophils % Nucleated RBC % VBG pH POC VBG pCO2 POC VBG pO2 VBG HCO3 VBG O2 Sat (Erica) VBG Base Excess Sodium Potassium Chloride Carbon Dioxide Anion Gap BUN Creatinine Est GFR (CKD-EPI)AfAm Est GFR (CKD-EPI)NonAf POC Glucometer 163 Random Glucose Lactic Acid 1.4 Calcium Phosphorus Magnesium Iron Ferritin Total Bilirubin AST ALT Alkaline Phosphatase Creatine Kinase Creatine Kinase Index CK-MB (CK-2) Troponin I Total Protein Albumin Vitamin B12 Serum Folate Beta-Hydroxybutyrate TSH Serum , Qual Urine Color Urine Appearance Urine pH Ur Specific [place] Urine Protein Urine Glucose (UA) Urine Ketones Urine Blood Urine Nitrite Urine Bilirubin Urine Urobilinogen Ur Leukocyte Esterase Urine WBC (Auto) Urine RBC (Auto) Urine Casts (Auto) U Epithel Cells (Auto) Urine Bacteria (Auto) Active Medications Generic Name Dose Route Start Last Admin Trade Name Freq PRN Reason Stop Dose Admin Chlorhexidine Gluconate 1 applic 10/27/19 22:00 Hibiclens For Decolonization - TP HS ALISA Heparin Sodium (Porcine) 5,000 unit 10/27/19 07:15 10/27/19 08:15 Heparin - SQ 5,000 unit TID ALISA Administration Insulin Human Regular 100 100 mls @ 9.07 mls/hr 10/27/19 02:30 10/27/19 06:43 units/ Sodium Chloride IVPB 0 units/kg/hr TITR ALISA 0 mls/hr Titration Protocol 0.1 UNITS/KG/HR Sodium Chloride 1,000 mls @ 100 mls/hr 10/27/19 04:30 10/27/19 05:11 1/2 Normal Saline IV Not Given ASDIR ALISA Dextrose/Sodium Chloride 20 meq in 1,000 mls @ 100 mls/hr 10/27/19 05:15 05:21 Dextrose 5%-Normal Saline+20 Meq Kcl - IV 100 mls/hr ASDIR ALISA Administration Insulin Aspart 1 vial 10/27/19 07:00 10/27/19 06:44 Novolog Vial Sliding Scale - SQ Not Given ACHS [facility] Protocol Mupirocin 1 applic 10/27/19 10:00 Bactroban Ointment (For Decolonization) - NS 11/01/19 09:59 BID ALISA Ondansetron HCl 8 mg 10/27/19 08:55 10/27/19 09:08 Zofran Injection IVPB 8 mg Q6H PRN Administration NAUSEA ASSESSMENT/PLAN: 29 y/o F with hx of DM2 c/b DKA, HTN, cocaine abuse presenting with emesis and SOB, also with cocaine abuse on day of addmission. Found to be in DKA with BP 89 /51 HR 115 Neuro: # lethargy 2/2 to DKA # polysubstance substance(cocaine, bz, EtOH) use disorder > UDS: positive benzodiazepine -q1hr bgm and frequent mental status checks Endo: # DKA --gap re-opened # uncontrolled T1DM > ED: Glu 525, AG 20, bicarb 14, beta hydroxy >46, K 5.1, pH 7.32 -cw insulin gtt -q1hr bgm and q2hr BMP -once glucose <200 will add D5 to fluids -once gap has closed and patient tolerates PO will transition to sq insulin( Basal-Bolus) and cw insulin gtt for 2hs --if AG persists and BGM <200, lower insulin gtt dosage(0.02 - 0.05) -Endo([facility]) consulted: --recs pending Cardio: # troponemia --likely 2/2 demand ischemia # ho ?cardiac cath # prolonged QTc > troponin: 0.38, 0.42, 0.29 > EKG(10/27/19): QTc 587 -BP 89/59 HR 115 s/p 2L -cocaine abuse; avoid beta blockers -repeat EKG - Cardiology([facility]) consulted: --resume carvedilol 6.25 BID(not contraindicated w/ cocaine) --aggressive IVF --resume VINCENT-I/ARB --obtain Cath([facility]) records Pulm: -100% O2 on RA PRN GI: # Nausea --possibly 2/2 to gastroparesis vs DKA -NPO until gap closes, and mentation improves Renal: # SHANE --likely 2/2 dehdydration > Cr(baseline ~1.1): 1.9 --> 2.0 -will continue to monitor following ivf FEN - NS +K @125 - NPO DVT ppx - SQH Dispo: We will continue to follow the patient. Thank you for this consultative opportunity. Visit type - Emergency Visit Emergency Visit: No - New Patient This patient is new to me today: Yes Date on this admission: 10/27/19 - Critical Care Critical Care patient: Yes Total Critical Care Time (in minutes): 35 Critical Care Statement: The care of this patient involved high complexity decision making to prevent further life threatening deterioration of the patient 's condition and/or to evaluate & treat vital organ system(s) failure or risk of failure. ATTENDING PHYSICIAN STATEMENT I saw and evaluated the patient. I reviewed the resident's note and discussed the case with the resident. I agree with the resident's findings and plan as documented. SUBJECTIVE: OBJECTIVE: ASSESSMENT AND PLAN:
[2019-10-27 11:06] LABS: COCAINE, UR NEGATIVE ng/ml (CUTOFF=300); METHADONE, UR NEGATIVE ng/ml (CUTOFF=300); OPIATES, URI NEGATIVE ng/ml (CUTOFF=300); PHENCYCLIDINE,URINE NEGATIVE ng/ml (CUTOFF=25); URINE AMPHETAMINES NEGATIVE ng/ml (CUTOFF=500); URINE BARBITURATES NEGATIVE ng/ml (CUTOFF=200)
[2019-10-27 11:13] LABS: URINE BENZODIAZEPINES POSITIVE ng/ml (CUTOFF=200)
--- NOTE | 2019-10-27 11:18 | CONSULT ---
Consult - text type - Consultation Consultation Note: Renal consult for SHANE This is a 29 year old woman with history of DM type 1, CAD (? nonobstructive), CHF (decreased LVEF), substance abuse who presented with lethargy and AMS and found to have DKA and SHANE with Cr of 1.9. Pt seen and examined in the ICU. She reports using cocaine prior to her admission. She also reports drinking a lot of orange juice. She denies any history of CKD. She was noted to have SHANE in the past based on medical records. She denies any flank pain, dysuria, frequency, hematuria, NSAID use, recent contrast exposure, diarrhea. Blood sugars are improved. No confusion or lethargy now. No chest pain. Reports some sob. No abd pain. PMhx: as above Allergies: Haldol Family Hx: NC Social Hx: substance abuse ROs: as per HPI, all other pertinent ros negative Home Medications Medication Instructions Recorded Citalopram Hydrobromide 20 mg PO DAILY 01/11/19 [Citalopram HBr] Furosemide 20 mg PO DAILY 01/11/19 Magnesium Oxide 600 mg PO BID 01/11/19 Aripiprazole [Abilify] 10 mg PO DAILY 04/01/19 Aspirin [Adult Aspirin Regimen] 81 mg PO DAILY 04/01/19 Carvedilol 6.25 mg PO BID 04/01/19 Insulin Glargine,Hum.rec.anlog 34 units SQ ACBK 04/01/19 [Basaglar Kwikpen U-100] Insulin Lispro [Humalog Kwikpen See Protocol SQ ACHS 04/01/19 U-200] Lancets/Blood Glucose Strips [Fora 1 each [facility] #1 combo..pkg 04/04/19 [id number] Strp-Lnct] Vital Signs Temperature 98.9 F 10/27/19 05:00 Pulse Rate 100 H 10/27/19 07:00 Respiratory Rate 18 10/27/19 07:00 Blood Pressure 110/68 10/27/19 07:00 O2 Sat by Pulse Oximetry (%) 96 10/27/19 09:00 Intake & Output 10/24/19 10/25/19 10/26/19 10/27/19 23:59 23:59 23:59 23:59 Intake Total 1000 Balance 1000 Weight 90.718 kg 92.986 kg awake and alert NAD neck supple, no JVD Dry MM tachycardic, no M/R CTA no rales or wheeze soft NT/ND, obese. no rebound or guarding no LE edema, clubbing or cyanosis CBC, BMP 10/27/19 05:45 10/27/19 05:45 Current Medications Chlorhexidine Gluconate (Hibiclens For Decolonization -) 1 applic TP HS ALISA Heparin Sodium (Porcine) (Heparin -) 5,000 unit SQ TID ALISA Last Admin: 10/27/19 08:15 Dose: 5,000 unit Insulin Human Regular 100 (units/ Sodium Chloride) 100 mls @ 9.07 mls/hr IVPB TITR ALISA; Protocol Last Titration: 10/27/19 06:43 Dose: 0 units/kg/hr, 0 mls/hr Dextrose/Sodium Chloride (Dextrose 5%-Normal Saline+20 Meq Kcl -) 20 meq in 1, 000 mls @ 125 mls/hr IV ASDIR ALISA Insulin Aspart (Novolog Vial Sliding Scale -) 1 vial SQ ACHS ALISA; Protocol Last Admin: 10/27/19 06:44 Dose: Not Given Mupirocin (Bactroban Ointment (For Decolonization) -) 1 applic NS BID ALISA Stop: 11/01/19 09:59 Ondansetron HCl (Zofran Injection) 8 mg IVPB Q6H PRN PRN Reason: NAUSEA Last Admin: 10/27/19 09:08 Dose: 8 mg 29 year old woman with history of DM type 1, CAD (? nonobstructive), CHF (decreased LVEF), substance abuse who presented with lethargy and AMS and found to have DKA and SHANE with Cr of 1.9. 1. DKA 2. Acute kidney injury 3. CHF/CAD 4. Tachycardia 5. Anemia blood sugars once again elevated. To be restarted on insulin drip. Will need long acting insulin as bridge. Continue aggressive IVF as pt still has N/V. Start D5 NS once blood sugars < 200. Check urine studies for FeNa, UPCR. Check urine studies in the AM. Trend renal function and electrolytes Q12h Endocrine consult for half-way management of DM. no acute need for [employer] at this time continue KCL with IVF. Thank you Antonio Harris DO
[2019-10-27] MEDS ORDERED: SODIUM CHLORIDE 0.9%/KCL 20 MEQ/1,000 ML INFUS.BAG IV SCH (11:30)
[2019-10-27] MEDS ORDERED: MAGNESIUM SULF 50% (8.12 MEQ/2 ML-1 GM VIAL) IVPB ONE (11:31)
--- NOTE | 2019-10-27 11:38 | CON.CARD ---
Consult Consult Specialty:: Cardiology Referred by:: Hospitalist Medicine Reason for Consultation:: Cardiomyopathy - History of Present Illness Chief Complaint: Nausea and emesis, altered mental status History of Present Illness: Patient is a 29 y/o with a history of IDDM, multiple DKAs, HTN, CHF, Cocaine abuse, Depression, Nonadherence with diabetes regimen presented with vomiting, SOB, lethargy, acute on CKD Cr 1.9. She reports she thinks she overdosed on cocaine earlier today and has had multiple episodes of emesis. Possible Patient is single, unemployed and on social security disability. She does not offer any reason for her global nonadherence to general care nor why she does not have a PCP/events traffic controller. Has reportedly had over 10 bouts of DKA in the past year. Denies tobacco use or alcohol abuse. No sick contacts or recent travels. - History Source History Provided By: Medical Record Limitations to Obtaining History: Clinical Condition - Past Medical History Cardio/Vascular: Yes: CHF Endocrine: Yes: Diabetes Mellitus - Alcohol/Substance Use Hx Alcohol Use: No - Smoking History Smoking history: Never smoked Have you smoked in the past 12 months: No Aproximately how many cigarettes per day: 2 - Social History Usual Living Arrangement: Assisted Living Home Medications - Allergies Allergies/Adverse Reactions: Allergies Allergy/AdvReac Type Severity Reaction Status Date / Time haloperidol [From Haldol] Allergy Verified 10/26/19 22:57 - Home Medications Home Medications: Ambulatory Orders Citalopram Hydrobromide [Citalopram HBr] 20 mg PO DAILY 01/11/19 Furosemide 20 mg PO DAILY 01/11/19 Magnesium Oxide 600 mg PO BID 01/11/19 Aripiprazole [Abilify] 10 mg PO DAILY 04/01/19 Aspirin [Adult Aspirin Regimen] 81 mg PO DAILY 04/01/19 Carvedilol 6.25 mg PO BID 04/01/19 Insulin Glargine,Hum.rec.anlog [Basaglar Kwikpen U-100] 34 units SQ ACBK Insulin Lispro [Humalog Kwikpen U-200] See Protocol SQ ACHS 04/01/19 Lancets/Blood Glucose Strips [Fora [id number] Strp-Lnct] [address] [facility] #1 combo..pkg 04/04/19 Review of Systems Unable to obtain ROS, reason: Altered mental status Vital Signs: Vital Signs Temperature 98.9 F 10/27/19 05:00 Pulse Rate 100 H 10/27/19 07:00 Respiratory Rate 18 10/27/19 07:00 Blood Pressure 110/68 10/27/19 07:00 O2 Sat by Pulse Oximetry (%) 96 10/27/19 09:00 Constitutional: Yes: No Distress, Calm Neck: Yes: Supple Respiratory: Yes: Regular, Diminished Gastrointestinal: Yes: Normal Bowel Sounds, Soft Cardiovascular: Yes: Regular Rate and Rhythm JVD: No Carotid Bruit: No Heart Sounds: Yes: S1, S2 Murmur: Yes: Systolic Murmur, Grade 1 Edema: Yes Edema: LLE: Trace, RLE: Trace - Other Data Labs, Other Data: CBC, BMP 10/27/19 05:45 10/27/19 05:45 Troponin, BNP 10/27/19 10/27/19 01:25 05:45 Troponin I 0.38 H 0.42 H Troponin, BNP 10/27/19 10/27/19 01:25 05:45 Troponin I 0.38 H 0.42 H NSR LVH PVC Echo: Report Reviewed Ejection Fraction %: LVEF < 40 % Imaging - Results Chest X-ray: Report Reviewed (NAD) Problem List - Problems (1) DKA (diabetic ketoacidoses) Code(s): E11.10 - TYPE 2 DIABETES MELLITUS WITH KETOACIDOSIS WITHOUT COMA Qualifiers: Diabetes mellitus type: type 1 Diabetes mellitus complication detail: without coma Qualified Code(s): E10.10 - Type 1 diabetes mellitus with ketoacidosis without coma (2) SHANE (acute kidney injury) Code(s): N17.9 - ACUTE KIDNEY FAILURE, UNSPECIFIED (3) Cocaine abuse Code(s): F14.10 - COCAINE ABUSE, UNCOMPLICATED (4) Hyperlipidemia Code(s): E78.5 - HYPERLIPIDEMIA, UNSPECIFIED (5) Peripartum cardiomyopathy Code(s): O90.3 - PERIPARTUM CARDIOMYOPATHY (6) Systolic dysfunction without heart failure Code(s): I51.89 - OTHER ILL-DEFINED HEART DISEASES Assessment/Plan Assessment/Plan 04/01/2019 Echo: Mildly dilated LV, mild cLVH LVEF 40%, normal RV size and fxn, mild LAE, mod MR, mild TR, trace pericardial effusion 1. Recurrent DKA 2. Acute on CKD 2/2 to above 3. H/o peripartum cardiomyopathy 4. H/o pericardial effusion 5. Cocaine abuse 6. Demand ischemia 7. Hyperlipidemia 8. PVC 9. Anemia P:1. Resume carvedilol 6.25 bid, no absolute contraindications with cocaine use 2. Aggressive hydration, insulin gtt until AG closes, replete K, trend trops to document peak 3. Resume VINCENT-I/ARB once renal fxn stabilizes 4. Obtain cath reports from [facility] if available for review 5. Cocaine abstinence 6. Thank you for consultative opportunity, she follows up with shank carrier at [place]
--- NOTE | 2019-10-27 11:52 | EKG ---
Test Reason : Blood Pressure : / mmHG Vent. Rate : 121 BPM Atrial Rate : 121 BPM P-R Int : 124 ms QRS Dur : 068 ms QT Int : 414 ms P-R-T Axes : 074 -27 210 degrees QTc Int : 587 ms SINUS TACHYCARDIA WITH PREMATURE ATRIAL COMPLEXES WITH ABERRANT CONDUCTION POSSIBLE LEFT ATRIAL ENLARGEMENT INFERIOR INFARCT , AGE UNDETERMINED ANTEROSEPTAL INFARCT , AGE UNDETERMINED ABNORMAL ECG WHEN COMPARED WITH ECG OF 31-MAR-2019 22:48, SIGNIFICANT CHANGES HAVE OCCURRED Confirmed by LEIGHA MALIK MD ([id number]) on 10/27/2019 11:52:12 AM Referred By: Confirmed By:LEIGHA MALIK MD
--- NOTE | 2019-10-27 12:02 | PN ---
Teaching Attending Note Name of Resident: Sander Brooke ATTENDING PHYSICIAN STATEMENT I saw and evaluated the patient. I reviewed the resident's note and discussed the case with the resident. I agree with the resident's findings and plan as documented. SUBJECTIVE: Patient seen and examined in the ICU. Sleepy but easily arousable. Denies CP or SOB. Remains on IV Insulin drip. Intake & Output 10/24/19 10/25/19 10/26/19 10/27/19 23:59 23:59 23:59 23:59 Intake Total 1000 Balance 1000 Weight 200 lb 205 lb Last Vital Signs Temp Pulse Resp BP Pulse Ox 98.9 F 100 H 18 110/68 96 10/27/19 05:00 10/27/19 07:00 10/27/19 07:00 10/27/19 07:00 10/27/19 09:00 Active Medications Chlorhexidine Gluconate (Hibiclens For Decolonization -) 1 applic TP HS ALISA Heparin Sodium (Porcine) (Heparin -) 5,000 unit SQ TID ALISA Last Admin: 10/27/19 08:15 Dose: 5,000 unit Insulin Human Regular 100 (units/ Sodium Chloride) 100 mls @ 9.07 mls/hr IVPB TITR ALISA; Protocol Last Titration: 10/27/19 11:44 Dose: 0.1 units/kg/hr, 9.07 mls/hr Potassium Chloride 20 meq/ (Sodium Chloride) 1,010 mls @ 125 mls/hr IVPB ASDIR ALISA Insulin Aspart (Novolog Vial Sliding Scale -) 1 vial SQ ACHS [facility]; Protocol Last Admin: 10/27/19 11:53 Dose: Not Given Magnesium Sulfate (Magnesium Sulfate) 2 gm IVPB ONCE ONE Stop: 10/27/19 11:32 Mupirocin (Bactroban Ointment (For Decolonization) -) 1 applic NS BID ALISA Stop: 11/01/19 09:59 Ondansetron HCl (Zofran Injection) 8 mg IVPB Q6H PRN PRN Reason: NAUSEA Last Admin: 10/27/19 09:08 Dose: 8 mg GENERAL: Drowsy but arousable, in no acute distress. HEAD: Normal with no signs of trauma. EARS, NOSE, THROAT: Ears normal, nares patent, oropharynx clear without exudates. NECK: Normal range of motion, supple without lymphadenopathy, JVD, or masses. LUNGS: Breath sounds equal, clear to auscultation bilaterally. No wheezes, and no crackles. HEART: Regular rate and rhythm, normal S1 and S2 without murmur, rub or gallop. ABDOMEN: Soft, nontender, not distended, normoactive bowel sounds, no guarding, no rebound, no masses. UPPER EXTREMITIES: 2+ pulses, warm, well-perfused. No cyanosis. No clubbing. No peripheral edema. LOWER EXTREMITIES: 2+ pulses, warm, well-perfused. No calf tenderness. No peripheral edema. NEUROLOGICAL: Does not cooperate with Neurological exam. PSYCHIATRIC: lethargic. SKIN: Warm, dry, normal turgor, no rashes or lesions noted, normal capillary refill. Laboratory Results - last 24 hr 10/27/19 10/27/19 10/27/19 00:46 01:25 01:25 WBC 8.6 RBC 3.56 L Hgb 9.7 L Hct 31.3 L MCV 87.9 MCH 27.3 MCHC 31.1 L RDW 15.4 Plt Count 168 D MPV 12.4 H D Absolute Neuts (auto) 7.3 Neutrophils % 85.5 H D Lymphocytes % 10.0 D Monocytes % 4.3 Eosinophils % 0.0 D Basophils % 0.2 Nucleated RBC % 0 VBG pH POC VBG pCO2 POC VBG pO2 VBG HCO3 VBG O2 Sat (Erica) VBG Base Excess Sodium 136 Potassium 5.1 Chloride 101 Carbon Dioxide 14 L Anion Gap 20 H BUN 33.3 H Creatinine 1.9 H Est GFR (CKD-EPI)AfAm 41.15 Est GFR (CKD-EPI)NonAf 35.51 POC Glucometer 447 Random Glucose 525 H* Lactic Acid Calcium 8.6 Total Bilirubin 0.6 AST 24 ALT 13 Alkaline Phosphatase 77 Creatine Kinase Creatine Kinase Index CK-MB (CK-2) Troponin I Total Protein 6.6 Albumin 2.7 L Beta-Hydroxybutyrate > 46.0 H Serum , Qual 10/27/19 10/27/19 10/27/19 01:25 01:25 01:25 WBC RBC Hgb Hct MCV MCH MCHC RDW Plt Count MPV Absolute Neuts (auto) Neutrophils % Lymphocytes % Monocytes % Eosinophils % Basophils % Nucleated RBC % VBG pH POC VBG pCO2 POC VBG pO2 VBG HCO3 VBG O2 Sat (Erica) VBG Base Excess Sodium Potassium Chloride Carbon Dioxide Anion Gap BUN Creatinine Est GFR (CKD-EPI)AfAm Est GFR (CKD-EPI)NonAf POC Glucometer Random Glucose Lactic Acid 2.5 H* Calcium Total Bilirubin AST ALT Alkaline Phosphatase Creatine Kinase 391 H Creatine Kinase Index 1.6 CK-MB (CK-2) 6.27 H Troponin I 0.38 H Total Protein Albumin Beta-Hydroxybutyrate Serum , Qual Negative 10/27/19 10/27/19 02:47 02:47 WBC RBC Hgb Hct MCV MCH MCHC RDW Plt Count MPV Absolute Neuts (auto) Neutrophils % Lymphocytes % Monocytes % Eosinophils % Basophils % Nucleated RBC % VBG pH 7.32 POC VBG pCO2 26.2 L POC VBG pO2 70.8 H VBG HCO3 13.0 L VBG O2 Sat (Erica) 92.0 H VBG Base Excess -11.7 L Sodium Potassium Chloride Carbon Dioxide Anion Gap BUN Creatinine Est GFR (CKD-EPI)AfAm Est GFR (CKD-EPI)NonAf POC Glucometer 311 Random Glucose Lactic Acid Calcium Total Bilirubin AST ALT Alkaline Phosphatase Creatine Kinase Creatine Kinase Index CK-MB (CK-2) Troponin I Total Protein Albumin Beta-Hydroxybutyrate Serum , Qual ASSESSMENT/PLAN: DKA DM I Polysubstance abuse Prior history of DKA Depression SHANE Anemia HTN CHF by history Recent Cardiac Cath at [facility] Insulin Drip per protocol IVF Strict I & O VTE prophylaxis Supplemental O2 as needed Aspiration precautions Follow BGM / AG Replete lytes as needed PO as tolerated Obtain info from [facility] about recent Cardiac Cath ICU monitoring while on IV Insulin Dr Caro Critical care time spent in reviewing chart, evaluating patient and formulating plan - 36 minutes.
[2019-10-27] MEDS: MUPIROCIN 2% TOPICAL OINTMENT FOR DECOLONIZATION NS SCH ×2 (12:41→23:27)
[2019-10-27 13:30] LABS: RETICULOCYTES 1.24 % (0.5-1.5)
[2019-10-27 13:41] LABS: ALBUMIN 2.6 g/dl (3.4-5.0); BILIRUBIN,TOTAL 0.6 mg/dL (0.2-1); BLOOD UREA NITROGEN 37.6 mg/dL (7-18); CALCIUM 8.2 mg/dL (8.5-10.1); POTASSIUM 4.3 mmol/L (3.5-5.1); TOT PROT 6.4 g/dl (6.4-8.2)
--- NOTE | 2019-10-27 16:10 | EKG ---
Test Reason : Blood Pressure : / mmHG Vent. Rate : 112 BPM Atrial Rate : 112 BPM P-R Int : 130 ms QRS Dur : 078 ms QT Int : 374 ms P-R-T Axes : 071 -30 205 degrees QTc Int : 510 ms SINUS TACHYCARDIA WITH OCCASIONAL PREMATURE VENTRICULAR COMPLEXES POSSIBLE LEFT ATRIAL ENLARGEMENT LEFT AXIS DEVIATION LOW VOLTAGE QRS INFERIOR INFARCT (CITED ON OR BEFORE 27-OCT-2019) CANNOT RULE OUT ANTERIOR INFARCT (CITED ON OR BEFORE 27-OCT-2019) T WAVE ABNORMALITY, CONSIDER LATERAL ISCHEMIA ABNORMAL ECG WHEN COMPARED WITH ECG OF 27-OCT-2019 01:03, PREMATURE VENTRICULAR COMPLEXES ARE NOW PRESENT ABERRANT CONDUCTION IS NO LONGER PRESENT SERIAL CHANGES OF ANTERIOR INFARCT PRESENT Confirmed by LEIGHA MALIK MD ([id number]) on 10/27/2019 4:10:08 PM Referred By: FERMÍN LEONG BUBBA=DEANNA Confirmed By:LEIGHA MALIK MD
[2019-10-27 17:27] LABS: BLOOD UREA NITROGEN 33.4 mg/dL (7-18); CALCIUM 8.2 mg/dL (8.5-10.1); POTASSIUM 4.3 mmol/L (3.5-5.1)
[2019-10-27] MEDS ORDERED: INSULIN (LEVEMIR) 100 UNITS/ML UNITS SQ ONE (17:34)
--- NOTE | 2019-10-27 17:59 | PN ---
Physical Exam: Subjective: Patient examined at beside, still vomiting, admits to smoking crack- cocaine, non-compliant w/ meds, waiting to close gap and bridge to basal insulin. VS otherwise stable. Objective: GENERAL: Awake, alert, and fully oriented, intermittent vomiting HEAD: Normal with no signs of trauma. EYES: PERRLA, EOMI, sclera anicteric, conjunctiva clear. EARS, NOSE, THROAT: Moist mucous membranes. NECK: Normal range of motion, supple LUNGS: scattered rhonchi b/l HEART: Sinus tachycardia, no m/r/g ABDOMEN: Soft, nontender, not distended, normoactive bowel sounds. LOWER EXTREMITIES: 2+ pulses, warm, well-perfused. No peripheral edema. NEUROLOGICAL: Cranial nerves II-XII intact. Normal speech. PSYCHIATRIC: Cooperative. Good eye contact. Appropriate mood and affect. SKIN: Warm, dry, normal turgor. Vital Signs - 24 hr 10/26/19 10/27/19 10/27/19 22:50 01:00 02:44 Temperature 98.6 F Pulse Rate 115 H Pulse Rate [ 122 H Apical] Respiratory 18 Rate Blood Pressure 89/59 L Blood Pressure 101/46 L [Left] O2 Sat by Pulse 100 96 96 Oximetry (%) 10/27/19 10/27/19 10/27/19 03:55 05:00 07:00 Temperature 99.1 F 98.9 F Pulse Rate 93 H 100 H Pulse Rate [ Apical] Respiratory 28 H 18 Rate Blood Pressure 139/80 110/68 Blood Pressure [Left] O2 Sat by Pulse 96 Oximetry (%) 10/27/19 10/27/19 10/27/19 08:00 09:00 10:00 Temperature 98.6 F 98.8 F Pulse Rate 112 H 112 H Pulse Rate [ Apical] Respiratory 24 H 28 H Rate Blood Pressure 113/72 134/82 Blood Pressure [Left] O2 Sat by Pulse 96 Oximetry (%) 10/27/19 12:00 Temperature Pulse Rate 118 H Pulse Rate [ Apical] Respiratory 28 H Rate Blood Pressure 144/94 Blood Pressure [Left] O2 Sat by Pulse Oximetry (%) Laboratory Results - last 24 hr 10/27/19 10/27/19 10/27/19 00:46 01:25 01:25 WBC 8.6 RBC 3.56 L Hgb 9.7 L Hct 31.3 L MCV 87.9 MCH 27.3 MCHC 31.1 L RDW 15.4 Plt Count 168 D MPV 12.4 H D Absolute Neuts (auto) 7.3 Neutrophils % 85.5 H D Lymphocytes % 10.0 D Monocytes % 4.3 Eosinophils % 0.0 D Basophils % 0.2 Nucleated RBC % 0 Retic Count VBG pH POC VBG pCO2 POC VBG pO2 VBG HCO3 VBG O2 Sat (Erica) VBG Base Excess Sodium 136 Potassium 5.1 Chloride 101 Carbon Dioxide 14 L Anion Gap 20 H BUN 33.3 H Creatinine 1.9 H Est GFR (CKD-EPI)AfAm 41.15 Est GFR (CKD-EPI)NonAf 35.51 POC Glucometer 447 Random Glucose 525 H* Hemoglobin A1c % Lactic Acid Calcium 8.6 Phosphorus Magnesium Iron Ferritin Total Bilirubin 0.6 AST 24 ALT 13 Alkaline Phosphatase 77 Creatine Kinase Creatine Kinase Index CK-MB (CK-2) Troponin I Total Protein 6.6 Albumin 2.7 L Vitamin B12 Serum Folate Beta-Hydroxybutyrate > 46.0 H TSH Serum , Qual Urine Color Urine Appearance Urine pH Ur Specific [place] Urine Protein Urine Glucose (UA) Urine Ketones Urine Blood Urine Nitrite Urine Bilirubin Urine Urobilinogen Ur Leukocyte Esterase Urine WBC (Auto) Urine RBC (Auto) Urine Casts (Auto) U Epithel Cells (Auto) Urine Bacteria (Auto) Opiates Screen Methadone Screen Barbiturate Screen Phencyclidine Screen Ur Amphetamines Screen MDMA (Ecstasy) Screen Benzodiazepines Screen Cocaine Screen U Marijuana (THC) Screen 10/27/19 10/27/19 10/27/19 01:25 01:25 01:25 WBC RBC Hgb Hct MCV MCH MCHC RDW Plt Count MPV Absolute Neuts (auto) Neutrophils % Lymphocytes % Monocytes % Eosinophils % Basophils % Nucleated RBC % Retic Count VBG pH POC VBG pCO2 POC VBG pO2 VBG HCO3 VBG O2 Sat (Erica) VBG Base Excess Sodium Potassium Chloride Carbon Dioxide Anion Gap BUN Creatinine Est GFR (CKD-EPI)AfAm Est GFR (CKD-EPI)NonAf POC Glucometer Random Glucose Hemoglobin A1c % Lactic Acid 2.5 H* Calcium Phosphorus Magnesium Iron Ferritin Total Bilirubin AST ALT Alkaline Phosphatase Creatine Kinase 391 H Creatine Kinase Index 1.5 CK-MB (CK-2) 6.0 H Troponin I 0.38 H Total Protein Albumin Vitamin B12 Serum Folate Beta-Hydroxybutyrate TSH Serum , Qual Negative Urine Color Urine Appearance Urine pH Ur Specific [place] Urine Protein Urine Glucose (UA) Urine Ketones Urine Blood Urine Nitrite Urine Bilirubin Urine Urobilinogen Ur Leukocyte Esterase Urine WBC (Auto) Urine RBC (Auto) Urine Casts (Auto) U Epithel Cells (Auto) Urine Bacteria (Auto) Opiates Screen Methadone Screen Barbiturate Screen Phencyclidine Screen Ur Amphetamines Screen MDMA (Ecstasy) Screen Benzodiazepines Screen Cocaine Screen U Marijuana (THC) Screen 10/27/19 10/27/19 10/27/19 02:47 02:47 03:50 WBC RBC Hgb Hct MCV MCH MCHC RDW Plt Count MPV Absolute Neuts (auto) Neutrophils % Lymphocytes % Monocytes % Eosinophils % Basophils % Nucleated RBC % Retic Count VBG pH 7.32 POC VBG pCO2 26.2 L POC VBG pO2 70.8 H VBG HCO3 13.0 L VBG O2 Sat (Erica) 92.0 H VBG Base Excess -11.7 L Sodium 140 Potassium 4.6 Chloride 109 H Carbon Dioxide 18 L Anion Gap 14 BUN 37.6 H Creatinine 1.9 H Est GFR (CKD-EPI)AfAm 41.15 Est GFR (CKD-EPI)NonAf 35.51 POC Glucometer 311 Random Glucose 276 H Hemoglobin A1c % Lactic Acid Calcium 8.5 Phosphorus Magnesium Iron Ferritin Total Bilirubin AST ALT Alkaline Phosphatase Creatine Kinase Creatine Kinase Index CK-MB (CK-2) Troponin I Total Protein Albumin Vitamin B12 Serum Folate Beta-Hydroxybutyrate TSH Serum , Qual Urine Color Urine Appearance Urine pH Ur Specific [place] Urine Protein Urine Glucose (UA) Urine Ketones Urine Blood Urine Nitrite Urine Bilirubin Urine Urobilinogen Ur Leukocyte Esterase Urine WBC (Auto) Urine RBC (Auto) Urine Casts (Auto) U Epithel Cells (Auto) Urine Bacteria (Auto) Opiates Screen Methadone Screen Barbiturate Screen Phencyclidine Screen Ur Amphetamines Screen MDMA (Ecstasy) Screen Benzodiazepines Screen Cocaine Screen U Marijuana (THC) Screen 10/27/19 10/27/19 10/27/19 03:53 05:00 05:18 WBC RBC Hgb Hct MCV MCH MCHC RDW Plt Count MPV Absolute Neuts (auto) Neutrophils % Lymphocytes % Monocytes % Eosinophils % Basophils % Nucleated RBC % Retic Count VBG pH POC VBG pCO2 POC VBG pO2 VBG HCO3 VBG O2 Sat (Erica) VBG Base Excess Sodium Potassium Chloride Carbon Dioxide Anion Gap BUN Creatinine Est GFR (CKD-EPI)AfAm Est GFR (CKD-EPI)NonAf POC Glucometer 165 Random Glucose Hemoglobin A1c % Lactic Acid 2.3 H* Calcium Phosphorus Magnesium Iron Ferritin Total Bilirubin AST ALT Alkaline Phosphatase Creatine Kinase Creatine Kinase Index CK-MB (CK-2) Troponin I Total Protein Albumin Vitamin B12 Serum Folate Beta-Hydroxybutyrate TSH Serum , Qual Urine Color Yellow Urine Appearance Cloudy Urine pH 8.5 H D Ur Specific [place] 1.024 Urine Protein Negative Urine Glucose (UA) Negative Urine Ketones Negative Urine Blood Negative Urine Nitrite Negative Urine Bilirubin Negative Urine Urobilinogen 0.2 Ur Leukocyte Esterase 1+ H Urine WBC (Auto) 5 Urine RBC (Auto) 0 Urine Casts (Auto) 0 U Epithel Cells (Auto) 4.3 Urine Bacteria (Auto) 36.5 Opiates Screen Methadone Screen Barbiturate Screen Phencyclidine Screen Ur Amphetamines Screen MDMA (Ecstasy) Screen Benzodiazepines Screen Cocaine Screen U Marijuana (THC) Screen 10/27/19 10/27/19 10/27/19 05:18 05:45 05:45 WBC 6.7 RBC 3.17 L Hgb 8.7 L Hct 26.8 L MCV 84.7 MCH 27.5 MCHC 32.4 RDW 15.0 Plt Count 162 MPV 11.2 H Absolute Neuts (auto) Neutrophils % Lymphocytes % Monocytes % Eosinophils % Basophils % Nucleated RBC % Retic Count 1.24 VBG pH POC VBG pCO2 POC VBG pO2 VBG HCO3 VBG O2 Sat (Erica) VBG Base Excess Sodium 144 Potassium 4.4 Chloride 111 H Carbon Dioxide 23 Anion Gap 10 BUN 35.7 H Creatinine 2.0 H Est GFR (CKD-EPI)AfAm 38.68 Est GFR (CKD-EPI)NonAf 33.37 POC Glucometer Random Glucose 124 H Hemoglobin A1c % Lactic Acid Calcium 8.6 Phosphorus Magnesium Iron Ferritin Total Bilirubin AST ALT Alkaline Phosphatase Creatine Kinase Creatine Kinase Index CK-MB (CK-2) Troponin I Total Protein Albumin Vitamin B12 Serum Folate Beta-Hydroxybutyrate TSH Serum , Qual Urine Color Urine Appearance Urine pH Ur Specific [place] Urine Protein Urine Glucose (UA) Urine Ketones Urine Blood Urine Nitrite Urine Bilirubin Urine Urobilinogen Ur Leukocyte Esterase Urine WBC (Auto) Urine RBC (Auto) Urine Casts (Auto) U Epithel Cells (Auto) Urine Bacteria (Auto) Opiates Screen Negative Methadone Screen Negative Barbiturate Screen Negative Phencyclidine Screen Negative Ur Amphetamines Screen Negative MDMA (Ecstasy) Screen Negative Benzodiazepines Screen Positive A* Cocaine Screen Negative U Marijuana (THC) Screen Negative 10/27/19 10/27/19 10/27/19 05:45 05:45 05:45 WBC RBC Hgb Hct MCV MCH MCHC RDW Plt Count MPV Absolute Neuts (auto) Neutrophils % Lymphocytes % Monocytes % Eosinophils % Basophils % Nucleated RBC % Retic Count VBG pH POC VBG pCO2 POC VBG pO2 VBG HCO3 VBG O2 Sat (Erica) VBG Base Excess Sodium 143 Potassium 4.3 Chloride 111 H Carbon Dioxide 23 Anion Gap 10 BUN 36.0 H Creatinine 1.9 H Est GFR (CKD-EPI)AfAm 41.15 Est GFR (CKD-EPI)NonAf 35.51 POC Glucometer Random Glucose 122 H Hemoglobin A1c % 11.6 H Lactic Acid Calcium 8.7 Phosphorus 3.6 Magnesium 2.2 Iron 72 Ferritin 45.2 Total Bilirubin 0.3 AST 20 ALT 13 Alkaline Phosphatase 64 Creatine Kinase 302 H Creatine Kinase Index 1.8 CK-MB (CK-2) 5.5 H Troponin I 0.42 H Total Protein 6.0 L Albumin 2.3 L Vitamin B12 463 Serum Folate 52 H Beta-Hydroxybutyrate TSH 1.90 Serum , Qual Urine Color Urine Appearance Urine pH Ur Specific [place] Urine Protein Urine Glucose (UA) Urine Ketones Urine Blood Urine Nitrite Urine Bilirubin Urine Urobilinogen Ur Leukocyte Esterase Urine WBC (Auto) Urine RBC (Auto) Urine Casts (Auto) U Epithel Cells (Auto) Urine Bacteria (Auto) Opiates Screen Methadone Screen Barbiturate Screen Phencyclidine Screen Ur Amphetamines Screen MDMA (Ecstasy) Screen Benzodiazepines Screen Cocaine Screen U Marijuana (THC) Screen 10/27/19 10/27/19 10/27/19 06:08 06:42 08:22 WBC RBC Hgb Hct MCV MCH MCHC RDW Plt Count MPV Absolute Neuts (auto) Neutrophils % Lymphocytes % Monocytes % Eosinophils % Basophils % Nucleated RBC % Retic Count VBG pH POC VBG pCO2 POC VBG pO2 VBG HCO3 VBG O2 Sat (Erica) VBG Base Excess Sodium Potassium Chloride Carbon Dioxide Anion Gap BUN Creatinine Est GFR (CKD-EPI)AfAm Est GFR (CKD-EPI)NonAf POC Glucometer 99 88 163 Random Glucose Hemoglobin A1c % Lactic Acid Calcium Phosphorus Magnesium Iron Ferritin Total Bilirubin AST ALT Alkaline Phosphatase Creatine Kinase Creatine Kinase Index CK-MB (CK-2) Troponin I Total Protein Albumin Vitamin B12 Serum Folate Beta-Hydroxybutyrate TSH Serum , Qual Urine Color Urine Appearance Urine pH Ur Specific [place] Urine Protein Urine Glucose (UA) Urine Ketones Urine Blood Urine Nitrite Urine Bilirubin Urine Urobilinogen Ur Leukocyte Esterase Urine WBC (Auto) Urine RBC (Auto) Urine Casts (Auto) U Epithel Cells (Auto) Urine Bacteria (Auto) Opiates Screen Methadone Screen Barbiturate Screen Phencyclidine Screen Ur Amphetamines Screen MDMA (Ecstasy) Screen Benzodiazepines Screen Cocaine Screen U Marijuana (THC) Screen 10/27/19 10/27/19 10/27/19 08:30 11:15 12:50 WBC RBC Hgb Hct MCV MCH MCHC RDW Plt Count MPV Absolute Neuts (auto) Neutrophils % Lymphocytes % Monocytes % Eosinophils % Basophils % Nucleated RBC % Retic Count VBG pH POC VBG pCO2 POC VBG pO2 VBG HCO3 VBG O2 Sat (Erica) VBG Base Excess Sodium 138 Potassium 4.3 Chloride 104 Carbon Dioxide 17 L Anion Gap 17 H BUN 37.6 H Creatinine 2.0 H Est GFR (CKD-EPI)AfAm 38.68 Est GFR (CKD-EPI)NonAf 33.37 POC Glucometer 373 Random Glucose 365 H Hemoglobin A1c % Lactic Acid 1.4 Calcium 8.2 L Phosphorus Magnesium Iron Ferritin Total Bilirubin 0.6 AST 22 ALT 16 Alkaline Phosphatase 65 Creatine Kinase Creatine Kinase Index CK-MB (CK-2) Troponin I 0.29 H Total Protein 6.4 Albumin 2.6 L Vitamin B12 Serum Folate Beta-Hydroxybutyrate TSH Serum , Qual Urine Color Urine Appearance Urine pH Ur Specific [place] Urine Protein Urine Glucose (UA) Urine Ketones Urine Blood Urine Nitrite Urine Bilirubin Urine Urobilinogen Ur Leukocyte Esterase Urine WBC (Auto) Urine RBC (Auto) Urine Casts (Auto) U Epithel Cells (Auto) Urine Bacteria (Auto) Opiates Screen Methadone Screen Barbiturate Screen Phencyclidine Screen Ur Amphetamines Screen MDMA (Ecstasy) Screen Benzodiazepines Screen Cocaine Screen U Marijuana (THC) Screen 10/27/19 10/27/19 10/27/19 12:54 14:00 15:00 WBC RBC Hgb Hct MCV MCH MCHC RDW Plt Count MPV Absolute Neuts (auto) Neutrophils % Lymphocytes % Monocytes % Eosinophils % Basophils % Nucleated RBC % Retic Count VBG pH POC VBG pCO2 POC VBG pO2 VBG HCO3 VBG O2 Sat (Erica) VBG Base Excess Sodium Potassium Chloride Carbon Dioxide Anion Gap BUN Creatinine Est GFR (CKD-EPI)AfAm Est GFR (CKD-EPI)NonAf POC Glucometer 351 291 167 Random Glucose Hemoglobin A1c % Lactic Acid Calcium Phosphorus Magnesium Iron Ferritin Total Bilirubin AST ALT Alkaline Phosphatase Creatine Kinase Creatine Kinase Index CK-MB (CK-2) Troponin I Total Protein Albumin Vitamin B12 Serum Folate Beta-Hydroxybutyrate TSH Serum , Qual Urine Color Urine Appearance Urine pH Ur Specific [place] Urine Protein Urine Glucose (UA) Urine Ketones Urine Blood Urine Nitrite Urine Bilirubin Urine Urobilinogen Ur Leukocyte Esterase Urine WBC (Auto) Urine RBC (Auto) Urine Casts (Auto) U Epithel Cells (Auto) Urine Bacteria (Auto) Opiates Screen Methadone Screen Barbiturate Screen Phencyclidine Screen Ur Amphetamines Screen MDMA (Ecstasy) Screen Benzodiazepines Screen Cocaine Screen U Marijuana (THC) Screen 10/27/19 10/27/19 10/27/19 16:01 16:15 17:10 WBC RBC Hgb Hct MCV MCH MCHC RDW Plt Count MPV Absolute Neuts (auto) Neutrophils % Lymphocytes % Monocytes % Eosinophils % Basophils % Nucleated RBC % Retic Count VBG pH POC VBG pCO2 POC VBG pO2 VBG HCO3 VBG O2 Sat (Erica) VBG Base Excess Sodium 142 Potassium 4.3 Chloride 108 H Carbon Dioxide 27 Anion Gap 7 L BUN 33.4 H Creatinine 2.0 H Est GFR (CKD-EPI)AfAm 38.68 Est GFR (CKD-EPI)NonAf 33.37 POC Glucometer 75 80 Random Glucose 60 L Hemoglobin A1c % Lactic Acid Calcium 8.2 L Phosphorus Magnesium Iron Ferritin Total Bilirubin AST ALT Alkaline Phosphatase Creatine Kinase Creatine Kinase Index CK-MB (CK-2) Troponin I Total Protein Albumin Vitamin B12 Serum Folate Beta-Hydroxybutyrate TSH Serum , Qual Urine Color Urine Appearance Urine pH Ur Specific [place] Urine Protein Urine Glucose (UA) Urine Ketones Urine Blood Urine Nitrite Urine Bilirubin Urine Urobilinogen Ur Leukocyte Esterase Urine WBC (Auto) Urine RBC (Auto) Urine Casts (Auto) U Epithel Cells (Auto) Urine Bacteria (Auto) Opiates Screen Methadone Screen Barbiturate Screen Phencyclidine Screen Ur Amphetamines Screen MDMA (Ecstasy) Screen Benzodiazepines Screen Cocaine Screen U Marijuana (THC) Screen 10/27/19 18:04 WBC RBC Hgb Hct MCV MCH MCHC RDW Plt Count MPV Absolute Neuts (auto) Neutrophils % Lymphocytes % Monocytes % Eosinophils % Basophils % Nucleated RBC % Retic Count VBG pH POC VBG pCO2 POC VBG pO2 VBG HCO3 VBG O2 Sat (Erica) VBG Base Excess Sodium Potassium Chloride Carbon Dioxide Anion Gap BUN Creatinine Est GFR (CKD-EPI)AfAm Est GFR (CKD-EPI)NonAf POC Glucometer 121 Random Glucose Hemoglobin A1c % Lactic Acid Calcium Phosphorus Magnesium Iron Ferritin Total Bilirubin AST ALT Alkaline Phosphatase Creatine Kinase Creatine Kinase Index CK-MB (CK-2) Troponin I Total Protein Albumin Vitamin B12 Serum Folate Beta-Hydroxybutyrate TSH Serum , Qual Urine Color Urine Appearance Urine pH Ur Specific [place] Urine Protein Urine Glucose (UA) Urine Ketones Urine Blood Urine Nitrite Urine Bilirubin Urine Urobilinogen Ur Leukocyte Esterase Urine WBC (Auto) Urine RBC (Auto) Urine Casts (Auto) U Epithel Cells (Auto) Urine Bacteria (Auto) Opiates Screen Methadone Screen Barbiturate Screen Phencyclidine Screen Ur Amphetamines Screen MDMA (Ecstasy) Screen Benzodiazepines Screen Cocaine Screen U Marijuana (THC) Screen Home Medications Medication Instructions Recorded Citalopram Hydrobromide 20 mg PO DAILY 01/11/19 [Citalopram HBr] Furosemide 20 mg PO DAILY 01/11/19 Magnesium Oxide 600 mg PO BID 01/11/19 Aripiprazole [Abilify] 10 mg PO DAILY 04/01/19 Aspirin [Adult Aspirin Regimen] 81 mg PO DAILY 04/01/19 Carvedilol 6.25 mg PO BID 04/01/19 Insulin Glargine,Hum.rec.anlog 34 units SQ ACBK 04/01/19 [Basaglar Kwikpen U-100] Insulin Lispro [Humalog Kwikpen See Protocol SQ ACHS 04/01/19 U-200] Lancets/Blood Glucose Strips [Fora 1 each [facility] #1 combo..pkg 04/04/19 [id number] Strp-Lnct] Current Medications Generic Name Dose Route Start Last Admin Trade Name Freq PRN Reason Stop Dose Admin Carvedilol 6.25 mg 10/27/19 17:00 Coreg - PO BID ALISA Chlorhexidine Gluconate 1 applic 10/27/19 22:00 Hibiclens For Decolonization - TP HS ALISA Heparin Sodium (Porcine) 5,000 unit 10/27/19 07:15 10/27/19 15:11 Heparin - SQ 5,000 unit TID ALISA Administration Insulin Human Regular 100 100 mls @ 9.07 mls/hr 10/27/19 02:30 10/27/19 17:05 units/ Sodium Chloride IVPB 0 units/kg/hr TITR ALISA 0 mls/hr Titration Protocol 0.1 UNITS/KG/HR Dextrose/Sodium Chloride 20 meq in 1,000 mls @ 125 mls/hr 10/27/19 15:15 15:15 Dextrose 5%-Normal Saline+20 Meq Kcl - IV 125 mls/hr ASDIR ALISA Administration Insulin Aspart 1 vial 10/27/19 18:00 Novolog Vial Sliding Scale - SQ Q4H ALISA Protocol Magnesium Oxide 400 mg 10/27/19 22:00 Mag-Ox - PO BID ALISA Mupirocin 1 applic 10/27/19 10:00 10/27/19 12:41 Bactroban Ointment (For Decolonization) - NS 11/01/19 09:59 Not Given BID [facility] A/P: 29 year old AA female with h/o obesity, HTN, IDDM with multiple prior admissions for DKA, Depression, HFrEF (?ischemic but never received stent as per patient), PSA with crack cocaine, who presents with DKA and troponemia. Diabetic ketoacidosis with starvation ketosis and dehydration Cont. insulin gtt until gap closed x2, bridge with basal insulin while continuing insulin gtt for 30-45 mins then DC, D5NS as needed for F/S <200, avoid hypoglycemia Aggressive electrolyte replacement, including K follow Endo consult: Dr Zacarias Prolonged QTc EKG indicative of strain pattern with prolonged QTc avoid QTc prolonging agents, trend EKG daily IV Mg given with slight improvement, start Mg Oxide 800mg PO daily Troponemia likely 2/2 demand in setting of underlying cardiomyopathy trend trops to document peak restart Coreg as per cardio recs Obtain collateral from [facility]? regarding recent cardiac cath Repeat Echo when rate controlled SHANE 2/2 volume depletion, vomiting aggressive IV hydration trend CRE, avoid nephrotoxins Renal consult Anemia follow anemia panel transfuse PRN PSA admits to crack cocaine use OK to use Coreg as per cardio counseled on cessation, denies IV drug use HTN restart BP meds as tolerated DVT: Heparin SQ TID Continue ICU monitoring Visit type - Emergency Visit Emergency Visit: Yes ED Registration Date: 10/27/19 Care time: The patient presented to the Emergency Department on the above date and was hospitalized for further evaluation of their emergent condition. - New Patient This patient is new to me today: Yes Date on this admission: 10/27/19 - Critical Care Critical Care patient: No - Discharge Referral Referred to [facility] Med [facility] No
[2019-10-27] MEDS: CARVEDILOL 6.25 MG TABLET (FP) PO SCH ×2 (18:22→22:53)
[2019-10-27 19:58] LABS: BLOOD UREA NITROGEN 35.1 mg/dL (7-18); CALCIUM 8.8 mg/dL (8.5-10.1); POTASSIUM 4.8 mmol/L (3.5-5.1)
[2019-10-27] MEDS ORDERED: ACETAMINOPHEN 325 MG TABLET (FP) PO PRN (20:39)
[2019-10-27] MEDS ORDERED: CHLORHEXIDINE GLUCONATE 4% CLEANSER FOR DECOLONIZATION TP SCH (22:00)
[2019-10-27] MEDS: MAGNESIUM OXIDE 400 MG TABLET (FP) PO SCH (22:53)
--- NOTE | 2019-10-27 23:38 | CONSULT ---
Consult Consult Specialty:: Endocrine Referred by:: Marguerite Valadez RES Reason for Consultation:: DKA - History of Present Illness Chief Complaint: HIGH SUGARS History of Present Illness: 29F PMH DMT1,(NON COMPLIANT), HTN, prior DKA, Depression, CHF, who presented with lethargy high sugars,lethargic, nausea,has not taken her insulin,found to have bs 545mg/dl,shane,dehydration,requiring iv fluid and insulin drip for DKA, upon admission |AG 20 with poor po intake.for last several days she has not taken her insulin or followed diabetic diet.she is homeless and moves around town." - Past Medical History Cardio/Vascular: Yes: CHF Endocrine: Yes: Diabetes Mellitus - Alcohol/Substance Use Hx Alcohol Use: No - Smoking History Smoking history: Never smoked Have you smoked in the past 12 months: No Aproximately how many cigarettes per day: 2 - Social History Usual Living Arrangement: Assisted Living Home Medications - Allergies Allergies/Adverse Reactions: Allergies Allergy/AdvReac Type Severity Reaction Status Date / Time haloperidol [From Haldol] Allergy Verified 10/26/19 22:57 - Home Medications Home Medications: Ambulatory Orders Citalopram Hydrobromide [Citalopram HBr] 20 mg PO DAILY 01/11/19 Furosemide 20 mg PO DAILY 01/11/19 Magnesium Oxide 600 mg PO BID 01/11/19 Aripiprazole [Abilify] 10 mg PO DAILY 04/01/19 Aspirin [Adult Aspirin Regimen] 81 mg PO DAILY 04/01/19 Carvedilol 6.25 mg PO BID 04/01/19 Insulin Glargine,Hum.rec.anlog [Basaglar Kwikpen U-100] 34 units SQ ACBK Insulin Lispro [Humalog Kwikpen U-200] See Protocol SQ ACHS 04/01/19 Lancets/Blood Glucose Strips [Fora [id number] Strp-Lnct] 1 each [facility] #1 combo..pkg 04/04/19 Review of Systems - Review of Systems Constitutional: reports: Lethargy Eyes: reports: Blurred Vision HENT: reports: No Symptoms Neck: reports: No Symptoms Cardiovascular: reports: Shortness of Breath Respiratory: reports: Exercise Intolerance, SOB on Exertion Gastrointestinal: reports: Nausea Genitourinary: reports: No Symptoms Musculoskeletal: reports: Muscle Pain, Muscle Cramps, Muscle Weakness Neurological: reports: Numbness, Weakness Endocrine: reports: Unexplained Weight Loss Physical Exam Vital Signs: Vital Signs Temperature 99.4 F 10/27/19 18:00 Pulse Rate 100 H 10/27/19 20:00 Respiratory Rate 16 10/27/19 20:00 Blood Pressure 137/75 10/27/19 20:00 O2 Sat by Pulse Oximetry (%) 96 10/27/19 19:51 Constitutional: Yes: Anxious Eyes: Yes: EOM Intact HENT: Yes: Normocephalic Neck: Yes: Trachea Midline Cardiovascular: Yes: Regular Rate and Rhythm Respiratory: Yes: Tachypnea Gastrointestinal: Yes: Normal Bowel Sounds ...Rectal Exam: Yes: Deferred Musculoskeletal: Yes: WNL Neurological: Yes: Alert, Oriented Labs: CBC, BMP 10/27/19 05:45 10/27/19 19:00 Problem List - Problems (1) DKA (diabetic ketoacidoses) Code(s): E11.10 - TYPE 2 DIABETES MELLITUS WITH KETOACIDOSIS WITHOUT COMA Qualifiers: Diabetes mellitus type: type 1 Diabetes mellitus complication detail: without coma Qualified Code(s): E10.10 - Type 1 diabetes mellitus with ketoacidosis without coma (2) Systolic dysfunction without heart failure Code(s): I51.89 - OTHER ILL-DEFINED HEART DISEASES (3) SHANE (acute kidney injury) Code(s): N17.9 - ACUTE KIDNEY FAILURE, UNSPECIFIED (4) Cocaine abuse Code(s): F14.10 - COCAINE ABUSE, UNCOMPLICATED (5) Dehydration Code(s): E86.0 - DEHYDRATION (6) Elevated troponin I level Code(s): R74.8 - ABNORMAL LEVELS OF OTHER SERUM ENZYMES (7) Heart failure, systolic, with acute decompensation Code(s): I50.23 - ACUTE ON CHRONIC SYSTOLIC (CONGESTIVE) HEART FAILURE (8) Hyperglycemia Code(s): R73.9 - HYPERGLYCEMIA, UNSPECIFIED Assessment/Plan Current Active Problems DKA (diabetic ketoacidoses) (Acute) Systolic dysfunction without heart failure (Acute) Abnormal Lab Results 10/27/19 10/27/19 10/27/19 01:25 01:25 01:25 RBC 3.56 L Hgb 9.7 L Hct 31.3 L MCHC 31.1 L MPV 12.4 H D Neutrophils % 85.5 H D POC VBG pCO2 POC VBG pO2 VBG HCO3 VBG O2 Sat (Erica) VBG Base Excess Chloride Carbon Dioxide 14 L Anion Gap 20 H BUN 33.3 H Creatinine 1.9 H Random Glucose 525 H* Hemoglobin A1c % Lactic Acid Calcium Creatine Kinase 391 H CK-MB (CK-2) 6.0 H Troponin I 0.38 H Total Protein Albumin 2.7 L Serum Folate Beta-Hydroxybutyrate > 46.0 H Urine pH Ur Leukocyte Esterase Benzodiazepines Screen 10/27/19 10/27/19 10/27/19 01:25 02:47 03:50 RBC Hgb Hct MCHC MPV Neutrophils % POC VBG pCO2 26.2 L POC VBG pO2 70.8 H VBG HCO3 13.0 L VBG O2 Sat (Erica) 92.0 H VBG Base Excess -11.7 L Chloride 109 H Carbon Dioxide 18 L Anion Gap BUN 37.6 H Creatinine 1.9 H Random Glucose 276 H Hemoglobin A1c % Lactic Acid 2.5 H* Calcium Creatine Kinase CK-MB (CK-2) Troponin I Total Protein Albumin Serum Folate Beta-Hydroxybutyrate Urine pH Ur Leukocyte Esterase Benzodiazepines Screen 10/27/19 10/27/19 10/27/19 03:53 05:18 05:18 RBC Hgb Hct MCHC MPV Neutrophils % POC VBG pCO2 POC VBG pO2 VBG HCO3 VBG O2 Sat (Erica) VBG Base Excess Chloride Carbon Dioxide Anion Gap BUN Creatinine Random Glucose Hemoglobin A1c % Lactic Acid 2.3 H* Calcium Creatine Kinase CK-MB (CK-2) Troponin I Total Protein Albumin Serum Folate Beta-Hydroxybutyrate Urine pH 8.5 H D Ur Leukocyte Esterase 1+ H Benzodiazepines Screen Positive A* 10/27/19 10/27/19 10/27/19 05:45 05:45 05:45 RBC 3.17 L Hgb 8.7 L Hct 26.8 L MCHC MPV 11.2 H Neutrophils % POC VBG pCO2 POC VBG pO2 VBG HCO3 VBG O2 Sat (Erica) VBG Base Excess Chloride 111 H 111 H Carbon Dioxide Anion Gap BUN 35.7 H 36.0 H Creatinine 2.0 H 1.9 H Random Glucose 124 H 122 H Hemoglobin A1c % Lactic Acid Calcium Creatine Kinase CK-MB (CK-2) Troponin I Total Protein 6.0 L Albumin 2.3 L Serum Folate 52 H Beta-Hydroxybutyrate Urine pH Ur Leukocyte Esterase Benzodiazepines Screen 10/27/19 10/27/19 10/27/19 05:45 05:45 12:50 RBC Hgb Hct MCHC MPV Neutrophils % POC VBG pCO2 POC VBG pO2 VBG HCO3 VBG O2 Sat (Erica) VBG Base Excess Chloride Carbon Dioxide 17 L Anion Gap 17 H BUN 37.6 H Creatinine 2.0 H Random Glucose 365 H Hemoglobin A1c % 11.6 H Lactic Acid Calcium 8.2 L Creatine Kinase 302 H CK-MB (CK-2) 5.5 H Troponin I 0.42 H 0.29 H Total Protein Albumin 2.6 L Serum Folate Beta-Hydroxybutyrate Urine pH Ur Leukocyte Esterase Benzodiazepines Screen 10/27/19 10/27/19 16:15 19:00 RBC Hgb Hct MCHC MPV Neutrophils % POC VBG pCO2 POC VBG pO2 VBG HCO3 VBG O2 Sat (Erica) VBG Base Excess Chloride 108 H Carbon Dioxide Anion Gap 7 L 7 L BUN 33.4 H 35.1 H Creatinine 2.0 H 2.0 H Random Glucose 60 L 202 H Hemoglobin A1c % Lactic Acid Calcium 8.2 L Creatine Kinase CK-MB (CK-2) Troponin I Total Protein Albumin Serum Folate Beta-Hydroxybutyrate Urine pH Ur Leukocyte Esterase Benzodiazepines Screen Laboratory Tests 10/27/19 10/27/19 10/27/19 08:22 16:15 23:19 Chloride 108 H Carbon Dioxide 27 Anion Gap 7 L POC Glucometer 163 528 plan: bg qachs novolog levemir 20 units bid diet and nutrition consult
[2019-10-28 06:32] LABS: HEMOGLOBIN 8.9 GM/dL (10.7-15.3); MCH 27.3 pg (25.7-33.7); MCHC 31.7 g/dl (32.0-36.0); PLATELET COUNT 147 K/MM3 (134-434); RBC 3.25 M/mm3 (3.60-5.2); RDW 15.5 % (11.6-15.6); WHITE BLOOD COUNT 5.3 K/mm3 (4.0-10.0)
[2019-10-28] MEDS: INSULIN SLIDING SCALE (NOVOLOG) 1 VIAL SQ SCH ×7 (06:40→21:42)
[2019-10-28] MEDS: INSULIN REGULAR 100 UNITS in SODIUM CHLORIDE 99 ML IVPB SCH (06:48)
[2019-10-28 06:51] LABS: BLOOD UREA NITROGEN 33.6 mg/dL (7-18); CALCIUM 7.9 mg/dL (8.5-10.1); CREATININE 1.9 mg/dL (0.55-1.3); MAGNESIUM 2.6 mg/dL (1.8-2.4); PHOSPHOROUS 3.6 mg/dL (2.5-4.9); POTASSIUM 4.5 mmol/L (3.5-5.1)
[2019-10-28] MEDS ORDERED: INSULIN (LEVEMIR) 100 UNITS/ML UNITS SQ SCH ×2 (07:00→22:00)
[2019-10-28] MEDS: SODIUM CHLORIDE 1,000 ML IV SCH ×2 (07:30→10:00)
[2019-10-28] MEDS: HEPARIN NA (PORCINE) 5,000 UNITS/ML 1ML VIAL SQ SCH ×3 (07:30→21:39)
--- NOTE | 2019-10-28 09:09 | PN ---
Progress Note (short form) - Note Progress Note: Awake, no CP/SOB/PAlpitation; c/o stomachace;States was taking "heart meds" after last hospitalization; Anemia Hb 8.9, Cr 1.9 from 2 Monitor: Frequent PVCs no JVP L:CTA H:RRR with extra beats CBC WBC 5.3 K/mm3 (4.0-10.0) 10/28/19 05:50 RBC 3.25 M/mm3 (3.60-5.2) L 10/28/19 05:50 Hgb 8.9 GM/dL (10.7-15.3) L 10/28/19 05:50 Hct 28.0 % (32.4-45.2) L 10/28/19 05:50 MCV 86.0 fl (80-96) 10/28/19 05:50 MCH 27.3 pg (25.7-33.7) 10/28/19 05:50 MCHC 31.7 g/dl (32.0-36.0) L 10/28/19 05:50 RDW 15.5 % (11.6-15.6) 10/28/19 05:50 Plt Count 147 K/MM3 (134-434) 10/28/19 05:50 MPV 11.0 fl (7.5-11.1) 10/28/19 05:50 Absolute Neuts (auto) 7.3 K/mm3 (1.5-8.0) 10/27/19 01:25 Neutrophils % 85.5 % (42.8-82.8) H D 10/27/19 01:25 Lymphocytes % 10.0 % (8-40) D 10/27/19 01:25 Monocytes % 4.3 % (3.8-10.2) 10/27/19 01:25 Eosinophils % 0.0 % (0-4.5) D 10/27/19 01:25 Basophils % 0.2 % (0-2.0) 10/27/19 01:25 Nucleated RBC % 0 % (0-0) 10/27/19 01:25 Retic Count 1.24 % (0.5-1.5) 10/27/19 05:45 CMP Sodium 136 mmol/L (136-145) 10/28/19 05:50 Potassium 4.5 mmol/L (3.5-5.1) 10/28/19 05:50 Chloride 104 mmol/L (98-107) 10/28/19 05:50 Carbon Dioxide 22 mmol/L (21-32) 10/28/19 05:50 Anion Gap 10 MMOL/L (8-16) 10/28/19 05:50 BUN 33.6 mg/dL (7-18) H 10/28/19 05:50 Creatinine 1.9 mg/dL (0.55-1.3) H 10/28/19 05:50 Est GFR (CKD-EPI)AfAm 41.15 10/28/19 05:50 Est GFR (CKD-EPI)NonAf 35.51 10/28/19 05:50 POC Glucometer 254 UNITS (80-120) 10/28/19 06:11 Random Glucose 281 mg/dL (74-106) H 10/28/19 05:50 Hemoglobin A1c % 11.6 % (4.2-6.3) H 10/27/19 05:45 Lactic Acid 1.4 mmol/L (0.4-2.0) 10/27/19 08:30 Calcium 7.9 mg/dL (8.5-10.1) L 10/28/19 05:50 Phosphorus 3.6 mg/dL (2.5-4.9) 10/28/19 05:50 Magnesium 2.6 mg/dL (1.8-2.4) H 10/28/19 05:50 Iron 72 ug/dL (50-175) 10/27/19 05:45 Ferritin 45.2 ng/ml (8-388) 10/27/19 05:45 Total Bilirubin 0.6 mg/dL (0.2-1) 10/27/19 12:50 AST 22 U/L (15-37) 10/27/19 12:50 ALT 16 U/L (13-61) 10/27/19 12:50 Alkaline Phosphatase 65 U/L (45-117) 10/27/19 12:50 Creatine Kinase 302 U/L (26-192) H 10/27/19 05:45 Creatine Kinase Index 1.8 % (0.0-5.0) 10/27/19 05:45 CK-MB (CK-2) 5.5 ng/mL (0.5-3.6) H 10/27/19 05:45 Troponin I 0.29 ng/ml (0.00-0.05) H 10/27/19 12:50 Total Protein 6.4 g/dl (6.4-8.2) 10/27/19 12:50 Albumin 2.6 g/dl (3.4-5.0) L 10/27/19 12:50 Vitamin B12 463 pg/ml (193-986) 10/27/19 05:45 Serum Folate 52 ng/mL (3.1-17.5) H 10/27/19 05:45 Beta-Hydroxybutyrate > 46.0 mg/dL (0.2-2.8) H 10/27/19 01:25 TSH 1.90 uIU/ml (0.358-3.74) 10/27/19 05:45 Serum , Qual Negative 10/27/19 01:25 Current Medications Acetaminophen (Tylenol -) 650 mg PO Q6H PRN PRN Reason: PAIN LEVEL 6-10 Last Admin: 10/27/19 22:56 Dose: 650 mg Carvedilol (Coreg -) 6.25 mg PO BID [facility] Last Admin: 10/27/19 22:53 Dose: 6.25 mg Chlorhexidine Gluconate (Hibiclens For Decolonization -) 1 applic TP HS [facility] Last Admin: 10/27/19 22:54 Dose: 1 applic Heparin Sodium (Porcine) (Heparin -) 5,000 unit SQ TID [facility] Last Admin: 10/28/19 07:30 Dose: 5,000 unit Insulin Human Regular 100 (units/ Sodium Chloride) 100 mls @ 9.07 mls/hr IVPB TITR [facility]; Protocol Last Admin: 10/28/19 06:48 Dose: Not Given Sodium Chloride (Normal Saline -) 1,000 mls @ 100 mls/hr IV ASDIR [facility] Last Admin: 10/28/19 07:30 Dose: 100 mls/hr Insulin Aspart (Novolog Vial Sliding Scale -) 1 vial SQ Q4H [facility]; Protocol Last Admin: 10/28/19 09:57 Dose: Not Given Insulin Detemir (Levemir Vial) 20 units SQ AM [facility] Last Admin: 10/28/19 07:32 Dose: 20 units Magnesium Oxide (Mag-Ox -) 400 mg PO BID [facility] Last Admin: 10/27/19 22:53 Dose: 400 mg Mupirocin (Bactroban Ointment (For Decolonization) -) 1 applic NS BID [facility] Stop: 11/01/19 09:59 Last Admin: 10/27/19 23:27 Dose: 1 applic Assessment: 04/01/2019 Echo: Mildly dilated LV, mild cLVH LVEF 40%, normal RV size and fxn, mild LAE, mod MR, mild TR, trace pericardial effusion 1. Recurrent DKA 2. Acute on CKD 2/2 to above 3. H/o peripartum cardiomyopathy 4. H/o pericardial effusion 5. Cocaine abuse 6. Demand ischemia 7. Hyperlipidemia 8. PVC 9. Anemia P: Echo once stable 1. Increase carvedilol to 12.5 bid, no absolute contraindications with cocaine use; cont monitor rhythm 2. trend trops to document peak 3. Resume VINCENT-I/ARB once renal fxn stabilizes 4. Obtain cath reports from [facility] if available for review 5. Cocaine abstinence
[2019-10-28] MEDS: MUPIROCIN 2% TOPICAL OINTMENT FOR DECOLONIZATION NS SCH (11:11)
[2019-10-28] MEDS: CARVEDILOL 6.25 MG TABLET (FP) PO SCH ×2 (11:12→13:00)
[2019-10-28] MEDS: MAGNESIUM OXIDE 400 MG TABLET (FP) PO SCH ×4 (11:12→21:47)
--- NOTE | 2019-10-28 11:21 | PN ---
Progress Note (short form) - Note Progress Note: Renal follow up for SHANE Seen and examined in the ICU awake and alert reports diffuse tenderness, no chest pain or shortness of breath denies any cough making urine no N/V/D Vital Signs Temperature 98.2 F 10/28/19 10:13 Pulse Rate 95 H 10/28/19 08:00 Respiratory Rate 18 10/28/19 08:00 Blood Pressure 120/79 10/28/19 08:00 O2 Sat by Pulse Oximetry (%) 99 10/28/19 09:00 Intake & Output 10/25/19 10/26/19 10/27/19 10/28/19 23:59 23:59 23:59 23:59 Intake Total 2775 1775 Output Total 500 500 Balance 2275 1275 Weight 90.718 kg 92.986 kg awake and alert NAD neck supple, no JVD Dry MM RRR CTA no rales or wheeze soft NT/ND, obese. no rebound or guarding no LE edema, clubbing or cyanosis CBC, BMP 10/28/19 05:50 10/28/19 05:50 Laboratory Tests 10/28/19 05:50 Anion Gap 10 Calcium 7.9 L Phosphorus 3.6 Magnesium 2.6 H Current Medications Acetaminophen (Tylenol -) 650 mg PO Q6H PRN PRN Reason: PAIN LEVEL 6-10 Last Admin: 10/27/19 22:56 Dose: 650 mg Carvedilol (Coreg -) 6.25 mg PO BID [facility] Last Admin: 10/28/19 11:12 Dose: Not Given Chlorhexidine Gluconate (Hibiclens For Decolonization -) 1 applic TP HS [facility] Last Admin: 10/27/19 22:54 Dose: 1 applic Heparin Sodium (Porcine) (Heparin -) 5,000 unit SQ TID [facility] Last Admin: 10/28/19 07:30 Dose: 5,000 unit Insulin Human Regular 100 (units/ Sodium Chloride) 100 mls @ 9.07 mls/hr IVPB TITR [facility]; Protocol Last Admin: 10/28/19 06:48 Dose: Not Given Sodium Chloride (Normal Saline -) 1,000 mls @ 100 mls/hr IV ASDIR [facility] Last Admin: 10/28/19 07:30 Dose: 100 mls/hr Insulin Aspart (Novolog Vial Sliding Scale -) 1 vial SQ Q4H [facility]; Protocol Last Admin: 10/28/19 09:57 Dose: Not Given Insulin Detemir (Levemir Vial) 20 units SQ AM [facility] Last Admin: 10/28/19 07:32 Dose: 20 units Magnesium Oxide (Mag-Ox -) 400 mg PO BID [facility] Last Admin: 10/28/19 11:12 Dose: Not Given Mupirocin (Bactroban Ointment (For Decolonization) -) 1 applic NS BID [facility] Stop: 11/01/19 09:59 Last Admin: 10/28/19 11:11 Dose: Not Given 29 year old woman with history of DM type 1, CAD (? nonobstructive), CHF (decreased LVEF), substance abuse who presented with lethargy and AMS and found to have DKA and SHANE with Cr of 1.9. 1. DKA 2. Acute kidney injury 3. CHF/CAD 4. Tachycardia 5. Anemia Renal function unchanged, no overt acidosis or hyperkalemia noted. Would continue IV fluid hydration with isotonic saline check renal US and urine studies . Trend renal function and electrolytes Q12h Trend Hgb levels, no urgent indication for transfusion Cardiology follow up Thank you Antonio Harris DO
--- NOTE | 2019-10-28 12:34 | PN ---
Teaching Attending Note Name of Resident: Sander Brooke ATTENDING PHYSICIAN STATEMENT I saw and evaluated the patient. I reviewed the resident's note and discussed the case with the resident. I agree with the resident's findings and plan as documented. SUBJECTIVE: Patient seen and examined in the ICU. More awake and alert today. Denies CP or SOB. Off IV Insulin drip. Intake & Output 10/25/19 10/26/19 10/27/19 10/28/19 23:59 23:59 23:59 23:59 Intake Total 2775 1775 Output Total 500 500 Balance 2275 1275 Weight 200 lb 205 lb Last Vital Signs Temp Pulse Resp BP Pulse Ox 98.2 F 95 H 18 120/79 99 10/28/19 10:13 10/28/19 08:00 10/28/19 08:00 10/28/19 08:00 10/28/19 09:00 Active Medications Acetaminophen (Tylenol -) 650 mg PO Q6H PRN PRN Reason: PAIN LEVEL 6-10 Last Admin: 10/27/19 22:56 Dose: 650 mg Carvedilol (Coreg -) 6.25 mg PO BID [facility] Last Admin: 10/28/19 11:12 Dose: Not Given Chlorhexidine Gluconate (Hibiclens For Decolonization -) 1 applic TP HS [facility] Last Admin: 10/27/19 22:54 Dose: 1 applic Heparin Sodium (Porcine) (Heparin -) 5,000 unit SQ TID [facility] Last Admin: 10/28/19 07:30 Dose: 5,000 unit Sodium Chloride (Normal Saline -) 1,000 mls @ 100 mls/hr IV ASDIR [facility] Last Admin: 10/28/19 07:30 Dose: 100 mls/hr Insulin Aspart (Novolog Vial Sliding Scale -) 1 vial SQ Q4H [facility]; Protocol Last Admin: 10/28/19 12:24 Dose: 6 unit Insulin Detemir (Levemir Vial) 20 units SQ BID@0700,2200 [facility] Magnesium Oxide (Mag-Ox -) 400 mg PO BID [facility] Last Admin: 10/28/19 11:12 Dose: Not Given Mupirocin (Bactroban Ointment (For Decolonization) -) 1 applic NS BID [facility] Stop: 11/01/19 09:59 Last Admin: 10/28/19 11:11 Dose: Not Given GENERAL: Awake and alert, no acute distress. HEAD: Normal with no signs of trauma. EARS, NOSE, THROAT: Ears normal, nares patent, oropharynx clear without exudates. NECK: Normal range of motion, supple without lymphadenopathy, JVD, or masses. LUNGS: Breath sounds equal, clear to auscultation bilaterally. No wheezes, and no crackles. HEART: Regular rate and rhythm, normal S1 and S2 without murmur, rub or gallop. ABDOMEN: Soft, nontender, not distended, normoactive bowel sounds, no guarding, no rebound, no masses. UPPER EXTREMITIES: 2+ pulses, warm, well-perfused. No cyanosis. No clubbing. No peripheral edema. LOWER EXTREMITIES: 2+ pulses, warm, well-perfused. No calf tenderness. No peripheral edema. NEUROLOGICAL: Non-focal SKIN: Warm, dry, normal turgor, no rashes or lesions noted, normal capillary refill. Laboratory Results - last 24 hr 10/27/19 10/27/19 10/27/19 05:45 05:45 12:50 WBC RBC Hgb Hct MCV MCH MCHC RDW Plt Count MPV Retic Count 1.24 Sodium 138 Potassium 4.3 Chloride 104 Carbon Dioxide 17 L Anion Gap 17 H BUN 37.6 H Creatinine 2.0 H Est GFR (CKD-EPI)AfAm 38.68 Est GFR (CKD-EPI)NonAf 33.37 POC Glucometer Random Glucose 365 H Calcium 8.2 L Phosphorus Magnesium Total Bilirubin 0.6 AST 22 ALT 16 Alkaline Phosphatase 65 Troponin I 0.29 H Total Protein 6.4 Albumin 2.6 L HIV 1&2 Ag/Ab, 4th Gen Non reactive 10/27/19 10/27/19 10/27/19 12:54 14:00 15:00 WBC RBC Hgb Hct MCV MCH MCHC RDW Plt Count MPV Retic Count Sodium Potassium Chloride Carbon Dioxide Anion Gap BUN Creatinine Est GFR (CKD-EPI)AfAm Est GFR (CKD-EPI)NonAf POC Glucometer 351 291 167 Random Glucose Calcium Phosphorus Magnesium Total Bilirubin AST ALT Alkaline Phosphatase Troponin I Total Protein Albumin HIV 1&2 Ag/Ab, 4th Gen 10/27/19 10/27/19 10/27/19 16:01 16:15 17:10 WBC RBC Hgb Hct MCV MCH MCHC RDW Plt Count MPV Retic Count Sodium 142 Potassium 4.3 Chloride 108 H Carbon Dioxide 27 Anion Gap 7 L BUN 33.4 H Creatinine 2.0 H Est GFR (CKD-EPI)AfAm 38.68 Est GFR (CKD-EPI)NonAf 33.37 POC Glucometer 75 80 Random Glucose 60 L Calcium 8.2 L Phosphorus Magnesium Total Bilirubin AST ALT Alkaline Phosphatase Troponin I Total Protein Albumin HIV 1&2 Ag/Ab, 4th Gen 10/27/19 10/27/19 10/27/19 18:04 19:00 23:19 WBC RBC Hgb Hct MCV MCH MCHC RDW Plt Count MPV Retic Count Sodium 138 Potassium 4.8 Chloride 105 Carbon Dioxide 26 Anion Gap 7 L BUN 35.1 H Creatinine 2.0 H Est GFR (CKD-EPI)AfAm 38.68 Est GFR (CKD-EPI)NonAf 33.37 POC Glucometer 121 528 Random Glucose 202 H Calcium 8.8 Phosphorus Magnesium Total Bilirubin AST ALT Alkaline Phosphatase Troponin I Total Protein Albumin HIV 1&2 Ag/Ab, 4th Gen 10/28/19 10/28/19 10/28/19 01:24 05:50 05:50 WBC 5.3 RBC 3.25 L Hgb 8.9 L Hct 28.0 L MCV 86.0 MCH 27.3 MCHC 31.7 L RDW 15.5 Plt Count 147 MPV 11.0 Retic Count Sodium 136 Potassium 4.5 Chloride 104 Carbon Dioxide 22 Anion Gap 10 BUN 33.6 H Creatinine 1.9 H Est GFR (CKD-EPI)AfAm 41.15 Est GFR (CKD-EPI)NonAf 35.51 POC Glucometer 323 Random Glucose 281 H Calcium 7.9 L Phosphorus 3.6 Magnesium 2.6 H Total Bilirubin AST ALT Alkaline Phosphatase Troponin I Total Protein Albumin HIV 1&2 Ag/Ab, 4th Gen 10/28/19 10/28/19 06:11 11:22 WBC RBC Hgb Hct MCV MCH MCHC RDW Plt Count MPV Retic Count Sodium Potassium Chloride Carbon Dioxide Anion Gap BUN Creatinine Est GFR (CKD-EPI)AfAm Est GFR (CKD-EPI)NonAf POC Glucometer 254 248 Random Glucose Calcium Phosphorus Magnesium Total Bilirubin AST ALT Alkaline Phosphatase Troponin I Total Protein Albumin HIV 1&2 Ag/Ab, 4th Gen ASSESSMENT/PLAN: DKA DM I Polysubstance abuse Prior history of DKA Depression SHANE Anemia HTN CHF by history Recent Cardiac Cath at [facility] Insulin coverage IVF VTE prophylaxis Supplemental O2 as needed Aspiration precautions Follow BGM Replete lytes as needed PO as tolerated Obtain info from [facility] about recent Cardiac Cath Floor Dr Caro
--- NOTE | 2019-10-28 14:01 | ECHO ---
Name: SAM EAGLE Exam:Adult Echocardiogram Study Date: 10/28/2019 10:42 AM Age: 29 yrs Reason For Study: HFrEF Height: 63 in Weight: 205 lb BSA: 2.0 m2 MMode/2D Measurements & Calculations IVSd: 0.98 cm Ao root diam: 3.0 cm LVIDd: 5.8 cm LA dimension: 4.4 cm LVIDs: 4.2 cm ACS: 1.9 cm LVPWd: 1.2 cm IVSs: 1.2 cm LVPWs: 1.4 cm EDV(Teich): 165.6 ml ESV(Tealejandro): 76.4 ml EPSS: 1.8 cm Doppler Measurements & Calculations TR max deion: 210.4 cm/sec TR max P.7 mmHg Tech Comments Incomplete study, pt refused. Procedure There was technical limitations during this study due to uncooperative patient. Left Ventricle There is mild concentric left ventricular hypertrophy. The left ventricle is mildly dilated. Left bre tricular systolic function is normal. Ejection Fraction = 50-55%. Right Ventricle The right ventricle is grossly normal size. The right ventricular systolic function is grossly normal . Atria The left atrium is moderately dilated. Mitral Valve The mitral valve is normal in structure and function. There is no mitral valve stenosis. There is mil d mitral regurgitation. Tricuspid Valve The tricuspid valve is normal in structure and function. There is mild tricuspid regurgitation. Aortic Valve The aortic valve opens well. No hemodynamically significant valvular aortic stenosis. No aortic regur gitation is present. Pulmonic Valve The pulmonic valve is not well seen, but is grossly normal. Great Vessels The aortic root is normal size. Pericardium/Pleura Trivial pericardial effusion not hemodynamically significant. Interpretation Summary There is mild concentric left ventricular hypertrophy. The left ventricle is mildly dilated. Left ventricular systolic function is normal. Ejection Fraction = 50-55%. The left atrium is moderately dilated. There is mild mitral regurgitation. There is mild tricuspid regurgitation. Trivial pericardial effusion not hemodynamically significant There was technical limitations during this study due to uncooperative patient. MD Pantoja *Charito 10/28/2019 02:00 PM
--- NOTE | 2019-10-28 14:40 | PN ---
Physical Exam: SUBJECTIVE: Patient seen and examined O/N: refuses echocardiogram, refusing insulin ISS Endorses appetite, denies CP, SOB. OBJECTIVE: Vital Signs Period Temp Pulse Resp BP Sys/Marquis Pulse Ox Last 24 Hr 98.2 F-99.4 F 89-111 16-26 93-150/64-99 96-99 GENERAL: mild lethargy HEAD: Normal with no signs of trauma. EYES: Sclera anicteric, conjunctiva clear. No lid lag. EARS, NOSE, THROAT: Ears normal, nares patent, no evidence of septal perforation , oropharynx clear without exudates. Moist mucous membranes. NECK: Supple without lymphadenopathy, JVD, or masses. No cervical LAD LUNGS: Breath sounds equal, clear to auscultation bilaterally. No wheezes, and no crackles. No accessory muscle use. HEART: tachycardic, regular rhythm, normal S1 and S2 without murmur, rub or gallop. ABDOMEN: Soft, nonTTP [id number], not distended, normoactive bowel sounds, no guarding, no rebound, no masses. MUSCULOSKELETAL: Normal range of motion at all joints. No bony deformities or tenderness. No CVA tenderness. LOWER EXTREMITIES: 2+ pulses, warm, well-perfused. No calf tenderness. No peripheral edema. NEUROLOGICAL: mild lethargy, following commands SKIN: Warm, dry, normal turgor, no rashes or lesions noted. Laboratory Results - last 24 hr 10/27/19 10/27/19 10/27/19 05:45 15:00 16:01 WBC RBC Hgb Hct MCV MCH MCHC RDW Plt Count MPV Sodium Potassium Chloride Carbon Dioxide Anion Gap BUN Creatinine Est GFR (CKD-EPI)AfAm Est GFR (CKD-EPI)NonAf POC Glucometer 167 75 Random Glucose Calcium Phosphorus Magnesium HIV 1&2 Ag/Ab, 4th Gen Non reactive 10/27/19 10/27/19 10/27/19 16:15 17:10 18:04 WBC RBC Hgb Hct MCV MCH MCHC RDW Plt Count MPV Sodium 142 Potassium 4.3 Chloride 108 H Carbon Dioxide 27 Anion Gap 7 L BUN 33.4 H Creatinine 2.0 H Est GFR (CKD-EPI)AfAm 38.68 Est GFR (CKD-EPI)NonAf 33.37 POC Glucometer 80 121 Random Glucose 60 L Calcium 8.2 L Phosphorus Magnesium HIV 1&2 Ag/Ab, 4th Gen 10/27/19 10/27/19 10/28/19 19:00 23:19 01:24 WBC RBC Hgb Hct MCV MCH MCHC RDW Plt Count MPV Sodium 138 Potassium 4.8 Chloride 105 Carbon Dioxide 26 Anion Gap 7 L BUN 35.1 H Creatinine 2.0 H Est GFR (CKD-EPI)AfAm 38.68 Est GFR (CKD-EPI)NonAf 33.37 POC Glucometer 528 323 Random Glucose 202 H Calcium 8.8 Phosphorus Magnesium HIV 1&2 Ag/Ab, 4th Gen 10/28/19 10/28/19 10/28/19 05:50 05:50 06:11 WBC 5.3 RBC 3.25 L Hgb 8.9 L Hct 28.0 L MCV 86.0 MCH 27.3 MCHC 31.7 L RDW 15.5 Plt Count 147 MPV 11.0 Sodium 136 Potassium 4.5 Chloride 104 Carbon Dioxide 22 Anion Gap 10 BUN 33.6 H Creatinine 1.9 H Est GFR (CKD-EPI)AfAm 41.15 Est GFR (CKD-EPI)NonAf 35.51 POC Glucometer 254 Random Glucose 281 H Calcium 7.9 L Phosphorus 3.6 Magnesium 2.6 H HIV 1&2 Ag/Ab, 4th Gen 10/28/19 11:22 WBC RBC Hgb Hct MCV MCH MCHC RDW Plt Count MPV Sodium Potassium Chloride Carbon Dioxide Anion Gap BUN Creatinine Est GFR (CKD-EPI)AfAm Est GFR (CKD-EPI)NonAf POC Glucometer 248 Random Glucose Calcium Phosphorus Magnesium HIV 1&2 Ag/Ab, 4th Gen Active Medications Generic Name Dose Route Start Last Admin Trade Name Freq PRN Reason Stop Dose Admin Acetaminophen 650 mg 10/27/19 20:39 10/27/19 22:56 Tylenol - PO 650 mg Q6H PRN Administration PAIN LEVEL 6-10 Carvedilol 6.25 mg 10/27/19 17:00 10/28/19 13:00 Coreg - PO 6.25 mg BID ALISA Administration Chlorhexidine Gluconate 1 applic 10/27/19 22:00 10/27/19 22:54 Hibiclens For Decolonization - TP 1 applic HS ALISA Administration Heparin Sodium (Porcine) 5,000 unit 10/27/19 07:15 10/28/19 13:47 Heparin - SQ Not Given TID ALISA Sodium Chloride 1,000 mls @ 100 mls/hr 10/27/19 23:30 10/28/19 10:00 Normal Saline - IV 100 mls/hr ASDIR [facility] Administration Insulin Aspart 1 vial 10/28/19 13:00 10/28/19 13:34 Novolog Vial Sliding Scale - SQ Not Given ACHS [facility] Protocol Insulin Detemir 20 units 10/28/19 22:00 Levemir Vial SQ BID@0700,2200 [facility] Magnesium Oxide 400 mg 10/27/19 22:00 10/28/19 13:00 Mag-Ox - PO 400 mg BID [facility] Administration Mupirocin 1 applic 10/27/19 10:00 10/28/19 11:11 Bactroban Ointment (For Decolonization) - NS 11/01/19 09:59 Not Given BID [facility] ASSESSMENT/PLAN: 29 y/o F with hx of DM2 c/b DKA, HTN, cocaine abuse presenting with emesis and SOB, also with cocaine abuse on day of addmission. Found to be in DKA with BP 89 /51 HR 115 Neuro: # lethargy 2/2 to DKA # polysubstance substance(cocaine, bz, EtOH) use disorder > UDS: positive benzodiazepine -BGM ACHS and frequent mental status checks Endo: # DKA --resolved # uncontrolled T1DM > ED: Glu 525, AG 20, bicarb 14, beta hydroxy >46, K 5.1, pH 7.32 > 10/28/19: AG 10 -cw insulin gtt -Endo([facility]) consulted: --BGM QACHS Novolog --Levemir 20U BID Cardio: # troponemia --likely 2/2 demand ischemia # ho ?cardiac cath # prolonged QTc > troponin: 0.38, 0.42, 0.29 > EKG(10/27/19): QTc 587 > Echo(10/28/19): LVEF 50-55%, mild LVH, trivial pericardial effusion -BP 89/59 HR 115 s/p 2L -cocaine abuse; avoid beta blockers - Cardiology([facility]) consulted: --resume carvedilol 6.25 BID(not contraindicated w/ cocaine), and incr to 12.5 BID --aggressive IVF --resume VINCENT-I/ARB --obtain Cath([facility]) records Pulm: -100% O2 on RA PRN GI: # Nausea --possibly 2/2 to gastroparesis vs DKA ---improved -diabetic diet Renal: # SHANE --likely 2/2 dehdydration > Cr(baseline ~1.1): 1.9 --> 2.0 -will continue to monitor following ivf FEN - NS @100 - diabetic diet DVT ppx - SQH Dispo: downgrade from Tele to MedSurg Visit type - Emergency Visit Emergency Visit: No - New Patient This patient is new to me today: No - Critical Care Critical Care patient: Yes Total Critical Care Time (in minutes): 36 Critical Care Statement: The care of this patient involved high complexity decision making to prevent further life threatening deterioration of the patient 's condition and/or to evaluate & treat vital organ system(s) failure or risk of failure. ATTENDING PHYSICIAN STATEMENT I saw and evaluated the patient. I reviewed the resident's note and discussed the case with the resident. I agree with the resident's findings and plan as documented. SUBJECTIVE: OBJECTIVE: ASSESSMENT AND PLAN:
[2019-10-28] MEDS ORDERED: SODIUM CHLORIDE 1,000 ML IV SCH (15:22)
--- NOTE | 2019-10-28 15:46 | PN ---
Progress Note (short form) - Note Progress Note: Patient is comfortable off insulin drip. She denies any fever chills but she is very depressed she is refusing everything. Vital Signs Period Temp Pulse Resp BP Sys/Marquis Pulse Ox Last 24 Hr 98.2 F-99.4 F 89-111 16-18 93-150/64-99 96-99 Head no headache no dizziness Ear nose throat no epistaxis Cardiovascular no chest pain Pulmonary no wheezing no coughing GI no abdominal pain Endocrine no history of diabetes hypothyroidism Neuro no history of stroke Dermatology no history of stroke Locomotor no history of joint pain Rest of review of systems are negative Examination Patient is comfortable HEENT normal Neck supple no JVD Lungs clear no wheezing Abdomen nontender no organomegaly bowel sounds normal Extremities no edema no cyanosis normal pulses Neurologically he is alert awake oriented, nonfocal Skin no rash noted CBC, BMP 10/28/19 05:50 10/28/19 05:50 Assessment and plan 29 y/o F with hx of DM2 c/b DKA, HTN, cocaine abuse presenting with emesis and SOB, also with cocaine abuse on day of addmission. Found to be in DKA with Patient to start on insulin coverage and long-acting insulin Levemir 20 units twice daily seen by Dr. Hwang but will follow-up on her sugar level and adjust her dose High troponin probably due to demand ischemia. Manufacturing Engineering Director consulted. Renal failure probably due to dehydration she is improved now since IV fluids Patient is refusing everything also history of depression she does not remember her list of medication requested psychiatric consult. Current Medications Acetaminophen (Tylenol -) 650 mg PO Q6H PRN PRN Reason: PAIN LEVEL 6-10 Carvedilol (Coreg -) 12.5 mg PO BID [facility] Heparin Sodium (Porcine) (Heparin -) 5,000 unit SQ TID [facility] Sodium Chloride (Normal Saline -) 1,000 mls @ 100 mls/hr IV ASDIR [facility] Insulin Aspart (Novolog Vial Sliding Scale -) 1 vial SQ ACHS [facility]; Protocol Last Admin: 10/28/19 13:34 Dose: Not Given Insulin Detemir (Levemir Vial) 20 units SQ BID@0700,2200 [facility] Magnesium Oxide (Mag-Ox -) 400 mg PO BID [facility] Visit type - Emergency Visit Emergency Visit: Yes ED Registration Date: 10/27/19 Care time: The patient presented to the Emergency Department on the above date and was hospitalized for further evaluation of their emergent condition. - New Patient This patient is new to me today: Yes Date on this admission: 10/28/19 - Critical Care Critical Care patient: No - Discharge Referral Referred to [facility] No
[2019-10-28] MEDS: CARVEDILOL 12.5 MG TABLET (FP) PO SCH ×3 (17:57→21:46)
[2019-10-28] MEDS ORDERED: INSULIN (NOVOLOG) ASPART 100 UNITS/ML 10ML VIAL ONE (21:08)
[2019-10-28] MEDS: INSULIN (LEVEMIR) 100 UNITS/ML UNITS SQ SCH (21:40)
[2019-10-28 23:06] LABS: HEP B CORE AB, TOT Negative (Negative)
[2019-10-29] MEDS: INSULIN SLIDING SCALE (NOVOLOG) 1 VIAL SQ SCH ×4 (06:39→21:30)
[2019-10-29] MEDS: HEPARIN NA (PORCINE) 5,000 UNITS/ML 1ML VIAL SQ SCH ×4 (06:40→21:32)
[2019-10-29] MEDS: INSULIN (LEVEMIR) 100 UNITS/ML UNITS SQ SCH (06:40)
[2019-10-29 08:47] LABS: HEMATOCRIT 26.6 % (32.4-45.2); HEMOGLOBIN 8.7 GM/dL (10.7-15.3); MCH 27.7 pg (25.7-33.7); MCHC 32.5 g/dl (32.0-36.0); MEAN CELL VOLUME 85.2 fl (80-96); MEAN PLT VOLUME 10.8 fl (7.5-11.1); PLATELET COUNT 139 K/MM3 (134-434); RBC 3.13 M/mm3 (3.60-5.2); RDW 15.3 % (11.6-15.6); WHITE BLOOD COUNT 5.2 K/mm3 (4.0-10.0)
[2019-10-29 09:38] LABS: ALBUMIN 2.4 g/dl (3.4-5.0); BILIRUBIN,TOTAL 0.2 mg/dL (0.2-1); BLOOD UREA NITROGEN 19.3 mg/dL (7-18); CALCIUM 8.2 mg/dL (8.5-10.1); CREATININE 1.6 mg/dL (0.55-1.3); MAGNESIUM 2.1 mg/dL (1.8-2.4); PHOSPHOROUS 3.7 mg/dL (2.5-4.9); POTASSIUM 4.5 mmol/L (3.5-5.1)
[2019-10-29] MEDS: ACETAMINOPHEN 325 MG TABLET (FP) PO PRN ×2 (09:54→19:58)
[2019-10-29] MEDS: CARVEDILOL 12.5 MG TABLET (FP) PO SCH ×2 (09:55→21:32)
[2019-10-29] MEDS: MAGNESIUM OXIDE 400 MG TABLET (FP) PO SCH ×2 (09:55→21:32)
--- NOTE | 2019-10-29 11:24 | PN ---
Progress Note (short form) - Note Progress Note: Patient is Comfortable denies any chest pain she has not seen by psychiatrist yet. Vital Signs Period Temp Pulse Resp BP Sys/Marquis Pulse Ox Last 24 Hr 98.2 F-99.4 F 89-111 16-18 93-150/64-99 96-99 Head no headache no dizziness Ear nose throat no epistaxis Cardiovascular no chest pain Pulmonary no wheezing no coughing GI no abdominal pain Endocrine no history of diabetes hypothyroidism Neuro no history of stroke Dermatology no history of stroke Locomotor no history of joint pain Rest of review of systems are negative Examination Patient is comfortable HEENT normal Neck supple no JVD Lungs clear no wheezing Abdomen nontender no organomegaly bowel sounds normal Extremities no edema no cyanosis normal pulses Neurologically he is alert awake oriented, nonfocal Skin no rash noted CBC, BMP 10/29/19 07:18 10/29/19 07:18 Assessment and plan 29 y/o F with hx of DM2 c/b DKA, HTN, cocaine abuse presenting with emesis and SOB, also with cocaine abuse on day of addmission. Found to be in DKA with Patient to start on insulin coverage and long-acting insulin Levemir 20 units twice daily seen by Dr. Hwang but will follow-up on her sugar level and adjust her dose High troponin probably due to demand ischemia. [employer] consulted. Renal failure probably due to dehydration she is improved now since IV fluids Patient is refusing everything also history of depression she does not remember her list of medication requested psychiatric consult. Patient is refusing IV fluids will start her her home medications Current Medications Current Medications Acetaminophen (Tylenol -) 650 mg PO Q6H PRN PRN Reason: PAIN LEVEL 6-10 Last Admin: 10/29/19 09:54 Dose: 650 mg Aspirin (Ecotrin -) 81 mg PO DAILY [facility] Carvedilol (Coreg -) 12.5 mg PO BID [facility] Last Admin: 10/29/19 09:55 Dose: Not Given Citalopram Hydrobromide (Celexa -) 20 mg PO DAILY [facility] Clopidogrel Bisulfate (Plavix -) 75 mg PO DAILY [facility] Heparin Sodium (Porcine) (Heparin -) 5,000 unit SQ TID [facility] Last Admin: 10/29/19 06:46 Dose: Not Given Sodium Chloride (Normal Saline -) 1,000 mls @ 100 mls/hr IV ASDIR [facility] Insulin Aspart (Novolog Vial Sliding Scale -) 1 vial SQ ACHS [facility]; Protocol Last Admin: 10/29/19 06:39 Dose: 6 units Insulin Detemir (Levemir Vial) 25 units SQ BID@0700,2200 [facility] Magnesium Oxide (Mag-Ox -) 400 mg PO BID [facility] Last Admin: 10/29/19 09:55 Dose: 400 mg Visit type - Emergency Visit Emergency Visit: Yes ED Registration Date: 10/27/19 Care time: The patient presented to the Emergency Department on the above date and was hospitalized for further evaluation of their emergent condition. - New Patient This patient is new to me today: No - Critical Care Critical Care patient: No - Discharge Referral Referred to [facility] Med [facility].: No
[2019-10-29] MEDS: CLOPIDOGREL BISULFATE 75 MG TABLET (FP) PO SCH (12:28)
[2019-10-29 14:05] VITALS: BMI 36.3
--- NOTE | 2019-10-29 14:13 | PN ---
Progress Note, Physician History of Present Illness: Vomiting, SOB, sensorium improved, resting comfortably. Refusing studies. - Current Medication List Current Medications: Active Medications Acetaminophen (Tylenol -) 650 mg PO Q6H PRN PRN Reason: PAIN LEVEL 6-10 Last Admin: 10/29/19 09:54 Dose: 650 mg Aspirin (Ecotrin -) 81 mg PO DAILY [facility] Carvedilol (Coreg -) 12.5 mg PO BID [facility] Last Admin: 10/29/19 09:55 Dose: Not Given Citalopram Hydrobromide (Celexa -) 20 mg PO DAILY [facility] Clopidogrel Bisulfate (Plavix -) 75 mg PO DAILY [facility] Last Admin: 10/29/19 12:28 Dose: 75 mg Heparin Sodium (Porcine) (Heparin -) 5,000 unit SQ TID [facility] Last Admin: 10/29/19 06:46 Dose: Not Given Sodium Chloride (Normal Saline -) 1,000 mls @ 100 mls/hr IV ASDIR [facility] Insulin Aspart (Novolog Vial Sliding Scale -) 1 vial SQ ACHS [facility]; Protocol Last Admin: 10/29/19 12:30 Dose: 10 units Insulin Detemir (Levemir Vial) 25 units SQ BID@0700,2200 [facility] Magnesium Oxide (Mag-Ox -) 400 mg PO BID [facility] Last Admin: 10/29/19 09:55 Dose: 400 mg - Objective Vital Signs: Vital Signs Temperature 99 F 10/29/19 06:00 Pulse Rate 84 10/29/19 06:00 Respiratory Rate 18 10/29/19 06:00 Blood Pressure 145/82 10/29/19 06:00 O2 Sat by Pulse Oximetry (%) 100 10/28/19 21:00 Constitutional: Yes: No Distress, Calm Neck: Yes: Supple Cardiovascular: Yes: Regular Rate and Rhythm Respiratory: Yes: Regular, CTA Bilaterally Gastrointestinal: Yes: Normal Bowel Sounds, Soft, Abdomen, Obese Edema: No Labs: CBC, BMP 10/29/19 07:18 10/29/19 07:18 - ....Imaging Chest X-ray: Report Reviewed (ATX at bases) Problem List - Problems (1) DKA (diabetic ketoacidoses) Code(s): E11.10 - TYPE 2 DIABETES MELLITUS WITH KETOACIDOSIS WITHOUT COMA Qualifiers: Diabetes mellitus type: type 1 Diabetes mellitus complication detail: without coma Qualified Code(s): E10.10 - Type 1 diabetes mellitus with ketoacidosis without coma (2) SHANE (acute kidney injury) Code(s): N17.9 - ACUTE KIDNEY FAILURE, UNSPECIFIED (3) Cocaine abuse Code(s): F14.10 - COCAINE ABUSE, UNCOMPLICATED (4) Hyperlipidemia Code(s): E78.5 - HYPERLIPIDEMIA, UNSPECIFIED (5) Peripartum cardiomyopathy Code(s): O90.3 - PERIPARTUM CARDIOMYOPATHY (6) Systolic dysfunction without heart failure Code(s): I51.89 - OTHER ILL-DEFINED HEART DISEASES Assessment/Plan Assessment/Plan 04/01/2019 Echo: Mildly dilated LV, mild cLVH LVEF 40%, normal RV size and fxn, mild LAE, mod MR, mild TR, trace pericardial effusion 1. Recurrent DKA 2. Acute on CKD 2/2 to above resolved 3. H/o peripartum cardiomyopathy 4. H/o pericardial effusion 5. Cocaine abuse 6. Demand ischemia 7. Hyperlipidemia 8. PVC 9. Anemia P:1. Continue carvedilol 12.5 bid, no absolute contraindications with cocaine use 2. Resume enalapril 5 qd as renal fxn stabilizes 3. Obtain cath reports from [facility] if available for review, recommend d/c Plavix , continue ASA 81 qd 4. Cocaine abstinence 5. She follows up with property claim rep at [facility]
--- NOTE | 2019-10-29 14:53 | PN ---
Progress Note (short form) - Note Progress Note: Renal follow up for SHANE Seen and examined at the bedside awake and alert offers no complaints no sob, cp, fever, chills, N/V/D Vital Signs Temperature 99 F 10/29/19 06:00 Pulse Rate 84 10/29/19 06:00 Respiratory Rate 18 10/29/19 06:00 Blood Pressure 145/82 10/29/19 06:00 O2 Sat by Pulse Oximetry (%) 100 10/28/19 21:00 Intake & Output 10/26/19 10/27/19 10/28/19 10/29/19 23:59 23:59 23:59 23:59 Intake Total 2775 3425 0 Output Total 500 1500 Balance 2275 1925 0 Weight 90.718 kg 92.986 kg 92.986 kg awake and alert NAD neck supple, no JVD Dry MM RRR CTA no rales or wheeze soft NT/ND, obese. no rebound or guarding no LE edema, clubbing or cyanosis CBC, BMP 10/29/19 07:18 10/29/19 07:18 Current Medications Acetaminophen (Tylenol -) 650 mg PO Q6H PRN PRN Reason: PAIN LEVEL 6-10 Last Admin: 10/29/19 09:54 Dose: 650 mg Aspirin (Ecotrin -) 81 mg PO DAILY [facility] Carvedilol (Coreg -) 12.5 mg PO BID [facility] Last Admin: 10/29/19 09:55 Dose: Not Given Citalopram Hydrobromide (Celexa -) 20 mg PO DAILY [facility] Clopidogrel Bisulfate (Plavix -) 75 mg PO DAILY [facility] Last Admin: 10/29/19 12:28 Dose: 75 mg Enalapril Maleate (Vasotec -) 5 mg PO DAILY [facility] Heparin Sodium (Porcine) (Heparin -) 5,000 unit SQ TID [facility] Last Admin: 10/29/19 14:30 Dose: Not Given Sodium Chloride (Normal Saline -) 1,000 mls @ 100 mls/hr IV ASDIR [facility] Insulin Aspart (Novolog Vial Sliding Scale -) 1 vial SQ ACHS [facility]; Protocol Last Admin: 10/29/19 12:30 Dose: 10 units Insulin Detemir (Levemir Vial) 25 units SQ BID@0700,2200 [facility] Magnesium Oxide (Mag-Ox -) 400 mg PO BID [facility] Last Admin: 10/29/19 09:55 Dose: 400 mg 29 year old woman with history of DM type 1, CAD (? nonobstructive), CHF (decreased LVEF), substance abuse who presented with lethargy and AMS and found to have DKA and SHANE with Cr of 1.9. 1. DKA 2. Acute kidney injury 3. CHF/CAD 4. Tachycardia 5. Anemia Renal function slightly imporved can be off IVF oral intake as tolerated restarted on ACEi today by cardiology check renal US and urine studies . Trend renal function and electrolytes Cardiology follow up Thank you Antonio Harris DO
[2019-10-29] MEDS ORDERED: INSULIN (LEVEMIR) 100 UNITS/ML UNITS SQ SCH (22:00)
[2019-10-29] MEDS ORDERED: CARVEDILOL 6.25 MG TABLET (FP) PO SCH ×2 (22:00)
--- NOTE | 2019-10-30 00:14 | PN ---
Progress Note, Physician Chief Complaint: no complaint,tolerating diet well - Current Medication List Current Medications: Active Medications Acetaminophen (Tylenol -) 650 mg PO Q6H PRN PRN Reason: PAIN LEVEL 6-10 Last Admin: 10/29/19 09:54 Dose: 650 mg Aspirin (Ecotrin -) 81 mg PO DAILY [facility] Carvedilol (Coreg -) 12.5 mg PO BID [facility] Last Admin: 10/29/19 21:32 Dose: 12.5 mg Citalopram Hydrobromide (Celexa -) 20 mg PO DAILY [facility] Clopidogrel Bisulfate (Plavix -) 75 mg PO DAILY [facility] Last Admin: 10/29/19 12:28 Dose: 75 mg Enalapril Maleate (Vasotec -) 5 mg PO DAILY [facility] Heparin Sodium (Porcine) (Heparin -) 5,000 unit SQ TID [facility] Last Admin: 10/29/19 21:32 Dose: Not Given Insulin Aspart (Novolog Vial Sliding Scale -) 1 vial SQ ACHS [facility]; Protocol Last Admin: 10/29/19 21:30 Dose: 6 units Insulin Detemir (Levemir Vial) 25 units SQ BID@0700,2200 [facility] Last Admin: 10/29/19 21:31 Dose: 25 units Magnesium Oxide (Mag-Ox -) 400 mg PO BID [facility] Last Admin: 10/29/19 21:32 Dose: 400 mg - Objective Vital Signs: Vital Signs Temperature 99.4 F 10/29/19 18:00 Pulse Rate 87 10/29/19 18:00 Respiratory Rate 20 10/29/19 18:00 Blood Pressure 154/75 10/29/19 18:00 O2 Sat by Pulse Oximetry (%) 96 10/29/19 09:00 Constitutional: Yes: Calm Eyes: Yes: EOM Intact HENT: Yes: Normocephalic Neck: Yes: Trachea Midline Cardiovascular: Yes: Regular Rate and Rhythm Respiratory: Yes: CTA Bilaterally Gastrointestinal: Yes: Normal Bowel Sounds ...Rectal Exam: Yes: Deferred Genitourinary: Yes: WNL Musculoskeletal: Yes: WNL Extremities: Yes: WNL Edema: No Peripheral Pulses WNL: Yes Neurological: Yes: Alert, Oriented Labs: CBC, BMP 10/29/19 07:18 10/29/19 07:18 Problem List - Problems (1) DKA (diabetic ketoacidoses) Problems reviewed: Yes Code(s): E11.10 - TYPE 2 DIABETES MELLITUS WITH KETOACIDOSIS WITHOUT COMA Qualifiers: Diabetes mellitus type: type 1 Diabetes mellitus complication detail: without coma Qualified Code(s): E10.10 - Type 1 diabetes mellitus with ketoacidosis without coma (2) Systolic dysfunction without heart failure Code(s): I51.89 - OTHER ILL-DEFINED HEART DISEASES (3) SHANE (acute kidney injury) Code(s): N17.9 - ACUTE KIDNEY FAILURE, UNSPECIFIED (4) Cocaine abuse Code(s): F14.10 - COCAINE ABUSE, UNCOMPLICATED (5) Dehydration Code(s): E86.0 - DEHYDRATION (6) Elevated troponin I level Code(s): R74.8 - ABNORMAL LEVELS OF OTHER SERUM ENZYMES (7) Heart failure, systolic, with acute decompensation Code(s): I50.23 - ACUTE ON CHRONIC SYSTOLIC (CONGESTIVE) HEART FAILURE (8) Hyperglycemia Code(s): R73.9 - HYPERGLYCEMIA, UNSPECIFIED Assessment/Plan Current Active Problems DKA (diabetic ketoacidoses) (Acute) Systolic dysfunction without heart failure (Acute) Laboratory Results - last 24 hr 10/29/19 10/29/19 10/29/19 06:36 07:18 07:18 WBC 5.2 RBC 3.13 L Hgb 8.7 L Hct 26.6 L MCV 85.2 MCH 27.7 MCHC 32.5 RDW 15.3 Plt Count 139 MPV 10.8 Sodium 137 Potassium 4.5 Chloride 105 Carbon Dioxide 27 Anion Gap 5 L BUN 19.3 H Creatinine 1.6 H Est GFR (CKD-EPI)AfAm 50.66 Est GFR (CKD-EPI)NonAf 43.71 POC Glucometer 273 Random Glucose 289 H Calcium 8.2 L Phosphorus 3.7 Magnesium 2.1 Total Bilirubin 0.2 AST 22 ALT 18 Alkaline Phosphatase 66 Total Protein 6.0 L Albumin 2.4 L Ur Random Creatinine U Random Total Protein Urine Creatinine Protein/Creatinin Ratio 10/29/19 10/29/19 10/29/19 12:27 17:26 19:19 WBC RBC Hgb Hct MCV MCH MCHC RDW Plt Count MPV Sodium Potassium Chloride Carbon Dioxide Anion Gap BUN Creatinine Est GFR (CKD-EPI)AfAm Est GFR (CKD-EPI)NonAf POC Glucometer 373 272 Random Glucose Calcium Phosphorus Magnesium Total Bilirubin AST ALT Alkaline Phosphatase Total Protein Albumin Ur Random Creatinine 48.0 U Random Total Protein Urine Creatinine Protein/Creatinin Ratio 10/29/19 10/29/19 19:19 21:28 WBC RBC Hgb Hct MCV MCH MCHC RDW Plt Count MPV Sodium Potassium Chloride Carbon Dioxide Anion Gap BUN Creatinine Est GFR (CKD-EPI)AfAm Est GFR (CKD-EPI)NonAf POC Glucometer 295 Random Glucose Calcium Phosphorus Magnesium Total Bilirubin AST ALT Alkaline Phosphatase Total Protein Albumin Ur Random Creatinine U Random Total Protein 249.4 H Urine Creatinine 47.0 Protein/Creatinin Ratio 5.3 plan: levemir dose titiration for lower fasting glycemia levemir 30 iu bid novolog scale titrate
[2019-10-30] MEDS: INSULIN SLIDING SCALE (NOVOLOG) 1 VIAL SQ SCH ×4 (07:07→21:24)
[2019-10-30] MEDS: INSULIN (LEVEMIR) 100 UNITS/ML UNITS SQ SCH ×2 (07:09→21:24)
[2019-10-30] MEDS: HEPARIN NA (PORCINE) 5,000 UNITS/ML 1ML VIAL SQ SCH ×3 (07:10→21:24)
[2019-10-30] MEDS: ACETAMINOPHEN 325 MG TABLET (FP) PO PRN (07:10)
[2019-10-30] MEDS: ENALAPRIL MALEATE 2.5 MG TABLET (FP) PO SCH (10:09)
[2019-10-30] MEDS: CITALOPRAM HYDROBROMIDE 20 MG TABLET PO SCH (10:09)
[2019-10-30] MEDS: CARVEDILOL 12.5 MG TABLET (FP) PO SCH ×2 (10:09→21:24)
[2019-10-30] MEDS: CLOPIDOGREL BISULFATE 75 MG TABLET (FP) PO SCH (10:09)
[2019-10-30] MEDS: MAGNESIUM OXIDE 400 MG TABLET (FP) PO SCH ×2 (10:09→21:24)
[2019-10-30] MEDS: ASPIRIN COATED 81 MG TABLET.EC PO SCH (10:09)
--- NOTE | 2019-10-30 10:16 | DS ---
Physical Exam: SUBJECTIVE: Patient seen and examined This patient is comfortable has no symptoms she is improved sugar is much better seen by endocrine yesterday and increase insulin to 30 units twice a day of Levemir. OBJECTIVE: Vital Signs Period Temp Pulse Resp BP Sys/Marquis Pulse Ox Last 24 Hr 99.0 F-99.4 F 85-88 18-20 143-154/48-90 97 PHYSICAL EXAM GENERAL: The patient is awake, alert, and fully oriented, in no acute distress. HEAD: Normal with no signs of trauma. EYES: PERRL, extraocular movements intact, sclera anicteric, conjunctiva clear. ENT: Ears normal, nares patent, oropharynx clear without exudates, moist mucous membranes. NECK: Trachea midline, full range of motion, supple. LUNGS: Breath sounds equal, clear to auscultation bilaterally, no wheezes, no crackles, no accessory muscle use. HEART: Regular rate and rhythm, S1, S2 without murmur, rub or gallop. ABDOMEN: Soft, nontender, nondistended, normoactive bowel sounds, no guarding, no rebound, no hepatosplenomegaly, no masses. EXTREMITIES: 2+ pulses, warm, well-perfused, no edema. NEUROLOGICAL: Cranial nerves II through XII grossly intact. Normal speech, gait not observed. PSYCH: Normal mood, normal affect. SKIN: Warm, dry, normal turgor, no rashes or lesions noted. LABS Laboratory Results - last 24 hr 10/29/19 10/29/19 10/29/19 12:27 17:26 19:19 POC Glucometer 373 272 Ur Random Creatinine 48.0 U Random Total Protein Urine Creatinine Protein/Creatinin Ratio 10/29/19 10/29/19 10/30/19 19:19 21:28 07:05 POC Glucometer 295 231 Ur Random Creatinine U Random Total Protein 249.4 H Urine Creatinine 47.0 Protein/Creatinin Ratio 5.3 HOSPITAL COURSE: This is a 29-year-old female with past medical history of type 1 diabetes on insulin also coronary artery disease status post CA hyperlipidemia also depression take came to the hospital with because she stopped taking her medication and she is in DKA she was admitted to the hospital for acute DKA started on IV fluids IV insulin she improved her BUN/creatinine is come down today down to 1.6 she is much improved and she wanted to go home she is on a stay in the hospital she actually signed AMA but I have decided to send her home on her regular medication because she signed out AGAINST MEDICAL ADVICE she will come back to the A tomorrow. She will get home visiting nurse to look at her all a prescription was sent to the pharmacy she is going to pick him up and start taking her medications. She is going to follow-up in the clinic thank you. Date of Admission:10/27/19 Date of Discharge: 10/30/19 Minutes to complete discharge: 30 Discharge Summary Problems reviewed: Yes Reason For Visit: DIABETIC KETOACIDOSIS Current Active Problems DKA (diabetic ketoacidoses) (Acute) Systolic dysfunction without heart failure (Acute) Condition: Improved - Instructions Diet, Activity, Other Instructions: Advised patient that she needs her insulin daily otherwise she will end up in the hospital again with acute diabetic ketoacidosis she understood. She says she will also continue take her antidepressants. She is going to follow-up in the clinic phone number given to her. Disposition: HOME - Home Medications Comprehensive Discharge Medication List: Ambulatory Orders Furosemide 20 mg PO DAILY 01/11/19 Magnesium Oxide 600 mg PO BID 01/11/19 Aripiprazole [Abilify] 10 mg PO DAILY 04/01/19 Aspirin [Adult Aspirin Regimen] 81 mg PO DAILY 04/01/19 Insulin Lispro [Humalog Kwikpen U-200] See Protocol SQ ACHS 04/01/19 Lancets/Blood Glucose Strips [Fora [id number] Strp-Lnct] 1 each [facility] #1 combo..pkg 04/04/19 Aspirin Coated [Ecotrin -] 81 mg PO DAILY #30 tablet.ec 10/30/19 Carvedilol 6.25 mg PO BID #60 tablet 10/30/19 Citalopram Hydrobromide [Citalopram HBr] 20 mg PO DAILY #30 tablet 10/30/19 Clopidogrel Bisulfate [Plavix -] 75 mg PO DAILY #60 tablet 10/30/19 Enalapril Maleate [Vasotec -] 5 mg PO DAILY #30 tablet 10/30/19 Insulin Glargine,Hum.rec.anlog [Basaglar Kwikpen U-100] 30 units SQ BID #10 insuln.pen 10/30/19 This patient is new to me today: Yes Date on this admission: 10/30/19 Emergency Visit: Yes ED Registration Date: 10/27/19 Care time: The patient presented to the Emergency Department on the above date and was hospitalized for further evaluation of their emergent condition. Critical Care patient: No - Discharge Referral Referred to [facility] Med P.C.: No
--- NOTE | 2019-10-30 14:38 | PN ---
Progress Note (short form) - Note Progress Note: I discharged the patient but later on found out that her pharmacy is closed and she does not have any insulin in the home. So we will hold the discharge and she can go home tomorrow and continue same medication as before in the hospital. Visit type - Emergency Visit Emergency Visit: Yes ED Registration Date: 10/27/19 Care time: The patient presented to the Emergency Department on the above date and was hospitalized for further evaluation of their emergent condition. - New Patient This patient is new to me today: No - Critical Care Critical Care patient: No - Discharge Referral Referred to [facility] Med P.C.: No
[2019-10-30 21:20] VITALS: TEMP 98.3
[2019-10-31] MEDS ORDERED: MELATONIN 5 MG TABLETS PO ONE (01:44)
[2019-10-31] MEDS: HEPARIN NA (PORCINE) 5,000 UNITS/ML 1ML VIAL SQ SCH (05:50)
[2019-10-31] MEDS: INSULIN (LEVEMIR) 100 UNITS/ML UNITS SQ SCH ×2 (06:19→10:03)
[2019-10-31] MEDS: INSULIN SLIDING SCALE (NOVOLOG) 1 VIAL SQ SCH ×2 (06:20→10:03)
--- NOTE | 2019-10-31 07:22 | PN ---
Physical Exam: SUBJECTIVE: Patient seen and examined OBJECTIVE: Vital Signs Period Temp Pulse Resp BP Sys/Marquis Pulse Ox Last 24 Hr 98.3 F-98.8 F 79-85 18-20 130-132/82-88 96-96 GENERAL: The patient is awake, alert, and fully oriented, in no acute distress. HEAD: Normal with no signs of trauma. EYES: PERRL, extraocular movements intact, sclera anicteric, conjunctiva clear. No ptosis. ENT: Ears normal, nares patent, oropharynx clear without exudates, moist mucous membranes. NECK: Trachea midline, full range of motion, supple. LUNGS: Breath sounds equal, clear to auscultation bilaterally, no wheezes, no crackles, no accessory muscle use. HEART: Regular rate and rhythm, S1, S2 without murmur, rub or gallop. ABDOMEN: Soft, nontender, nondistended, normoactive bowel sounds, no guarding, no rebound, no hepatosplenomegaly, no masses. EXTREMITIES: 2+ pulses, warm, well-perfused, no edema. NEUROLOGICAL: Cranial nerves II through XII grossly intact. Normal speech, gait not observed. PSYCH: Normal mood, normal affect. SKIN: Warm, dry, normal turgor, no rashes or lesions noted Laboratory Results - last 24 hr 10/29/19 10/30/19 10/30/19 19:19 11:20 16:52 POC Glucometer 221 229 U Random Total Protein 249.4 H Ur Random Sodium 114 Urine Creatinine 47.0 Protein/Creatinin Ratio 5.3 10/30/19 21:22 POC Glucometer 222 U Random Total Protein Ur Random Sodium Urine Creatinine Protein/Creatinin Ratio Active Medications Generic Name Dose Route Start Last Admin Trade Name Freq PRN Reason Stop Dose Admin Acetaminophen 650 mg 10/28/19 15:22 10/30/19 07:10 Tylenol - PO 650 mg Q6H PRN Administration PAIN LEVEL 6-10 Aspirin 81 mg 10/30/19 10:00 10/30/19 10:09 Ecotrin - PO 81 mg DAILY ALISA Administration Carvedilol 12.5 mg 10/28/19 17:00 10/30/19 21:24 Coreg - PO Not Given BID ALISA Citalopram Hydrobromide 20 mg 10/30/19 10:00 10/30/19 10:09 Celexa - PO 20 mg DAILY ALISA Administration Clopidogrel Bisulfate 75 mg 10/29/19 10:30 10/30/19 10:09 Plavix - PO 75 mg DAILY ALISA Administration Enalapril Maleate 5 mg 10/30/19 10:00 10/30/19 10:09 Vasotec - PO 5 mg DAILY ALISA Administration Heparin Sodium (Porcine) 5,000 unit 10/28/19 22:00 10/31/19 05:50 Heparin - SQ Not Given TID [facility] Insulin Aspart 1 vial 10/30/19 00:13 10/31/19 06:20 Novolog Vial Sliding Scale - SQ Not Given ACHS [facility] Protocol Insulin Detemir 30 units 10/30/19 00:12 10/31/19 06:19 Levemir Vial SQ Not Given BID@0700,2200 [facility] Magnesium Oxide 400 mg 10/28/19 22:00 10/30/19 21:24 Mag-Ox - PO Not Given BID [facility] ASSESSMENT/PLAN: ATTENDING PHYSICIAN STATEMENT I saw and evaluated the patient. I reviewed the resident's note and discussed the case with the resident. I agree with the resident's findings and plan as documented. SUBJECTIVE: OBJECTIVE: ASSESSMENT AND PLAN:
--- NOTE | 2019-10-31 08:31 | PN ---
Teaching Attending Note Name of Resident: Arnaldo Moser ATTENDING PHYSICIAN STATEMENT I saw and evaluated the patient. I reviewed the resident's note and discussed the case with the resident. I agree with the resident's findings and plan as documented. SUBJECTIVE: OBJECTIVE: Vital Signs Period Temp Pulse Resp BP Sys/Marquis Pulse Ox Last 24 Hr 98.3 F 85 20 130/88 96-96 Laboratory Results - last 24 hr 10/29/19 10/30/19 10/30/19 19:19 11:20 16:52 POC Glucometer 221 229 U Random Total Protein 249.4 H Ur Random Sodium 114 Urine Creatinine 47.0 Protein/Creatinin Ratio 5.3 10/30/19 21:22 POC Glucometer 222 U Random Total Protein Ur Random Sodium Urine Creatinine Protein/Creatinin Ratio Current Medications Generic Name Dose Route Start Last Admin Trade Name Freq PRN Reason Stop Dose Admin Acetaminophen 650 mg 10/28/19 15:22 10/30/19 07:10 Tylenol - PO 650 mg Q6H PRN Administration PAIN LEVEL 6-10 Aspirin 81 mg 10/30/19 10:00 10/30/19 10:09 Ecotrin - PO 81 mg DAILY ALISA Administration Carvedilol 12.5 mg 10/28/19 17:00 10/30/19 21:24 Coreg - PO Not Given BID [facility] Citalopram Hydrobromide 20 mg 10/30/19 10:00 10/30/19 10:09 Celexa - PO 20 mg DAILY ALISA Administration Clopidogrel Bisulfate 75 mg 10/29/19 10:30 10/30/19 10:09 Plavix - PO 75 mg DAILY ALISA Administration Enalapril Maleate 5 mg 10/30/19 10:00 10/30/19 10:09 Vasotec - PO 5 mg DAILY ALISA Administration Heparin Sodium (Porcine) 5,000 unit 10/28/19 22:00 10/31/19 05:50 Heparin - SQ Not Given TID [facility] Insulin Aspart 1 vial 10/30/19 00:13 10/31/19 06:20 Novolog Vial Sliding Scale - SQ Not Given ACHS [facility] Protocol Insulin Detemir 30 units 10/30/19 00:12 10/31/19 06:19 Levemir Vial SQ Not Given BID@0700,2200 [facility] Magnesium Oxide 400 mg 10/28/19 22:00 10/30/19 21:24 Mag-Ox - PO Not Given BID [facility] ASSESSMENT AND PLAN: This is a 29 year old woman with a history of obesity, HTN, chronic systolic heart failure, type 2 DM, depression, substance abuse who presented to the ED with vomiting, lethargy, and confusion. 1. DKA Cont. insulin gtt until gap closed x2, bridge with basal insulin while continuing insulin gtt for 30-45 mins then DC, D5NS as needed for F/S <200, avoid hypoglycemia Aggressive electrolyte replacement, including K follow Endo consult: Dr Zacarias 2. Type 2 DM 3. Acute kidney injury 2/2 volume depletion, vomiting aggressive IV hydration trend CRE, avoid nephrotoxins Renal consult 4. Prolonged QTc EKG indicative of strain pattern with prolonged QTc avoid QTc prolonging agents, trend EKG daily IV Mg given with slight improvement, start Mg Oxide 800mg PO daily 5. Demand ischemia likely 2/2 demand in setting of underlying cardiomyopathy trend trops to document peak restart Coreg as per cardio recs Obtain collateral from [facility]? regarding recent cardiac cath Repeat Echo when rate controlled 6. Anemia follow anemia panel transfuse PRN 7. HTN restart BP meds as tolerated 8. Chronic systolic heart failure 9. Depression 10. Substance abuse admits to crack cocaine use OK to use Coreg as per cardio counseled on cessation, denies IV drug use 11. Obesity with BMI 36.3
[2019-10-31] MEDS ORDERED: INSULIN (NOVOLOG) ASPART 100 UNITS/ML 10ML VIAL ONE (10:00)
[2019-10-31] MEDS: ENALAPRIL MALEATE 2.5 MG TABLET (FP) PO SCH (10:02)
[2019-10-31] MEDS: CITALOPRAM HYDROBROMIDE 20 MG TABLET PO SCH (10:02)
[2019-10-31] MEDS: ASPIRIN COATED 81 MG TABLET.EC PO SCH (10:03)
[2019-10-31] MEDS: CLOPIDOGREL BISULFATE 75 MG TABLET (FP) PO SCH (10:03)
[2019-10-31] MEDS: CARVEDILOL 12.5 MG TABLET (FP) PO SCH (10:03)
[2019-10-31] MEDS: MAGNESIUM OXIDE 400 MG TABLET (FP) PO SCH (10:03)
[2019-10-31 10:05] VITALS: BP 154/99; PULSE 79
--- NOTE | 2019-10-31 19:20 | DS ---
Physical Exam: SUBJECTIVE: Patient seen and examined at bed side , was lethargic but refusing her morning lab and insulin , nurse check BGM in my presence was 500 ,explained to the pt that she has to take her Insulin as she will develop DKA , one hour later paged by nurse that pt eloped pt is not stable and not ready for dc and she is not compliance , w OBJECTIVE: Vital Signs Period Temp Pulse Resp BP Sys/Marquis Pulse Ox Last 24 Hr 98.3 F 79-85 16-20 130-154/88-99 96 PHYSICAL EXAM GENERAL: AAOx3 in NAD , lethargic HEAD: NC/AT EYES: EOMI, Conjunctiva clear, sclera anicteric ENT: moist mucous membrane NECK: Supple, no JVD LUNGS: CTA B/L, no crackles no wheezing no accessory muscle use. HEART: RRR,normal s1, s2, murmur no M/R/G ABDOMEN: Soft, ND, NT, +BS 4 Q, no CVA Tenderness LOWER EXTREMITIES: no edema, +2DP pulse, NEUROLOGICAL: No focal deficit. Normal speech. gait not observed. LABS Laboratory Results - last 24 hr 10/29/19 10/30/19 10/31/19 19:19 21:22 09:55 POC Glucometer 222 499 U Random Total Protein 249.4 H Ur Random Sodium 114 Urine Creatinine 47.0 Protein/Creatinin Ratio 5.3 CBC, BMP 10/29/19 07:18 10/29/19 07:18 HOSPITAL COURSE: Date of Admission:10/27/19 Date of Discharge: 10/31/19 This is a 29 year old woman with a history of obesity, HTN, chronic systolic heart failure, type 2 DM, depression, substance abuse who presented to the ED with vomiting, lethargy, and confusion. # DKA # Type 2 DM Cont. insulin gtt until gap closed x2, bridge with basal insulin while co ntinuing insulin gtt for 30-45 mins then DC, D5NS as needed for F/S <200, avoid hypoglycemia Aggressive electrolyte replacement, including K follow Endo consult: Dr Zacarias # Acute kidney injury 2/2 volume depletion, vomiting, aggressive IV hydration, trend CRE, Renal consulted # Prolonged QTc EKG indicative of strain pattern with prolonged QTc,avoid QTc prolonging agents, trend EKG daily ,IV Mg given with slight improvement, start Mg Oxide 800mg PO daily. #Demand ischemia likely 2/2 demand in setting of underlying cardiomyopathy,trend trops to document peak,restart Coreg as per cardio recs,Obtain collateral from [facility]? regarding recent cardiac cath,Repeat Echo when rate controlled. # Anemia follow anemia panel, transfuse PRN #HTN restart BP meds as tolerated #Chronic systolic heart failure # Depression # Substance abuseadmits to crack cocaine use,OK to use Coreg as per cardio,coun seled on cessation, denies IV drug use #Obesity with BMI 36.3 pt eloped from hospital before completing treatment. Minutes to complete discharge: 40 Discharge Summary Problems reviewed: Yes Reason For Visit: DIABETIC KETOACIDOSIS Condition: Poor - Instructions Diet, Activity, Other Instructions: Advised patient that she needs her insulin daily otherwise she will end up in the hospital again with acute diabetic ketoacidosis she understood. She says she will also continue take her antidepressants. She is going to follow-up in the clinic phone number given to her. Disposition: ELOPED - Home Medications Comprehensive Discharge Medication List: Ambulatory Orders Furosemide 20 mg PO DAILY 01/11/19 Magnesium Oxide 600 mg PO BID 01/11/19 Aripiprazole [Abilify] 10 mg PO DAILY 04/01/19 Aspirin [Adult Aspirin Regimen] 81 mg PO DAILY 04/01/19 Insulin Lispro [Humalog Kwikpen U-200] See Protocol SQ ACHS 04/01/19 Lancets/Blood Glucose Strips [Fora [id number] Strp-Lnct] 1 each [facility] #1 combo..pkg 04/04/19 Aspirin Coated [Ecotrin -] 81 mg PO DAILY #30 tablet.ec 10/30/19 Carvedilol 6.25 mg PO BID #60 tablet 10/30/19 Citalopram Hydrobromide [Citalopram HBr] 20 mg PO DAILY #30 tablet 10/30/19 Clopidogrel Bisulfate [Plavix -] 75 mg PO DAILY #60 tablet 10/30/19 Enalapril Maleate [Vasotec -] 5 mg PO DAILY #30 tablet 10/30/19 Insulin Glargine,Hum.rec.anlog [Basaglar Kwikpen U-100] 30 units SQ BID #10 insuln.pen 10/30/19 This patient is new to me today: Yes Date on this admission: 10/31/19 Emergency Visit: Yes ED Registration Date: 10/27/19 Care time: The patient presented to the Emergency Department on the above date and was hospitalized for further evaluation of their emergent condition. Critical Care patient: No - Discharge Referral Referred to [facility] Med P.C.: No ATTENDING PHYSICIAN STATEMENT I saw and evaluated the patient. I reviewed the resident's note and discussed the case with the resident. I agree with the resident's findings and plan as documented. SUBJECTIVE: OBJECTIVE: ASSESSMENT AND PLAN:
== END 2019-10-31 12:25 | disposition left against medical advice (07) | DRG 420 ==
LOC: JER 22:39 → JERBED 10-27 02:27 → JICU 10-27 04:30 → J5S 10-28 14:39
PROVIDERS: ADMIT Internal Medicine; ATTEND Internal Medicine
DX: E11.10 Type 2 diabetes mellitus with ketoacidosis without coma (principal); I11.0 Hypertensive heart disease with heart failure; N17.9 Acute kidney failure, unspecified; E46 Unspecified protein-calorie malnutrition; I50.22 Chronic systolic (congestive) heart failure; E88.09 Other disorders of plasma-protein metabolism, not elsewhere classified; F14.20 Cocaine dependence, uncomplicated; I31.3 Pericardial effusion (noninflammatory); I24.8 Other forms of acute ischemic heart disease; I25.10 Atherosclerotic heart disease of native coronary artery without angina pectoris; D64.9 Anemia, unspecified; E86.0 Dehydration; E66.9 Obesity, unspecified; F19.10 Other psychoactive substance abuse, uncomplicated; F32.9 Major depressive disorder, single episode, unspecified; R41.82 Altered mental status, unspecified; Z68.36 Body mass index [BMI] 36.0-36.9, adult; Z71.3 Dietary counseling and surveillance; Z79.4 Long term (current) use of insulin
CPT/HCPCS: 36415; 71045-TC-FY; 74018-TC-FY; 76775-TC; 80048; 80053; 80307; 81003; 82010; 82550; 82553; 82565; 82570; 82607; 82728; 82746; 82803; 82962; 83036; 83540; 83605; 83735; 84100; 84156; 84300; 84443; 84484; 84703; 85025; 85027; 85044; 86704; 86706; 86707; 86708; 86709; 87205; 87340; 87389; 93005; 93010; 93306-TC; 99285-25; J1644; J7030